=== PATIENT | female | born 1950 | race Caucasian/White ===

== ENCOUNTER 2016-10-14 14:24 | Observation (INO) | payer OTHER, MEDICAID ==
[2016-10-14 14:43] VITALS: BMI 60.2
[2016-10-14] MEDS ORDERED: NITROSTAT SL PRN (15:16)
--- NOTE | 2016-10-14 15:25 | DR.GENAD ---
HPI - PCP Primary Care Physician: BETTY - HPI Comment HPI Comment: WAS WEAK, DIZZY AND HYPOTENSIVE AT HOME AND WAS HAVING CHEST PAIN. NO FEVER. PAIN PRECORDIAL AREA. PAIN ASSOCIATED WITH WEAKNESS, SOB AND NAUSEA. NO FEVER. - Complaint/Symptoms Chief Complaint Doctors Comments: CHEST PATIENT, HYPOTENSION. Chief Complaint:: PT C/O HER BLOOD PRESSURE BOTTOMED OUT AND SHE STARTED HAVING CHEST PAIN AND SOB. PT STATES SHE IS NOT HAVING THE PAINS ANY MORE SHE IS JUST REALLY TIRED FEELING. - Nurses notes reviewed Nurses Notes Review: Yes - Source History Provided: Patient, EMS - Mode of Arrival Mode of Arrival: EMS - Timing Onset of Chief Complaint: 10/14/16 Came on: Suddenly - Duration Duration: Since Onset Duration: Hours - Severity Severity: Moderate PMH - PMH Past Medical History: Yes Past Medical History: Diabetes, GERD, Hypertension Past Surgical History: Yes Surgical History: Abdominal Surgery, Cholecystectomy, Hysterectomy, Ortho Surgery - Family History History of Family Medical Conditions: Yes Family Medical History: Diabetes Mellitus, Cancer, Coronary Artery Disease, Hypertension - Social History Does any household member use tobacco: No Alcohol Use: None Do you use any recreational Drugs:: No Lives With: Family Lives Where: Home - infectious screening In the last 2 months have you had wt loss of >10#?: NO Have you had fever, night sweats or hemotysis?: No Have you traveled outside the country in the last 6 months?: No Isolation: Standard ROS - Review of Systems Constitutional: Weakness, Fatigue. negative: Chills, Diaphoresis, Fever Eyes: negative: Eye Pain, Discharge ENTM: negative: Ear Pain, Nose Discharge, Nose Congestion, Throat Pain Respiratoy: Non-Productive Cough, Short of Breath. negative: Productive Cough, Wheezing, Hemoptysis Cardiovascular: Chest Pain, Edema Gastrointestinal/Abdominal: No Symptoms Reported. negative: Diarrhea, Nausea, Vomiting Genitourinary: No Symptoms Reported. negative: Dysuria, Frequency, Hematuria Neurological: Weakness. negative: Headache, Dizziness Musculoskeletal: Muscle Pain Integumentary: Other (EDEMA) Hematologic/Lymphatic: Easy Bruising Endocrine: No Symptoms Reported All Other Systems: Reviewed and Negative PE - Vital Signs Vitals: Temperature 98.7 F Pulse Rate 87 Respiratory Rate 20 Blood Pressure [Left Arm] 177/59 Blood Pressure [Right Arm] 124/47 Blood Pressure 140/61 O2 Sat by Pulse Oximetry 96 - General Limitations: No Limitations General Appearance: Alert - Head Head Exam: Normal Inspection - Eyes Eye exam: Normal Appearance - ENT ENT Exam: Normal External Ear Exam External Ear Exam: Normal External Inspection TM/Canal Exam: Bilateral Normal Nose Exam: Normal Nose Exam Mouth Exam: Normal Inspection Throat Exam: Normal Inspection - Neck Neck Exam: Normal Inspection - Chest Chest Inspection: Symmetric Chest Wall Rise - Respiratory Respiratory Exam: Normal Lung Sounds Bilat Respiratory Exam: Bilateral Clear to Auscultation - Cardiovascular Cardiovascular Exam: Regular Rate, Normal Rhythm, Normal Heart Sounds - Abdominal Exam Abdominal Exam: Normal Bowel Sounds, Soft. negative: Tenderness - Extremities Extremities Exam: Normal Inspection - Back Back Exam: Normal Inspection - Neurologic Neurological Exam: Alert, Oriented X3, CN II-XII Intact, Reflexes Normal. negative: Motor Sensory Deficit - Psychiatric Psychiatric Exam: Normal Affect, Normal Mood - Skin Skin Exam: Normal Color MDM - Additional Information Additional Information Obtained From: Family - Differential Diagnosis Differential Diagnosis: CHEST PAIN, HYPOTENSION, [place], ANGINA Course - Treatment Treatment: SEE ORDERS - Consultation Consultation Comments: PATIENT DISCUSS WITH DR. MEEKS. HE WILL ADMIT PATIENT. - Education/Counseling Education/Counseling: Patient, Family, Education Educated On: Treatment, Diagnosis ROR - Labs Reviewed Laboratory Results Reviewed?: Yes Result Diagrams: 10/15/16 04:55 10/15/16 04:55 - XRAY XRAY Interpreted by: Radiologist XRAY Findings: REPORT DISCUSS WITH PATIENT. - EKG Rhythm: NSR (EKG NOTED) - Diagnosis Discharge Problem: Chest pain Qualifiers: Chest pain type: precordial pain Qualified Code(s): R07.2 - Precordial pain Hypotension Qualifiers: Hypotension type: other hypotension type Qualified Code(s): I95.89 - Other hypotension - Discharge Plan Disposition: ADMITTED INPATIENT Condition: Stable - Follow ups/Referrals - Instructions
[2016-10-14 15:42] LABS: BASOPHILS # (AUTO) 0.1 X10^3/uL (0.0-0.1); BASOPHILS % (AUTO) 0.9 % (0.2-1.0); EOSINOPHILS # (AUTO) 0.2 x10^3/uL (0.0-0.2); EOSINOPHILS % (AUTO) 1.9 % (0.9-2.9); HEMOGLOBIN 10.1 g/dL (12.0-16.0); LYMPHOCYTES # (AUTO) 1.6 X10^3/uL (1.3-2.9); LYMPHOCYTES % (AUTO) 12.5 % (21.0-51.0); MEAN CORPUSCULAR HEMOGLOBIN 26.2 pg (27.0-34.0); MEAN CORPUSCULAR HGB CONC 32.7 g/dL (33.0-35.0); MEAN CORPUSCULAR VOLUME 80.1 fL (80.0-100.0); MONOCYTES # (AUTO) 0.6 x10^3/uL (0.3-0.8); MONOCYTES % (AUTO) 4.8 % (0.0-13.0); NEUTROPHILS # (AUTO) 10.2 x10^3/uL (2.2-4.8); NEUTROPHILS % (AUTO) 79.9 % (42.0-75.0); PLATELET COUNT 279 X10^3/uL (150.0-450.0); RED BLOOD COUNT 3.87 X10^6/uL (3.5-5.4); RED CELL DISTRIBUTION WIDTH 16.9 % (11.6-16.5); WHITE BLOOD COUNT 12.7 X10^3/uL (3.6-10.0)
[2016-10-14 15:59] LABS: B-TYPE NATRIURETIC PEPTIDE 11.3 pg/mL (0-79)
[2016-10-14 16:04] LABS: BLOOD UREA NITROGEN 36 mg/dL (7-18); CALCIUM 8.5 mg/dL (8.5-10.1); CARBON DIOXIDE 27.8 mmol/L (21-32); CHLORIDE 100 mmol/L (98-107); COR NA(FOR HYPERGLY) 139 mmol/L (136-145); CREATININE 2.15 mg/dL (0.55-1.02); GLUCOSE 263 mg/dL (65-99); SODIUM 135 mmol/L (136-145); TROPONIN I < 0.02 ng/mL (0-1.5); eGFR BLACK RACES 30 (>60); eGFR NON BLACK RACES 25 (>60)
[2016-10-14 16:08] LABS: ALANINE AMINOTRANSFERASE 25 Units/L (12-78); ALBUMIN 2.8 g/dL (3.4-5.0); ALKALINE PHOSPHATASE 102 Units/L (46-116); ASPARTATE AMINO TRANSFERASE 25 Units/L (15-37); CKMB % 2.3 % (<4); COR CA(FOR HYPOALB) 9.5 mg/dL (8.5-10.1); CREATINE KINASE 95 Units/L (26-192); CREATINE KINASE MB 2.2 ng/mL (0-4.0); TOTAL PROTEIN 7.4 g/dL (6.4-8.2)
--- NOTE | 2016-10-14 16:09 | RAD ---
HISTORY: Chest pain. Shortness of breath. Study: Chest one view Comparison: July 08, 2016. Findings: The trachea is midline. The cardiac silhouette is enlarged. There is central pulmonary vascular co ngestion. The lungs are clear without focal infiltrate or effusion. The bony thorax is unremarkable . IMPRESSION: 1. Cardiomegaly with central pulmonary vascular congestion. No significant interstitial edema is no karena at this time. Reported By:
[2016-10-14] MEDS ORDERED: LASIX PO PRN (17:12)
[2016-10-14] MEDS ORDERED: HumuLIN R SUBCUT PRN (19:22)
[2016-10-14] MEDS: NORCO 10/325 TAB PO PRN (20:27)
[2016-10-14] MEDS: PROTONIX TAB 40 MG PO SCH (20:27)
[2016-10-14] MEDS: ZOCOR TAB 20 MG PO SCH (20:29)
[2016-10-14] MEDS: PLETAL PO SCH (20:29)
[2016-10-14] MEDS: SNACK - Diabetic Appropriate PO SCH (21:17)
[2016-10-14] MEDS: OXYMORPHONE HCL PO SCH (21:18)
[2016-10-14] MEDS: REQUIP PO SCH (21:18)
[2016-10-14] MEDS: NS 1000 ML 1,000 ML IV SCH (21:19)
[2016-10-14] MEDS ORDERED: ROPINIROLE HYDROCHLORIDE PO SCH (22:00)
[2016-10-14 22:08] LABS: CKMB % 1.7 % (<4); CREATINE KINASE 85 Units/L (26-192); CREATINE KINASE MB 1.4 ng/mL (0-4.0); TROPONIN I < 0.02 ng/mL (0-1.5)
[2016-10-15] MEDS: REQUIP PO SCH ×3 (05:23→21:10)
[2016-10-15 06:11] LABS: ALANINE AMINOTRANSFERASE 22 Units/L (12-78); ALBUMIN 2.4 g/dL (3.4-5.0); ALKALINE PHOSPHATASE 86 Units/L (46-116); ASPARTATE AMINO TRANSFERASE 23 Units/L (15-37); BLOOD UREA NITROGEN 36 mg/dL (7-18); CALCIUM 8.3 mg/dL (8.5-10.1); CARBON DIOXIDE 26.5 mmol/L (21-32); CHLORIDE 103 mmol/L (98-107); CHOL/HDL RATIO 4.7 (0.0-5.0); CHOLESTEROL 112 mg/dL (0-200); CKMB % 1.7 % (<4); COR CA(FOR HYPOALB) 9.6 mg/dL (8.5-10.1); COR NA(FOR HYPERGLY) 137 mmol/L (136-145); CREATINE KINASE 72 Units/L (26-192); CREATINE KINASE MB 1.2 ng/mL (0-4.0); CREATININE 2.08 mg/dL (0.55-1.02); GLUCOSE 157 mg/dL (65-99); HDL CHOLESTEROL 24 mg/dL (40-60); SODIUM 136 mmol/L (136-145); TOTAL PROTEIN 6.5 g/dL (6.4-8.2); TRIGLYCERIDES 97 mg/dL (0-150); TROPONIN I < 0.02 ng/mL (0-1.5); eGFR BLACK RACES 31 (>60); eGFR NON BLACK RACES 25 (>60)
[2016-10-15 06:24] LABS: BASOPHILS # (AUTO) 0.1 X10^3/uL (0.0-0.1); BASOPHILS % (AUTO) 0.6 % (0.2-1.0); EOSINOPHILS # (AUTO) 0.3 x10^3/uL (0.0-0.2); EOSINOPHILS % (AUTO) 2.8 % (0.9-2.9); HEMATOCRIT 28.3 % (36.0-47.0); HEMOGLOBIN 9.4 g/dL (12.0-16.0); LYMPHOCYTES # (AUTO) 1.9 X10^3/uL (1.3-2.9); LYMPHOCYTES % (AUTO) 17.7 % (21.0-51.0); MEAN CORPUSCULAR HEMOGLOBIN 26.6 pg (27.0-34.0); MEAN CORPUSCULAR HGB CONC 33.1 g/dL (33.0-35.0); MEAN CORPUSCULAR VOLUME 80.2 fL (80.0-100.0); MEAN PLATELET VOLUME 9.3 fL (7.4-11.0); MONOCYTES # (AUTO) 0.7 x10^3/uL (0.3-0.8); MONOCYTES % (AUTO) 6.4 % (0.0-13.0); NEUTROPHILS # (AUTO) 7.7 x10^3/uL (2.2-4.8); NEUTROPHILS % (AUTO) 72.5 % (42.0-75.0); PLATELET COUNT 267 X10^3/uL (150.0-450.0); RED BLOOD COUNT 3.53 X10^6/uL (3.5-5.4); RED CELL DISTRIBUTION WIDTH 16.7 % (11.6-16.5); WHITE BLOOD COUNT 10.6 X10^3/uL (3.6-10.0)
[2016-10-15] MEDS ORDERED: PATIENT'S HOME MEDICATION (Rivaroxaban [Xarelto] 1 TAB) PO SCH (09:00)
[2016-10-15] MEDS: SYNTHROID 75 mcg TAB PO SCH (10:03)
[2016-10-15] MEDS: TOUJEO SOLOSTAR PEN SC SCH (10:03)
[2016-10-15] MEDS: XARELTO PO SCH (10:04)
[2016-10-15] MEDS: PROTONIX TAB 40 MG PO SCH ×2 (10:04→21:12)
[2016-10-15] MEDS: PLETAL PO SCH ×2 (10:04→21:16)
[2016-10-15] MEDS: GLUCOTROL XL PO SCH (10:04)
[2016-10-15] MEDS: SINGULAIR TAB 10 MG PO SCH (10:04)
[2016-10-15] MEDS: OXYMORPHONE HCL PO SCH ×2 (10:05→21:15)
[2016-10-15] MEDS: NS 1000 ML 1,000 ML IV SCH ×3 (10:22→15:05)
[2016-10-15] MEDS ORDERED: OxyCONTIN CR 30 MG PO PRN (11:29)
[2016-10-15] MEDS ORDERED: NORCO 10/325 TAB PO PRN (11:29)
[2016-10-15] MEDS ORDERED: OXYMORPHONE HCL 15 MG PO SCH (11:30)
[2016-10-15] MEDS ORDERED: PATIENT'S HOME MEDICATION (Losartan Potassium [Losartan Potassium] 1 TAB) PO SCH (11:30)
[2016-10-15] MEDS ORDERED: LOPRESSOR TAB 25 MG PO SCH (12:00)
[2016-10-15] MEDS ORDERED: COZAAR PO SCH (12:00)
[2016-10-15] MEDS: NORCO 10/325 TAB PO PRN (14:37)
[2016-10-15] MEDS ORDERED: ALBUMIN HUMAN 25%- 100ML 100 ML IV ONE ×3 (15:56→17:00)
--- NOTE | 2016-10-15 16:03 | DR.H&P ---
H&P - History & Physical for Day of: H&P Date: 10/14/16 - Chief Complaint Chief Complaint: Chest Pain, Hypotension, Shortness of Breath, Weakness - Allergies Allergies/Adverse Reactions: Allergies Allergy/AdvReac Type Severity Reaction Status Date / Time Propoxyphene [From Darvon] Allergy Unknown Verified 10/14/16 17:50 Bacitracin [From Neosporin] Allergy Verified 10/14/16 17:50 Hydrochlorothiazide Allergy Verified 10/14/16 17:50 [From Hyzaar] Latex Allergy Verified 10/14/16 17:50 - History of Present Illness History of Present Illness: Patient is a 66yo white female who presented to the emergency room with complaints of weakness, dizziness and hypotensive at home as well as chest pain. Upon arrival vital signs were 98.7, 87, 20, 96% on RA and 140/61. Labs were within normal limits with the exception of WBC 12.7, Hgb 10.1, Hct 31.0, MCH 26.2, MCHC 32.7, RDW 16.9, Neut% 79.9, Lymph% 12.5, Neut# 10.2, Sodium 135, BUN 36, Creatinine 2.15, Est GFR 25, Glucose 263, Albumin 2.8 , Globulin 4.6, Albumin/Globulin Ratio 0.6. Cardiac enzymes within normal limits as well as EKG. Chest Xray showed cardiomegaly with central pulmonary vascular congestion. No significant interstitial edema is noted at this time. Patient admitted with diagnosis of chest pain and hypotension for futher observation. Patient was started on NS @ [facility] as well as dher home medications were resumed with the exception of Lopressor and cozaar. - Past Medical History Past Medical History: Anemia, Arthritis, Depression, Diabetes, Dyslipidemia, GERD, Hypertension, Hypothyroidism, Renal Disease - Past Surgical History Surgical History: Abdominal Surgery, Cholecystectomy, Hysterectomy, Ortho Surgery - Family History Family Medical History: Diabetes Mellitus, Cancer, Coronary Artery Disease, Hypertension - Social History Does patient currently use any type of tobacco product: No Have you used tobacco products in the last 12 months: No Type of Tobacco Use: Cigarettes Does any household member use tobacco: No Alcohol Use: None Drug Use: None - Medications Home Medications: Current Medications Acetaminophen/Hydrocodone Bitart ([place] 10/325 Tab) 1 tab PO Q8H PRN PRN Reason: PAIN Last Admin: 10/15/16 14:37 Dose: 1 tab Cilostazol (Pletal) 50 mg PO BID [facility] Last Admin: 10/15/16 10:04 Dose: 50 mg Furosemide (Lasix) 40 mg PO BID PRN PRN Reason: SWELLING Glipizide (Glucotrol Xl) 5 mg PO DAILY [facility] Last Admin: 10/15/16 10:04 Dose: 5 mg Home Med (Oxymorphone Hcl [Opana Er (Crush Resistant]) 1 tab PO BID [facility] Last Admin: 10/15/16 10:05 Dose: 1 tab Insulin Glargine (Toujeo Solostar Pen) 60 units SC DAILY [facility] Last Admin: 10/15/16 10:03 Dose: 60 units Levothyroxine Sodium (Synthroid 75 Mcg Tab) 75 mcg PO DAILY [facility] Last Admin: 10/15/16 10:03 Dose: 75 mcg Miscellaneous (Otbs (One-Touch Blood Sugar)) 1 ea XX ACHS [facility] Last Admin: 10/15/16 11:37 Dose: 1 ea Montelukast Sodium (Singulair Tab 10 Mg) 10 mg PO DAILY [facility] Last Admin: 10/15/16 10:04 Dose: 10 mg Pantoprazole Sodium (Protonix Tab 40 Mg) 40 mg PO BID [facility] Last Admin: 10/15/16 10:04 Dose: 40 mg Rivaroxaban (Xarelto) 20 mg PO DAILY [facility] Last Admin: 10/15/16 10:04 Dose: 20 mg Ropinirole HCl (Requip) 3 mg PO TID [facility] Last Admin: 10/15/16 14:33 Dose: 3 mg Simvastatin (Zocor Tab 20 Mg) 20 mg PO HS [facility] Last Admin: 10/14/16 20:29 Dose: 20 mg - Review of Systems Constitutional: Weakness Eyes: No Symptoms Reported ENT: No Symptoms Reported Respiratory: Cough, Shortness of Breath Cardiovascular: Chest Pain, Edema, Light Headedness Gastrointestinal: No Symptoms Reported Genitourinary: No Symptoms Reported Musculoskeletal: No Symptoms Reported Skin: No Symptoms Reported Neurological: Weakness - Physical Exam Vital Signs: 98.7, 87, 20, 96% on RA and 140/61. Oriented: Normal Eyes: Normal Ear: Normal Nose: Normal Throat: Normal Respiratory: RLL Rales, LLL Rales Cardiovascular: Normal : Normal Auscultation: Bowel Sounds: Normal Palpation: Normal Tenderness: Normal Skin: Normal Musculoskeletal: Normal Psychiatric: Normal Mood Description: Calm, Appropriate Affect: Normal Speech Pattern: Clear, Appropriate - Assessment/Plan (1) Chest pain Qualifiers: Chest pain type: precordial pain Ischemic chest pain type: I Qualified Code(s): R07.2 - Precordial pain Status: Acute Plan: nitroglycerin SL PRN, Continuous cardiac monitoring, serial cardiac enzymes and EKG (2) Hypotension Qualifiers: Hypotension type: other hypotension type Trimester: T Qualified Code(s): I95.89 - Other hypotension Status: Acute Plan: hold patient home medicines lopressor and coozar (3) Generalized weakness Status: Acute Plan: physical therapy (4) Renal failure Qualifiers: Renal failure chronicity: R Acute renal failure type: A Chronic kidney disease stage: C Status: Acute Plan: monitor (5) Diabetes Qualifiers: Diabetes mellitus type: D Diabetes mellitus complication status: D Diabetes mellitus complication detail: D Diabetic retinopathy severity: D Proliferative retinopathy type: P Diabetes mellitus macular edema: D Diabetes mellitus prison insulin use: D Laterality: L Chronic kidney disease stage: C Status: Chronic Plan: continue Toujeo and glipizide OTBS ACHS and regular insulin sliding scale PRN hyperglycemia (6) GERD (gastroesophageal reflux disease) Qualifiers: Esophagitis presence: E Status: Chronic Plan: continue protonix (7) Hyperlipidemia Qualifiers: Hyperlipidemia type: H Status: Chronic Plan: monitor (8) Hypothyroidism Qualifiers: Hypothyroidism type: H Status: Chronic Plan: continue synthroid
--- NOTE | 2016-10-15 16:14 | PCM.PROG ---
Progress Note - Progress Note for Day of Date: 10/15/16 - Subjective Subjective: Patient is a 66yo white female who was admitted with chestpain and hypotension. Patient vital signs continue to remain stable with this ams vital signs being 98.4, 80, 22, 94% on nasal cannla, 91/44. Labs within normal limits with the exception of WBC 10.6, Hgb 9.4, Hct 28.3, MCH 26.6, RDW 16.7, Lymph% 17.7, Neut# 7.7, Eos# 0.3, BUN 36, Creatinine 2.08, Est GFR 25, Glucose 157, Calcium 8.3, Albumin 2.4, Albumin/Globulin Ration 0.6, HDL Cholestrol 24. Cardiac enzymes within normal limits as well as EKG. We are going to continue to hold her blood pressure medications and increase her fluids to 75ml/hr and give 2 doses of albumin today and follow up with her in the am with repeat labs and chest xray - Past Medical Family Social History Past Med/Fam/Surg Hx: No changes since H&P Allergies: Allergies Propoxyphene [From Darvon] Allergy (Unknown, Verified 10/14/16 17:50) Bacitracin [From Neosporin] Allergy (Verified 10/14/16 17:50) Hydrochlorothiazide [From Hyzaar] Allergy (Verified 10/14/16 17:50) Latex Allergy (Verified 10/14/16 17:50) - Review of Systems ROS: No change since H&P - Vital Signs and I&O's Vital Signs: 98.4, 80, 22, 94% on nasal cannla, 91/44 Intake and Output: Intake & Output 10/13/16 10/14/16 10/15/16 10/16/16 11:59 11:59 11:59 11:59 Intake Total 389 920 Balance 389 920 - Physical Exam Oriented: Normal Eyes: Normal Ear: Normal Nose: Normal Throat: Normal Respiratory: Rales Cardiovascular: Normal : Normal Auscultation: Bowel Sounds: Normal Tenderness: Normal Skin: Normal Musculoskeletal: Normal Psychiatric: Normal Mood Description: Calm, Appropriate Affect: Normal Speech Pattern: Clear, Appropriate - Laboratory and Diagnostics Result Diagrams: 10/15/16 04:55 10/15/16 04:55 Labs: Laboratory WBC 10.6 X10^3/uL (3.6-10.0) H 10/15/16 04:55 RBC 3.53 X10^6/uL (3.5-5.4) 10/15/16 04:55 Hgb 9.4 g/dL (12.0-16.0) L 10/15/16 04:55 Hct 28.3 % (36.0-47.0) L 10/15/16 04:55 MCV 80.2 fL (80.0-100.0) 10/15/16 04:55 MCH 26.6 pg (27.0-34.0) L 10/15/16 04:55 MCHC 33.1 g/dL (33.0-35.0) 10/15/16 04:55 RDW 16.7 % (11.6-16.5) H 10/15/16 04:55 Plt Count 267 X10^3/uL (150.0-450.0) 10/15/16 04:55 MPV 9.3 fL (7.4-11.0) 10/15/16 04:55 Neut % 72.5 % (42.0-75.0) 10/15/16 04:55 Lymph % 17.7 % (21.0-51.0) L 10/15/16 04:55 [place] % 6.4 % (0.0-13.0) 10/15/16 04:55 Eos % 2.8 % (0.9-2.9) 10/15/16 04:55 Baso % 0.6 % (0.2-1.0) 10/15/16 04:55 Neut # 7.7 x10^3/uL (2.2-4.8) H 10/15/16 04:55 Lymph # 1.9 X10^3/uL (1.3-2.9) 10/15/16 04:55 [place] # 0.7 x10^3/uL (0.3-0.8) 10/15/16 04:55 Eos # 0.3 x10^3/uL (0.0-0.2) H 10/15/16 04:55 Baso # 0.1 X10^3/uL (0.0-0.1) 10/15/16 04:55 Absolute Nucleated RBC 0.0 /100WBC 10/15/16 04:55 Sodium 136 mmol/L (136-145) 10/15/16 04:55 Corrected Sodium 137 mmol/L (136-145) 10/15/16 04:55 Potassium 4.0 mmol/L (3.5-5.1) 10/15/16 04:55 Chloride 103 mmol/L (98-107) 10/15/16 04:55 Carbon Dioxide 26.5 mmol/L (21-32) 10/15/16 04:55 BUN 36 mg/dL (7-18) H 10/15/16 04:55 Creatinine 2.08 mg/dL (0.55-1.02) H 10/15/16 04:55 Est GFR (MDRD) Af Amer 31 (>60) L 10/15/16 04:55 Est GFR (MDRD) Non-Af 25 (>60) L 10/15/16 04:55 Glucose 157 mg/dL (65-99) H 10/15/16 04:55 Calcium 8.3 mg/dL (8.5-10.1) L 10/15/16 04:55 Corrected Calcium 9.6 mg/dL (8.5-10.1) 10/15/16 04:55 Total Bilirubin 0.40 mg/dL (0.2-1.0) 10/15/16 04:55 AST 23 Units/L (15-37) 10/15/16 04:55 ALT 22 Units/L (12-78) 10/15/16 04:55 Alkaline Phosphatase 86 Units/L (46-116) 10/15/16 04:55 Creatine Kinase 72 Units/L (26-192) 10/15/16 04:55 CK-MB (CK-2) 1.2 ng/mL (0-4.0) 10/15/16 04:55 CK/CKMB % Calc 1.7 % (<4) 10/15/16 04:55 Troponin I < 0.02 ng/mL (0-1.5) 10/15/16 04:55 B-Natriuretic Peptide 11.3 pg/mL (0-79) 10/14/16 15:35 Total Protein 6.5 g/dL (6.4-8.2) 10/15/16 04:55 Albumin 2.4 g/dL (3.4-5.0) L 10/15/16 04:55 Globulin 4.1 g/dL (2.5-4.5) 10/15/16 04:55 Albumin/Globulin Ratio 0.6 Ratio (1.1-2.1) L 10/15/16 04:55 Triglycerides 97 mg/dL (0-150) 10/15/16 04:55 Cholesterol 112 mg/dL (0-200) 10/15/16 04:55 LDL Cholesterol, Calc 69 mg/dL (0-100) 10/15/16 04:55 HDL Cholesterol 24 mg/dL (40-60) L 10/15/16 04:55 Cholesterol/HDL Ratio 4.7 (0.0-5.0) 10/15/16 04:55 - Plan (1) Chest pain Status: Acute Qualifiers: Chest pain type: precordial pain Ischemic chest pain type: I Qualified Code(s): R07.2 - Precordial pain Plan: nitroglycerin SL PRN, Continuous cardiac monitoring, serial cardiac enzymes and EKG (2) Hypotension Status: Acute Qualifiers: Hypotension type: other hypotension type Trimester: T Qualified Code(s): I95.89 - Other hypotension Plan: hold patient home medicines lopressor and coozar (3) Generalized weakness Status: Acute Plan: physical therapy (4) Renal failure Status: Acute Qualifiers: Renal failure chronicity: R Acute renal failure type: A Chronic kidney disease stage: C Plan: monitor (5) Diabetes Status: Chronic Qualifiers: Diabetes mellitus type: D Diabetes mellitus complication status: D Diabetes mellitus complication detail: D Diabetic retinopathy severity: D Proliferative retinopathy type: P Diabetes mellitus macular edema: D 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
[2016-10-15] MEDS: SNACK - Diabetic Appropriate PO SCH (20:00)
[2016-10-15] MEDS: ZOCOR TAB 20 MG PO SCH (21:12)
[2016-10-16] MEDS: NORCO 10/325 TAB PO PRN (03:01)
[2016-10-16] MEDS ORDERED: REQUIP PO ONE (05:32)
[2016-10-16] MEDS: REQUIP PO SCH (05:37)
[2016-10-16 05:59] LABS: BASOPHILS # (AUTO) 0.1 X10^3/uL (0.0-0.1); BASOPHILS % (AUTO) 0.7 % (0.2-1.0); EOSINOPHILS # (AUTO) 0.3 x10^3/uL (0.0-0.2); EOSINOPHILS % (AUTO) 3.4 % (0.9-2.9); HEMATOCRIT 30.2 % (36.0-47.0); HEMOGLOBIN 9.9 g/dL (12.0-16.0); LYMPHOCYTES % (AUTO) 23.4 % (21.0-51.0); MEAN CORPUSCULAR HEMOGLOBIN 26.3 pg (27.0-34.0); MEAN CORPUSCULAR HGB CONC 32.7 g/dL (33.0-35.0); MEAN CORPUSCULAR VOLUME 80.5 fL (80.0-100.0); MEAN PLATELET VOLUME 9.3 fL (7.4-11.0); MONOCYTES # (AUTO) 0.7 x10^3/uL (0.3-0.8); MONOCYTES % (AUTO) 8.2 % (0.0-13.0); NEUTROPHILS # (AUTO) 5.4 x10^3/uL (2.2-4.8); NEUTROPHILS % (AUTO) 64.3 % (42.0-75.0); PLATELET COUNT 267 X10^3/uL (150.0-450.0); RED BLOOD COUNT 3.75 X10^6/uL (3.5-5.4); RED CELL DISTRIBUTION WIDTH 16.5 % (11.6-16.5); WHITE BLOOD COUNT 8.5 X10^3/uL (3.6-10.0)
--- NOTE | 2016-10-16 05:59 | RAD ---
HISTORY: Chest pain Study: Chest one view Comparison: October 14, 2016 Findings: The trachea is midline. The cardiac silhouette is enlarged. No congestive heart failure is noted. T he aorta is calcified.. The lungs are clear without focal infiltrate or effusion. The bony thorax is unremarkable. IMPRESSION: 1. Cardiomegaly without congestive heart failure 2. Lungs clear Reported By:
[2016-10-16 06:30] LABS: ALBUMIN 3.1 g/dL (3.4-5.0); C-REACTIVE PROTEIN 52.1 mg/L (0-3.0); CALCIUM 8.5 mg/dL (8.5-10.1); CARBON DIOXIDE 24.3 mmol/L (21-32); COR CA(FOR HYPOALB) 9.2 mg/dL (8.5-10.1); CREATININE 1.99 mg/dL (0.55-1.02); TOTAL PROTEIN 7.3 g/dL (6.4-8.2)
[2016-10-16 06:56] LABS: ERYTHROCYTE SEDIMENTATION RATE 70 MM/HOUR (0-20)
[2016-10-16] MEDS: PROTONIX TAB 40 MG PO SCH (09:19)
[2016-10-16] MEDS: XARELTO PO SCH (09:19)
[2016-10-16] MEDS: SYNTHROID 75 mcg TAB PO SCH (09:19)
[2016-10-16] MEDS: SINGULAIR TAB 10 MG PO SCH (09:19)
[2016-10-16] MEDS: TOUJEO SOLOSTAR PEN SC SCH (09:20)
[2016-10-16] MEDS: GLUCOTROL XL PO SCH (09:20)
[2016-10-16] MEDS: PLETAL PO SCH (09:20)
[2016-10-16] MEDS: OXYMORPHONE HCL PO SCH (09:21)
--- NOTE | 2016-10-16 09:27 | DR.CARTERD ---
- Discharge Summary for: Discharge Summary for Date of:: 10/16/16 - Admission Date Date of Admission: 10/14/16 - Admission Diagnoses Admission Diagnosis: Chest Pain. Hypotension. Arthritis. Depression. Diabetes Mellitus type 2. GERD. Renal Disease. Hypothyroidism - Discharge Date Discharge Date: 10/16/16 - Discharge Diagnoses Discharge Diagnosis: Chest Pain Hypotension Arthritis Depression Diabetes Mellitus type 2 GERD Renal Disease Hypothyroidism - Hospital Course Hospital Course: Patient is a 66yo white female who presented to the emergency room with complaints of shortness of breath, chest pain and hypotension at home. Patient was admitted for observation with the diagnosis of chest and hypotension. Patient was started on IV Fluids and home medications were resumed with the exception of her Lopressor and losartan. Pateint was placed on continuous cardiac monitoring and serial cardiac enzymes and EKGs were performed. Patient was also noted to have some hypoalbuminemia with an albumin of 2.4 so she was given 2 doses of IV Albumin. This am Labs are within normal limits with the exception of Hgb 9.9, Hct 30.2, MCH 26.3, MCHC 32.7, Eos% 3.4, Neut# 5.4, Eos# 0.3, ESR 70, BUN 34, Creatinine 1.99, Est GFR 27, Glucose 162, CRP 52.10, Albumin 3.1, Albumin/Globulin Ratio 0.1. chest Xray shows cardiomegaly without CHF and lungs are clear. Vital signs this am are 98.1, 102, 20, 97% on RA, and 151/67. Labs: Labs are within normal limits with the exception of Hgb 9.9, Hct 30.2, MCH 26.3 , MCHC 32.7, Eos% 3.4, Neut# 5.4, Eos# 0.3, ESR 70, BUN 34, Creatinine 1.99, Est GFR 27, Glucose 162, CRP 52.10, Albumin 3.1, Albumin/Globulin Ratio 0.1. - Discharge Medications Discharge Medications: [place] 10/325 1 tab PO Q8H PRN, Pletal 50 mg PO BID, Lasix 40 mg PO BID PRN, Glipizide 5 mg PO DAILY, Opana Er 15mg PO BID [facility], Touchano Solostar Pen 60 units SC DAILY, Synthroid 75 mcg PO DAILY, Singulair 10 mg PO DAILY, Protonix 40 mg PO BID, Xarelto 20 mg PO DAILY, Ropinirole HCl 3 mg PO TID , Simvastatin 20 mg PO HS, Diflucan 150mg PRN, Lispro sliding scale, Lopressor 12.5mg PO BID, Oxycodone 30mg PO Q6hr PRN, Cilostazol [PLETAL tab 100 mg *] 50 mg PO BID 10/14/16 [History] Fluconazole [DIFLUCAN TAB 150 MG *] 1 tab PO PRN PRN 10/14/16 [History] Hydrocodone-Acet 10/325 mg [NORCO 10 MG/325 MG *] 1 tab PO TID PRN 10/14/16 [ History] Insulin Glargine (Toujeo) [Toujeo Solostar Pen] 60 units SC DAILY 10/14/16 [ History] Insulin Lispro (Humalog) [HumaLOG INSULIN 10 ML VIAL *] 0 units SC .PERSLIDINGSCALE 10/14/16 [History] Oxycodone HCl [Oxycontin] 1 tab PO Q6H PRN 10/14/16 [History] Oxymorphone HCl [Opana] 15 mg PO BID 10/14/16 [History] - Discharge Disposition Discharge Disposition: Home
[2016-10-16 10:49] VITALS: BP 111/53
== END 2016-10-16 10:40 | disposition home health service (06) ==
LOC: ER 14:29 → MED/SURG 17:07
PROVIDERS: ADMIT Obstetrics & Gynecology Obstetrics; ATTEND Internal Medicine
DX: R07.2 Precordial pain (principal); R07.89 Other chest pain; I95.89 Other hypotension; R06.02 Shortness of breath; R53.1 Weakness; K21.9 Gastro-esophageal reflux disease without esophagitis; I10 Essential (primary) hypertension; M13.89 Other specified arthritis, multiple sites; F32.89 Other specified depressive episodes; E11.65 Type 2 diabetes mellitus with hyperglycemia; E03.8 Other specified hypothyroidism; N19 Unspecified kidney failure; I51.7 Cardiomegaly; D72.828 Other elevated white blood cell count; D64.89 Other specified anemias
CPT/HCPCS: 36415; 71010; 80053; 80061; 82550; 82553; 83880; 84484; 85025; 85652; 86140; 93005; 94760; 99284; A4222; G8978; G8979; P9047; G0378; J1815

== ENCOUNTER 2016-10-22 22:21 | Observation (INO) | payer OTHER, MEDICAID ==
--- NOTE | 2016-10-22 23:10 | DR.GENAD ---
HPI - PCP Primary Care Physician: BETTY - HPI Comment HPI Comment: PATIENT HAVE COPD AND CHF. WAS RECENTLY IN HOSPITAL. PATIENT DISCHARGE HOME ON . SHE STARTED HAVING PROGRESSIVE SOB THAT HAVE GOTTEN WORSE.SHE SAID IT MAY BE DUE TO CHANGE IN WEATHER, SHE ALSO HAVE CHEST TIGHTNESS. SHE TOLD EMS SHE NEEDED OXYGEN. PATIENT DO NOT HAVE HOME OXYGEN. - Complaint/Symptoms Chief Complaint Doctors Comments: INCREASING SOB, CHEST PAIN AND BODY ACHES TIMES 3 DAYS. Chief Complaint:: PT C/O SOB AND WHEEZING - Nurses notes reviewed Nurses Notes Review: Yes - Source History Provided: Patient - Mode of Arrival Mode of Arrival: EMS - Timing Onset of Chief Complaint: 10/20/16 Came on: Gradually - Duration Duration: Constant Duration: Days - Severity Severity: Moderate PMH - PMH Past Medical History: Yes Past Medical History: Anemia, Arthritis, Depression, Diabetes, Dyslipidemia, GERD, Hypertension, Hypothyroidism, Renal Disease Past Surgical History: Yes Surgical History: Abdominal Surgery, Cholecystectomy, Hysterectomy, Ortho Surgery - Family History History of Family Medical Conditions: Yes Family Medical History: Diabetes Mellitus, Cancer, Coronary Artery Disease, Hypertension - Social History Does patient currently use any type of tobacco product: No Have you used tobacco products in the last 12 months: No Does any household member use tobacco: No Alcohol Use: None Do you use any recreational Drugs:: No Lives With: Family Lives Where: Home - infectious screening In the last 2 months have you had wt loss of >10#?: NO Have you had fever, night sweats or hemotysis?: No Have you traveled outside the country in the last 6 months?: No Isolation: Standard ROS - Review of Systems Constitutional: Malaise, Weakness, Fatigue, Loss of Appetite. negative: Chills , Diaphoresis, Fever Eyes: No Symptoms Reported. negative: Eye Pain, Blurred Vision, Discharge, Photophobia ENTM: Nose Congestion. negative: Ear Pain, Nose Discharge, Throat Pain Respiratoy: Productive Cough, Short of Breath, Wheezing. negative: Hemoptysis Cardiovascular: Chest Pain, Edema (TTONE PLUS) Gastrointestinal/Abdominal: Abdominal Pain, Nausea. negative: Diarrhea, Vomiting Genitourinary: negative: Dysuria, Frequency, Hematuria Neurological: Anxiety, Headache, Weakness, Dizziness Musculoskeletal: Back Pain, Joint Pain, Joint Swelling, Muscle Pain, Chest wall , Back Integumentary: Other (ONE PLUS LOWER EXTREMITY EDEMA) Hematologic/Lymphatic: Easy Bruising Endocrine: Increased Thirst. negative: [place] Psychiatric: Depression All Other Systems: Reviewed and Negative Unable to Obtain Due To: Dementia PE - Vital Signs Vitals: Temperature 98.6 F Pulse Rate [Left Radial] 78 Pulse Rate 88 Respiratory Rate 20 Blood Pressure [Left Arm] 127/60 Blood Pressure [Right Arm] 152/67 Blood Pressure 153/63 O2 Sat by Pulse Oximetry 97 - General Limitations: No Limitations General Appearance: Alert - Head Head Exam: Normal Inspection - Eyes Eye exam: Normal Appearance - ENT ENT Exam: Normal External Ear Exam External Ear Exam: Normal External Inspection TM/Canal Exam: Bilateral Normal Nose Exam: Normal Nose Exam Mouth Exam: Normal Inspection Throat Exam: Normal Inspection - Neck Neck Exam: Trachea Midline. negative: Tenderness, Meningismus, Lymphadenopathy - Chest Chest Inspection: Symmetric Chest Wall Rise - Respiratory Respiratory Exam: Accessory Muscle Use, Respiratory Distress Respiratory Exam: Bilateral Wheezing, Bilateral Rhonchi, Bilateral Decreased Breath Sounds, Upper Wheezing, Upper Rhonchi, Lower Wheezing, Lower Rhonchi, Lower Decreased Breath Sounds - Cardiovascular Cardiovascular Exam: Regular Rate, Normal Rhythm, Normal Heart Sounds - Abdominal Exam Abdominal Exam: Normal Bowel Sounds, Soft. negative: Tenderness - Extremities Extremities Exam: Edema (ONE PLU) - Back Back Exam: Paraspinal Tenderness - Neurologic Neurological Exam: Alert, Oriented X3, CN II-XII Intact, Reflexes Normal. negative: Motor Sensory Deficit - Psychiatric Psychiatric Exam: Anxious - Skin Skin Exam: Erythema MDM - Differential Diagnosis Differential Diagnosis: CHF, COPD EXACERBATION, PNEUMONIA, BRONCHITIS, GENERALIZE MUSCLE PAIN Course - Treatment Treatment: SEE ORDERS. - Consultation Consultation Comments: DISCUSS PATIENT WITH DR. APPIAH. HE WILL ADMIT PATIENT. - Education/Counseling Education/Counseling: Patient, Education Educated On: Diagnosis ROR - Labs Reviewed Laboratory Results Reviewed?: Yes Result Diagrams: 10/22/16 23:24 10/22/16 23:24 Laboratory: WBC 11.4 X10^3/uL (3.6-10.0) H 10/22/16 23:24 RBC 4.05 X10^6/uL (3.5-5.4) 10/22/16 23:24 Hgb 10.4 g/dL (12.0-16.0) L 10/22/16 23:24 Hct 32.8 % (36.0-47.0) L 10/22/16 23:24 MCV 81.0 fL (80.0-100.0) 10/22/16 23:24 MCH 25.8 pg (27.0-34.0) L 10/22/16 23:24 MCHC 31.9 g/dL (33.0-35.0) L 10/22/16 23:24 RDW 16.4 % (11.6-16.5) 10/22/16 23:24 Plt Count 260 X10^3/uL (150.0-450.0) 10/22/16 23:24 Plt Count Comment Adequate (ADEQUATE) 10/22/16 23:24 MPV 8.6 fL (7.4-11.0) 10/22/16 23:24 Neut % 78.6 % (42.0-75.0) H 10/22/16 23:24 Lymph % 11.9 % (21.0-51.0) L 10/22/16 23:24 [place] % 5.5 % (0.0-13.0) 10/22/16 23:24 Eos % 3.3 % (0.9-2.9) H 10/22/16 23:24 Baso % 0.7 % (0.2-1.0) 10/22/16 23:24 Neut # 9.0 x10^3/uL (2.2-4.8) H 10/22/16 23:24 Lymph # 1.4 X10^3/uL (1.3-2.9) 10/22/16 23:24 [place] # 0.6 x10^3/uL (0.3-0.8) 10/22/16 23:24 Eos # 0.4 x10^3/uL (0.0-0.2) H 10/22/16 23:24 Baso # 0.1 X10^3/uL (0.0-0.1) 10/22/16 23:24 Absolute Nucleated RBC 0.0 /100WBC 10/22/16 23:24 Plt Morphology Comment Normal (NORMAL) 10/22/16 23:24 RBC Morphology Normal (NORMAL) 10/22/16 23:24 Sodium 142 mmol/L (136-145) 10/22/16 23:24 Corrected Sodium 144 mmol/L (136-145) 10/22/16 23:24 Potassium 3.4 mmol/L (3.5-5.1) L 10/22/16 23:24 Chloride 103 mmol/L (98-107) 10/22/16 23:24 Carbon Dioxide 32.4 mmol/L (21-32) H 10/22/16 23:24 BUN 25 mg/dL (7-18) H 10/22/16 23:24 Creatinine 1.53 mg/dL (0.55-1.02) H 10/22/16 23:24 Est GFR (MDRD) Af Amer 44 (>60) L 10/22/16 23:24 Est GFR (MDRD) Non-Af 36 (>60) L 10/22/16 23:24 Glucose 164 mg/dL (65-99) H 10/22/16 23:24 Calcium 7.9 mg/dL (8.5-10.1) L 10/22/16 23:24 Corrected Calcium 8.9 mg/dL (8.5-10.1) 10/22/16 23:24 Total Bilirubin 0.30 mg/dL (0.2-1.0) 10/22/16 23:24 AST 29 Units/L (15-37) 10/22/16 23:24 ALT 23 Units/L (12-78) 10/22/16 23:24 Alkaline Phosphatase 82 Units/L (46-116) 10/22/16 23:24 Creatine Kinase 79 Units/L (26-192) 10/22/16 23:24 CK-MB (CK-2) 1.0 ng/mL (0-4.0) 10/22/16 23:24 CK/CKMB % Calc 1.3 % (<4) 10/22/16 23:24 Troponin I < 0.02 ng/mL (0-1.5) 10/22/16 23:24 B-Natriuretic Peptide 125 pg/mL (0-79) H 10/22/16 23:24 Total Protein 7.1 g/dL (6.4-8.2) 10/22/16 23:24 Albumin 2.7 g/dL (3.4-5.0) L 10/22/16 23:24 Globulin 4.4 g/dL (2.5-4.5) 10/22/16 23:24 Albumin/Globulin Ratio 0.6 Ratio (1.1-2.1) L 10/22/16 23:24 - XRAY XRAY Interpreted by: Radiologist XRAY Findings: REPORT DISCUSS WITH PATIENT. - EKG Rhythm: NSR (EKG NOTED) - Diagnosis Discharge Problem: COPD (chronic obstructive pulmonary disease) with acute bronchitis, Respiratory distress, Generalized weakness Chest pain Qualifiers: Chest pain type: intercostal pain Qualified Code(s): R07.82 - Intercostal pain CHF (congestive heart failure) Qualifiers: Congestive heart failure type: combined Congestive heart failure chronicity: acute on chronic Qualified Code(s): I50.43 - Acute on chronic combined systolic (congestive) and diastolic (congestive) heart failure - Discharge Plan Disposition: 09 ADMITTED INPATIENT Condition: Stable - Follow ups/Referrals - Instructions
[2016-10-22 23:38] LABS: BASOPHILS # (AUTO) 0.1 X10^3/uL (0.0-0.1); BASOPHILS % (AUTO) 0.7 % (0.2-1.0); EOSINOPHILS # (AUTO) 0.4 x10^3/uL (0.0-0.2); EOSINOPHILS % (AUTO) 3.3 % (0.9-2.9); HEMATOCRIT 32.8 % (36.0-47.0); HEMOGLOBIN 10.4 g/dL (12.0-16.0); LYMPHOCYTES # (AUTO) 1.4 X10^3/uL (1.3-2.9); LYMPHOCYTES % (AUTO) 11.9 % (21.0-51.0); MEAN CORPUSCULAR HEMOGLOBIN 25.8 pg (27.0-34.0); MEAN CORPUSCULAR HGB CONC 31.9 g/dL (33.0-35.0); MEAN PLATELET VOLUME 8.6 fL (7.4-11.0); MONOCYTES # (AUTO) 0.6 x10^3/uL (0.3-0.8); MONOCYTES % (AUTO) 5.5 % (0.0-13.0); NEUTROPHILS % (AUTO) 78.6 % (42.0-75.0); PLATELET COUNT 260 X10^3/uL (150.0-450.0); RED BLOOD COUNT 4.05 X10^6/uL (3.5-5.4); RED CELL DISTRIBUTION WIDTH 16.4 % (11.6-16.5); WHITE BLOOD COUNT 11.4 X10^3/uL (3.6-10.0)
[2016-10-22 23:48] LABS: PLATELET MORPHOLOGY COMMENT NORMAL (NORMAL)
[2016-10-22 23:53] LABS: BLOOD UREA NITROGEN 25 mg/dL (7-18); CALCIUM 7.9 mg/dL (8.5-10.1); CARBON DIOXIDE 32.4 mmol/L (21-32); CHLORIDE 103 mmol/L (98-107); COR NA(FOR HYPERGLY) 144 mmol/L (136-145); CREATININE 1.53 mg/dL (0.55-1.02); GLUCOSE 164 mg/dL (65-99); SODIUM 142 mmol/L (136-145); TROPONIN I < 0.02 ng/mL (0-1.5); eGFR BLACK RACES 44 (>60); eGFR NON BLACK RACES 36 (>60)
[2016-10-22 23:57] LABS: ALANINE AMINOTRANSFERASE 23 Units/L (12-78); ALBUMIN 2.7 g/dL (3.4-5.0); ALKALINE PHOSPHATASE 82 Units/L (46-116); ASPARTATE AMINO TRANSFERASE 29 Units/L (15-37); CKMB % 1.3 % (<4); COR CA(FOR HYPOALB) 8.9 mg/dL (8.5-10.1); CREATINE KINASE 79 Units/L (26-192); TOTAL PROTEIN 7.1 g/dL (6.4-8.2)
[2016-10-22 23:59] LABS: B-TYPE NATRIURETIC PEPTIDE 125 pg/mL (0-79)
--- NOTE | 2016-10-23 00:01 | RAD ---
AP Chest Indication: Chest pain Comparison: 10/16/2016 Findings: The trachea is midline. The cardiac silhouette is enlarged. The lungs are clear without focal infi ltrate or effusion. The bony thorax is unremarkable. IMPRESSION: 1. Cardiomegaly without acute cardiopulmonary abnormality. Reported By:
[2016-10-23] MEDS ORDERED: TORADOL 30 MG VIAL ONE (00:51)
[2016-10-23] MEDS ORDERED: MORPHINE SULFATE INJ 4 MG IVP ONE (00:53)
[2016-10-23] MEDS ORDERED: ZOFRAN INJ 4 MG VIAL IVP ONE (00:53)
[2016-10-23] MEDS ORDERED: MORPHINE SULFATE INJ 4 MG ONE (00:54)
[2016-10-23] MEDS ORDERED: ZOFRAN INJ 4 MG VIAL ONE (00:54)
[2016-10-23] MEDS: DUONEB 0.5 MG/3 MG NEB SCH ×5 (05:23→20:50)
[2016-10-23 05:25] LABS: CHLORIDE 102 mmol/L (98-107); SODIUM 143 mmol/L (136-145)
[2016-10-23 05:39] LABS: ALANINE AMINOTRANSFERASE 23 Units/L (12-78); ALBUMIN 2.6 g/dL (3.4-5.0); ALKALINE PHOSPHATASE 73 Units/L (46-116); ASPARTATE AMINO TRANSFERASE 26 Units/L (15-37); BLOOD UREA NITROGEN 24 mg/dL (7-18); CALCIUM 7.8 mg/dL (8.5-10.1); CARBON DIOXIDE 32.5 mmol/L (21-32); CHOL/HDL RATIO 4.1 (0.0-5.0); CHOLESTEROL 98 mg/dL (0-200); COR CA(FOR HYPOALB) 8.9 mg/dL (8.5-10.1); CREATININE 1.48 mg/dL (0.55-1.02); GLUCOSE 96 mg/dL (65-99); HDL CHOLESTEROL 24 mg/dL (40-60); TOTAL PROTEIN 6.7 g/dL (6.4-8.2); TRIGLYCERIDES 86 mg/dL (0-150); eGFR BLACK RACES 46 (>60); eGFR NON BLACK RACES 38 (>60)
[2016-10-23 05:42] LABS: BASOPHILS % (AUTO) 0.4 % (0.2-1.0); EOSINOPHILS # (AUTO) 0.4 x10^3/uL (0.0-0.2); EOSINOPHILS % (AUTO) 3.7 % (0.9-2.9); HEMATOCRIT 29.7 % (36.0-47.0); HEMOGLOBIN 9.7 g/dL (12.0-16.0); LYMPHOCYTES # (AUTO) 1.8 X10^3/uL (1.3-2.9); LYMPHOCYTES % (AUTO) 17.9 % (21.0-51.0); MEAN CORPUSCULAR HEMOGLOBIN 26.1 pg (27.0-34.0); MEAN CORPUSCULAR HGB CONC 32.6 g/dL (33.0-35.0); MEAN CORPUSCULAR VOLUME 80.1 fL (80.0-100.0); MEAN PLATELET VOLUME 8.6 fL (7.4-11.0); MONOCYTES # (AUTO) 0.7 x10^3/uL (0.3-0.8); MONOCYTES % (AUTO) 6.6 % (0.0-13.0); NEUTROPHILS # (AUTO) 7.1 x10^3/uL (2.2-4.8); NEUTROPHILS % (AUTO) 71.4 % (42.0-75.0); PLATELET COUNT 264 X10^3/uL (150.0-450.0); RED BLOOD COUNT 3.71 X10^6/uL (3.5-5.4); RED CELL DISTRIBUTION WIDTH 16.3 % (11.6-16.5)
[2016-10-23 05:44] LABS: CKMB % 1.3 % (<4); CREATINE KINASE 75 Units/L (26-192); CREATINE KINASE MB < 1.0 ng/mL (0-4.0); TROPONIN I < 0.02 ng/mL (0-1.5)
[2016-10-23] MEDS ORDERED: OxyCONTIN CR 30 MG PO PRN (05:44)
[2016-10-23] MEDS ORDERED: LASIX PO PRN (05:44)
[2016-10-23] MEDS ORDERED: ROPINIROLE HYDROCHLORIDE PO SCH (06:00)
[2016-10-23] MEDS: REQUIP PO SCH ×3 (07:09→21:34)
[2016-10-23] MEDS: SYNTHROID 75 mcg TAB PO SCH (07:09)
[2016-10-23] MEDS ORDERED: PATIENT'S HOME MEDICATION (Rivaroxaban [Xarelto] 1 TAB) PO SCH (09:00)
[2016-10-23] MEDS: GLUCOTROL XL PO SCH (09:05)
[2016-10-23] MEDS: XARELTO PO SCH (09:05)
[2016-10-23] MEDS: PROTONIX TAB 40 MG PO SCH ×2 (09:05→21:35)
[2016-10-23] MEDS: LOPRESSOR TAB 25 MG PO SCH ×2 (09:06→21:36)
[2016-10-23] MEDS: ROCEPHIN VIAL 1 GM 1 GM in NS 50 ML IV + SPIKE MINIBAG* 50 ML IV SCH (09:06)
[2016-10-23] MEDS: SINGULAIR TAB 10 MG PO SCH (09:06)
[2016-10-23] MEDS: PLETAL PO SCH ×2 (09:06→21:35)
[2016-10-23] MEDS ORDERED: NS 250 ML IV 250 ML IV ONE (09:10)
[2016-10-23] MEDS: NORCO 10/325 TAB PO PRN ×2 (09:11→21:34)
[2016-10-23 11:48] LABS: CKMB % 1.1 % (<4); CREATINE KINASE 80 Units/L (26-192); CREATINE KINASE MB 0.9 ng/mL (0-4.0); TROPONIN I < 0.02 ng/mL (0-1.5)
[2016-10-23 12:56] VITALS: BMI 60.9
--- NOTE | 2016-10-23 15:03 | DR.H&P ---
H&P - History & Physical for Day of: H&P Date: 10/23/16 - Chief Complaint Chief Complaint: Chest Pain, Shortness of breath - Allergies Allergies/Adverse Reactions: Allergies Allergy/AdvReac Type Severity Reaction Status Date / Time MS Propoxyphene [From Darvon] Allergy Unknown Verified 10/14/16 17:50 MS Bacitracin Allergy Verified 10/14/16 17:50 [From Neosporin] MS Hydrochlorothiazide Allergy Verified 10/14/16 17:50 [From Hyzaar] MS Latex [Latex] Allergy Verified 10/14/16 17:50 - History of Present Illness History of Present Illness: Patient is a 66yo female who presented to the emergency room with complaints of chest pain and increasing shortness of breath along with body aches that has been going on for three days. Patient has a history of Anemia, Arthritis, Depression, Diabetes Mellitus Type 2, Hyperlipidemia, GERD, Hypertension, Hypothyroidism, Renal Disease, COPD and congestive heart failure. Patient also complained of malaise, weakness fatigue, nasal congestion, productive cough, wheezing, chest pain, abdominal pain, nausea , headache, back and joint pain. Vital signs on arrival 988.8, 88, 20, 97%, 153/ 63. Physical exam revealed bilateral wheezing scattered as well as lower extremity edema. Chest xray on arrival showed cardiomegaly wihout acute cardiopulmonary abnormality. EKS showed NSR at 81bpm. Labs on arrival within normal limits with the exception of WBC 11.4, Hgb 10.4, Hct 32.8, MCH 25.8, MCHC 31.9, Neut% 78.6, Lymph% 11.9, Eos% 3.3, Neut# 9.0, Eos# 0.4, Potassium 3.4 , Carbon Dioxide 32.4, BUN 25, Creatinine 1.53, Est GFR 36, Glucose 164, Calcium 7.9, BNP 125, Albumin 2.7, Albumin/Globluin Ratio 0.6. Pateint admitted with diagnosis of chest pain, REsp distress and COPD. Pateint started on Duoneb q4hr, OTBS ACHS, Rocephin 1gm IV daily as well as home medications continued. Upon rounds this am patient states that she has been very weak, short of breath and dont feel good, physical exam reveal scattered wheezing. Vital signs this am 98.1, 94, 18, 94% on NC, 164/67. Labs this morning upon rounds within normal limits with the exception of Hgb 9.7, Hct 29.7, MCH 26.1, MCHC 32.6, Lymph% 17.9 , Eos% 3.7, Neut# 7.1Potassium 3.3, Carbon Dioxide 32.5, BUN 24, Creatinine 1.48 , Est GFR 38, Calcium 7.8, Albumin 2.6, Albumin/Globulin Ratio 0.6, HDL 24. We are going to continue with her current treatment plan and place SCD and GCS for VTE prophylaxis. And follow up in the am with repeat labs and chest xray. - Past Medical History Past Medical History: Anemia, Angina, Arthritis, CHF, COPD, Depression, Diabetes , Dyslipidemia, GERD, Headaches, Hypertension, Hypothyroidism, Renal Disease - Past Surgical History Surgical History: Abdominal Surgery, Cholecystectomy, Hysterectomy, Ortho Surgery - Family History Family Medical History: Diabetes Mellitus, Cancer, Coronary Artery Disease, Hypertension - Social History Does patient currently use any type of tobacco product: No Have you used tobacco products in the last 12 months: No Type of Tobacco Use: Cigarettes Does any household member use tobacco: No Alcohol Use: None Drug Use: None - Medications Home Medications: Home Medications: Diflucan 150mg PO PRN, Pletal 50 mg PO BID, Xarelto 20 mg PO DAILY, Protonix 40 mg PO BID, Oxycodone 30mg PO Q6hr PRN, Singulair 10 mg PO DAILY, Lopressor 12.5 mg PO BID, Synthroid 75 mcg PO 0700, Humalog SSC, Toujeo Solostar Pen 48 units SC 2200, [place] 10/325 tab PO TID PRN, Glipizide 5 mg PO DAILY, Lasix 40 mg PO BID PRN, Zocor 20 mg PO HS, Requip 3 mg PO TID - Review of Systems Constitutional: Weakness Eyes: No Symptoms Reported ENT: Nose Congestion Respiratory: Cough, Shortness of Breath, SOB with Excertion, Sputum, Wheezing Cardiovascular: Chest Pain Gastrointestinal: Nausea, Abdominal Pain Genitourinary: No Symptoms Reported Musculoskeletal: Back Pain (and joint pain) Skin: No Symptoms Reported Neurological: Weakness - Physical Exam Vital Signs: 98.1, 94, 18, 94% on NC, 164/67 Oriented: Normal Eyes: Normal Ear: Normal Nose: Normal Throat: Red, Dry Respiratory: Wheezes Throughout Cardiovascular: Normal : Normal Auscultation: Bowel Sounds: Normal Palpation: Normal Tenderness: Normal Skin: Decreased [place] Musculoskeletal: Instability Psychiatric: Normal Mood Description: Calm, Appropriate Affect: Normal Speech Pattern: Clear, Appropriate - Assessment/Plan (1) Bronchitis Status: Acute Plan: Duoneb Q4RESP TRICIA, supplemental oxygen, Ceftriaxone Sodium 1 gm IV DAILY TRICIA (2) Diabetes mellitus, type 2 Qualifiers: Diabetes mellitus complication status: D Diabetes mellitus complication detail: D Diabetic retinopathy severity: D Proliferative retinopathy type: P Diabetes mellitus macular edema: D 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 mellitus 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 worker insulin use : D Laterality: L Chronic kidney disease stage: C Status: Chronic Plan: Toujeo Solostar Pen 48 units SC 2200, Glipizide 5 mg PO DAILY, OTBS ACHS Humalog SSC (3) COPD (chronic obstructive pulmonary disease) with acute bronchitis Status: Chronic Plan: duoneb, supplemental oxygen (4) Chest pain Qualifiers: Chest pain type: intercostal pain Ischemic chest pain type: I Qualified Code(s): R07.82 - Intercostal pain Status: Acute Plan: serial cardiac enzymes and EKG, Monitor (5) Hyperlipidemia Qualifiers: Hyperlipidemia type: H Status: Chronic Plan: Zocor 20 mg PO HS (6) Hypothyroidism Qualifiers: Hypothyroidism type: H Status: Chronic Plan: Synthroid 75 mcg PO 0700
[2016-10-23] MEDS: HumaLOG SC SCH (17:14)
[2016-10-23] MEDS: TOUJEO SOLOSTAR PEN SC SCH (21:33)
[2016-10-23] MEDS: ZOCOR TAB 20 MG PO SCH (21:35)
[2016-10-23] MEDS: SNACK - Diabetic Appropriate PO SCH (21:36)
[2016-10-23] MEDS: ROBITUSSIN DM PO PRN (22:54)
[2016-10-24] MEDS ORDERED: BUTT CREAM (COMPOUND) ONE (01:23)
[2016-10-24] MEDS: DUONEB 0.5 MG/3 MG NEB SCH ×6 (02:37→20:35)
[2016-10-24] MEDS: ROBITUSSIN DM PO PRN ×2 (02:44→06:24)
[2016-10-24 05:20] LABS: ALBUMIN 2.4 g/dL (3.4-5.0); C-REACTIVE PROTEIN 87.2 mg/L (0-3.0); CALCIUM 7.2 mg/dL (8.5-10.1); CARBON DIOXIDE 29.2 mmol/L (21-32); COR CA(FOR HYPOALB) 8.5 mg/dL (8.5-10.1); CREATININE 1.37 mg/dL (0.55-1.02); TOTAL PROTEIN 6.6 g/dL (6.4-8.2)
[2016-10-24 05:45] LABS: BASOPHILS # (AUTO) 0.1 X10^3/uL (0.0-0.1); BASOPHILS % (AUTO) 0.6 % (0.2-1.0); EOSINOPHILS # (AUTO) 0.3 x10^3/uL (0.0-0.2); EOSINOPHILS % (AUTO) 2.5 % (0.9-2.9); HEMATOCRIT 27.5 % (36.0-47.0); HEMOGLOBIN 8.9 g/dL (12.0-16.0); LYMPHOCYTES # (AUTO) 1.3 X10^3/uL (1.3-2.9); LYMPHOCYTES % (AUTO) 11.6 % (21.0-51.0); MEAN CORPUSCULAR HEMOGLOBIN 25.9 pg (27.0-34.0); MEAN CORPUSCULAR HGB CONC 32.4 g/dL (33.0-35.0); MEAN CORPUSCULAR VOLUME 79.8 fL (80.0-100.0); MONOCYTES # (AUTO) 0.7 x10^3/uL (0.3-0.8); MONOCYTES % (AUTO) 6.1 % (0.0-13.0); NEUTROPHILS # (AUTO) 8.8 x10^3/uL (2.2-4.8); NEUTROPHILS % (AUTO) 79.2 % (42.0-75.0); PLATELET COUNT 242 X10^3/uL (150.0-450.0); RED BLOOD COUNT 3.45 X10^6/uL (3.5-5.4); WHITE BLOOD COUNT 11.1 X10^3/uL (3.6-10.0)
[2016-10-24] MEDS: SYNTHROID 75 mcg TAB PO SCH (06:01)
[2016-10-24] MEDS: NORCO 10/325 TAB PO PRN ×2 (06:01→16:30)
[2016-10-24] MEDS: REQUIP PO SCH ×3 (06:01→21:21)
[2016-10-24 06:03] LABS: ANISOCYTOSIS SLIGHT; HYPOCHROMASIA SLIGHT; MICROCYTOSIS SLIGHT; PLATELET MORPHOLOGY COMMENT NORMAL (NORMAL)
--- NOTE | 2016-10-24 06:14 | RAD ---
HISTORY: Bronchitis Study: Chest one view Comparison: October 22, 2016 Findings: The patient is rotated to the left. The heart is enlarged. No definite congestive heart failure is i dentified. No alveolar infiltrates or pleural effusions are identified. The bony thorax is unremarka ble. IMPRESSION: Cardiomegaly without congestive heart failure No infiltrates Reported By:
[2016-10-24 06:33] LABS: ERYTHROCYTE SEDIMENTATION RATE 75 MM/HOUR (0-20)
[2016-10-24] MEDS: SINGULAIR TAB 10 MG PO SCH (09:15)
[2016-10-24] MEDS: ROCEPHIN VIAL 1 GM 1 GM in NS 50 ML IV + SPIKE MINIBAG* 50 ML IV SCH (09:15)
[2016-10-24] MEDS: PLETAL PO SCH ×2 (09:16→21:25)
[2016-10-24] MEDS: GLUCOTROL XL PO SCH (09:16)
[2016-10-24] MEDS: LOPRESSOR TAB 25 MG PO SCH ×2 (09:16→21:22)
[2016-10-24] MEDS: PROTONIX TAB 40 MG PO SCH ×2 (09:16→21:21)
[2016-10-24] MEDS: XARELTO PO SCH (09:22)
[2016-10-24] MEDS: ROBITUSSIN DM PO SCH ×4 (10:00→21:23)
[2016-10-24] MEDS: HumaLOG SC SCH ×3 (11:28→21:47)
--- NOTE | 2016-10-24 15:27 | PCM.PROG ---
Progress Note - Progress Note for Day of Date: 10/24/16 - Subjective Subjective: Patient is a 64yo admitted with diagnosis of chest pain, Resp distress and COPD. Patient continues to complain of shortness of breath and cough. We are going to add robitussin 10ml QID. Vital signs this am 99.3, 89, 24 , 90% on RA, BP 163/69. Respiratory completed a walk test to see if patient would meet requirement for at home oxygen her oxygen saturation with exercise on room air dropped to 85% and resting after exercise was 88%. WE spoke with patient about group home placement due to the ability to not take care of her self and she said she would consider short term placement. We are going to work with case management to see what options are available to her. Labs are within normal limits with the exception of WBC 11.1, RBC 3.45, hgb 8.9, Hct 27.5, MCV 79.8, MCH 25.9, MCHC 32.4, RDW 17.0, Neut% 79.2, Lymph% 11.6, Neut# 8.8, Eos# 0.3, RBC morphology Abnormal A, Hypochromasia Slight A, Anicytosis Slight A, Microcytosis Slight A, ESR 75, BUN 23, Creatinine 1.37, Est GFR 41, Glucose 176 , Calcium 7.2, CRP 87.20, Albumin 2.4, Albumin/Globulin Ratio 0.6. Chest Xray this am shows cardiomegaly without CHF. We will follow up with patient in the am with repeat labs. - Past Medical Family Social History Past Med/Fam/Surg Hx: No changes since H&P Allergies: Allergies MS Propoxyphene [From Darvon] Allergy (Unknown, Verified 10/14/16 17:50) MS Bacitracin [From Neosporin] Allergy (Verified 10/14/16 17:50) MS Hydrochlorothiazide [From Hyzaar] Allergy (Verified 10/14/16 17:50) MS Latex [Latex] Allergy (Verified 10/14/16 17:50) - Review of Systems ROS: No change since H&P - Vital Signs and I&O's Vital Signs: 99.3, 89, 24, 90% on RA, BP 163/69. Intake and Output: Intake & Output 10/22/16 10/23/16 10/24/1610/25/17 11:59 11:59 11:59 11:59 Intake Total 220 3090 920 Output Total 1250 Balance 220 1840 920 - Physical Exam Oriented: Normal Eyes: Normal Ear: Normal Nose: Normal Throat: Red, Dry Respiratory: Wheezes (scattered) Cardiovascular: Normal : Normal Auscultation: Bowel Sounds: Normal Tenderness: Normal Skin: Decreased [place] Musculoskeletal: Instability Psychiatric: Normal Mood Description: Calm, Appropriate Affect: Normal Speech Pattern: Clear, Appropriate - Laboratory and Diagnostics Result Diagrams: 10/24/16 04:05 10/24/16 04:05 Labs: Laboratory WBC 11.1 X10^3/uL (3.6-10.0) H 10/24/16 04:05 RBC 3.45 X10^6/uL (3.5-5.4) L 10/24/16 04:05 Hgb 8.9 g/dL (12.0-16.0) L 10/24/16 04:05 Hct 27.5 % (36.0-47.0) L 10/24/16 04:05 MCV 79.8 fL (80.0-100.0) L 10/24/16 04:05 MCH 25.9 pg (27.0-34.0) L 10/24/16 04:05 MCHC 32.4 g/dL (33.0-35.0) L 10/24/16 04:05 RDW 17.0 % (11.6-16.5) H 10/24/16 04:05 Plt Count 242 X10^3/uL (150.0-450.0) 10/24/16 04:05 Plt Count Comment Adequate (ADEQUATE) 10/24/16 04:05 MPV 9.0 fL (7.4-11.0) 10/24/16 04:05 Neut % 79.2 % (42.0-75.0) H 10/24/16 04:05 Lymph % 11.6 % (21.0-51.0) L 10/24/16 04:05 [place] % 6.1 % (0.0-13.0) 10/24/16 04:05 Eos % 2.5 % (0.9-2.9) 10/24/16 04:05 Baso % 0.6 % (0.2-1.0) 10/24/16 04:05 Neut # 8.8 x10^3/uL (2.2-4.8) H 10/24/16 04:05 Lymph # 1.3 X10^3/uL (1.3-2.9) 10/24/16 04:05 [place] # 0.7 x10^3/uL (0.3-0.8) 10/24/16 04:05 Eos # 0.3 x10^3/uL (0.0-0.2) H 10/24/16 04:05 Baso # 0.1 X10^3/uL (0.0-0.1) 10/24/16 04:05 Absolute Nucleated RBC 0.2 /100WBC 10/24/16 04:05 Plt Morphology Comment Normal (NORMAL) 10/24/16 04:05 RBC Morphology Abnormal (NORMAL) A 10/24/16 04:05 Hypochromasia Slight A 10/24/16 04:05 Anisocytosis Slight A 10/24/16 04:05 Microcytosis Slight A 10/24/16 04:05 ESR 75 MM/HOUR (0-20) H 10/24/16 04:05 Sodium 138 mmol/L (136-145) 10/24/16 04:05 Corrected Sodium 140 mmol/L (136-145) 10/24/16 04:05 Potassium 4.0 mmol/L (3.5-5.1) 10/24/16 04:05 Chloride 100 mmol/L (98-107) 10/24/16 04:05 Carbon Dioxide 29.2 mmol/L (21-32) 10/24/16 04:05 BUN 23 mg/dL (7-18) H 10/24/16 04:05 Creatinine 1.37 mg/dL (0.55-1.02) H 10/24/16 04:05 Est GFR (MDRD) Af Amer 50 (>60) L 10/24/16 04:05 Est GFR (MDRD) Non-Af 41 (>60) L 10/24/16 04:05 Glucose 176 mg/dL (65-99) H 10/24/16 04:05 Calcium 7.2 mg/dL (8.5-10.1) L 10/24/16 04:05 Corrected Calcium 8.5 mg/dL (8.5-10.1) 10/24/16 04:05 Total Bilirubin 0.40 mg/dL (0.2-1.0) 10/24/16 04:05 AST 31 Units/L (15-37) 10/24/16 04:05 ALT 20 Units/L (12-78) 10/24/16 04:05 Alkaline Phosphatase 68 Units/L (46-116) 10/24/16 04:05 Creatine Kinase 80 Units/L (26-192) 10/23/16 10:58 CK-MB (CK-2) 0.9 ng/mL (0-4.0) 10/23/16 10:58 CK/CKMB % Calc 1.1 % (<4) 10/23/16 10:58 Troponin I < 0.02 ng/mL (0-1.5) 10/23/16 10:58 C-Reactive Protein 87.20 mg/L (0-3.0) H 10/24/16 04:05 B-Natriuretic Peptide 125 pg/mL (0-79) H 10/22/16 23:24 Total Protein 6.6 g/dL (6.4-8.2) 10/24/16 04:05 Albumin 2.4 g/dL (3.4-5.0) L 10/24/16 04:05 Globulin 4.2 g/dL (2.5-4.5) 10/24/16 04:05 Albumin/Globulin Ratio 0.6 Ratio (1.1-2.1) L 10/24/16 04:05 Triglycerides 86 mg/dL (0-150) 10/23/16 04:35 Cholesterol 98 mg/dL (0-200) 10/23/16 04:35 LDL Cholesterol, Calc 57 mg/dL (0-100) 10/23/16 04:35 HDL Cholesterol 24 mg/dL (40-60) L 10/23/16 04:35 Cholesterol/HDL Ratio 4.1 (0.0-5.0) 10/23/16 04:35 Radiology Reviewed: Yes - Plan (1) Bronchitis Status: Acute Plan: Duoneb Q4RESP TRICIA, supplemental oxygen, Ceftriaxone Sodium 1 gm IV DAILY TRICIA, Robitussin 10ml PO QID (2) Diabetes mellitus, type 2 Status: Chronic Qualifiers: Diabetes mellitus complication status: D Diabetes mellitus complication detail: D Diabetic retinopathy severity: D Proliferative retinopathy type: P Diabetes mellitus macular edema: D 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 mellitus manager terminal insulin use : D Laterality: L Chronic kidney disease stage: C Plan: Toujeo Solostar Pen 48 units SC 2200, Glipizide 5 mg PO DAILY, OTBS ACHS Humalog SSC (3) COPD (chronic obstructive pulmonary disease) with acute bronchitis Status: Chronic Plan: duoneb, supplemental oxygen (4) Chest pain Status: Acute Qualifiers: Chest pain type: intercostal pain Ischemic chest pain type: I Qualified Code(s): R07.82 - Intercostal pain Plan: serial cardiac enzymes and EKG, Monitor (5) Hyperlipidemia Status: Chronic Qualifiers: Hyperlipidemia type: H Plan: Zocor 20 mg PO HS (6) Hypothyroidism Status: Chronic Qualifiers: Hypothyroidism type: H Plan: Synthroid 75 mcg PO 0700
[2016-10-24] MEDS: TOUJEO SOLOSTAR PEN SC SCH (21:19)
[2016-10-24] MEDS: ZOCOR TAB 20 MG PO SCH (21:21)
[2016-10-24] MEDS: SNACK - Diabetic Appropriate PO SCH (21:30)
[2016-10-25] MEDS: DUONEB 0.5 MG/3 MG NEB SCH ×6 (00:42→21:11)
[2016-10-25 05:10] LABS: BASOPHILS % (AUTO) 0.2 % (0.2-1.0); EOSINOPHILS # (AUTO) 0.1 x10^3/uL (0.0-0.2); EOSINOPHILS % (AUTO) 1.2 % (0.9-2.9); HEMATOCRIT 28.4 % (36.0-47.0); HEMOGLOBIN 9.4 g/dL (12.0-16.0); LYMPHOCYTES # (AUTO) 1.3 X10^3/uL (1.3-2.9); MEAN CORPUSCULAR HEMOGLOBIN 26.1 pg (27.0-34.0); MEAN CORPUSCULAR VOLUME 79.3 fL (80.0-100.0); MEAN PLATELET VOLUME 8.3 fL (7.4-11.0); MONOCYTES # (AUTO) 0.7 x10^3/uL (0.3-0.8); MONOCYTES % (AUTO) 7.3 % (0.0-13.0); NEUTROPHILS # (AUTO) 7.2 x10^3/uL (2.2-4.8); NEUTROPHILS % (AUTO) 77.3 % (42.0-75.0); PLATELET COUNT 254 X10^3/uL (150.0-450.0); RED BLOOD COUNT 3.58 X10^6/uL (3.5-5.4); RED CELL DISTRIBUTION WIDTH 16.6 % (11.6-16.5); WHITE BLOOD COUNT 9.3 X10^3/uL (3.6-10.0)
[2016-10-25 05:18] LABS: ALBUMIN 2.5 g/dL (3.4-5.0); CARBON DIOXIDE 30.3 mmol/L (21-32); COR CA(FOR HYPOALB) 9.2 mg/dL (8.5-10.1); CREATININE 1.39 mg/dL (0.55-1.02); TOTAL PROTEIN 7.1 g/dL (6.4-8.2)
[2016-10-25] MEDS: REQUIP PO SCH ×3 (05:29→21:21)
--- NOTE | 2016-10-25 06:09 | RAD ---
HISTORY: Shortness of breath Study: Chest one view Comparison: October 24, 2016 Findings: The heart remains enlarged. No definite congestive heart failure is noted. No alveolar infiltrates a re identified. No pleural effusions are present. The bony thorax is unremarkable. IMPRESSION: Cardiomegaly without definite congestive heart failure No infiltrates Reported By:
[2016-10-25] MEDS: SYNTHROID 75 mcg TAB PO SCH (06:33)
[2016-10-25] MEDS: ROCEPHIN VIAL 1 GM 1 GM in NS 50 ML IV + SPIKE MINIBAG* 50 ML IV SCH (09:10)
[2016-10-25] MEDS: ROBITUSSIN DM PO SCH ×4 (09:10→21:20)
[2016-10-25] MEDS: XARELTO PO SCH (09:10)
[2016-10-25] MEDS: PROTONIX TAB 40 MG PO SCH ×2 (09:10→21:21)
[2016-10-25] MEDS: GLUCOTROL XL PO SCH (09:11)
[2016-10-25] MEDS: SINGULAIR TAB 10 MG PO SCH (09:11)
[2016-10-25] MEDS: PLETAL PO SCH ×2 (09:11→21:19)
[2016-10-25] MEDS: NORCO 10/325 TAB PO PRN ×4 (09:12→18:33)
[2016-10-25] MEDS: LOPRESSOR TAB 25 MG PO SCH ×2 (09:13→21:20)
[2016-10-25] MEDS: LASIX IVP SCH ×2 (09:22→21:21)
[2016-10-25] MEDS: HumaLOG SC SCH ×2 (11:33→16:13)
[2016-10-25] MEDS: MUCOMYST 20% 200 MG/ML NEB SCH ×4 (12:06→21:12)
[2016-10-25] MEDS ORDERED: MILK OF MAGNESIA PO PRN (12:20)
--- NOTE | 2016-10-25 12:38 | PCM.PROG ---
Progress Note - Progress Note for Day of Date: 10/25/16 - Subjective Subjective: Patient is a 64yo admitted with diagnosis of chest pain, Resp distress and COPD. Patient continues to complain of shortness of breath. We are going to add mucomyst to nebulizer treatments. Vital signs this am 99.4, 93, 20 , 91% on NC, BP 168/71. Case management spoke with patient about prison placement and she decided she did not want to do that. WE will make sure she is set up with home health and oxygen at home before discharge. Physical exam reveals scattered wheezing and rhonchi we are going to give Lasix 40mg Q12hr x 2 doses. Labs are within normal limits with the exception of hgb 9.4, Hct 28.4, MCV 79.3, MCH 26.1, RDW 16.6, Neut% 77.3, Lymph% 14.0, Neut# 7.2, Creatinine 1.39, Est GFR 41, Glucose 164, Calcium 8.0, Albumin 2.5,Globulin 4.6, Albumin/ Globulin Ratio 0.5. Chest Xray this am shows cardiomegaly without CHF. We will follow up with patient in the am with repeat labs. - Past Medical Family Social History Past Med/Fam/Surg Hx: No changes since H&P Allergies: Allergies MS Propoxyphene [From Darvon] Allergy (Unknown, Verified 10/14/16 17:50) MS Bacitracin [From Neosporin] Allergy (Verified 10/14/16 17:50) MS Hydrochlorothiazide [From Hyzaar] Allergy (Verified 10/14/16 17:50) MS Latex [Latex] Allergy (Verified 10/14/16 17:50) - Review of Systems ROS: No change since H&P - Vital Signs and I&O's Vital Signs: Temperature 99.1 F Pulse Rate [Right Brachial] 93 Pulse Rate [Left Radial] 97 Pulse Rate 86 Respiratory Rate 22 Blood Pressure [Right Arm] 170/89 O2 Sat by Pulse Oximetry 91 Intake and Output: Intake & Output 10/23/16 10/24/16 10/25/16 10/26/16 11:59 11:59 11:59 11:59 Intake Total 220 3090 2080 Output Total 1250 2800 Balance 220 1840 -720 - Physical Exam Oriented: Normal Eyes: Normal Ear: Normal Nose: Normal Throat: Red, Dry Respiratory: Wheezes (scattered), Rhonchi Cardiovascular: Normal : Normal Auscultation: Bowel Sounds: Normal Palpation: Normal Tenderness: Normal Skin: Decreased Turgur Musculoskeletal: Instability Psychiatric: Normal Mood Description: Calm, Appropriate Affect: Normal Speech Pattern: Clear, Appropriate - Laboratory and Diagnostics Result Diagrams: 10/25/16 04:25 10/25/16 04:25 Labs: 10/23/16 06:00 Blood Blood Culture - Preliminary 10/23/16 05:55 Blood Blood Culture - Preliminary Laboratory WBC 9.3 X10^3/uL (3.6-10.0) 10/25/16 04:25 RBC 3.58 X10^6/uL (3.5-5.4) 10/25/16 04:25 Hgb 9.4 g/dL (12.0-16.0) L 10/25/16 04:25 Hct 28.4 % (36.0-47.0) L 10/25/16 04:25 MCV 79.3 fL (80.0-100.0) L 10/25/16 04:25 MCH 26.1 pg (27.0-34.0) L 10/25/16 04:25 MCHC 33.0 g/dL (33.0-35.0) 10/25/16 04:25 RDW 16.6 % (11.6-16.5) H 10/25/16 04:25 Plt Count 254 X10^3/uL (150.0-450.0) 10/25/16 04:25 Plt Count Comment Adequate (ADEQUATE) 10/24/16 04:05 MPV 8.3 fL (7.4-11.0) 10/25/16 04:25 Neut % 77.3 % (42.0-75.0) H 10/25/16 04:25 Lymph % 14.0 % (21.0-51.0) L 10/25/16 04:25 [place] % 7.3 % (0.0-13.0) 10/25/16 04:25 Eos % 1.2 % (0.9-2.9) 10/25/16 04:25 Baso % 0.2 % (0.2-1.0) 10/25/16 04:25 Neut # 7.2 x10^3/uL (2.2-4.8) H 10/25/16 04:25 Lymph # 1.3 X10^3/uL (1.3-2.9) 10/25/16 04:25 [place] # 0.7 x10^3/uL (0.3-0.8) 10/25/16 04:25 Eos # 0.1 x10^3/uL (0.0-0.2) 10/25/16 04:25 Baso # 0.0 X10^3/uL (0.0-0.1) 10/25/16 04:25 Absolute Nucleated RBC 0.1 /100WBC 10/25/16 04:25 Plt Morphology Comment Normal (NORMAL) 10/24/16 04:05 RBC Morphology Abnormal (NORMAL) A 10/24/16 04:05 Hypochromasia Slight A 10/24/16 04:05 Anisocytosis Slight A 10/24/16 04:05 Microcytosis Slight A 10/24/16 04:05 ESR 75 MM/HOUR (0-20) H 10/24/16 04:05 Sodium 135 mmol/L (136-145) L 10/25/16 04:25 Corrected Sodium 137 mmol/L (136-145) 10/25/16 04:25 Potassium 3.9 mmol/L (3.5-5.1) 10/25/16 04:25 Chloride 98 mmol/L (98-107) 10/25/16 04:25 Carbon Dioxide 30.3 mmol/L (21-32) 10/25/16 04:25 BUN 18 mg/dL (7-18) 10/25/16 04:25 Creatinine 1.39 mg/dL (0.55-1.02) H 10/25/16 04:25 Est GFR (MDRD) Af Amer 49 (>60) L 10/25/16 04:25 Est GFR (MDRD) Non-Af 41 (>60) L 10/25/16 04:25 Glucose 164 mg/dL (65-99) H 10/25/16 04:25 Calcium 8.0 mg/dL (8.5-10.1) L 10/25/16 04:25 Corrected Calcium 9.2 mg/dL (8.5-10.1) 10/25/16 04:25 Total Bilirubin 0.30 mg/dL (0.2-1.0) 10/25/16 04:25 AST 29 Units/L (15-37) 10/25/16 04:25 ALT 20 Units/L (12-78) 10/25/16 04:25 Alkaline Phosphatase 68 Units/L (46-116) 10/25/16 04:25 Creatine Kinase 80 Units/L (26-192) 10/23/16 10:58 CK-MB (CK-2) 0.9 ng/mL (0-4.0) 10/23/16 10:58 CK/CKMB % Calc 1.1 % (<4) 10/23/16 10:58 Troponin I < 0.02 ng/mL (0-1.5) 10/23/16 10:58 C-Reactive Protein 87.20 mg/L (0-3.0) H 10/24/16 04:05 B-Natriuretic Peptide 125 pg/mL (0-79) H 10/22/16 23:24 Total Protein 7.1 g/dL (6.4-8.2) 10/25/16 04:25 Albumin 2.5 g/dL (3.4-5.0) L 10/25/16 04:25 Globulin 4.6 g/dL (2.5-4.5) H 10/25/16 04:25 Albumin/Globulin Ratio 0.5 Ratio (1.1-2.1) L 10/25/16 04:25 Triglycerides 86 mg/dL (0-150) 10/23/16 04:35 Cholesterol 98 mg/dL (0-200) 10/23/16 04:35 LDL Cholesterol, Calc 57 mg/dL (0-100) 10/23/16 04:35 HDL Cholesterol 24 mg/dL (40-60) L 10/23/16 04:35 Cholesterol/HDL Ratio 4.1 (0.0-5.0) 10/23/16 04:35 - Plan (1) Bronchitis Status: Acute Plan: Duoneb Q4RESP TRICIA, supplemental oxygen, Ceftriaxone Sodium 1 gm IV DAILY TRICIA, Robitussin 10ml PO QID, mucomyst to nebulizer treatments (2) Diabetes mellitus, type 2 Status: Chronic Qualifiers: Diabetes mellitus complication status: D Diabetes mellitus complication detail: D Diabetic retinopathy severity: D Proliferative retinopathy type: P Diabetes mellitus macular edema: D 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 mellitus 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 insulin use : D Laterality: L Chronic kidney disease stage: C Plan: Toujeo Solostar Pen 48 units SC 2200, Glipizide 5 mg PO DAILY, OTBS ACHS Humalog SSC (3) COPD (chronic obstructive pulmonary disease) with acute bronchitis Status: Chronic Plan: duoneb, supplemental oxygen (4) Chest pain Status: Acute Qualifiers: Chest pain type: intercostal pain Ischemic chest pain type: I Qualified Code(s): R07.82 - Intercostal pain Plan: serial cardiac enzymes and EKG, Monitor (5) Hyperlipidemia Status: Chronic Qualifiers: Hyperlipidemia type: H Plan: Zocor 20 mg PO HS (6) Hypothyroidism Status: Chronic Qualifiers: Hypothyroidism type: H Plan: Synthroid 75 mcg PO 0700
[2016-10-25] MEDS ORDERED: MUCOMYST (RESPIRATORY USE ONLY) NEB SCH (13:00)
[2016-10-25] MEDS: SNACK - Diabetic Appropriate PO SCH (20:05)
[2016-10-25] MEDS ORDERED: COLACE CAP 100 MG PO SCH (21:00)
[2016-10-25] MEDS: ZOCOR TAB 20 MG PO SCH (21:21)
[2016-10-25] MEDS: TOUJEO SOLOSTAR PEN SC SCH (21:35)
[2016-10-26] MEDS: DUONEB 0.5 MG/3 MG NEB SCH ×4 (01:10→12:07)
[2016-10-26] MEDS: MUCOMYST 20% 200 MG/ML NEB SCH ×4 (01:10→12:06)
[2016-10-26] MEDS: NORCO 10/325 TAB PO PRN (01:49)
[2016-10-26 05:30] LABS: BASOPHILS % (AUTO) 0.5 % (0.2-1.0); EOSINOPHILS # (AUTO) 0.2 x10^3/uL (0.0-0.2); EOSINOPHILS % (AUTO) 2.9 % (0.9-2.9); HEMATOCRIT 28.6 % (36.0-47.0); HEMOGLOBIN 9.3 g/dL (12.0-16.0); LYMPHOCYTES # (AUTO) 1.5 X10^3/uL (1.3-2.9); LYMPHOCYTES % (AUTO) 20.8 % (21.0-51.0); MEAN CORPUSCULAR HGB CONC 32.6 g/dL (33.0-35.0); MEAN CORPUSCULAR VOLUME 79.9 fL (80.0-100.0); MEAN PLATELET VOLUME 8.7 fL (7.4-11.0); MONOCYTES # (AUTO) 0.6 x10^3/uL (0.3-0.8); MONOCYTES % (AUTO) 8.5 % (0.0-13.0); NEUTROPHILS # (AUTO) 4.9 x10^3/uL (2.2-4.8); NEUTROPHILS % (AUTO) 67.3 % (42.0-75.0); PLATELET COUNT 248 X10^3/uL (150.0-450.0); RED BLOOD COUNT 3.58 X10^6/uL (3.5-5.4); RED CELL DISTRIBUTION WIDTH 16.4 % (11.6-16.5); WHITE BLOOD COUNT 7.3 X10^3/uL (3.6-10.0)
[2016-10-26 05:46] LABS: ALBUMIN 2.3 g/dL (3.4-5.0); CALCIUM 7.7 mg/dL (8.5-10.1); CARBON DIOXIDE 30.2 mmol/L (21-32); COR CA(FOR HYPOALB) 9.1 mg/dL (8.5-10.1); CREATININE 1.39 mg/dL (0.55-1.02); TOTAL PROTEIN 6.8 g/dL (6.4-8.2)
[2016-10-26] MEDS: REQUIP PO SCH (05:53)
[2016-10-26] MEDS: SYNTHROID 75 mcg TAB PO SCH (06:00)
--- NOTE | 2016-10-26 06:59 | RAD ---
HISTORY: Shortness of breath Study: Chest one view Comparison: October 25, 2016 Findings: The heart remains enlarged. No congestive heart failure is noted. The aorta is calcified. No acute a lveolar infiltrates or pleural effusions are identified. The bony thorax is unremarkable. IMPRESSION: Cardiomegaly without definite congestive heart failure No infiltrates Reported By:
[2016-10-26] MEDS: LOPRESSOR TAB 25 MG PO SCH (09:48)
[2016-10-26] MEDS: PROTONIX TAB 40 MG PO SCH (09:49)
[2016-10-26] MEDS: PLETAL PO SCH (09:49)
[2016-10-26] MEDS: SINGULAIR TAB 10 MG PO SCH (09:51)
[2016-10-26] MEDS: GLUCOTROL XL PO SCH (09:51)
[2016-10-26] MEDS: XARELTO PO SCH (09:51)
[2016-10-26] MEDS: LASIX IVP SCH (09:52)
[2016-10-26] MEDS: ROBITUSSIN DM PO SCH (09:52)
[2016-10-26] MEDS: ROCEPHIN VIAL 1 GM 1 GM in NS 50 ML IV + SPIKE MINIBAG* 50 ML IV SCH (09:52)
--- NOTE | 2016-10-26 12:17 | DR.CARTERD ---
- Discharge Summary for: Discharge Summary for Date of:: 10/26/16 - Admission Date Date of Admission: 10/23/16 - Admission Diagnoses Admission Diagnosis: Chest Pain. Resp Distress. COPD Bronchitis. Diabetes Mellitus Type 2. Hyperlipidemia. GERD. Hypertension. Hypothyroidism. Renal Disease. COPD. congestive heart failure - Discharge Date Discharge Date: 10/26/16 - Discharge Diagnoses Discharge Diagnosis: Chest Pain Resp Distress COPD Bronchitis Diabetes Mellitus Type 2 Hyperlipidemia GERD Hypertension Hypothyroidism Renal Disease COPD congestive heart failure - Hospital Course Hospital Course: Patient is a 66yo female who presented to the emergency room with complaints of chest pain and increasing shortness of breath along with body aches that has been going on for three days. Patient has a history of Anemia, Arthritis, Depression, Diabetes Mellitus Type 2, Hyperlipidemia, GERD, Hypertension, Hypothyroidism, Renal Disease, COPD and congestive heart failure. Patient also complained of malaise, weakness fatigue, nasal congestion, productive cough, wheezing, chest pain, abdominal pain, nausea, headache, back and joint pain. Vital signs on arrival 988.8, 88, 20, 97%, 153/63. Physical exam revealed bilateral wheezing scattered as well as lower extremity edema. Chest xray on arrival showed cardiomegaly wihout acute cardiopulmonary abnormality. EKS showed NSR at 81bpm. Labs on arrival within normal limits with the exception of WBC 11.4, Hgb 10.4, Hct 32.8, MCH 25.8, MCHC 31.9, Neut% 78.6, Lymph% 11.9, Eos % 3.3, Neut# 9.0, Eos# 0.4, Potassium 3.4, Carbon Dioxide 32.4, BUN 25, Creatinine 1.53, Est GFR 36, Glucose 164, Calcium 7.9, BNP 125, Albumin 2.7, Albumin/Globluin Ratio 0.6. Pateint admitted with diagnosis of chest pain, REsp distress and COPD. Pateint started on Duoneb q4hr, OTBS ACHS, Rocephin 1gm IV daily as well as home medications continued. Upon rounds this am patient states that she has been very weak, short of breath and dont feel good, physical exam reveal scattered wheezing. Case management spoke with patient about usp placement and she decided she did not want to do that. We will make sure she is set up with home health and oxygen at home before discharge. On 10/25 Physical exam reveals scattered wheezing and rhonchi we gave Lasix 40mg Q12hr x 2 doses and added mucomyst to nebulizers. Patient states she is feeling better and we are going to discharge home in stable condition with home health and oxygen. She is to continue her home medications with the addition of Omnicef 300mg PO BID for 3 weeks, patient instructed ot drink 2 l fluid per day. Patient is to follow up in 1 week. Labs: Labs within normal limits with the exception of Hgb 9.3, Hct 28.6, MCV 79.9, MCH 26.0, MCHC 32.6, Lymph% 20.8, Neut# 4.9, Sodium 134, Chloride 96, Creatinine 1.39, Est GFR 41, Glucose 148, Calcium 7.7, Albumin 2.3, Albumin/ globulin 0.5. - Discharge Medications Discharge Medications: Cefdinir [Omnicef Cap 300 mg] 300 mg PO BID #42 cap 10/26/16 [Rx] - Discharge Disposition Discharge Disposition: Home with oxygen and analytic
[2016-10-26 12:35] VITALS: BP 172/69
== END 2016-10-26 12:50 | disposition home health service (06) ==
LOC: ER 22:21 → MED/SURG 10-23 01:39
PROVIDERS: ADMIT Internal Medicine; ATTEND Internal Medicine
DX: R07.82 Intercostal pain (principal); R06.09 Other forms of dyspnea; J40 Bronchitis, not specified as acute or chronic; J44.0 Chronic obstructive pulmonary disease with (acute) lower respiratory infection; I50.43 Acute on chronic combined systolic (congestive) and diastolic (congestive) heart failure; R06.02 Shortness of breath; E11.65 Type 2 diabetes mellitus with hyperglycemia; E78.2 Mixed hyperlipidemia; K21.9 Gastro-esophageal reflux disease without esophagitis; I10 Essential (primary) hypertension; E03.8 Other specified hypothyroidism; R53.1 Weakness; R60.0 Localized edema; R53.83 Other fatigue; R26.89 Other abnormalities of gait and mobility; N28.89 Other specified disorders of kidney and ureter
CPT/HCPCS: 36415; 71010; 80053; 80061; 82550; 82553; 83880; 84484; 85025; 85652; 86140; 87040; 93005; 94640; 94760; 96365; 96374; 96375; 97535; 99284; A4216; A4222; G8978; G8979; G0378; J0696; J1817; J1885; J1940; J2270; J2405; J7608; J7620

== ENCOUNTER 2016-12-23 18:12 | Emergency (ER) | payer OTHER, MEDICAID ==
[2016-12-23 18:22] VITALS: BP 149/66; BMI 59.3
--- NOTE | 2016-12-23 18:26 | DR.GENAD ---
HPI - PCP Primary Care Physician: BETTY - Complaint/Symptoms Chief Complaint Doctors Comments: History as stated Chief Complaint:: PT C/O RT ANKLE PAIN. PT STATES HER ANKLE STARTED HURTING YESTERDAY AM. PT DENIES AND ACUTE INJURY - Source History Provided: Patient - Mode of Arrival Mode of Arrival: EMS - Timing Onset of Chief Complaint: 12/22/16 PMH - PMH Past Medical History: Yes Past Medical History: Anemia, Angina, Arthritis, CHF, COPD, Depression, Diabetes , Dyslipidemia, GERD, Headaches, Hypertension, Hypothyroidism, Renal Disease Past Surgical History: Yes Surgical History: Abdominal Surgery, Cholecystectomy, Hysterectomy, Ortho Surgery - Family History History of Family Medical Conditions: Yes Family Medical History: Diabetes Mellitus, Cancer, Coronary Artery Disease, Hypertension - Social History Does any household member use tobacco: No Alcohol Use: None Do you use any recreational Drugs:: No Lives With: Family Lives Where: Home - infectious screening In the last 2 months have you had wt loss of >10#?: NO Have you had fever, night sweats or hemotysis?: No Have you traveled outside the country in the last 6 months?: No Isolation: Standard ROS - Review of Systems Eyes: No Symptoms Reported ENTM: No Symptoms Reported Respiratoy: No Symptoms Reported Cardiovascular: No Symptoms Reported Gastrointestinal/Abdominal: No Symptoms Reported Genitourinary: No Symptoms Reported Neurological: No Symptoms Reported Musculoskeletal: Ankle (right ankle pain ) Integumentary: Change in Color Hematologic/Lymphatic: No Symptoms Reported Endocrine: No Symptoms Reported Psychiatric: No Symptoms Reported All Other Systems: Reviewed and Negative PE - Vital Signs Vitals: Temperature 98.8 F Pulse Rate 91 Respiratory Rate 20 Blood Pressure [Left Arm] 127/60 Blood Pressure [Right Arm] 172/69 Blood Pressure 149/66 O2 Sat by Pulse Oximetry 98 - General Limitations: No Limitations General Appearance: Alert, In No Apparent Distress - Head Head Exam: Normal Inspection, Atraumatic - Eyes Eye exam: Normal Appearance, PERRL, EOMI - ENT ENT Exam: Normal Exam, Normal Oropharynx External Ear Exam: Normal External Inspection TM/Canal Exam: Bilateral Normal Nose Exam: Normal Nose Exam, Sinus Tenderness Mouth Exam: Normal Inspection Throat Exam: Normal Inspection - Neck Neck Exam: Normal Inspection, Full ROM - Chest Chest Inspection: Normal Inspection - Respiratory Respiratory Exam: Normal Lung Sounds Bilat, Accessory Muscle Use Respiratory Exam: Bilateral Clear to Auscultation - Cardiovascular Cardiovascular Exam: Regular Rate, Normal Rhythm - Abdominal Exam Abdominal Exam: Normal Inspection, Normal Bowel Sounds Abdominal Tenderness: negative: RUQ, RLQ, LUQ, LLQ, Epigastrium, Suprapubic, Diffuse, Mild, Moderate, Severe, Other - Extremities Extremities Exam: Tenderness (right ankle), Other (erythematous right ankle) - Back Back Exam: Normal Inspection - Neurologic Neurological Exam: Alert, Oriented X3, CN II-XII Intact - Psychiatric Psychiatric Exam: Normal Affect - Skin Skin Exam: Warm, Dry, Intact Course - Reevaluation 1st: Improved ROR - Labs Reviewed Result Diagrams: 12/23/16 19:00 Laboratory: WBC 12.8 X10^3/uL (3.6-10.0) H 12/23/16 19:00 RBC 4.77 X10^6/uL (3.5-5.4) 12/23/16 19:00 Hgb 11.4 g/dL (12.0-16.0) L 12/23/16 19:00 Hct 35.5 % (36.0-47.0) L 12/23/16 19:00 MCV 74.4 fL (80.0-100.0) L 12/23/16 19:00 MCH 23.9 pg (27.0-34.0) L 12/23/16 19:00 MCHC 32.1 g/dL (33.0-35.0) L 12/23/16 19:00 RDW 18.1 % (11.6-16.5) H 12/23/16 19:00 Plt Count 300 X10^3/uL (150.0-450.0) 12/23/16 19:00 Plt Count Comment Adequate (ADEQUATE) 12/23/16 19:00 MPV 8.6 fL (7.4-11.0) 12/23/16 19:00 Neut % 79.1 % (42.0-75.0) H 12/23/16 19:00 Lymph % 13.7 % (21.0-51.0) L 12/23/16 19:00 [place] % 4.7 % (0.0-13.0) 12/23/16 19:00 Eos % 1.9 % (0.9-2.9) 12/23/16 19:00 Baso % 0.6 % (0.2-1.0) 12/23/16 19:00 Neut # 10.1 x10^3/uL (2.2-4.8) H 12/23/16 19:00 Lymph # 1.7 X10^3/uL (1.3-2.9) 12/23/16 19:00 [place] # 0.6 x10^3/uL (0.3-0.8) 12/23/16 19:00 Eos # 0.2 x10^3/uL (0.0-0.2) 12/23/16 19:00 Baso # 0.1 X10^3/uL (0.0-0.1) 12/23/16 19:00 Absolute Nucleated RBC 0.0 /100WBC 12/23/16 19:00 Plt Morphology Comment Normal (NORMAL) 12/23/16 19:00 RBC Morphology Abnormal (NORMAL) A 12/23/16 19:00 Hypochromasia 1+ A 12/23/16 19:00 Anisocytosis 1+ A 12/23/16 19:00 Microcytosis 1+ A 12/23/16 19:00 - Diagnosis Discharge Problem: Arthralgia of ankle, right, Cellulitis of ankle - Discharge Plan Condition: Stable - Follow ups/Referrals Follow ups/Referrals: Samuel Barger [Primary Care Provider] - 3 days - Instructions
[2016-12-23 19:08] LABS: BASOPHILS # (AUTO) 0.1 X10^3/uL (0.0-0.1); BASOPHILS % (AUTO) 0.6 % (0.2-1.0); EOSINOPHILS # (AUTO) 0.2 x10^3/uL (0.0-0.2); EOSINOPHILS % (AUTO) 1.9 % (0.9-2.9); HEMATOCRIT 35.5 % (36.0-47.0); HEMOGLOBIN 11.4 g/dL (12.0-16.0); LYMPHOCYTES # (AUTO) 1.7 X10^3/uL (1.3-2.9); LYMPHOCYTES % (AUTO) 13.7 % (21.0-51.0); MEAN CORPUSCULAR HEMOGLOBIN 23.9 pg (27.0-34.0); MEAN CORPUSCULAR HGB CONC 32.1 g/dL (33.0-35.0); MEAN CORPUSCULAR VOLUME 74.4 fL (80.0-100.0); MEAN PLATELET VOLUME 8.6 fL (7.4-11.0); MONOCYTES # (AUTO) 0.6 x10^3/uL (0.3-0.8); MONOCYTES % (AUTO) 4.7 % (0.0-13.0); NEUTROPHILS # (AUTO) 10.1 x10^3/uL (2.2-4.8); NEUTROPHILS % (AUTO) 79.1 % (42.0-75.0); PLATELET COUNT 300 X10^3/uL (150.0-450.0); RED BLOOD COUNT 4.77 X10^6/uL (3.5-5.4); RED CELL DISTRIBUTION WIDTH 18.1 % (11.6-16.5); WHITE BLOOD COUNT 12.8 X10^3/uL (3.6-10.0)
[2016-12-23 19:24] LABS: HYPOCHROMASIA 1+; PLATELET MORPHOLOGY COMMENT NORMAL (NORMAL)
[2016-12-23 19:25] LABS: ANISOCYTOSIS 1+; MICROCYTOSIS 1+
[2016-12-23] MEDS ORDERED: TORADOL 60 MG VIAL IM ONE (20:19)
[2016-12-23] MEDS ORDERED: AMOXIL CAP 500 MG PO ONE (20:20)
[2016-12-23] MEDS ORDERED: TORADOL 60 MG VIAL ONE (20:23)
== END 2016-12-23 20:42 | disposition home or self-care (01) ==
LOC: ER 18:16
DX: L03.116 Cellulitis of left lower limb (principal); M25.571 Pain in right ankle and joints of right foot
CPT/HCPCS: 36415; 85025; 96372; 99283; J1885

== ENCOUNTER → 2016-12-28 | Outpatient (CLI) | payer OTHER, MEDICAID ==
[2016-12-23 18:22] VITALS: BP 149/66
--- NOTE | 2016-12-28 14:52 | RAD ---
HISTORY: Chronic right shoulder pain Study: Right shoulder, internal, external, and Y-view Comparison: None Findings: The clavicle, scapula, right upper ribs, and proximal humerus are intact. There is marked degenerativ e joint disease in the AC joint. There is superior humeral migration suggestive of chronic rotator cu ff disease. IMPRESSION: AC joint degenerative joint disease Superior humeral migration suggestive of chronic rotator cuff disease Reported By:
--- NOTE | 2016-12-28 15:55 | RAD ---
Right foot, three views Indication: Foot pain and edema Comparison: None Findings: Bones are mildly osteopenic. No acute fracture or malalignment of the foot is identified. M ild midfoot and forefoot degenerative changes are noted. There is prominent hindfoot enthesopathy. There is a mildly displaced fracture of the distal fibular diaphysis. Further evaluation with dedicat ed ankle radiographs is recommended. Impression: Mildly displaced fracture of the distal fibular diaphysis, as above. Reported By:
== END | disposition home or self-care (01) | DRG 556 ==
LOC: RAD 14:09
PROVIDERS: ATTEND Internal Medicine
DX: M25.511 Pain in right shoulder (principal); M25.571 Pain in right ankle and joints of right foot; M25.474 Effusion, right foot; M84.474A Pathological fracture, right foot, initial encounter for fracture; M19.011 Primary osteoarthritis, right shoulder
CPT/HCPCS: 73030; 73630

== ENCOUNTER 2016-12-31 20:25 | Emergency (ER) | payer OTHER, MEDICAID ==
--- NOTE | 2016-12-31 20:34 | DR.GENAD ---
HPI - HPI Comment HPI Comment: HISTORY BELOW - Complaint/Symptoms Chief Complaint Doctors Comments: SWELLING, REDNESS AND PAIN RT LEG, ANKLE AND LEG. FOOT XRAY DONE. ANKLE FX PRESENT. ANKLE FILM REQUESTED FOR FULL VISUALIZATION OF FRACTURE. - Nurses notes reviewed Nurses Notes Review: Yes - Source History Provided: Patient - Mode of Arrival Mode of Arrival: Ambulatory - Timing Came on: Suddenly - Duration Duration: Constant Duration: Minutes - Severity Severity: Moderate PMH - PMH Past Medical History: Anemia, Angina, Arthritis, CHF, COPD, Depression, Diabetes , Dyslipidemia, GERD, Headaches, Hypertension, Hypothyroidism, Renal Disease Past Surgical History: Yes Surgical History: Abdominal Surgery, Cholecystectomy, Hysterectomy, Ortho Surgery - Family History Family Medical History: Diabetes Mellitus, Cancer, Coronary Artery Disease, Hypertension - Social History Do you use any recreational Drugs:: No ROS - Review of Systems Constitutional: No Symptoms Reported, Weakness, Fatigue Eyes: No Symptoms Reported. negative: Eye Pain, Discharge ENTM: negative: Ear Pain, Nose Discharge, Nose Congestion, Throat Pain Respiratoy: Non-Productive Cough, Short of Breath. negative: Productive Cough, Wheezing, Hemoptysis Cardiovascular: Edema Gastrointestinal/Abdominal: Abdominal Pain Genitourinary: Dysuria, Hematuria, Other (LASIX, INCREASE URINE OUTPUT.) Neurological: Headache, Weakness Musculoskeletal: Joint Pain, Joint Swelling, Muscle Pain, Leg, Knee, Ankle, Foot Integumentary: Change in Color, Other (REDNESS RT LEG AND FOOT) Hematologic/Lymphatic: Easy Bleeding, Easy Bruising Endocrine: No Symptoms Reported All Other Systems: Reviewed and Negative PE - Vital Signs Vitals: Temperature 98.1 F Pulse Rate 74 Respiratory Rate 18 Blood Pressure [Left Arm] 127/60 Blood Pressure [Right Arm] 172/69 Blood Pressure 200/82 O2 Sat by Pulse Oximetry 97 - General Limitations: No Limitations General Appearance: Alert - Head Head Exam: Normal Inspection - Eyes Eye exam: Normal Appearance - ENT ENT Exam: Normal External Ear Exam External Ear Exam: Normal External Inspection TM/Canal Exam: Bilateral Normal Nose Exam: Normal Nose Exam Mouth Exam: Normal Inspection Throat Exam: Normal Inspection - Neck Neck Exam: Trachea Midline - Chest Chest Inspection: Symmetric Chest Wall Rise - Respiratory Respiratory Exam: Normal Lung Sounds Bilat Respiratory Exam: Bilateral Rhonchi, Lower Rhonchi - Cardiovascular Cardiovascular Exam: Regular Rate, Normal Rhythm, Normal Heart Sounds - Abdominal Exam Abdominal Exam: Normal Bowel Sounds, Soft. negative: Tenderness - Extremities Extremities Exam: Tenderness (RIGHT LEG, ANKLE AND FOOT RED AND TENDER.), Edema - Back Back Exam: Paraspinal Tenderness - Neurologic Neurological Exam: Alert, Oriented X3 - Psychiatric Psychiatric Exam: Normal Affect, Normal Mood - Skin Skin Exam: Erythema MDM - Differential Diagnosis Differential Diagnosis: CELLULITIS, ANKLE FRACTURE, Course - Treatment Treatment: SEE ORDERS. - Education/Counseling Education/Counseling: Patient, Education Educated On: Diagnosis, Needs for Follow Up ROR - Labs Reviewed Laboratory Results Reviewed?: Yes Result Diagrams: 12/31/16 21:45 12/31/16 21:45 Laboratory: WBC 11.6 X10^3/uL (3.6-10.0) H 12/31/16 21:45 RBC 4.48 X10^6/uL (3.5-5.4) 12/31/16 21:45 Hgb 10.5 g/dL (12.0-16.0) L 12/31/16 21:45 Hct 33.3 % (36.0-47.0) L 12/31/16 21:45 MCV 74.4 fL (80.0-100.0) L 12/31/16 21:45 MCH 23.5 pg (27.0-34.0) L 12/31/16 21:45 MCHC 31.6 g/dL (33.0-35.0) L 12/31/16 21:45 RDW 18.5 % (11.6-16.5) H 12/31/16 21:45 Plt Count 341 X10^3/uL (150.0-450.0) 12/31/16 21:45 Plt Count Comment Adequate (ADEQUATE) 12/31/16 21:45 MPV 8.4 fL (7.4-11.0) 12/31/16 21:45 Neut % 72.6 % (42.0-75.0) 12/31/16 21:45 Lymph % 19.0 % (21.0-51.0) L 12/31/16 21:45 [place] % 5.2 % (0.0-13.0) 12/31/16 21:45 Eos % 2.7 % (0.9-2.9) 12/31/16 21:45 Baso % 0.5 % (0.2-1.0) 12/31/16 21:45 Neut # 8.4 x10^3/uL (2.2-4.8) H 12/31/16 21:45 Lymph # 2.2 X10^3/uL (1.3-2.9) 12/31/16 21:45 [place] # 0.6 x10^3/uL (0.3-0.8) 12/31/16 21:45 Eos # 0.3 x10^3/uL (0.0-0.2) H 12/31/16 21:45 Baso # 0.1 X10^3/uL (0.0-0.1) 12/31/16 21:45 Absolute Nucleated RBC 0.1 /100WBC 12/31/16 21:45 Plt Morphology Comment Normal (NORMAL) 12/31/16 21:45 RBC Morphology Abnormal (NORMAL) A 12/31/16 21:45 Hypochromasia 1+ A 12/31/16 21:45 Anisocytosis 1+ A 12/31/16 21:45 Microcytosis 1+ A 12/31/16 21:45 Sodium 138 mmol/L (136-145) 12/31/16 21:45 Corrected Sodium 140 mmol/L (136-145) 12/31/16 21:45 Potassium 3.6 mmol/L (3.5-5.1) 12/31/16 21:45 Chloride 99 mmol/L (98-107) 12/31/16 21:45 Carbon Dioxide 35.4 mmol/L (21-32) H 12/31/16 21:45 BUN 28 mg/dL (7-18) H 12/31/16 21:45 Creatinine 1.66 mg/dL (0.55-1.02) H 12/31/16 21:45 Est GFR (MDRD) Af Amer 40 (>60) L 12/31/16 21:45 Est GFR (MDRD) Non-Af 33 (>60) L 12/31/16 21:45 Glucose 186 mg/dL (65-99) H 12/31/16 21:45 Calcium 8.8 mg/dL (8.5-10.1) 12/31/16 21:45 Corrected Calcium 9.6 mg/dL (8.5-10.1) 12/31/16 21:45 Total Bilirubin 0.30 mg/dL (0.2-1.0) 12/31/16 21:45 AST 32 Units/L (15-37) 12/31/16 21:45 ALT 32 Units/L (12-78) 12/31/16 21:45 Alkaline Phosphatase 105 Units/L (46-116) 12/31/16 21:45 Total Protein 7.6 g/dL (6.4-8.2) 12/31/16 21:45 Albumin 3.0 g/dL (3.4-5.0) L 12/31/16 21:45 Globulin 4.6 g/dL (2.5-4.5) H 12/31/16 21:45 Albumin/Globulin Ratio 0.7 Ratio (1.1-2.1) L 12/31/16 21:45 - XRAY XRAY Interpreted by: Radiologist XRAY Findings: REPORT DISCUSS WITH PATIENT. - Diagnosis Discharge Problem: Cellulitis of right ankle Ankle fracture Qualifiers: Encounter type: initial encounter Fracture type: closed Laterality: right Qualified Code(s): S82.891A - Other fracture of right lower leg, initial encounter for closed fracture - Discharge Plan Disposition: 01 HOME, SELF-CARE Condition: Stable Prescriptions: Clindamycin HCl 300 mg PO Q6H #40 cap - Follow ups/Referrals Follow ups/Referrals: Samuel Barger [Primary Care Provider] - 3 days XAVI ARDON [STAFF PHYSICIAN] - 01/01/17 - Instructions Instructions: Cellulitis, Adult, [id number], Ankle Fracture, [id number] Additional Instructions: RETURN TO ED IF WORSE.
[2016-12-31 20:38] VITALS: BP 200/82; BMI 59.3
--- NOTE | 2016-12-31 22:08 | RAD ---
Right ankle three views Indication: Pain after trauma. Lateral ankle pain. Findings: There is fracture of the distal tibial diaphysis/metaphysis junction with medial displaceme nt of the distal fracture fragment. No tibia fracture seen. Enthesopathy at the calcaneus noted. Midf oot DJD noted. Tibiotalar joint is intact. Impression: 1. Distal fibular fracture. 2. No convincing tibial fracture are tibiotalar joint disruption. Followup radiographically. Reported By:
[2016-12-31 22:09] LABS: BASOPHILS # (AUTO) 0.1 X10^3/uL (0.0-0.1); BASOPHILS % (AUTO) 0.5 % (0.2-1.0); EOSINOPHILS # (AUTO) 0.3 x10^3/uL (0.0-0.2); EOSINOPHILS % (AUTO) 2.7 % (0.9-2.9); HEMATOCRIT 33.3 % (36.0-47.0); HEMOGLOBIN 10.5 g/dL (12.0-16.0); LYMPHOCYTES # (AUTO) 2.2 X10^3/uL (1.3-2.9); MEAN CORPUSCULAR HEMOGLOBIN 23.5 pg (27.0-34.0); MEAN CORPUSCULAR HGB CONC 31.6 g/dL (33.0-35.0); MEAN CORPUSCULAR VOLUME 74.4 fL (80.0-100.0); MEAN PLATELET VOLUME 8.4 fL (7.4-11.0); MONOCYTES # (AUTO) 0.6 x10^3/uL (0.3-0.8); MONOCYTES % (AUTO) 5.2 % (0.0-13.0); NEUTROPHILS # (AUTO) 8.4 x10^3/uL (2.2-4.8); NEUTROPHILS % (AUTO) 72.6 % (42.0-75.0); PLATELET COUNT 341 X10^3/uL (150.0-450.0); RED BLOOD COUNT 4.48 X10^6/uL (3.5-5.4); RED CELL DISTRIBUTION WIDTH 18.5 % (11.6-16.5); WHITE BLOOD COUNT 11.6 X10^3/uL (3.6-10.0)
--- NOTE | 2016-12-31 22:09 | RAD ---
Right knee two views Indication: Right knee pain. Findings: Right knee arthroplasty hardware is intact without cortical lucency or malalignment. No lar ge effusion seen. Enthesopathy at the extensor mechanism noted. Impression: No evidence of acute fracture or hardware failure. Reported By:
[2016-12-31 22:22] LABS: CALCIUM 8.8 mg/dL (8.5-10.1); CARBON DIOXIDE 35.4 mmol/L (21-32); COR CA(FOR HYPOALB) 9.6 mg/dL (8.5-10.1); CREATININE 1.66 mg/dL (0.55-1.02); TOTAL PROTEIN 7.6 g/dL (6.4-8.2)
[2016-12-31 22:25] LABS: ANISOCYTOSIS 1+; HYPOCHROMASIA 1+; MICROCYTOSIS 1+; PLATELET MORPHOLOGY COMMENT NORMAL (NORMAL)
== END 2016-12-31 23:10 | disposition home or self-care (01) ==
LOC: ER 20:43
PROC: 2W3LX1Z Immobilization of Right Lower Extremity using Splint (ICD-10-PCS; principal; 2016-12-31)
CPT/HCPCS: 36415; 73560; 73610; 80053; 85025; 99283

== ENCOUNTER 2017-01-17 19:21 | Emergency (ER) | payer OTHER, MEDICAID ==
[2017-01-17 19:30] VITALS: BMI 59.3
--- NOTE | 2017-01-17 19:39 | DR.CP ---
HPI - Time Seen Time seen: 19:30 - PCP Primary Care Physician: BETTY - Complaint Chief Complaint:: MIDSTERNAL CHEST PAIN RADIATES TO BILATERAL ARMS, DIFFICULTY BREATHING. PATIENT WEARS HOME O2. O/S APPROX. 1730. - Reviewed Nurses Notes Review: Yes - Source History Provided: Patient, EMS - Mode of Arrival Mode of Arrival: EMS - Timing Onset of Chief Complaint: 01/17/17 Came on: Suddenly Pain: Present Now - Location Chest Pain Radiation Location: Left Arm, Right Arm - Associated Signs and Symptoms Associated Signs and Symptoms: Shortness of Breath PMH - PMH Past Medical History: Yes Past Medical History: Anemia, Angina, Arthritis, CHF, COPD, Depression, Diabetes , Dyslipidemia, GERD, Headaches, Hypertension, Hypothyroidism, Renal Disease Past Surgical History: Yes Surgical History: Abdominal Surgery, Cholecystectomy, Hysterectomy, Ortho Surgery - Family History History of Family Medical Conditions: Yes Family Medical History: Diabetes Mellitus, Cancer, Coronary Artery Disease, Hypertension - Social History Does patient currently use any type of tobacco product: No Have you used tobacco products in the last 12 months: No Type of Tobacco Use: None Does any household member use tobacco: No Alcohol Use: None Do you use any recreational Drugs:: No Lives With: Alone Lives Where: Home - infectious screening Have you traveled outside the country in the last 6 months?: No Isolation: Standard PE - Vitals Vitals: Temperature 98.1 F Pulse Rate [Apical] 79 Pulse Rate 88 Respiratory Rate 20 Blood Pressure [Left Arm] 127/60 Blood Pressure [Right Arm] 128/60 Blood Pressure 190/73 O2 Sat by Pulse Oximetry 98 ROR - Labs Reviewed Result Diagrams: 01/17/17 19:51 01/17/17 19:51 Laboratory: WBC 13.8 X10^3/uL (3.6-10.0) H 01/17/17 19:51 RBC 4.36 X10^6/uL (3.5-5.4) 01/17/17 19:51 Hgb 9.9 g/dL (12.0-16.0) L 01/17/17 19:51 Hct 31.4 % (36.0-47.0) L 01/17/17 19:51 MCV 72.2 fL (80.0-100.0) L 01/17/17 19:51 MCH 22.7 pg (27.0-34.0) L 01/17/17 19:51 MCHC 31.5 g/dL (33.0-35.0) L 01/17/17 19:51 RDW 19.1 % (11.6-16.5) H 01/17/17 19:51 Plt Count 357 X10^3/uL (150.0-450.0) 01/17/17 19:51 Plt Count Comment Adequate (ADEQUATE) 01/17/17 19:51 MPV 8.0 fL (7.4-11.0) 01/17/17 19:51 Neut % 80.0 % (42.0-75.0) H 01/17/17 19:51 Lymph % 12.9 % (21.0-51.0) L 01/17/17 19:51 [place] % 4.5 % (0.0-13.0) 01/17/17 19:51 Eos % 2.3 % (0.9-2.9) 01/17/17 19:51 Baso % 0.3 % (0.2-1.0) 01/17/17 19:51 Neut # 11.1 x10^3/uL (2.2-4.8) H 01/17/17 19:51 Lymph # 1.8 X10^3/uL (1.3-2.9) 01/17/17 19:51 [place] # 0.6 x10^3/uL (0.3-0.8) 01/17/17 19:51 Eos # 0.3 x10^3/uL (0.0-0.2) H 01/17/17 19:51 Baso # 0.0 X10^3/uL (0.0-0.1) 01/17/17 19:51 Absolute Nucleated RBC 0.0 /100WBC 01/17/17 19:51 Plt Morphology Comment Normal (NORMAL) 01/17/17 19:51 RBC Morphology Abnormal (NORMAL) A 01/17/17 19:51 Hypochromasia 1+ A 01/17/17 19:51 Anisocytosis 1+ A 01/17/17 19:51 Microcytosis 1+ A 01/17/17 19:51 Sodium 138 mmol/L (136-145) 01/17/17 19:51 Corrected Sodium 140 mmol/L (136-145) 01/17/17 19:51 Potassium 3.6 mmol/L (3.5-5.1) 01/17/17 19:51 Chloride 102 mmol/L (98-107) 01/17/17 19:51 Carbon Dioxide 27.5 mmol/L (21-32) 01/17/17 19:51 BUN 21 mg/dL (7-18) H 01/17/17 19:51 Creatinine 1.51 mg/dL (0.55-1.02) H 01/17/17 19:51 Est GFR (MDRD) Af Amer 45 (>60) L 01/17/17 19:51 Est GFR (MDRD) Non-Af 37 (>60) L 01/17/17 19:51 Glucose 200 mg/dL (65-99) H 01/17/17 19:51 Calcium 8.7 mg/dL (8.5-10.1) 01/17/17 19:51 Corrected Calcium 9.6 mg/dL (8.5-10.1) 01/17/17 19:51 Total Bilirubin 0.30 mg/dL (0.2-1.0) 01/17/17 19:51 AST 25 Units/L (15-37) 01/17/17 19:51 ALT 26 Units/L (12-78) 01/17/17 19:51 Alkaline Phosphatase 138 Units/L (46-116) H 01/17/17 19:51 Creatine Kinase 119 Units/L (26-192) 01/17/17 19:51 CK-MB (CK-2) 1.5 ng/mL (0-4.0) 01/17/17 19:51 CK/CKMB % Calc 1.3 % (<4) 01/17/17 19:51 Troponin I < 0.02 ng/mL (0-1.5) 01/17/17 19:51 B-Natriuretic Peptide 58.6 pg/mL (0-79) 01/17/17 19:51 Total Protein 7.5 g/dL (6.4-8.2) 01/17/17 19:51 Albumin 2.9 g/dL (3.4-5.0) L 01/17/17 19:51 Globulin 4.6 g/dL (2.5-4.5) H 01/17/17 19:51 Albumin/Globulin Ratio 0.6 Ratio (1.1-2.1) L 01/17/17 19:51 - Discharge Plan Condition: Stable - Follow ups/Referrals Follow ups/Referrals: Samuel Barger [Primary Care Provider] - 01/18/17 - Instructions Instructions: Chest Pain Observation Additional Instructions: RETURN TO ED IF WORSE.
[2017-01-17 20:01] LABS: BASOPHILS % (AUTO) 0.3 % (0.2-1.0); EOSINOPHILS # (AUTO) 0.3 x10^3/uL (0.0-0.2); EOSINOPHILS % (AUTO) 2.3 % (0.9-2.9); HEMATOCRIT 31.4 % (36.0-47.0); HEMOGLOBIN 9.9 g/dL (12.0-16.0); LYMPHOCYTES # (AUTO) 1.8 X10^3/uL (1.3-2.9); LYMPHOCYTES % (AUTO) 12.9 % (21.0-51.0); MEAN CORPUSCULAR HEMOGLOBIN 22.7 pg (27.0-34.0); MEAN CORPUSCULAR HGB CONC 31.5 g/dL (33.0-35.0); MEAN CORPUSCULAR VOLUME 72.2 fL (80.0-100.0); MONOCYTES # (AUTO) 0.6 x10^3/uL (0.3-0.8); MONOCYTES % (AUTO) 4.5 % (0.0-13.0); NEUTROPHILS # (AUTO) 11.1 x10^3/uL (2.2-4.8); PLATELET COUNT 357 X10^3/uL (150.0-450.0); RED BLOOD COUNT 4.36 X10^6/uL (3.5-5.4); RED CELL DISTRIBUTION WIDTH 19.1 % (11.6-16.5); WHITE BLOOD COUNT 13.8 X10^3/uL (3.6-10.0)
[2017-01-17 20:16] LABS: BLOOD UREA NITROGEN 21 mg/dL (7-18); CALCIUM 8.7 mg/dL (8.5-10.1); CARBON DIOXIDE 27.5 mmol/L (21-32); CHLORIDE 102 mmol/L (98-107); COR NA(FOR HYPERGLY) 140 mmol/L (136-145); CREATININE 1.51 mg/dL (0.55-1.02); SODIUM 138 mmol/L (136-145); TROPONIN I < 0.02 ng/mL (0-1.5); eGFR BLACK RACES 45 (>60); eGFR NON BLACK RACES 37 (>60)
[2017-01-17 20:20] LABS: ALANINE AMINOTRANSFERASE 26 Units/L (12-78); ALBUMIN 2.9 g/dL (3.4-5.0); ALKALINE PHOSPHATASE 138 Units/L (46-116); ASPARTATE AMINO TRANSFERASE 25 Units/L (15-37); CKMB % 1.3 % (<4); COR CA(FOR HYPOALB) 9.6 mg/dL (8.5-10.1); CREATINE KINASE 119 Units/L (26-192); CREATINE KINASE MB 1.5 ng/mL (0-4.0); TOTAL PROTEIN 7.5 g/dL (6.4-8.2)
[2017-01-17 20:23] LABS: B-TYPE NATRIURETIC PEPTIDE 58.6 pg/mL (0-79)
[2017-01-17 20:24] LABS: ANISOCYTOSIS 1+; HYPOCHROMASIA 1+; MICROCYTOSIS 1+; PLATELET MORPHOLOGY COMMENT NORMAL (NORMAL)
--- NOTE | 2017-01-17 21:47 | RAD ---
HISTORY: Chest pain. Study: Single-view chest. Comparison: October 26, 2016 Findings: The trachea is midline. The cardiac silhouette is at the upper limits of normal in size given the po rtable technique. Right hilar prominence is unchanged. The lungs are clear without focal infiltrate or effusion. The bony thorax is unremarkable. IMPRESSION: No acute cardiopulmonary disease or concerning change compared with October 26, 2016. Reported By:
[2017-01-17 22:08] VITALS: BP 128/60
== END 2017-01-17 23:00 | disposition home or self-care (01) ==
LOC: ER 19:23
DX: R07.89 Other chest pain (principal); R06.02 Shortness of breath
CPT/HCPCS: 36415; 71010; 80053; 82550; 82553; 83880; 84484; 85025; 93005; 99282; 99283

== ENCOUNTER → 2017-01-17 | Outpatient (CLI) | payer OTHER, MEDICAID ==
[2016-12-31 20:38] VITALS: BP 200/82
[2017-01-17 15:23] LABS: ALANINE AMINOTRANSFERASE 26 Units/L (12-78); ASPARTATE AMINO TRANSFERASE 27 Units/L (15-37)
--- NOTE | 2017-01-17 16:29 | RAD ---
Examination: X-rays of the right ankle. Clinical history: Followup right ankle fracture. Technique: Three views of the right ankle were obtained. Comparison: 12/31/2016. Findings: There is a stable minimally displaced fracture of the distal fibula, with callus formation and perios teal reaction now noted at the fracture site indicating healing. Bony spurs are noted at the plantar and posterior aspects of the calcaneus, consistent with enthesopa thy. No soft tissue abnormality is noted. Impression: 1. Fracture of the distal fibula, as described above. Reported By:
== END | disposition home or self-care (01) | DRG 607 ==
LOC: LAB 14:56
PROVIDERS: ATTEND Podiatrist
DX: B35.1 Tinea unguium (principal); S82.424A Nondisplaced transverse fracture of shaft of right fibula, initial encounter for closed fracture; X58.XXXA Exposure to other specified factors, initial encounter; S82.491A Other fracture of shaft of right fibula, initial encounter for closed fracture
CPT/HCPCS: 36415; 73610; 84450; 84460

== ENCOUNTER → 2017-02-11 | Outpatient (CLI) | payer OTHER, MEDICAID ==
[2017-01-17 22:08] VITALS: BP 128/60
--- NOTE | 2017-02-14 00:14 | RAD ---
Four views of the right ankle Indication: Follow-up fibular fracture. Conclusion: Since the most recent prior exam of January 17, 2017 there has been further healing of the Ziegler type C distal fibular fracture without change in fracture alignment. The tibiotalar joint a nd syndesmosis appear maintained. Calcaneal enthesophytes are present. Circumferential soft tissue sw elling has slightly improved. Reported By:
--- NOTE | 2017-02-14 12:29 | RAD ---
History: Follow-up of right distal fibular fracture. Study: 3 views of the right foot. Comparison: Right foot series dated December 28, 2016. Findings: Patient status post fracture of the right distal fibula. Interval healing without significa nt change in alignment. Disuse osteopenia. Persistent soft tissue swelling. Remaining osseous structu res appear intact. Impression: Interval healing. Reported By:
== END | disposition home or self-care (01) ==
LOC: RAD 12:02
PROVIDERS: ATTEND Orthopaedic Surgery
DX: S82.424D Nondisplaced transverse fracture of shaft of right fibula, subsequent encounter for closed fracture with routine healing (principal); X58.XXXD Exposure to other specified factors, subsequent encounter; M77.31 Calcaneal spur, right foot
CPT/HCPCS: 73610; 73630

== ENCOUNTER → 2017-03-11 | Outpatient (CLI) | payer OTHER, MEDICAID ==
--- NOTE | 2017-03-12 16:49 | MG ---
HISTORY: SCREENING Comparison: None FINDINGS: Bilateral CC and MLO projections of the right and left breast were obtained. Scattered fibroglandula r tissue is seen to be present. No dominant suspicious architectural distortion, mass or clustered m icrocalcifications can be observed to suggest malignancy. No skin thickening or nipple retraction is appreciated. No pathological lymphadenopathy can be identified. Benign-appearing calcifications ar e noted within the right and left breast. IMPRESSION: NO RADIOGRAPHIC EVIDENCE OF MALIGNANCY. ACR CATEGORY 2 - benign findings. FOLLOW-UP EXAM 1 YEAR. Diagnostic CAD was utilized and reviewed. * 0 (ZERO) - ASSESSMENT INCOMPLETE; ADDITIONAL IMAGING IS NEEDED. * 1/ (ONE) - NEGATIVE. * 2/II (TWO) - BENIGN FINDINGS. * 3/III (THREE) - PROBABLY BENIGN FINDING; SHORT INTERVAL FOLLOW-UP SUGGESTED. * 4/IV (FOUR) - SUSPICIOUS ABNORMALITY; BIOPSY SHOULD BE CONSIDERED. * 5/V - HIGHLY SUSPICIOUS OF MALIGNANCY; BIOPSY SHOULD BE PERFORMED. A NEGATIVE X-RAY REPORT SHOULD NOT DELAY BIOPSY IF A DOMINANT OR CLINICALLY SUSPICIOUS MASS IS PRESENT; 4 TO 8 PERCENT OF CANCERS ARE NOT IDENTIFIED BY X-RAY. A NEGA TIVE REPORT MAY REINFORCE THE CLINICAL IMPRESSION. ADENOSIS AND DENSE BREASTS MAY OBSCURE AN UNDERLY ING NEOPLASM. Reported By:
== END ==
LOC: RAD 13:28
PROVIDERS: ATTEND Internal Medicine
DX: Z12.31 Encounter for screening mammogram for malignant neoplasm of breast (principal)
CPT/HCPCS: 77067

== ENCOUNTER → 2017-04-15 | Outpatient (CLI) | payer OTHER, MEDICAID ==
--- NOTE | 2017-04-15 13:21 | RAD ---
Examination: Right ankle, three views History: Right ankle and foot pain Comparison reference 02/11/2017 Findings: A marked additional callus formation is noted at the distal fibular fracture site. There is periosteal new bone and cortical remodeling. The fracture line remains faintly visible. There is no new new abnormality identified. Impression: Additional interval healing of fibular fracture at the meta diaphysis. Bony union is cons idered to be almost complete. Reported By:
== END ==
LOC: RAD 12:27
PROVIDERS: ATTEND Orthopaedic Surgery
DX: M79.671 Pain in right foot (principal); S82.424D Nondisplaced transverse fracture of shaft of right fibula, subsequent encounter for closed fracture with routine healing; X58.XXXD Exposure to other specified factors, subsequent encounter
CPT/HCPCS: 73610

== ENCOUNTER → 2017-05-28 | Outpatient (CLI) | payer OTHER, MEDICAID ==
--- NOTE | 2017-05-28 15:03 | CT ---
HISTORY: Dizziness, syncope, and collapse. Study: CT brain without contrast Comparison: CT head dated July 04, 2016. Technique: Multiple axial images of the brain were obtained from the skull base to the vertex without administra tion of IV contrast. Dose reduction techniques including Automated Exposure Control (AEC) and adjust ment of mA and kV were utilized. Findings: Age-related cortical atrophy and chronic small vessel ischemic changes. No acute intraparenchymal hem orrhage or mass can be identified. No extra-axial fluid collections are seen. No alteration in the attenuation of the brain parenchyma can be identified to suggest acute or subacute ischemic change. The ventricular system is symmetric and nondilated. The extracranial structures are grossly unremark able. IMPRESSION: No obvious acute intracranial pathology. If clinically concerned for acute ischemia/infar ction, MRI brain is more sensitive. Reported By:
== END ==
LOC: RAD 13:31
PROVIDERS: ATTEND Internal Medicine
DX: R42 Dizziness and giddiness (principal); R55 Syncope and collapse
CPT/HCPCS: 70450

== ENCOUNTER 2017-06-28 13:18 | Inpatient (IN) | payer OTHER, MEDICAID ==
[2017-06-28 16:06] LABS: BASOPHILS # (AUTO) 0.2 X10^3/uL (0.0-0.1); BASOPHILS % (AUTO) 1.1 % (0.2-1.0); EOSINOPHILS # (AUTO) 0.4 x10^3/uL (0.0-0.2); EOSINOPHILS % (AUTO) 2.7 % (0.9-2.9); HEMATOCRIT 34.8 % (36.0-47.0); HEMOGLOBIN 11.1 g/dL (12.0-16.0); LYMPHOCYTES # (AUTO) 1.7 X10^3/uL (1.3-2.9); LYMPHOCYTES % (AUTO) 11.2 % (21.0-51.0); MEAN CORPUSCULAR HEMOGLOBIN 23.5 pg (27.0-34.0); MEAN CORPUSCULAR HGB CONC 31.9 g/dL (33.0-35.0); MEAN CORPUSCULAR VOLUME 73.7 fL (80.0-100.0); MEAN PLATELET VOLUME 8.6 fL (7.4-11.0); MONOCYTES # (AUTO) 0.8 x10^3/uL (0.3-0.8); MONOCYTES % (AUTO) 5.4 % (0.0-13.0); NEUTROPHILS # (AUTO) 12.2 x10^3/uL (2.2-4.8); NEUTROPHILS % (AUTO) 79.6 % (42.0-75.0); PLATELET COUNT 344 X10^3/uL (150.0-450.0); RED BLOOD COUNT 4.72 X10^6/uL (3.5-5.4); RED CELL DISTRIBUTION WIDTH 18.8 % (11.6-16.5); WHITE BLOOD COUNT 15.3 X10^3/uL (3.6-10.0)
[2017-06-28 16:15] LABS: ALBUMIN 2.8 g/dL (3.4-5.0); CALCIUM 8.4 mg/dL (8.5-10.1); CARBON DIOXIDE 32.1 mmol/L (21-32); COR CA(FOR HYPOALB) 9.4 mg/dL (8.5-10.1); CREATININE 2.14 mg/dL (0.55-1.02); TOTAL PROTEIN 7.8 g/dL (6.4-8.2)
[2017-06-28 16:31] LABS: B-TYPE NATRIURETIC PEPTIDE 32.4 pg/mL (0-79)
[2017-06-28] MEDS ORDERED: K-RIDER 10 MEQ/NS 100 ML 10 MEQ/100 ML BAG IV PRN (16:32)
[2017-06-28] MEDS ORDERED: K-LYTE EFFERVESCENT PO PRN (16:32)
[2017-06-28] MEDS ORDERED: POTASSIUM CHL 40 MEQ/NS 0.45% 500 ML IV PRN (16:32)
[2017-06-28] MEDS ORDERED: POTASSIUM CHLORIDE LIQ 20 MEQ UDC PO PRN (16:32)
[2017-06-28] MEDS ORDERED: POTASSIUM CHL 60 MEQ/NS 0.45% 500 ML IV PRN (16:32)
[2017-06-28] MEDS ORDERED: MAGNESIUM SULFATE 1 GM/100 mL PREMIX 1 GM/100 ML BAG IV PRN (16:32)
--- NOTE | 2017-06-28 16:54 | RAD ---
Chest, one-view Indication: CHF Comparison: 01/17/2017 Findings: There is stable borderline cardiomegaly without congestive failure. No focal consolidation, significant effusion or pneumothorax is identified. There is no acute osseous abnormality. Impression: Stable borderline cardiomegaly without congestive failure. Reported By:
[2017-06-28] MEDS: LASIX IVP SCH ×2 (17:08→21:36)
[2017-06-28] MEDS: MAG-OX TAB PO PRN (17:08)
[2017-06-28 17:25] LABS: ANISOCYTOSIS SLIGHT; PLATELET MORPHOLOGY COMMENT NORMAL (NORMAL)
[2017-06-28 17:26] LABS: HYPOCHROMASIA 1+; MICROCYTOSIS 2+
[2017-06-28 18:15] VITALS: BMI 62.6
[2017-06-28 18:31] LABS: BILIRUBIN,URINE NEGATIVE (NEGATIVE); BLOOD/HEMOGLOBIN,URINE NEGATIVE (NEGATIVE); GLUCOSE, URINE NEGATIVE (NEGATIVE); KETONES,URINE NEGATIVE (NEGATIVE); LEUKOCYTE ESTERASE ,URINE NEGATIVE (NEGATIVE); NITRITES,URINE NEGATIVE (NEGATIVE); PROTEIN,URINE NEGATIVE (NEGATIVE); UROBILINOGEN,URINE NORMAL (NORMAL)
[2017-06-28 19:04] LABS: APPEARANCE,URINE CLEAR (CLEAR); BACTERIA,URINE NEGATIVE /HPF (NEGATIVE); COLOR,URINE YELLOW (YELLOW); RBC,URINE 0-3 /HPF (NONE SEEN); SQUAMOUS EPITHELIAL CELL,UR RARE /HPF (NEGATIVE)
[2017-06-28] MEDS: NYSTATIN POWDER TOP SCH (21:37)
[2017-06-28] MEDS: REQUIP PO SCH (21:46)
[2017-06-28] MEDS: HumuLIN R SUBCUT PRN (21:46)
[2017-06-28] MEDS ORDERED: NORCO 10/325 TAB PO ONE (21:51)
[2017-06-28] MEDS: KLONOPIN TAB 0.5 MG PO SCH (22:15)
[2017-06-29] MEDS: HumuLIN R SUBCUT PRN ×4 (05:45→21:09)
[2017-06-29 06:08] LABS: BASOPHILS # (AUTO) 0.1 X10^3/uL (0.0-0.1); BASOPHILS % (AUTO) 0.5 % (0.2-1.0); EOSINOPHILS # (AUTO) 0.3 x10^3/uL (0.0-0.2); EOSINOPHILS % (AUTO) 2.9 % (0.9-2.9); LYMPHOCYTES # (AUTO) 1.6 X10^3/uL (1.3-2.9); LYMPHOCYTES % (AUTO) 13.8 % (21.0-51.0); MEAN CORPUSCULAR HEMOGLOBIN 23.6 pg (27.0-34.0); MEAN CORPUSCULAR HGB CONC 32.2 g/dL (33.0-35.0); MEAN CORPUSCULAR VOLUME 73.3 fL (80.0-100.0); MEAN PLATELET VOLUME 8.6 fL (7.4-11.0); MONOCYTES # (AUTO) 0.8 x10^3/uL (0.3-0.8); MONOCYTES % (AUTO) 6.4 % (0.0-13.0); NEUTROPHILS # (AUTO) 9.1 x10^3/uL (2.2-4.8); NEUTROPHILS % (AUTO) 76.4 % (42.0-75.0); PLATELET COUNT 308 X10^3/uL (150.0-450.0); RED BLOOD COUNT 4.23 X10^6/uL (3.5-5.4); WHITE BLOOD COUNT 11.9 X10^3/uL (3.6-10.0)
[2017-06-29 06:21] LABS: ALBUMIN 2.4 g/dL (3.4-5.0); CALCIUM 8.2 mg/dL (8.5-10.1); CARBON DIOXIDE 34.9 mmol/L (21-32); COR CA(FOR HYPOALB) 9.5 mg/dL (8.5-10.1); CREATININE 1.91 mg/dL (0.55-1.02); TOTAL PROTEIN 6.8 g/dL (6.4-8.2)
[2017-06-29 06:41] LABS: HYPOCHROMASIA 1+; MICROCYTOSIS 1+; PLATELET MORPHOLOGY COMMENT NORMAL (NORMAL)
--- NOTE | 2017-06-29 06:51 | RAD ---
Examination: Portable AP chest History: CHF Comparison 06/28/2017 Findings: Continued upper normal heart size. No developing pulmonary consolidation, edema, pneumothor ax or large pleural effusion. Impression: No significant interval change/new abnormality. Reported By:
[2017-06-29] MEDS: LASIX IVP SCH ×2 (08:00→20:58)
[2017-06-29] MEDS: REQUIP PO SCH ×4 (08:00→21:00)
[2017-06-29] MEDS: NYSTATIN POWDER TOP SCH ×2 (08:00→20:55)
[2017-06-29] MEDS ORDERED: NORCO 5/325 MG TAB PO PRN (13:12)
[2017-06-29] MEDS: COLACE CAP 100 MG PO SCH ×2 (20:55→21:04)
[2017-06-29] MEDS: SINGULAIR TAB 10 MG PO SCH (20:55)
[2017-06-29] MEDS: ZOCOR TAB 20 MG PO SCH (20:56)
[2017-06-29] MEDS: PLETAL PO SCH (20:56)
[2017-06-29] MEDS: KLONOPIN TAB 0.5 MG PO SCH (20:56)
[2017-06-29] MEDS: BENADRYL CAP/TAB 25 MG PO PRN (20:56)
[2017-06-29] MEDS: LOPRESSOR TAB 25 MG PO SCH (20:57)
[2017-06-29] MEDS: MILK OF MAGNESIA PO SCH (20:57)
[2017-06-29] MEDS: SNACK - Diabetic Appropriate PO SCH (20:57)
[2017-06-29] MEDS ORDERED: TEFLARO IV SCH (21:00)
[2017-06-29] MEDS ORDERED: NS 100 ML IV + SPIKE MINIBAG* 100 ML IV ONE (21:38)
[2017-06-29] MEDS: NS 250 ML IV 250 ML IV SCH (21:42)
[2017-06-29] MEDS: TEFLARO 600 MG in NS 100 ML IV + SPIKE MINIBAG* 100 ML IV SCH (21:42)
[2017-06-30] MEDS: ROXICODONE TAB 15 MG PO PRN ×2 (00:22→15:22)
[2017-06-30] MEDS: HumuLIN R SUBCUT PRN ×2 (05:57→21:28)
[2017-06-30] MEDS: GLUCOTROL XL PO SCH ×2 (06:01→20:32)
[2017-06-30 06:08] LABS: BASOPHILS # (AUTO) 0.1 X10^3/uL (0.0-0.1); BASOPHILS % (AUTO) 0.9 % (0.2-1.0); EOSINOPHILS # (AUTO) 0.3 x10^3/uL (0.0-0.2); EOSINOPHILS % (AUTO) 3.2 % (0.9-2.9); HEMATOCRIT 31.1 % (36.0-47.0); LYMPHOCYTES # (AUTO) 1.7 X10^3/uL (1.3-2.9); LYMPHOCYTES % (AUTO) 19.2 % (21.0-51.0); MEAN CORPUSCULAR HEMOGLOBIN 23.7 pg (27.0-34.0); MEAN CORPUSCULAR HGB CONC 32.1 g/dL (33.0-35.0); MEAN CORPUSCULAR VOLUME 73.6 fL (80.0-100.0); MEAN PLATELET VOLUME 8.7 fL (7.4-11.0); MONOCYTES # (AUTO) 0.7 x10^3/uL (0.3-0.8); MONOCYTES % (AUTO) 8.1 % (0.0-13.0); NEUTROPHILS # (AUTO) 6.2 x10^3/uL (2.2-4.8); NEUTROPHILS % (AUTO) 68.6 % (42.0-75.0); PLATELET COUNT 336 X10^3/uL (150.0-450.0); RED BLOOD COUNT 4.23 X10^6/uL (3.5-5.4); RED CELL DISTRIBUTION WIDTH 18.9 % (11.6-16.5)
[2017-06-30 06:19] LABS: ALBUMIN 2.4 g/dL (3.4-5.0); CALCIUM 8.3 mg/dL (8.5-10.1); CARBON DIOXIDE 32.6 mmol/L (21-32); COR CA(FOR HYPOALB) 9.6 mg/dL (8.5-10.1); CREATININE 1.56 mg/dL (0.55-1.02); TOTAL PROTEIN 6.9 g/dL (6.4-8.2)
[2017-06-30 06:41] LABS: HYPOCHROMASIA 1+; PLATELET MORPHOLOGY COMMENT NORMAL (NORMAL)
[2017-06-30 06:42] LABS: MICROCYTOSIS 1+
[2017-06-30] MEDS: LOPRESSOR TAB 25 MG PO SCH ×2 (08:54→20:32)
[2017-06-30] MEDS: REQUIP PO SCH ×3 (08:54→20:31)
[2017-06-30] MEDS: TEFLARO 600 MG in NS 100 ML IV + SPIKE MINIBAG* 100 ML IV SCH ×2 (08:54→20:33)
[2017-06-30] MEDS: NexIUM PO SCH (08:55)
[2017-06-30] MEDS: PROTONIX TAB 40 MG PO SCH (08:56)
[2017-06-30] MEDS: NYSTATIN POWDER TOP SCH ×2 (09:00→20:34)
[2017-06-30] MEDS: PLETAL PO SCH ×2 (09:00→20:32)
[2017-06-30] MEDS: LASIX IVP SCH ×2 (09:30→20:34)
[2017-06-30] MEDS: MILK OF MAGNESIA PO SCH ×2 (11:19→20:35)
[2017-06-30] MEDS: HumaLOG SC PRN ×2 (11:50→17:34)
[2017-06-30] MEDS: ZyrTEC TAB 10 MG PO SCH (11:52)
[2017-06-30] MEDS: MAG-OX TAB PO PRN (11:53)
[2017-06-30] MEDS: XARELTO PO SCH (12:11)
[2017-06-30] MEDS: TOUJEO SOLOSTAR PEN SC SCH (13:26)
[2017-06-30] MEDS ORDERED: ARTIFICIAL TEARS DROPS EACHEYE PRN (17:24)
[2017-06-30] MEDS ORDERED: ARTIFICIAL TEARS DROPS ONE (17:26)
[2017-06-30] MEDS: SINGULAIR TAB 10 MG PO SCH (20:32)
[2017-06-30] MEDS: ZOCOR TAB 20 MG PO SCH (20:32)
[2017-06-30] MEDS: COLACE CAP 100 MG PO SCH (20:32)
[2017-06-30] MEDS: KLONOPIN TAB 0.5 MG PO SCH (20:33)
[2017-06-30] MEDS: BENADRYL CAP/TAB 25 MG PO PRN (20:33)
[2017-06-30] MEDS: SNACK - Diabetic Appropriate PO SCH (20:34)
[2017-06-30] MEDS: SYNTHROID 75 mcg TAB PO SCH (20:35)
[2017-07-01] MEDS: HumuLIN R SUBCUT PRN ×4 (05:49→22:15)
[2017-07-01] MEDS: GLUCOTROL XL PO SCH ×2 (06:04→17:20)
[2017-07-01 06:11] LABS: BASOPHILS # (AUTO) 0.1 X10^3/uL (0.0-0.1); BASOPHILS % (AUTO) 0.8 % (0.2-1.0); EOSINOPHILS # (AUTO) 0.3 x10^3/uL (0.0-0.2); EOSINOPHILS % (AUTO) 4.1 % (0.9-2.9); HEMATOCRIT 30.5 % (36.0-47.0); HEMOGLOBIN 9.7 g/dL (12.0-16.0); LYMPHOCYTES # (AUTO) 1.6 X10^3/uL (1.3-2.9); LYMPHOCYTES % (AUTO) 20.4 % (21.0-51.0); MEAN CORPUSCULAR HEMOGLOBIN 23.4 pg (27.0-34.0); MEAN CORPUSCULAR HGB CONC 31.9 g/dL (33.0-35.0); MEAN CORPUSCULAR VOLUME 73.4 fL (80.0-100.0); MEAN PLATELET VOLUME 8.6 fL (7.4-11.0); MONOCYTES # (AUTO) 0.7 x10^3/uL (0.3-0.8); MONOCYTES % (AUTO) 9.5 % (0.0-13.0); NEUTROPHILS % (AUTO) 65.2 % (42.0-75.0); PLATELET COUNT 298 X10^3/uL (150.0-450.0); RED BLOOD COUNT 4.16 X10^6/uL (3.5-5.4); RED CELL DISTRIBUTION WIDTH 18.8 % (11.6-16.5); WHITE BLOOD COUNT 7.7 X10^3/uL (3.6-10.0)
[2017-07-01 06:14] LABS: ALBUMIN 2.2 g/dL (3.4-5.0); CARBON DIOXIDE 33.4 mmol/L (21-32); COR CA(FOR HYPOALB) 9.4 mg/dL (8.5-10.1); CREATININE 1.66 mg/dL (0.55-1.02); TOTAL PROTEIN 6.4 g/dL (6.4-8.2)
[2017-07-01 06:29] LABS: HYPOCHROMASIA 1+; PLATELET MORPHOLOGY COMMENT NORMAL (NORMAL)
[2017-07-01] MEDS: TEFLARO 600 MG in NS 100 ML IV + SPIKE MINIBAG* 100 ML IV SCH ×2 (08:48→21:11)
[2017-07-01] MEDS: REQUIP PO SCH ×5 (08:49→22:15)
[2017-07-01] MEDS: NS 250 ML IV 250 ML IV SCH ×3 (08:49→13:20)
[2017-07-01] MEDS: LASIX IVP SCH ×2 (08:50→21:15)
[2017-07-01] MEDS: NexIUM PO SCH (08:51)
[2017-07-01] MEDS: ZyrTEC TAB 10 MG PO SCH (08:51)
[2017-07-01] MEDS: LOPRESSOR TAB 25 MG PO SCH ×2 (08:51→21:14)
[2017-07-01] MEDS: XARELTO PO SCH (08:51)
[2017-07-01] MEDS: PROTONIX TAB 40 MG PO SCH (08:52)
[2017-07-01] MEDS: NYSTATIN POWDER TOP SCH ×2 (08:52→21:15)
[2017-07-01] MEDS: PLETAL PO SCH (08:52)
[2017-07-01] MEDS: TOUJEO SOLOSTAR PEN SC SCH (08:53)
[2017-07-01] MEDS: ROXICODONE TAB 15 MG PO PRN ×2 (09:57→21:13)
[2017-07-01] MEDS: MILK OF MAGNESIA PO SCH ×2 (10:42→21:16)
--- NOTE | 2017-07-01 12:14 | RAD ---
Chief chest AP portable Indication: Dyspnea Findings: There is cardiomegaly without pneumothorax or effusion. No overt edema or consolidation see n Impression: Cardiomegaly without overt edema or other acute abnormality. There is no change from 06/07 Reported By:
[2017-07-01] MEDS ORDERED: PATIENT'S HOME MEDICATION SC SCH (12:30)
--- NOTE | 2017-07-01 14:14 | DR.UPDATE ---
H&P Update History and Physical Update: WAS SEEN IN THE OFFICE ON 06/28/2007. A H&P WAS COMPLETED PRIOR TO ADMISSION. PATIENT HAS BEEN SEEN AND EXAMINED WITH NO CHANGES NOTED TO H&P. Changes noted: NO Yes with the following:
[2017-07-01] MEDS: BENADRYL CAP/TAB 25 MG PO PRN (14:38)
[2017-07-01] MEDS: SYNTHROID 75 mcg TAB PO SCH (17:20)
[2017-07-01] MEDS: SINGULAIR TAB 10 MG PO SCH (21:13)
[2017-07-01] MEDS: COLACE CAP 100 MG PO SCH (21:13)
[2017-07-01] MEDS: KLONOPIN TAB 0.5 MG PO SCH (21:13)
[2017-07-01] MEDS: ZOCOR TAB 20 MG PO SCH (21:14)
[2017-07-01] MEDS: SNACK - Diabetic Appropriate PO SCH ×2 (21:16)
[2017-07-02] MEDS: NS 250 ML IV 250 ML IV SCH ×3 (01:50→14:32)
[2017-07-02 06:18] LABS: BASOPHILS # (AUTO) 0.1 X10^3/uL (0.0-0.1); BASOPHILS % (AUTO) 0.7 % (0.2-1.0); EOSINOPHILS # (AUTO) 0.4 x10^3/uL (0.0-0.2); EOSINOPHILS % (AUTO) 3.6 % (0.9-2.9); HEMATOCRIT 31.8 % (36.0-47.0); HEMOGLOBIN 10.3 g/dL (12.0-16.0); LYMPHOCYTES # (AUTO) 1.5 X10^3/uL (1.3-2.9); MEAN CORPUSCULAR HEMOGLOBIN 23.7 pg (27.0-34.0); MEAN CORPUSCULAR HGB CONC 32.5 g/dL (33.0-35.0); MEAN PLATELET VOLUME 8.6 fL (7.4-11.0); MONOCYTES # (AUTO) 0.7 x10^3/uL (0.3-0.8); MONOCYTES % (AUTO) 7.3 % (0.0-13.0); NEUTROPHILS # (AUTO) 7.5 x10^3/uL (2.2-4.8); NEUTROPHILS % (AUTO) 73.4 % (42.0-75.0); PLATELET COUNT 313 X10^3/uL (150.0-450.0); RED BLOOD COUNT 4.36 X10^6/uL (3.5-5.4); RED CELL DISTRIBUTION WIDTH 18.8 % (11.6-16.5); WHITE BLOOD COUNT 10.2 X10^3/uL (3.6-10.0)
--- NOTE | 2017-07-02 06:42 | RAD ---
HISTORY: Shortness of breath Study: Chest AP portable Comparison: 07/01/2017 Findings: The patient is rotated to the left. The heart is enlarged. No congestive heart failure is noted. No a cute alveolar infiltrates or pleural effusions are identified. The bony thorax is unremarkable. IMPRESSION: Cardiomegaly without congestive heart failure No infiltrates Reported By:
[2017-07-02 07:01] LABS: HYPOCHROMASIA 1+; PLATELET MORPHOLOGY COMMENT NORMAL (NORMAL)
[2017-07-02] MEDS: GLUCOTROL XL PO SCH ×3 (07:05→17:16)
[2017-07-02 07:09] LABS: ALBUMIN 2.4 g/dL (3.4-5.0); CALCIUM 8.6 mg/dL (8.5-10.1); CARBON DIOXIDE 31.4 mmol/L (21-32); COR CA(FOR HYPOALB) 9.9 mg/dL (8.5-10.1); CREATININE 1.59 mg/dL (0.55-1.02)
[2017-07-02] MEDS: ROXICODONE TAB 15 MG PO PRN ×2 (08:04→22:05)
[2017-07-02] MEDS: LASIX IVP SCH ×2 (09:11→22:04)
[2017-07-02] MEDS: ZyrTEC TAB 10 MG PO SCH (09:11)
[2017-07-02] MEDS: LOPRESSOR TAB 25 MG PO SCH ×2 (09:11→22:06)
[2017-07-02] MEDS: PROTONIX TAB 40 MG PO SCH (09:11)
[2017-07-02] MEDS: NexIUM PO SCH (09:11)
[2017-07-02] MEDS: TOUJEO SOLOSTAR PEN SC SCH (09:12)
[2017-07-02] MEDS: TEFLARO 600 MG in NS 100 ML IV + SPIKE MINIBAG* 100 ML IV SCH ×2 (09:12→22:03)
[2017-07-02] MEDS: REQUIP PO SCH ×2 (09:13→12:28)
[2017-07-02] MEDS: NYSTATIN POWDER TOP SCH ×2 (09:13→22:28)
[2017-07-02] MEDS: MILK OF MAGNESIA PO SCH (09:25)
[2017-07-02] MEDS ORDERED: MILK OF MAGNESIA PO PRN (09:58)
[2017-07-02] MEDS: COLACE CAP 100 MG PO SCH ×2 (11:59→22:04)
[2017-07-02] MEDS: HumuLIN R SUBCUT PRN ×3 (12:28→22:30)
[2017-07-02] MEDS: PATIENT'S HOME MEDICATION PO SCH ×3 (12:46→22:28)
--- NOTE | 2017-07-02 12:53 | PCM.PROG ---
Progress Note - Progress Note for Day of Date: 07/01/17 - Subjective Subjective: IS BEING TREATED FOR CONGESTIVE HEART FAILURE AND REDNESS AND EDEMA TO THE RIGHT LOWER EXTREMITY. TODAY, SHE IS ALERT AND ORIENTED , LYING IN BED ON MORNING ROUNDS. SHE CONTINUES WITH COMPLAINTS OF SHORTNESS OF BREATH AND REDNESS AND SWELLING TO THE RIGHT LEG. ON EXAMINATION, HEART IS REGULAR IN RATE AND RHYTHM. BIALTERAL LUNGS ARE NOTED WITH WHEEZING BILATERALLY. ABDOMEN IS ROUND, SOFT, AND NON-TENDER WITH NORMAL BOWEL SOUNDS NOTED IN ALL QUADRANTS. RIGHT LEG IS NOTED WITH WARMTH, ERYTHEMA, AND EDEMA. NORMAL RANGE OF MOTION NOTED TO ALL EXTREMITIES. HER VITALS THIS MORNING ARE 98.4-67-20-92%-140/63. LABS WERE OBTAINED. ABNORMAL LAB VALUES INCLUDE THE FOLLOWING: HGB 9.7, HCT 30.5, SODIUM 132, CHLORIDE 93, CARBON DIOXIDE 33.4, BUN 21, CREATININE 1.66, GLUCOSE 336, CALCIUM 8.0, ALBUMIN 2.2. WE OBTAINED A CHEST XRAY THIS MORNING. IT REPORTED CARDIOMEGALY WITHOUT OVERT EDEMA OR OTHER ACUTE ABNORMALITY. STAFF REPORTS DIFFICULTY OBTAINING A PERIPHERAL LINE WELL DIFFICULTY OBTAINING BLOOD IN THE MORNINGS. DUE TO POOR PERIPHERAL ACCESS, WE WILL CONSULT WITH TODAY FOR POSSIBLE PLACEMENT OF A PORT A CATH. OTHERWISE, WE WILL CONTINUE WITH CURRENT PLAN OF CARE. WE PLAN TO FOLLOW UP WITH AM LABS AND CONTINUE TO MONITOR PATIENT. - Past Medical Family Social History Past Med/Fam/Surg Hx: No changes since H&P Allergies: Allergies bacitracin [From Neosporin ([id number])] Allergy (Verified 01/17/17 19:27) gabapentin Allergy (Verified 01/17/17 19:27) hydrochlorothiazide Allergy (Verified 01/17/17 19:27) latex Allergy (Verified 01/17/17 19:27) neomycin [From Neosporin ([id number])] Allergy (Verified 01/17/17 19:27) polymyxin B [From Neosporin ([id number])] Allergy (Verified 01/17/17 19:27) propoxyphene Allergy (Verified 01/17/17 19:27) - Review of Systems ROS: No change since H&P - Vital Signs and I&O's Vital Signs: Temperature 98.1 F Pulse Rate [Right Brachial] 64 Pulse Rate [Left Radial] 67 Respiratory Rate 20 Blood Pressure [Left Arm] 141/64 Blood Pressure [Right Arm] 141/64 Blood Pressure 128/60 O2 Sat by Pulse Oximetry 93 Intake and Output: Intake & Output 06/30/17 07/01/17 07/02/17 07/03/17 11:59 11:59 11:59 11:59 Intake Total 1335 2448 1880 Output Total 3750 3650 3800 Balance -2415 -1202 -1920 - Physical Exam Oriented: Normal Eyes: Normal. negative: Blurred Vision, Diplopia, Discharge, Pain, Redness, Photophobia, Other Ear: Normal. negative: Right, Left, Swelling, Ecchymosis, Hemotypanum, Abrasion , Laceration Nose: Normal Throat: Normal. negative: Tonsillar Hypertrophy, Red, Exudate, Dry, Other Respiratory: Generalized, Wheezes Cardiovascular: Edema. negative: S3, S4, Murmur : Normal Auscultation: Bowel Sounds: Normal Palpation: Normal Tenderness: Normal Skin: Red, Tender (RIGHT LOWER EXTREMITY), Hot Musculoskeletal: Right, Leg, Swelling, Tender Psychiatric: Normal Mood Description: Calm Affect: Normal Speech Pattern: Clear, Appropriate - Laboratory and Diagnostics Result Diagrams: 07/02/17 05:35 07/02/17 05:35 Labs: Laboratory WBC 10.2 X10^3/uL (3.6-10.0) H 07/02/17 05:35 RBC 4.36 X10^6/uL (3.5-5.4) 07/02/17 05:35 Hgb 10.3 g/dL (12.0-16.0) L 07/02/17 05:35 Hct 31.8 % (36.0-47.0) L 07/02/17 05:35 MCV 73.0 fL (80.0-100.0) L 07/02/17 05:35 MCH 23.7 pg (27.0-34.0) L 07/02/17 05:35 MCHC 32.5 g/dL (33.0-35.0) L 07/02/17 05:35 RDW 18.8 % (11.6-16.5) H 07/02/17 05:35 Plt Count 313 X10^3/uL (150.0-450.0) 07/02/17 05:35 Plt Count Comment Adequate (ADEQUATE) 07/02/17 05:35 MPV 8.6 fL (7.4-11.0) 07/02/17 05:35 Neut % 73.4 % (42.0-75.0) 07/02/17 05:35 Lymph % 15.0 % (21.0-51.0) L 07/02/17 05:35 [place] % 7.3 % (0.0-13.0) 07/02/17 05:35 Eos % 3.6 % (0.9-2.9) H 07/02/17 05:35 Baso % 0.7 % (0.2-1.0) 07/02/17 05:35 Neut # 7.5 x10^3/uL (2.2-4.8) H 07/02/17 05:35 Lymph # 1.5 X10^3/uL (1.3-2.9) 07/02/17 05:35 [place] # 0.7 x10^3/uL (0.3-0.8) 07/02/17 05:35 Eos # 0.4 x10^3/uL (0.0-0.2) H 07/02/17 05:35 Baso # 0.1 X10^3/uL (0.0-0.1) 07/02/17 05:35 Absolute Nucleated RBC 0.0 /100WBC 07/02/17 05:35 Plt Morphology Comment Normal (NORMAL) 07/02/17 05:35 RBC Morphology Abnormal (NORMAL) A 07/02/17 05:35 Hypochromasia 1+ A 07/02/17 05:35 Anisocytosis Slight A 06/28/17 15:48 Microcytosis 1+ A 06/30/17 05:40 Sodium 133 mmol/L (136-145) L 07/02/17 05:35 Corrected Sodium 136 mmol/L (136-145) 07/02/17 05:35 Potassium 3.5 mmol/L (3.5-5.1) 07/02/17 05:35 Chloride 94 mmol/L (98-107) L 07/02/17 05:35 Carbon Dioxide 31.4 mmol/L (21-32) 07/02/17 05:35 BUN 23 mg/dL (7-18) H 07/02/17 05:35 Creatinine 1.59 mg/dL (0.55-1.02) H 07/02/17 05:35 Est GFR (MDRD) Af Amer 42 (>60) L 07/02/17 05:35 Est GFR (MDRD) Non-Af 35 (>60) L 07/02/17 05:35 Glucose 216 mg/dL (65-99) H 07/02/17 05:35 POC Glucose (mg/dL) 316 mg/dL (65-99) H 07/02/17 11:25 Calcium 8.6 mg/dL (8.5-10.1) 07/02/17 05:35 Corrected Calcium 9.9 mg/dL (8.5-10.1) 07/02/17 05:35 Magnesium 1.8 mg/dL (1.7-2.9) 06/30/17 05:40 Total Bilirubin 0.40 mg/dL (0.2-1.0) 07/02/17 05:35 AST 21 Units/L (15-37) 07/02/17 05:35 ALT 25 Units/L (12-78) 07/02/17 05:35 Alkaline Phosphatase 85 Units/L (46-116) 07/02/17 05:35 B-Natriuretic Peptide 32.4 pg/mL (0-79) 06/28/17 15:48 Total Protein 7.0 g/dL (6.4-8.2) 07/02/17 05:35 Albumin 2.4 g/dL (3.4-5.0) L 07/02/17 05:35 Globulin 4.6 g/dL (2.5-4.5) H 07/02/17 05:35 Albumin/Globulin Ratio 0.5 Ratio (1.1-2.1) L 07/02/17 05:35 Specimen Type Catherized urine 06/28/17 18:00 Urine Color Yellow (YELLOW) 06/28/17 18:00 Urine Appearance Clear (CLEAR) 06/28/17 18:00 Urine pH 7.0 (5.0 - 8.0) 06/28/17 18:00 Ur Specific [place] 1.010 (1.000-1.030) 06/28/17 18:00 Urine Protein Negative (NEGATIVE) 06/28/17 18:00 Urine Glucose (UA) Negative (NEGATIVE) 06/28/17 18:00 Urine Ketones Negative (NEGATIVE) 06/28/17 18:00 Urine Occult Blood Negative (NEGATIVE) 06/28/17 18:00 Urine Nitrite Negative (NEGATIVE) 06/28/17 18:00 Urine Bilirubin Negative (NEGATIVE) 06/28/17 18:00 Urine Urobilinogen Normal (NORMAL) 06/28/17 18:00 Ur Leukocyte Esterase Negative (NEGATIVE) 06/28/17 18:00 Urine RBC 0-3 /HPF (NONE SEEN) 06/28/17 18:00 Urine WBC 0-3 /HPF (NONE SEEN) 06/28/17 18:00 Ur Squamous Epith Cells Rare /HPF (NEGATIVE) 06/28/17 18:00 Urine Bacteria Negative /HPF (NEGATIVE) 06/28/17 18:00 Ur Culture Indicated? No/not indicated 06/28/17 18:00 - Plan (1) CHF (congestive heart failure) Status: Chronic Qualifiers: Heart failure type: unspecified Heart failure chronicity: acute on chronic Qualified Code(s): I50.9 - Heart failure, unspecified Plan: LASIX 40,G OV BID, SUPPLEMENTAL OXYGEN, CONTINUE TO MONITOR
[2017-07-02] MEDS: SYNTHROID 75 mcg TAB PO SCH (17:16)
[2017-07-02] MEDS: SINGULAIR TAB 10 MG PO SCH (22:04)
[2017-07-02] MEDS: KLONOPIN TAB 0.5 MG PO SCH (22:05)
[2017-07-02] MEDS: ZOCOR TAB 20 MG PO SCH (22:05)
[2017-07-02] MEDS: SNACK - Diabetic Appropriate PO SCH ×2 (22:28→22:29)
[2017-07-03] MEDS: HumuLIN R SUBCUT PRN ×3 (06:18→22:04)
[2017-07-03] MEDS: GLUCOTROL XL PO SCH ×2 (06:19→17:06)
[2017-07-03 06:52] LABS: BASOPHILS # (AUTO) 0.1 X10^3/uL (0.0-0.1); BASOPHILS % (AUTO) 0.7 % (0.2-1.0); EOSINOPHILS # (AUTO) 0.3 x10^3/uL (0.0-0.2); HEMATOCRIT 33.2 % (36.0-47.0); HEMOGLOBIN 10.9 g/dL (12.0-16.0); LYMPHOCYTES # (AUTO) 1.5 X10^3/uL (1.3-2.9); LYMPHOCYTES % (AUTO) 14.3 % (21.0-51.0); MEAN CORPUSCULAR HGB CONC 32.9 g/dL (33.0-35.0); MEAN PLATELET VOLUME 8.8 fL (7.4-11.0); MONOCYTES # (AUTO) 0.9 x10^3/uL (0.3-0.8); MONOCYTES % (AUTO) 8.7 % (0.0-13.0); NEUTROPHILS # (AUTO) 7.8 x10^3/uL (2.2-4.8); NEUTROPHILS % (AUTO) 73.3 % (42.0-75.0); PLATELET COUNT 333 X10^3/uL (150.0-450.0); RED BLOOD COUNT 4.54 X10^6/uL (3.5-5.4); RED CELL DISTRIBUTION WIDTH 18.6 % (11.6-16.5); WHITE BLOOD COUNT 10.7 X10^3/uL (3.6-10.0)
[2017-07-03 06:59] LABS: PLATELET MORPHOLOGY COMMENT NORMAL (NORMAL)
[2017-07-03 07:00] LABS: HYPOCHROMASIA SLIGHT; MICROCYTOSIS SLIGHT
[2017-07-03 07:07] LABS: ALBUMIN 2.5 g/dL (3.4-5.0); CALCIUM 8.5 mg/dL (8.5-10.1); CARBON DIOXIDE 32.5 mmol/L (21-32); COR CA(FOR HYPOALB) 9.7 mg/dL (8.5-10.1); CREATININE 1.74 mg/dL (0.55-1.02); TOTAL PROTEIN 7.6 g/dL (6.4-8.2)
--- NOTE | 2017-07-03 07:21 | RAD ---
HISTORY: Shortness of breath Study: Chest AP portable Comparison: 07/02/2017 Findings: The patient is rotated to the left. The heart remains enlarged. The aorta is calcified. The brinda are normal. No congestive heart failure is noted. No acute alveolar infiltrates or pleural effusions are identified. The bony thorax is unremarkable. IMPRESSION: Cardiomegaly without congestive heart failure No infiltrates Reported By:
[2017-07-03] MEDS ORDERED: XYLOCAINE 1 % (PLAIN) ONE (08:00)
[2017-07-03] MEDS: TEFLARO 600 MG in NS 100 ML IV + SPIKE MINIBAG* 100 ML IV SCH ×2 (08:10→21:58)
[2017-07-03] MEDS ORDERED: NS 1000 ML 1,000 ML ONE (08:20)
[2017-07-03] MEDS ORDERED: FENTANYL INJ 100 mcg ONE (08:21)
[2017-07-03] MEDS ORDERED: ANCEF VIAL 1 GM ONE (08:35)
[2017-07-03] MEDS ORDERED: NS IRRIGATION 1000 ML 1,000 ML IR ONE (08:53)
--- NOTE | 2017-07-03 10:37 | RAD ---
HISTORY: 66-year-old female with shortness of breath status post chemo port placement.. Study: Frontal view of the chest. Comparison: Chest radiograph 06/25/2017 at 6:57 a.m. Findings: Interval placement left chest wall chemo port via subclavian approach with distal tip overlying the s uperior cavoatrial junction without radiographic evidence of evidence of hemopneumothorax. No other interval change. IMPRESSION: 1. Left chest wall chemo port in apparent good position without radiographic evidence of hemopneumot horax. Reported By:
--- NOTE | 2017-07-03 10:55 | PCM.PROG ---
Progress Note - Progress Note for Day of Date: 07/02/17 - Subjective Subjective: IS BEING TREATED FOR CONGESTIVE HEART FAILURE AND REDNESS AND EDEMA TO THE RIGHT LOWER EXTREMITY. TODAY, SHE IS ALERT AND ORIENTED , LYING IN BED ON MORNING ROUNDS. SHE CONTINUES WITH COMPLAINTS OF SHORTNESS OF BREATH AND REDNESS AND SWELLING TO THE RIGHT LEG. ON EXAMINATION, HEART IS REGULAR IN RATE AND RHYTHM. BIALTERAL LUNGS ARE CONTINUE WITH WHEEZING BILATERALLY. ABDOMEN IS ROUND, SOFT, AND NON-TENDER WITH NORMAL BOWEL SOUNDS NOTED IN ALL QUADRANTS. RIGHT LEG CONTINUES WITH WARMTH, ERYTHEMA, AND EDEMA. NORMAL RANGE OF MOTION NOTED TO ALL EXTREMITIES. HER VITALS THIS MORNING ARE 98.1-64-20-93%-141/64. LABS WERE OBTAINED. ABNORMAL LAB VALUES INCLUDE THE FOLLOWING:WBC 10.2, HGB 10.3, HCT 31.8, SODIUM 133, CHLORIDE 94, BUN 23, CREATININE 1.59, GFR 35, GLUCOSE 216, ALBUMIN 2.4. WE OBTAINED A CHEST XRAY THIS MORNING. IT REPORTED CARDIOMEGALY WITHOUT CONGESTIVE HEART FAILURE. NO INFILTRATES. CONSULTED WITH PATIENT TODAY AND PLANS TO TAKE HER FOR PORT A CATH PLACEMENT IN THE MORNING. OTHERWISE, WE WILL CONTINUE WITH CURRENT PLAN OF CARE. WE PLAN TO FOLLOW UP WITH AM LABS AND CONTINUE TO MONITOR PATIENT. - Past Medical Family Social History Past Med/Fam/Surg Hx: No changes since H&P Allergies: Allergies bacitracin [From Neosporin ([id number])] Allergy (Verified 01/17/17 19:27) gabapentin Allergy (Verified 01/17/17 19:27) hydrochlorothiazide Allergy (Verified 01/17/17 19:27) latex Allergy (Verified 01/17/17 19:27) neomycin [From Neosporin ([id number]-wvl-jgjfm)] Allergy (Verified 01/17/17 19:27) polymyxin B [From Neosporin (lib-pwh-xdoxc)] Allergy (Verified 01/17/17 19:27) propoxyphene Allergy (Verified 01/17/17 19:27) - Review of Systems ROS: No change since H&P - Vital Signs and I&O's Vital Signs: Temperature 98.4 F Pulse Rate [Right Brachial] 65 Pulse Rate [Left Radial] 67 Respiratory Rate 20 Blood Pressure [Left Arm] 141/64 Blood Pressure [Right Arm] 140/65 Blood Pressure 128/60 O2 Sat by Pulse Oximetry 93 Intake and Output: Intake & Output 06/30/17 07/01/17 07/02/17 07/03/17 11:59 11:59 11:59 11:59 Intake Total 1335 2448 1880 1497 Output Total 3750 3650 3800 60 Balance -2175 -1202 -1920 1437 - Physical Exam Oriented: Normal Eyes: Normal. negative: Blurred Vision, Diplopia, Discharge, Pain, Redness, Photophobia, Other Ear: Normal. negative: Right, Left, Swelling, Ecchymosis, Hemotypanum, Abrasion , Laceration Nose: Normal Throat: Normal. negative: Tonsillar Hypertrophy, Red, Exudate, Dry, Other Respiratory: Generalized, Wheezes Cardiovascular: Edema. negative: S3, S4, Murmur : Normal Auscultation: Bowel Sounds: Normal Palpation: Normal Tenderness: Normal Skin: Red, Tender (RIGHT LOWER EXTREMITY), Hot Musculoskeletal: Right, Leg, Swelling, Tender Psychiatric: Normal Mood Description: Calm Affect: Normal Speech Pattern: Clear, Appropriate - Laboratory and Diagnostics Result Diagrams: 07/03/17 05:36 07/03/17 05:36 Labs: Laboratory WBC 10.7 X10^3/uL (3.6-10.0) H 07/03/17 05:36 RBC 4.54 X10^6/uL (3.5-5.4) 07/03/17 05:36 Hgb 10.9 g/dL (12.0-16.0) L 07/03/17 05:36 Hct 33.2 % (36.0-47.0) L 07/03/17 05:36 MCV 73.0 fL (80.0-100.0) L 07/03/17 05:36 MCH 24.0 pg (27.0-34.0) L 07/03/17 05:36 MCHC 32.9 g/dL (33.0-35.0) L 07/03/17 05:36 RDW 18.6 % (11.6-16.5) H 07/03/17 05:36 Plt Count 333 X10^3/uL (150.0-450.0) 07/03/17 05:36 Plt Count Comment Adequate (ADEQUATE) 07/03/17 05:36 MPV 8.8 fL (7.4-11.0) 07/03/17 05:36 Neut % 73.3 % (42.0-75.0) 07/03/17 05:36 Lymph % 14.3 % (21.0-51.0) L 07/03/17 05:36 [place] % 8.7 % (0.0-13.0) 07/03/17 05:36 Eos % 3.0 % (0.9-2.9) H 07/03/17 05:36 Baso % 0.7 % (0.2-1.0) 07/03/17 05:36 Neut # 7.8 x10^3/uL (2.2-4.8) H 07/03/17 05:36 Lymph # 1.5 X10^3/uL (1.3-2.9) 07/03/17 05:36 [place] # 0.9 x10^3/uL (0.3-0.8) H 07/03/17 05:36 Eos # 0.3 x10^3/uL (0.0-0.2) H 07/03/17 05:36 Baso # 0.1 X10^3/uL (0.0-0.1) 07/03/17 05:36 Absolute Nucleated RBC 0.1 /100WBC 07/03/17 05:36 Plt Morphology Comment Normal (NORMAL) 07/03/17 05:36 RBC Morphology Abnormal (NORMAL) A 07/03/17 05:36 Hypochromasia Slight A 07/03/17 05:36 Anisocytosis Slight A 06/28/17 15:48 Microcytosis Slight A 07/03/17 05:36 Sodium 132 mmol/L (136-145) L 07/03/17 05:36 Corrected Sodium 135 mmol/L (136-145) L 07/03/17 05:36 Potassium 3.6 mmol/L (3.5-5.1) 07/03/17 05:36 Chloride 91 mmol/L (98-107) L 07/03/17 05:36 Carbon Dioxide 32.5 mmol/L (21-32) H 07/03/17 05:36 BUN 24 mg/dL (7-18) H 07/03/17 05:36 Creatinine 1.74 mg/dL (0.55-1.02) H 07/03/17 05:36 Est GFR (MDRD) Af Amer 38 (>60) L 07/03/17 05:36 Est GFR (MDRD) Non-Af 31 (>60) L 07/03/17 05:36 Glucose 233 mg/dL (65-99) H 07/03/17 05:36 POC Glucose (mg/dL) 251 mg/dL (65-99) H 07/03/17 06:04 Calcium 8.5 mg/dL (8.5-10.1) 07/03/17 05:36 Corrected Calcium 9.7 mg/dL (8.5-10.1) 07/03/17 05:36 Magnesium 1.8 mg/dL (1.7-2.9) 06/30/17 05:40 Total Bilirubin 0.40 mg/dL (0.2-1.0) 07/03/17 05:36 AST 19 Units/L (15-37) 07/03/17 05:36 ALT 24 Units/L (12-78) 07/03/17 05:36 Alkaline Phosphatase 88 Units/L (46-116) 07/03/17 05:36 B-Natriuretic Peptide 32.4 pg/mL (0-79) 06/28/17 15:48 Total Protein 7.6 g/dL (6.4-8.2) 07/03/17 05:36 Albumin 2.5 g/dL (3.4-5.0) L 07/03/17 05:36 Globulin 5.1 g/dL (2.5-4.5) H 07/03/17 05:36 Albumin/Globulin Ratio 0.5 Ratio (1.1-2.1) L 07/03/17 05:36 Specimen Type Catherized urine 06/28/17 18:00 Urine Color Yellow (YELLOW) 06/28/17 18:00 Urine Appearance Clear (CLEAR) 06/28/17 18:00 Urine pH 7.0 (5.0 - 8.0) 06/28/17 18:00 Ur Specific [place] 1.010 (1.000-1.030) 06/28/17 18:00 Urine Protein Negative (NEGATIVE) 06/28/17 18:00 Urine Glucose (UA) Negative (NEGATIVE) 06/28/17 18:00 Urine Ketones Negative (NEGATIVE) 06/28/17 18:00 Urine Occult Blood Negative (NEGATIVE) 06/28/17 18:00 Urine Nitrite Negative (NEGATIVE) 06/28/17 18:00 Urine Bilirubin Negative (NEGATIVE) 06/28/17 18:00 Urine Urobilinogen Normal (NORMAL) 06/28/17 18:00 Ur Leukocyte Esterase Negative (NEGATIVE) 06/28/17 18:00 Urine RBC 0-3 /HPF (NONE SEEN) 06/28/17 18:00 Urine WBC 0-3 /HPF (NONE SEEN) 06/28/17 18:00 Ur Squamous Epith Cells Rare /HPF (NEGATIVE) 06/28/17 18:00 Urine Bacteria Negative /HPF (NEGATIVE) 06/28/17 18:00 Ur Culture Indicated? No/not indicated 06/28/17 18:00 - Plan (1) CHF (congestive heart failure) Status: Chronic Qualifiers: Heart failure type: unspecified Heart failure chronicity: acute on chronic Qualified Code(s): I50.9 - Heart failure, unspecified Plan: LASIX 40,G OV BID, SUPPLEMENTAL OXYGEN, CONTINUE TO MONITOR (2) Cellulitis Status: Acute Qualifiers: Site of cellulitis: extremity Site of cellulitis of extremity: lower extremity Laterality: right Qualified Code(s): L03.115 - Cellulitis of right lower limb Plan: TEFLARO 600MG IV Q12H, CONTINUE TO MONITOR (3) Diabetes mellitus, type 2 Status: Chronic Qualifiers: Diabetes mellitus complication status: with circulatory complication Diabetes mellitus complication detail: with other circulatory complications Diabetes mellitus half-way insulin use: with equipment operator intermodal yard use Qualified Code(s) : E11.59 - Type 2 diabetes mellitus with other circulatory complications; Z79.4 - equipment operator intermodal yard (current) use of insulin; Z79.4 - equipment operator intermodal yard (current) use of insulin ; Z79.4 - equipment operator intermodal yard (current) use of insulin; Z79.4 - equipment operator intermodal yard (current) use of insulin Plan: GLUCATROL XL, HUMULIN R SLIDING SCALE, MONITOR OTBS, CONTINUE TO MONITOR (4) Essential hypertension Status: Chronic Plan: CONTINUE LOPRESSOR, CONTINUE TO MONITOR (5) GERD (gastroesophageal reflux disease) Status: Chronic Qualifiers: Esophagitis presence: esophagitis presence not specified Plan: CONTINUE NEXIUM, CONTINUE PROTONIX, CONTINUE TO MONITOR (6) Hyperlipidemia Status: Chronic Qualifiers: Hyperlipidemia type: mixed hyperlipidemia Plan: CONTINUE ZOCOR, CONTINUE TO MONITOR
[2017-07-03] MEDS: ZyrTEC TAB 10 MG PO SCH (11:21)
[2017-07-03] MEDS: NexIUM PO SCH (11:21)
[2017-07-03] MEDS: LOPRESSOR TAB 25 MG PO SCH ×2 (11:22→22:04)
[2017-07-03] MEDS: TOUJEO SOLOSTAR PEN SC SCH (11:23)
[2017-07-03] MEDS: PROTONIX TAB 40 MG PO SCH (11:23)
[2017-07-03] MEDS: LASIX IVP SCH ×2 (11:24→22:04)
[2017-07-03] MEDS ORDERED: XYLOCAINE 2 % (PLAIN) ONE (11:31)
[2017-07-03] MEDS ORDERED: DIPRIVAN VIAL ONE (11:31)
[2017-07-03] MEDS ORDERED: VERSED ONE (11:31)
[2017-07-03] MEDS: COLACE CAP 100 MG PO SCH ×2 (11:33→22:03)
[2017-07-03] MEDS: NYSTATIN POWDER TOP SCH ×2 (11:33→22:07)
[2017-07-03] MEDS: ROXICODONE TAB 15 MG PO PRN ×2 (12:00→18:13)
[2017-07-03] MEDS: PATIENT'S HOME MEDICATION PO SCH ×4 (14:00→22:07)
[2017-07-03] MEDS: SYNTHROID 75 mcg TAB PO SCH (17:05)
[2017-07-03] MEDS: ZOCOR TAB 20 MG PO SCH (22:03)
[2017-07-03] MEDS: SINGULAIR TAB 10 MG PO SCH (22:04)
[2017-07-03] MEDS: KLONOPIN TAB 0.5 MG PO SCH (22:04)
[2017-07-03] MEDS: SNACK - Diabetic Appropriate PO SCH ×2 (22:08)
[2017-07-04] MEDS: ROXICODONE TAB 15 MG PO PRN ×2 (00:17→07:11)
[2017-07-04 06:07] LABS: BASOPHILS # (AUTO) 0.1 X10^3/uL (0.0-0.1); BASOPHILS % (AUTO) 0.7 % (0.2-1.0); EOSINOPHILS # (AUTO) 0.3 x10^3/uL (0.0-0.2); HEMATOCRIT 30.9 % (36.0-47.0); HEMOGLOBIN 10.1 g/dL (12.0-16.0); LYMPHOCYTES # (AUTO) 1.5 X10^3/uL (1.3-2.9); LYMPHOCYTES % (AUTO) 14.8 % (21.0-51.0); MEAN CORPUSCULAR HGB CONC 32.6 g/dL (33.0-35.0); MEAN CORPUSCULAR VOLUME 73.4 fL (80.0-100.0); MONOCYTES % (AUTO) 9.7 % (0.0-13.0); NEUTROPHILS # (AUTO) 7.2 x10^3/uL (2.2-4.8); NEUTROPHILS % (AUTO) 71.8 % (42.0-75.0); PLATELET COUNT 285 X10^3/uL (150.0-450.0); RED BLOOD COUNT 4.21 X10^6/uL (3.5-5.4); RED CELL DISTRIBUTION WIDTH 18.8 % (11.6-16.5)
[2017-07-04] MEDS: GLUCOTROL XL PO SCH (06:27)
[2017-07-04 06:39] LABS: ALBUMIN 2.2 g/dL (3.4-5.0); CALCIUM 8.3 mg/dL (8.5-10.1); CARBON DIOXIDE 32.8 mmol/L (21-32); COR CA(FOR HYPOALB) 9.7 mg/dL (8.5-10.1); CREATININE 1.72 mg/dL (0.55-1.02); TOTAL PROTEIN 7.2 g/dL (6.4-8.2)
[2017-07-04] MEDS: HumuLIN R SUBCUT PRN ×2 (06:43→12:45)
[2017-07-04 06:50] LABS: PLATELET MORPHOLOGY COMMENT NORMAL (NORMAL)
--- NOTE | 2017-07-04 07:20 | RAD ---
HISTORY: Shortness of breath Study: Chest AP portable Comparison: 07/03/2017 Findings: There is a port present on the left. The heart is mildly enlarged. No congestive heart failure is not ed. The aorta is calcified and ectatic. The lung horner are clear. No pneumothorax or pleural effusio n is identified. IMPRESSION: Cardiomegaly without congestive heart failure No infiltrates Reported By:
[2017-07-04] MEDS: TEFLARO 600 MG in NS 100 ML IV + SPIKE MINIBAG* 100 ML IV SCH (09:11)
[2017-07-04] MEDS: NexIUM PO SCH (09:14)
[2017-07-04] MEDS: ZyrTEC TAB 10 MG PO SCH (09:14)
[2017-07-04] MEDS: COLACE CAP 100 MG PO SCH (09:15)
[2017-07-04] MEDS: PROTONIX TAB 40 MG PO SCH (09:15)
[2017-07-04] MEDS: LOPRESSOR TAB 25 MG PO SCH (09:15)
[2017-07-04] MEDS: LASIX IVP SCH (09:16)
[2017-07-04] MEDS: NYSTATIN POWDER TOP SCH (09:17)
[2017-07-04] MEDS: TOUJEO SOLOSTAR PEN SC SCH (09:18)
[2017-07-04] MEDS: PATIENT'S HOME MEDICATION PO SCH (09:18)
[2017-07-04 12:54] VITALS: BP 152/65
== END 2017-07-04 13:35 | disposition home health service (06) | DRG 292 ==
LOC: OBS 13:18 → OBSVTOIN 13:18 → MED/SURG 14:40 → INTOOBSV 06-30 17:14 → OBSVTOIN 06-30 17:14
PROVIDERS: ADMIT Internal Medicine; ATTEND Internal Medicine
PROC: B517ZZA Fluoroscopy of Left Subclavian Vein, Guidance (ICD-10-PCS; 2017-07-03)
PROC: 05H633Z Insertion of Infusion Device into Left Subclavian Vein, Percutaneous Approach (ICD-10-PCS; principal; 2017-07-03 08:30)
DX: I50.9 Heart failure, unspecified (principal); E11.65 Type 2 diabetes mellitus with hyperglycemia; L03.115 Cellulitis of right lower limb; I10 Essential (primary) hypertension; I48.2 Chronic atrial fibrillation; G47.33 Obstructive sleep apnea (adult) (pediatric); I89.0 Lymphedema, not elsewhere classified; M51.16 Intervertebral disc disorders with radiculopathy, lumbar region; Z86.718 Personal history of other venous thrombosis and embolism; R06.02 Shortness of breath; R60.1 Generalized edema; I82.499 Acute embolism and thrombosis of other specified deep vein of unspecified lower extremity; E66.8 Other obesity; Z79.4 Long term (current) use of insulin; K21.9 Gastro-esophageal reflux disease without esophagitis; E03.8 Other specified hypothyroidism; E87.6 Hypokalemia
CPT/HCPCS: 36415; 71045; 76000; 80053; 81001; 82947; 83735; 83880; 85025; 94760; A4216; A4222; G0378; J0690; J0712; J1815; J1817; J1940; J2001; J2250; J3010; J3490

== ENCOUNTER 2017-07-27 14:36 | Emergency (ER) | payer OTHER, MEDICAID ==
[2017-07-27 14:45] VITALS: BP 136/64; BMI 63.0
--- NOTE | 2017-07-27 15:10 | DR.EXTPAIN ---
HPI - Time seen Time seen: 15:05 - PCP Primary Care Physician: BETTY - Complaint/Symptoms Chief Complaint Doctor Comments: Onset of pain, swelling and redness to her left elbow yesterday. shE DENIES TRAUMA OR INSECT BITE. There is no fever. Chief Complaint:: PATIENT C/O LEFT ARM PAIN AND SWELLING THAT STARTED YESTERDAY. PATIENT STATES THAT THE PAIN IS WORSE WHEN SHE STRAIGHTENS IT OUT. - Nurses notes reviewed Nurses Notes Review: Yes - Source History Provided: Patient - Mode of arrival Mode of Arrival: Wheelchair - Timing Onset of Chief Complaint: 07/26/17 - Associated signs and symptoms Associated Signs and Symptoms: Swelling PMH - PMH Past Medical History: Yes Past Medical History: Arthritis, Diabetes, GERD, Hypertension, Renal Disease Past Surgical History: Yes Surgical History: Cholecystectomy, Hysterectomy, Ortho Surgery Past Surgical History Comment: BACK - Family History History of Family Medical Conditions: Yes Family Medical History: Cancer, [place] - Social History Alcohol Use: None Do you use any recreational Drugs:: No Lives With: Family Lives Where: Home - infectious screening In the last 2 months have you had wt loss of >10#?: NO Have you had fever, night sweats or hemotysis?: No Have you traveled outside the country in the last 6 months?: No ROS - Review of Systems Constitutional: No Symptoms Reported Eyes: No Symptoms Reported ENTM: No Symptoms Reported Respiratoy: No Symptoms Reported Cardiovascular: No Symptoms Reported Gastrointestinal/Abdominal: No Symptoms Reported Genitourinary: No Symptoms Reported Neurological: No Symptoms Reported Musculoskeletal: Left (swollen, red and painful) Integumentary: See HPI Hematologic/Lymphatic: No Symptoms Reported Endocrine: No Symptoms Reported Psychiatric: No Symptoms Reported All Other Systems: Reviewed and Negative PE - Vital Signs Vitals: Temperature 98.3 F Pulse Rate 74 Respiratory Rate 20 Blood Pressure [Left Arm] 185/76 Blood Pressure [Right Arm] 152/65 Blood Pressure 136/64 O2 Sat by Pulse Oximetry 93 - General Limitations: No Limitations General Appearance: Alert, In No Apparent Distress - Head Head Exam: Normal Inspection - Eyes Eye exam: Normal Appearance - ENT ENT Exam: Normal Exam - Neck Neck Exam: Normal Inspection, Full ROM, Trachea Midline - Chest Chest Inspection: Normal Inspection, Symmetric Chest Wall Rise - Respiratory Respiratory Exam: Normal Lung Sounds Bilat - Cardiovascular Cardiovascular Exam: Regular Rate, Normal Rhythm, +S1, +S2 - Abdominal Exam Abdominal Exam: Normal Inspection, Normal Bowel Sounds, Soft - Upper Extremities Elbow Exam: Swelling, Erythema (over Lt. elbow) - Back Back Exam: Normal Inspection - Neurological Neurological Exam: Alert, Oriented X3, CN II-XII Intact - Psychiatric Psychiatric Exam: Normal Affect, Normal Mood - Skin Skin Exam: Dry, Intact, Erythema (lt. ebow + proximal forearm) ROR - XRAY XRAY Interpreted by: Radiologist (A non-displaced radial head fracture.), Self - Diagnosis Discharge Problem: Left radial head fracture - Discharge Plan Disposition: 01 HOME, SELF-CARE Condition: Stable - Follow ups/Referrals Follow ups/Referrals: Samuel Barger [Primary Care Provider] - 3 days - Instructions Instructions: Radial Fracture
[2017-07-27] MEDS ORDERED: SOLU-Medrol 125 MG VIAL IM ONE (15:11)
[2017-07-27] MEDS ORDERED: KEFLEX CAP 500 MG PO ONE ×2 (15:11→15:32)
--- NOTE | 2017-07-27 15:29 | RAD ---
History: Left elbow pain following fall. Exam: Three-view series of the left elbow joint demonstrates a nondisplaced left radial head fracture with a small left elbow joint effusion. There is moderate to severe left elbow joint osteoarthritis with marginal elbow joint osteophytosis. There is mild osteopenia. There is diffuse edema seen surrou nding the left elbow joint. No elbow joint dislocation or subluxation is seen. No other acute bony in jury is observed. No destructive lytic bony lesion or process is seen. Impression: Nondisplaced left radial head fracture with a small elbow joint effusion Moderate to severe left elbow joint osteoarthritis and DJD also seen. Reported By:
[2017-07-27] MEDS ORDERED: SOLU-Medrol 125 MG VIAL ONE (15:32)
== END 2017-07-27 16:07 | disposition home or self-care (01) ==
LOC: ER 14:36
DX: S52.124A Nondisplaced fracture of head of right radius, initial encounter for closed fracture (principal); Y33.XXXA Other specified events, undetermined intent, initial encounter; Y92.9 Unspecified place or not applicable
CPT/HCPCS: 73070; 96372; 99282; J2930

== ENCOUNTER 2017-07-29 13:58 | Observation (INO) | payer OTHER, MEDICAID ==
[2017-07-29] MEDS ORDERED: HumuLIN R SUBCUT PRN (15:42)
[2017-07-29] MEDS ORDERED: MORPHINE SULFATE INJ 2 MG INJ IVP PRN (15:42)
[2017-07-29] MEDS ORDERED: ZOFRAN INJ 4 MG VIAL IVP PRN (15:42)
[2017-07-29] MEDS ORDERED: PHARMACY CONSULT - VANCOMYCIN XX SCH (15:42)
[2017-07-29] MEDS: NS 1000 ML 1,000 ML IV SCH (16:14)
[2017-07-29 16:26] LABS: BASOPHILS # (AUTO) 0.1 X10^3/uL (0.0-0.1); BASOPHILS % (AUTO) 0.8 % (0.2-1.0); EOSINOPHILS # (AUTO) 0.1 x10^3/uL (0.0-0.2); EOSINOPHILS % (AUTO) 0.6 % (0.9-2.9); HEMATOCRIT 29.3 % (36.0-47.0); HEMOGLOBIN 9.1 g/dL (12.0-16.0); LYMPHOCYTES # (AUTO) 2.3 X10^3/uL (1.3-2.9); LYMPHOCYTES % (AUTO) 14.8 % (21.0-51.0); MEAN CORPUSCULAR HEMOGLOBIN 22.1 pg (27.0-34.0); MEAN CORPUSCULAR HGB CONC 30.9 g/dL (33.0-35.0); MEAN CORPUSCULAR VOLUME 71.4 fL (80.0-100.0); MEAN PLATELET VOLUME 8.2 fL (7.4-11.0); MONOCYTES # (AUTO) 0.8 x10^3/uL (0.3-0.8); MONOCYTES % (AUTO) 5.1 % (0.0-13.0); NEUTROPHILS # (AUTO) 12.2 x10^3/uL (2.2-4.8); NEUTROPHILS % (AUTO) 78.7 % (42.0-75.0); PLATELET COUNT 396 X10^3/uL (150.0-450.0); WHITE BLOOD COUNT 15.5 X10^3/uL (3.6-10.0)
[2017-07-29 16:42] LABS: HYPOCHROMASIA 1+; MICROCYTOSIS 1+; PLATELET MORPHOLOGY COMMENT NORMAL (NORMAL)
[2017-07-29 16:44] LABS: CALCIUM 8.6 mg/dL (8.5-10.1); CARBON DIOXIDE 31.5 mmol/L (21-32); COR CA(FOR HYPOALB) 9.4 mg/dL (8.5-10.1); CREATININE 1.74 mg/dL (0.55-1.02); TOTAL PROTEIN 7.7 g/dL (6.4-8.2)
[2017-07-29 17:00] VITALS: BMI 63.2
[2017-07-29] MEDS ORDERED: VANCOMYCIN HCL IV SCH (20:00)
[2017-07-29] MEDS ORDERED: NS IV SCH (20:00)
[2017-07-29] MEDS: SNACK - Diabetic Appropriate PO SCH (22:13)
[2017-07-30] MEDS: NS 1000 ML 1,000 ML IV SCH (05:02)
[2017-07-30 06:22] LABS: BASOPHILS # (AUTO) 0.1 X10^3/uL (0.0-0.1); BASOPHILS % (AUTO) 0.6 % (0.2-1.0); EOSINOPHILS # (AUTO) 0.2 x10^3/uL (0.0-0.2); EOSINOPHILS % (AUTO) 1.7 % (0.9-2.9); HEMATOCRIT 24.8 % (36.0-47.0); HEMOGLOBIN 7.9 g/dL (12.0-16.0); LYMPHOCYTES # (AUTO) 1.9 X10^3/uL (1.3-2.9); LYMPHOCYTES % (AUTO) 16.4 % (21.0-51.0); MEAN CORPUSCULAR HEMOGLOBIN 22.7 pg (27.0-34.0); MEAN CORPUSCULAR HGB CONC 31.9 g/dL (33.0-35.0); MEAN CORPUSCULAR VOLUME 71.3 fL (80.0-100.0); MEAN PLATELET VOLUME 8.1 fL (7.4-11.0); MONOCYTES # (AUTO) 0.8 x10^3/uL (0.3-0.8); MONOCYTES % (AUTO) 6.7 % (0.0-13.0); NEUTROPHILS # (AUTO) 8.8 x10^3/uL (2.2-4.8); NEUTROPHILS % (AUTO) 74.6 % (42.0-75.0); PLATELET COUNT 314 X10^3/uL (150.0-450.0); RED BLOOD COUNT 3.48 X10^6/uL (3.5-5.4); RED CELL DISTRIBUTION WIDTH 20.2 % (11.6-16.5); WHITE BLOOD COUNT 11.7 X10^3/uL (3.6-10.0)
[2017-07-30 06:53] LABS: ALBUMIN 2.4 g/dL (3.4-5.0); CARBON DIOXIDE 28.3 mmol/L (21-32); COR CA(FOR HYPOALB) 9.3 mg/dL (8.5-10.1); CREATININE 1.67 mg/dL (0.55-1.02); TOTAL PROTEIN 6.4 g/dL (6.4-8.2)
[2017-07-30 07:07] LABS: PLATELET MORPHOLOGY COMMENT NORMAL (NORMAL)
[2017-07-30 07:08] LABS: ANISOCYTOSIS 1+; HYPOCHROMASIA SLIGHT; MICROCYTOSIS SLIGHT
[2017-07-30] MEDS ORDERED: PROTONIX TAB 40 MG PO SCH (11:00)
[2017-07-30] MEDS ORDERED: NexIUM PO SCH (11:00)
[2017-07-30] MEDS: GLUCOTROL XL PO SCH ×2 (11:09→21:20)
[2017-07-30] MEDS: OXYBUTYNIN CHLORIDE ER PO SCH (11:10)
[2017-07-30] MEDS: SINGULAIR TAB 10 MG PO SCH (11:10)
[2017-07-30] MEDS: DIFLUCAN PO SCH (11:10)
[2017-07-30] MEDS: SYNTHROID 75 mcg TAB PO SCH (11:10)
[2017-07-30] MEDS: TOUJEO SOLOSTAR PEN SC SCH (11:12)
[2017-07-30] MEDS: REQUIP PO SCH ×3 (15:43→23:30)
[2017-07-30] MEDS: VISTARIL PO PRN (15:44)
--- NOTE | 2017-07-30 18:15 | DR.UPDATE ---
H&P Update History and Physical Update: RETURNED TO THE OFFICE ON 07/29/2017 WITH COMPLAINTS OF LEFT ELBOW PAIN, REDNESS, AND SWELLING. PATIENT DENIES TRAUMA OR INSECT BITE OF ANY KIND. SHE DENIES FEVER. PATIENT REPORTS THAT SHE WAS SEEN IN THE ER OVER THE WEEKEND. A XRAY WAS OBTAINED AT THAT TIME AND REVEALED A NONDISPLACED LEFT RADIAL HEAD FRACTURE WITH A SMALL ELBOW JOINT EFFUSION. MODERATE TO SEVERE LEFT ELBOW JOINT OSTEOARTHRITIS AND DJD ALSO SEEN. TODAY, LEFT ELBOW IS NOTED WITH ERYTHEMA AND EDEMA. PATIENT REPORTS THAT THERE IS SIGNIFICANT INCREASE IN REDNESS SINCE SATURDAY. WE ADMITTED PATIENT FOR FURTHER EVALUATION AND TREATMENT OF LEFT ELBOW CELLULITIS AND RADIAL HEAD FRACTURE. ON ADMISSION, WE WILL OBTAIN A CBC, CMP, AND BLOOD CULTURES. WE PLAN TO CONSULT ORTHO AND START PATIENT ON VANCOMYCIN, PHARMACY TO DOSE. OTHERWISE, WE PLAN TO FOLLOW UP WITH AM LABS AND CONTINUE TO MONITOR PATIENT. Changes noted: NO Yes with the following:
[2017-07-30] MEDS: PROTONIX INJ 40 MG VIAL IVP SCH ×2 (18:47→21:20)
[2017-07-30] MEDS: PEPCID 20 MG IV PREMIX* 20 MG/50 ML BAG IV SCH ×2 (18:47→23:57)
[2017-07-30] MEDS: OxyCONTIN CR 30 MG PO PRN (18:47)
--- NOTE | 2017-07-30 20:37 | DR.CONSULT ---
Consult - Consultation for Day of: Date: 07/30/17 - Chief Complaint Chief Complaint: left elbow pain. - Allergies Allergies/Adverse Reactions: Allergies Allergy/AdvReac Type Severity Reaction Status Date / Time bacitracin Allergy Verified 07/29/17 17:10 [From Neosporin ([id number])] clopidogrel [From Plavix] Allergy Verified 07/29/17 17:10 gabapentin [From Neurontin] Allergy Verified 07/29/17 17:10 hydrochlorothiazide Allergy Verified 07/29/17 17:10 [From Hyzaar] latex Allergy Verified 07/29/17 17:10 losartan [From Hyzaar] Allergy Verified 07/29/17 17:10 neomycin Allergy Verified 07/29/17 17:10 [From Neosporin (dma-zfk-uxxfs)] polymyxin B Allergy Verified 07/29/17 17:10 [From Neosporin (acz-bia-mzmrl)] propoxyphene [From Darvon] Allergy Verified 07/29/17 17:10 rosuvastatin [From Crestor] Allergy Verified 07/29/17 17:10 No Dye Allergy Uncoded 07/29/17 17:10 - History of Present Illness History of Present Illness: patient is a 67-year-old female admitted in the hospital for left elbow cellulitis. She is admitted under Dr. Barger. X-rays showed a possible left radial neck fracture. Consultation requested for the same. She is currently on vancomycin for her left elbow cellulitis. No history of trauma noted. Past history for radial head fracture noted. No severe restriction of range of motion. - Past Medical History Past Medical History: Arthritis, Diabetes, GERD, Hypertension, Renal Disease - Past Surgical History Surgical History: Cholecystectomy, Hysterectomy, Ortho Surgery - Family History Family Medical History: Cancer, [place] - Social History Does patient currently use any type of tobacco product: No Have you used tobacco products in the last 12 months: No Type of Tobacco Use: None Does any household member use tobacco: No Alcohol Use: None Drug Use: None - Medications Home Medications: Clonazepam [Klonopin Tab 0.5 mg] 0.5 mg PO HS 07/29/17 [History Confirmed ] Esomeprazole Magnesium [Nexium] 40 mg PO DAILY 07/29/17 [History Confirmed 07/29] Fluconazole [DIFLUCAN TAB 150 MG *] 150 mg PO DAILY 07/29/17 [History Confirmed 07/29/17] Ketoconazole [Nizoral] 200 mg PO DAILY 07/29/17 [History Confirmed 07/29/17] Levocetirizine Dihydrochloride [Xyzal Allergy 24Hr] 5 mg PO HS 07/29/17 [ History Confirmed 07/29/17] Oxybutynin Chloride [Oxybutynin Chloride ER] 10 mg PO DAILY 07/29/17 [History Confirmed 07/29/17] - Physical Exam Vital Signs: Temperature 97.8 F Pulse Rate [Right Brachial] 86 Respiratory Rate 20 Blood Pressure [Left Arm] 148/65 Blood Pressure [Right Arm] 195/77 Blood Pressure 136/64 O2 Sat by Pulse Oximetry 92 Musculoskeletal: Left, Elbow, Swelling, Tender (gregory is a very obese female in no apparent distress. Oriented to time place and person. Left elbow redness noted. A marking representing the initial redness is also seen. The redness at this time and is very less compared to the initial marking. Diffuse tenderness noted. No deformities noted. Patient has a decent range of motion of the elbow. Extension -5. Flexion 90. Pain with pronation and supination. Tenderness noted over the radiocapitellar joint. No distal neurovascular deficits noted.) - Plan Plan: gregory has a decent range of motion. The radial fracture might be an old fracture. It's not to have a radial neck fracture without evidence of injury. She has osteoarthritis of the elbow. Plan #1. Continue treatment of cellulitis. #2 pain management for the left elbow pain. #3. No active orthopedic intervention needed at this time. #4. Follow-up in the office if the elbow pain symptoms persist after treatment of cellulitis.
[2017-07-30] MEDS ORDERED: REQUIP PO SCH (21:00)
[2017-07-30] MEDS: VANCOMYCIN 1 GM PREMIX (ADDVANTAGE) 250 ML IV SCH (21:06)
[2017-07-30] MEDS: SNACK - Diabetic Appropriate PO SCH (21:15)
[2017-07-30] MEDS: PLETAL PO SCH (21:16)
[2017-07-30] MEDS: KLONOPIN TAB 0.5 MG PO SCH (21:18)
[2017-07-30] MEDS: ZOCOR TAB 20 MG PO SCH (21:19)
[2017-07-30] MEDS: LOPRESSOR TAB 25 MG PO SCH (21:19)
[2017-07-30] MEDS: NIZORAL PO SCH (23:56)
[2017-07-31] MEDS: NS 1000 ML 1,000 ML IV SCH ×3 (06:14→21:18)
[2017-07-31 07:11] LABS: ALBUMIN 2.4 g/dL (3.4-5.0); CALCIUM 7.6 mg/dL (8.5-10.1); CARBON DIOXIDE 25.5 mmol/L (21-32); COR CA(FOR HYPOALB) 8.9 mg/dL (8.5-10.1); CREATININE 1.48 mg/dL (0.55-1.02); TOTAL PROTEIN 6.2 g/dL (6.4-8.2)
[2017-07-31 07:13] LABS: BASOPHILS # (AUTO) 0.1 X10^3/uL (0.0-0.1); BASOPHILS % (AUTO) 0.7 % (0.2-1.0); EOSINOPHILS # (AUTO) 0.5 x10^3/uL (0.0-0.2); EOSINOPHILS % (AUTO) 5.3 % (0.9-2.9); HEMATOCRIT 24.5 % (36.0-47.0); HEMOGLOBIN 7.8 g/dL (12.0-16.0); LYMPHOCYTES # (AUTO) 1.9 X10^3/uL (1.3-2.9); LYMPHOCYTES % (AUTO) 20.8 % (21.0-51.0); MEAN CORPUSCULAR HEMOGLOBIN 22.8 pg (27.0-34.0); MEAN CORPUSCULAR HGB CONC 31.7 g/dL (33.0-35.0); MEAN PLATELET VOLUME 8.3 fL (7.4-11.0); MONOCYTES # (AUTO) 0.7 x10^3/uL (0.3-0.8); MONOCYTES % (AUTO) 7.1 % (0.0-13.0); NEUTROPHILS # (AUTO) 6.2 x10^3/uL (2.2-4.8); NEUTROPHILS % (AUTO) 66.1 % (42.0-75.0); PLATELET COUNT 280 X10^3/uL (150.0-450.0); RED BLOOD COUNT 3.41 X10^6/uL (3.5-5.4); RED CELL DISTRIBUTION WIDTH 19.9 % (11.6-16.5); WHITE BLOOD COUNT 9.3 X10^3/uL (3.6-10.0)
[2017-07-31 07:54] LABS: ANISOCYTOSIS SLIGHT; HYPOCHROMASIA 1+; MICROCYTOSIS SLIGHT; PLATELET MORPHOLOGY COMMENT NORMAL (NORMAL)
[2017-07-31] MEDS: REQUIP PO SCH ×4 (10:14→21:17)
[2017-07-31] MEDS: DIFLUCAN PO SCH (10:16)
[2017-07-31] MEDS: SYNTHROID 75 mcg TAB PO SCH (10:16)
[2017-07-31] MEDS: GLUCOTROL XL PO SCH ×2 (10:17→21:16)
[2017-07-31] MEDS: SINGULAIR TAB 10 MG PO SCH (10:17)
[2017-07-31] MEDS: PLETAL PO SCH ×2 (10:18→21:16)
[2017-07-31] MEDS: OXYBUTYNIN CHLORIDE ER PO SCH (10:18)
[2017-07-31] MEDS: LOPRESSOR TAB 25 MG PO SCH ×2 (10:18→21:17)
[2017-07-31] MEDS: PROTONIX INJ 40 MG VIAL IVP SCH ×2 (10:19→21:18)
[2017-07-31] MEDS: PEPCID 20 MG IV PREMIX* 20 MG/50 ML BAG IV SCH ×2 (10:19→21:15)
[2017-07-31] MEDS: TOUJEO SOLOSTAR PEN SC SCH (10:20)
[2017-07-31] MEDS: NIZORAL PO SCH (10:27)
[2017-07-31] MEDS ORDERED: PROCRIT or EPOGEN SC SCH (11:00)
[2017-07-31] MEDS: ALBUMIN HUMAN 25%- 100ML 100 ML IV SCH (12:39)
[2017-07-31] MEDS: PROCALAMINE 3 % 1,000 ML IV SCH (12:40)
[2017-07-31] MEDS: GENTAMICIN TOPICAL CRM TOP SCH ×2 (12:41→21:18)
[2017-07-31] MEDS: OxyCONTIN CR 30 MG PO PRN (17:00)
--- NOTE | 2017-07-31 20:44 | PCM.PROG ---
Progress Note - Progress Note for Day of Date: 07/30/17 - Subjective Subjective: WAS ADMITTED YESTERDAY FOR TREATMENT OF LEFT ELBOW CELLULITIS AND A NONDISPLACED LEFT RADIAL HEAD FRACTURE WITH A SMALL ELBOW JOINT EFFUSION. TODAY, SHE IS ALERT AND ORIENTED, LYING IN BED ON MORNING ROUNDS. SHE IS NOTED WITH COMPLAINTS OF GENERALIZED WEAKNESS AND LEFT ELBOW PAIN. SHE ALSO REPORTS DARK, LOOSE BOWEL MOVEMENTS. ON EXAMINATION, LEFT ELBOW CONTINUES WITH ERYTHEMA AND EDEMA, SLIGHTLY IMPROVED SINCE YESTERDAY. NORMAL RANGE OF MOTION NOTED. SHE DOES HAVE MORE PAIN UPON PRONATION AND SUPINATION. HER VITALS THIS MORNING ARE 97.4-73-20-93%-183/73. ABNORMAL LAB VALUES TODAY INCLUDE THE FOLLOWING: WBC 11.7, RBC 3.48, HGB 7.9, HCT 24.8, BUN 30, CREATININE 1.67, GLUCOSE 112, CALCIUM 8.0, AST 14, ALBUMIN 2.4. BLOOD CULTURES ARE PENDING. CONSULTED WITH PATIENT THIS MORNING AND FEELS THAT SURGICAL INTERVENTION IS NOT NEEDED AT THIS TIME. HE PLANS TO FOLLOW MICHAELTENT IN THE OFFICE AFTER TREATMENT OF CELLULITIS. TODAY, WE WILL CONTINUE WITH VANCOMYCIN THERAPY FOR CELLULITIS. WE WILL OBTAIN STOOLS FOR OCCULT BLOOD. OTHERWISE, WE WILL FOLLOW UP WITH AM LABS AND CONTINUE TO MONTIOR PATIENT. - Past Medical Family Social History Past Med/Fam/Surg Hx: No changes since H&P Allergies: Allergies bacitracin [From Neosporin (lte-plm-mfvnx)] Allergy (Verified 07/29/17 17:10) clopidogrel [From Plavix] Allergy (Verified 07/29/17 17:10) gabapentin [From Neurontin] Allergy (Verified 07/29/17 17:10) hydrochlorothiazide [From Hyzaar] Allergy (Verified 07/29/17 17:10) latex Allergy (Verified 07/29/17 17:10) losartan [From Hyzaar] Allergy (Verified 07/29/17 17:10) neomycin [From Neosporin (ajv-zox-wqcyd)] Allergy (Verified 07/29/17 17:10) polymyxin B [From Neosporin (ebm-nux-hrrms)] Allergy (Verified 07/29/17 17:10) propoxyphene [From Darvon] Allergy (Verified 07/29/17 17:10) rosuvastatin [From Crestor] Allergy (Verified 07/29/17 17:10) No Dye Allergy (Uncoded 07/29/17 17:10) - Review of Systems ROS: No change since H&P - Vital Signs and I&O's Vital Signs: Temperature 98.3 F Pulse Rate [Right Brachial] 70 Respiratory Rate 22 Blood Pressure [Left Arm] 126/60 Blood Pressure [Right Arm] 152/65 Blood Pressure 136/64 O2 Sat by Pulse Oximetry 93 Intake and Output: Intake & Output 07/29/17 07/30/17 07/31/17 08/01/17 11:59 11:59 11:59 11:59 Intake Total 1500 3820 800 Balance 1500 3820 800 - Physical Exam Oriented: Normal Eyes: Normal Ear: Normal Nose: Normal Throat: Normal Respiratory: Diminished Cardiovascular: Normal : Normal Auscultation: Bowel Sounds: Normal Palpation: Normal Tenderness: Normal Skin: Red, Tender, Hot Musculoskeletal: Left, Elbow, Swelling, Tender (atient is a very obese female in no apparent distress. Oriented to time place and person. Left elbow redness noted. A marking representing the initial redness is also seen. The redness at this time and is very less compared to the initial marking. Diffuse tenderness noted. No deformities noted. Patient has a decent range of motion of the elbow. Extension -5. Flexion 90. Pain with pronation and supination. Tenderness noted over the radiocapitellar joint. No distal neurovascular deficits noted.) Psychiatric: Normal Mood Description: Calm Affect: Normal Speech Pattern: Clear, Appropriate - Laboratory and Diagnostics Result Diagrams: 07/31/17 05:31 07/31/17 05:31 Labs: 07/29/17 16:10 Blood Blood Culture - Preliminary 07/29/17 16:00 Blood Blood Culture - Preliminary Laboratory WBC 9.3 X10^3/uL (3.6-10.0) 07/31/17 05:31 RBC 3.41 X10^6/uL (3.5-5.4) L 07/31/17 05:31 Hgb 7.8 g/dL (12.0-16.0) L 07/31/17 05:31 Hct 24.5 % (36.0-47.0) L 07/31/17 05:31 MCV 72.0 fL (80.0-100.0) L 07/31/17 05:31 MCH 22.8 pg (27.0-34.0) L 07/31/17 05:31 MCHC 31.7 g/dL (33.0-35.0) L 07/31/17 05:31 RDW 19.9 % (11.6-16.5) H 07/31/17 05:31 Plt Count 280 X10^3/uL (150.0-450.0) 07/31/17 05:31 Plt Count Comment Adequate (ADEQUATE) 07/31/17 05:31 MPV 8.3 fL (7.4-11.0) 07/31/17 05:31 Neut % (Auto) 66.1 % (42.0-75.0) 07/31/17 05:31 Lymph % (Auto) 20.8 % (21.0-51.0) L 07/31/17 05:31 [place] % (Auto) 7.1 % (0.0-13.0) 07/31/17 05:31 Eos % (Auto) 5.3 % (0.9-2.9) H 07/31/17 05:31 Baso % (Auto) 0.7 % (0.2-1.0) 07/31/17 05:31 Neut # (Auto) 6.2 x10^3/uL (2.2-4.8) H 07/31/17 05:31 Lymph # (Auto) 1.9 X10^3/uL (1.3-2.9) 07/31/17 05:31 [place] # (Auto) 0.7 x10^3/uL (0.3-0.8) 07/31/17 05:31 Eos # (Auto) 0.5 x10^3/uL (0.0-0.2) H 07/31/17 05:31 Baso # (Auto) 0.1 X10^3/uL (0.0-0.1) 07/31/17 05:31 Absolute Nucleated RBC 0.1 /100WBC 07/31/17 05:31 Plt Morphology Comment Normal (NORMAL) 07/31/17 05:31 RBC Morphology Abnormal (NORMAL) A 07/31/17 05:31 Hypochromasia 1+ A 07/31/17 05:31 Anisocytosis Slight A 07/31/17 05:31 Microcytosis Slight A 07/31/17 05:31 Sodium 137 mmol/L (136-145) 07/31/17 05:31 Corrected Sodium 138 mmol/L (136-145) 07/31/17 05:31 Potassium 4.6 mmol/L (3.5-5.1) 07/31/17 05:31 Chloride 103 mmol/L (98-107) 07/31/17 05:31 Carbon Dioxide 25.5 mmol/L (21-32) 07/31/17 05:31 BUN 24 mg/dL (7-18) H 07/31/17 05:31 Creatinine 1.48 mg/dL (0.55-1.02) H 07/31/17 05:31 Est GFR (MDRD) Af Amer 46 (>60) L 07/31/17 05:31 Est GFR (MDRD) Non-Af 38 (>60) L 07/31/17 05:31 Glucose 155 mg/dL (65-99) H 07/31/17 05:31 POC Glucose (mg/dL) 173 mg/dL (65-99) H 07/31/17 19:48 Calcium 7.6 mg/dL (8.5-10.1) L 07/31/17 05:31 Corrected Calcium 8.9 mg/dL (8.5-10.1) 07/31/17 05:31 Total Bilirubin 0.30 mg/dL (0.2-1.0) 07/31/17 05:31 AST 13 Units/L (15-37) L 07/31/17 05:31 ALT 18 Units/L (12-78) 07/31/17 05:31 Alkaline Phosphatase 81 Units/L (46-116) 07/31/17 05:31 Total Protein 6.2 g/dL (6.4-8.2) L 07/31/17 05:31 Albumin 2.4 g/dL (3.4-5.0) L 07/31/17 05:31 Globulin 3.8 g/dL (2.5-4.5) 07/31/17 05:31 Albumin/Globulin Ratio 0.6 Ratio (1.1-2.1) L 07/31/17 05:31 Stool Description 4oz hard forme 07/31/17 05:57 Stl Occult Blood (IFOB) Negative (NEGATIVE) 07/31/17 05:57 - Plan (1) Cellulitis Status: Acute Qualifiers: Site of cellulitis: extremity Site of cellulitis of extremity: upper extremity Laterality: left Qualified Code(s): L03.114 - Cellulitis of left upper limb Plan: VANCOMYCIN 1GM IV DAILY, CONTINUE TO MONITOR (2) Left radial head fracture Status: Acute Qualifiers: Encounter type: initial encounter Fracture type: closed Fracture alignment: nondisplaced Qualified Code(s): S52.125A - Nondisplaced fracture of head of left radius, initial encounter for closed fracture Plan: CONTINUE TO MONTIOR
[2017-07-31] MEDS: VANCOMYCIN 1 GM PREMIX (ADDVANTAGE) 250 ML IV SCH (21:15)
[2017-07-31] MEDS: SNACK - Diabetic Appropriate PO SCH (21:15)
[2017-07-31] MEDS: VISTARIL PO PRN (21:16)
[2017-07-31] MEDS: ZyrTEC TAB 10 MG PO SCH (21:16)
[2017-07-31] MEDS: KLONOPIN TAB 0.5 MG PO SCH (21:17)
[2017-07-31] MEDS: ZOCOR TAB 20 MG PO SCH (21:17)
[2017-08-01] MEDS: OxyCONTIN CR 30 MG PO PRN (01:02)
[2017-08-01] MEDS: VISTARIL PO PRN (04:40)
[2017-08-01 06:17] LABS: BASOPHILS # (AUTO) 0.1 X10^3/uL (0.0-0.1); BASOPHILS % (AUTO) 0.8 % (0.2-1.0); EOSINOPHILS # (AUTO) 0.6 x10^3/uL (0.0-0.2); EOSINOPHILS % (AUTO) 6.8 % (0.9-2.9); HEMOGLOBIN 7.6 g/dL (12.0-16.0); LYMPHOCYTES % (AUTO) 21.5 % (21.0-51.0); MEAN CORPUSCULAR HGB CONC 31.7 g/dL (33.0-35.0); MEAN CORPUSCULAR VOLUME 72.4 fL (80.0-100.0); MEAN PLATELET VOLUME 8.2 fL (7.4-11.0); MONOCYTES # (AUTO) 0.6 x10^3/uL (0.3-0.8); MONOCYTES % (AUTO) 6.5 % (0.0-13.0); NEUTROPHILS % (AUTO) 64.4 % (42.0-75.0); PLATELET COUNT 223 X10^3/uL (150.0-450.0); RED BLOOD COUNT 3.32 X10^6/uL (3.5-5.4); RED CELL DISTRIBUTION WIDTH 20.1 % (11.6-16.5); WHITE BLOOD COUNT 9.3 X10^3/uL (3.6-10.0)
[2017-08-01 06:46] LABS: ALBUMIN 2.6 g/dL (3.4-5.0); CALCIUM 7.7 mg/dL (8.5-10.1); CARBON DIOXIDE 23.4 mmol/L (21-32); COR CA(FOR HYPOALB) 8.8 mg/dL (8.5-10.1); CREATININE 1.51 mg/dL (0.55-1.02); TOTAL PROTEIN 6.3 g/dL (6.4-8.2)
[2017-08-01 06:56] LABS: ANISOCYTOSIS 1+; HYPOCHROMASIA 1+; PLATELET MORPHOLOGY COMMENT NORMAL (NORMAL)
[2017-08-01] MEDS: DIFLUCAN PO SCH (09:51)
[2017-08-01] MEDS: REQUIP PO SCH ×4 (09:51→21:14)
[2017-08-01] MEDS: GLUCOTROL XL PO SCH ×2 (09:51→21:10)
[2017-08-01] MEDS: SINGULAIR TAB 10 MG PO SCH (09:52)
[2017-08-01] MEDS: PLETAL PO SCH ×2 (09:52→21:11)
[2017-08-01] MEDS: LOPRESSOR TAB 25 MG PO SCH ×2 (09:54→21:13)
[2017-08-01] MEDS: SYNTHROID 75 mcg TAB PO SCH (09:54)
[2017-08-01] MEDS: PEPCID 20 MG IV PREMIX* 20 MG/50 ML BAG IV SCH ×2 (09:54→21:09)
[2017-08-01] MEDS: PROTONIX INJ 40 MG VIAL IVP SCH ×2 (09:54→21:10)
[2017-08-01] MEDS: ALBUMIN HUMAN 25%- 100ML 100 ML IV SCH (09:55)
[2017-08-01] MEDS: TOUJEO SOLOSTAR PEN SC SCH (09:56)
[2017-08-01] MEDS: GENTAMICIN TOPICAL CRM TOP SCH ×2 (09:56→21:24)
[2017-08-01] MEDS: OXYBUTYNIN CHLORIDE ER PO SCH (09:59)
[2017-08-01] MEDS: NIZORAL PO SCH (09:59)
[2017-08-01] MEDS: PROCALAMINE 3 % 1,000 ML IV SCH (10:13)
[2017-08-01] MEDS: NS 1000 ML 1,000 ML IV SCH ×2 (10:16→22:45)
[2017-08-01] MEDS ORDERED: PROCRIT or EPOGEN SC NR (17:00)
--- NOTE | 2017-08-01 20:50 | PCM.PROG ---
Progress Note - Progress Note for Day of Date: 07/31/17 - Subjective Subjective: WAS ADMITTED YESTERDAY FOR TREATMENT OF LEFT ELBOW CELLULITIS AND A NONDISPLACED LEFT RADIAL HEAD FRACTURE WITH A SMALL ELBOW JOINT EFFUSION. TODAY, SHE IS ALERT AND ORIENTED, LYING IN BED ON MORNING ROUNDS. SHE IS NOTED WITH COMPLAINTS OF GENERALIZED WEAKNESS AND LEFT ELBOW PAIN. ON EXAMINATION, LEFT ELBOW CONTINUES WITH ERYTHEMA AND EDEMA, SLIGHTLY IMPROVED SINCE YESTERDAY. NORMAL RANGE OF MOTION NOTED. SHE DOES HAVE MORE PAIN UPON PRONATION AND SUPINATION. THERE IS REDNESS AND A SCABBED OVER WOUND NOTED TO THE RIGHT LOWER EXTREMITY. HER VITALS THIS MORNING ARE 98.1-67-20-93%-151/ 65. ABNORMAL LAB VALUES TODAY INCLUDE THE FOLLOWING: RBC 3.41, HGB 7.8, HCT 24.5 , BUN 24, CREATININE 1.48, GLUCOSE 155, CALCIUM 7.6, AST 13, TOTAL PROTEIN 6.2, ALBUMIN 2.4. BLOOD CULTURES ARE PENDING. WE WILL CONTINUE WITH VANCOMYCIN THERAPY FOR CELLULITIS TODAY. OTHERWISE, WE WILL FOLLOW UP WITH AM LABS AND CONTINUE TO MONTIOR PATIENT. - Past Medical Family Social History Past Med/Fam/Surg Hx: No changes since H&P Allergies: Allergies bacitracin [From Neosporin ([id number])] Allergy (Verified 07/29/17 17:10) clopidogrel [From Plavix] Allergy (Verified 07/29/17 17:10) gabapentin [From Neurontin] Allergy (Verified 07/29/17 17:10) hydrochlorothiazide [From Hyzaar] Allergy (Verified 07/29/17 17:10) latex Allergy (Verified 07/29/17 17:10) losartan [From Hyzaar] Allergy (Verified 07/29/17 17:10) neomycin [From Neosporin ([id number])] Allergy (Verified 07/29/17 17:10) polymyxin B [From Neosporin ([id number])] Allergy (Verified 07/29/17 17:10) propoxyphene [From Darvon] Allergy (Verified 07/29/17 17:10) rosuvastatin [From Crestor] Allergy (Verified 07/29/17 17:10) No Dye Allergy (Uncoded 07/29/17 17:10) - Review of Systems ROS: No change since H&P - Vital Signs and I&O's Vital Signs: Temperature 98.2 F Pulse Rate [Right Brachial] 62 Respiratory Rate 16 Blood Pressure [Left Arm] 126/60 Blood Pressure [Right Arm] 170/75 Blood Pressure 136/64 O2 Sat by Pulse Oximetry 95 Intake and Output: Intake & Output 07/30/17 07/31/17 08/01/17 08/02/17 11:59 11:59 11:59 11:59 Intake Total 1500 3820 1615 2324 Balance 1500 3820 1615 2324 - Physical Exam Oriented: Normal Eyes: Normal Ear: Normal Nose: Normal Throat: Normal Respiratory: Diminished Cardiovascular: Normal, Edema (GENERALIZED ) : Normal Auscultation: Bowel Sounds: Normal Tenderness: Normal Skin: Red, Tender, Hot Musculoskeletal: Left, Elbow, Swelling, Tender (atient is a very obese female in no apparent distress. Oriented to time place and person. Left elbow redness noted. A marking representing the initial redness is also seen. The redness at this time and is very less compared to the initial marking. Diffuse tenderness noted. No deformities noted. Patient has a decent range of motion of the elbow. Extension -5. Flexion 90. Pain with pronation and supination. Tenderness noted over the radiocapitellar joint. No distal neurovascular deficits noted.) Psychiatric: Normal Mood Description: Calm Affect: Normal Speech Pattern: Clear, Appropriate - Laboratory and Diagnostics Result Diagrams: 08/01/17 05:43 08/01/17 05:43 Labs: 07/29/17 16:10 Blood Blood Culture - Preliminary 07/29/17 16:00 Blood Blood Culture - Preliminary Laboratory WBC 9.3 X10^3/uL (3.6-10.0) 08/01/17 05:43 RBC 3.32 X10^6/uL (3.5-5.4) L 08/01/17 05:43 Hgb 7.6 g/dL (12.0-16.0) L 08/01/17 05:43 Hct 24.0 % (36.0-47.0) L 08/01/17 05:43 MCV 72.4 fL (80.0-100.0) L 08/01/17 05:43 MCH 23.0 pg (27.0-34.0) L 08/01/17 05:43 MCHC 31.7 g/dL (33.0-35.0) L 08/01/17 05:43 RDW 20.1 % (11.6-16.5) H 08/01/17 05:43 Plt Count 223 X10^3/uL (150.0-450.0) 08/01/17 05:43 Plt Count Comment Adequate (ADEQUATE) 08/01/17 05:43 MPV 8.2 fL (7.4-11.0) 08/01/17 05:43 Neut % (Auto) 64.4 % (42.0-75.0) 08/01/17 05:43 Lymph % (Auto) 21.5 % (21.0-51.0) 08/01/17 05:43 [place] % (Auto) 6.5 % (0.0-13.0) 08/01/17 05:43 Eos % (Auto) 6.8 % (0.9-2.9) H 08/01/17 05:43 Baso % (Auto) 0.8 % (0.2-1.0) 08/01/17 05:43 Neut # (Auto) 6.0 x10^3/uL (2.2-4.8) H 08/01/17 05:43 Lymph # (Auto) 2.0 X10^3/uL (1.3-2.9) 08/01/17 05:43 [place] # (Auto) 0.6 x10^3/uL (0.3-0.8) 08/01/17 05:43 Eos # (Auto) 0.6 x10^3/uL (0.0-0.2) H 08/01/17 05:43 Baso # (Auto) 0.1 X10^3/uL (0.0-0.1) 08/01/17 05:43 Absolute Nucleated RBC 0.0 /100WBC 08/01/17 05:43 Plt Morphology Comment Normal (NORMAL) 08/01/17 05:43 RBC Morphology Abnormal (NORMAL) A 08/01/17 05:43 Hypochromasia 1+ A 08/01/17 05:43 Anisocytosis 1+ A 08/01/17 05:43 Microcytosis Slight A 07/31/17 05:31 Sodium 136 mmol/L (136-145) 08/01/17 05:43 Corrected Sodium 136 mmol/L (136-145) 08/01/17 05:43 Potassium 4.5 mmol/L (3.5-5.1) 08/01/17 05:43 Chloride 103 mmol/L (98-107) 08/01/17 05:43 Carbon Dioxide 23.4 mmol/L (21-32) 08/01/17 05:43 BUN 21 mg/dL (7-18) H 08/01/17 05:43 Creatinine 1.51 mg/dL (0.55-1.02) H 08/01/17 05:43 Est GFR (MDRD) Af Amer 44 (>60) L 08/01/17 05:43 Est GFR (MDRD) Non-Af 37 (>60) L 08/01/17 05:43 Glucose 114 mg/dL (65-99) H 08/01/17 05:43 POC Glucose (mg/dL) 173 mg/dL (65-99) H 08/01/17 20:01 Calcium 7.7 mg/dL (8.5-10.1) L 08/01/17 05:43 Corrected Calcium 8.8 mg/dL (8.5-10.1) 08/01/17 05:43 Total Bilirubin 0.30 mg/dL (0.2-1.0) 08/01/17 05:43 AST 14 Units/L (15-37) L 08/01/17 05:43 ALT 18 Units/L (12-78) 08/01/17 05:43 Alkaline Phosphatase 82 Units/L (46-116) 08/01/17 05:43 Total Protein 6.3 g/dL (6.4-8.2) L 08/01/17 05:43 Albumin 2.6 g/dL (3.4-5.0) L 08/01/17 05:43 Globulin 3.7 g/dL (2.5-4.5) 08/01/17 05:43 Albumin/Globulin Ratio 0.7 Ratio (1.1-2.1) L 08/01/17 05:43 Stool Description 4oz hard forme 07/31/17 05:57 Stl Occult Blood (IFOB) Negative (NEGATIVE) 07/31/17 05:57 - Plan (1) Cellulitis Status: Acute Qualifiers: Site of cellulitis: extremity Site of cellulitis of extremity: upper extremity Laterality: left Qualified Code(s): L03.114 - Cellulitis of left upper limb Plan: VANCOMYCIN 1GM IV DAILY, CONTINUE TO MONITOR (2) Left radial head fracture Status: Acute Qualifiers: Encounter type: initial encounter Fracture type: closed Fracture alignment: nondisplaced Qualified Code(s): S52.125A - Nondisplaced fracture of head of left radius, initial encounter for closed fracture Plan: CONTINUE TO MONTIOR
[2017-08-01] MEDS: VANCOMYCIN 1 GM PREMIX (ADDVANTAGE) 250 ML IV SCH (21:09)
[2017-08-01] MEDS: ZyrTEC TAB 10 MG PO SCH (21:11)
[2017-08-01] MEDS: KLONOPIN TAB 0.5 MG PO SCH (21:12)
[2017-08-01] MEDS: ZOCOR TAB 20 MG PO SCH (21:13)
[2017-08-01] MEDS: SNACK - Diabetic Appropriate PO SCH (21:22)
[2017-08-02 05:36] LABS: BASOPHILS # (AUTO) 0.1 X10^3/uL (0.0-0.1); BASOPHILS % (AUTO) 0.9 % (0.2-1.0); EOSINOPHILS # (AUTO) 0.6 x10^3/uL (0.0-0.2); HEMATOCRIT 23.5 % (36.0-47.0); HEMOGLOBIN 7.4 g/dL (12.0-16.0); LYMPHOCYTES # (AUTO) 1.4 X10^3/uL (1.3-2.9); LYMPHOCYTES % (AUTO) 15.4 % (21.0-51.0); MEAN CORPUSCULAR HEMOGLOBIN 22.7 pg (27.0-34.0); MEAN CORPUSCULAR HGB CONC 31.7 g/dL (33.0-35.0); MEAN CORPUSCULAR VOLUME 71.7 fL (80.0-100.0); MEAN PLATELET VOLUME 8.3 fL (7.4-11.0); MONOCYTES # (AUTO) 0.6 x10^3/uL (0.3-0.8); MONOCYTES % (AUTO) 6.6 % (0.0-13.0); NEUTROPHILS # (AUTO) 6.3 x10^3/uL (2.2-4.8); NEUTROPHILS % (AUTO) 70.1 % (42.0-75.0); PLATELET COUNT 255 X10^3/uL (150.0-450.0); RED BLOOD COUNT 3.28 X10^6/uL (3.5-5.4); RED CELL DISTRIBUTION WIDTH 19.7 % (11.6-16.5)
[2017-08-02 05:48] LABS: ALBUMIN 2.8 g/dL (3.4-5.0); CALCIUM 7.9 mg/dL (8.5-10.1); CARBON DIOXIDE 25.4 mmol/L (21-32); COR CA(FOR HYPOALB) 8.9 mg/dL (8.5-10.1); CREATININE 1.53 mg/dL (0.55-1.02); TOTAL PROTEIN 6.3 g/dL (6.4-8.2)
[2017-08-02 06:21] LABS: HYPOCHROMASIA 1+; PLATELET MORPHOLOGY COMMENT NORMAL (NORMAL)
[2017-08-02 06:22] LABS: ANISOCYTOSIS 1+
[2017-08-02] MEDS: ALBUMIN HUMAN 25%- 100ML 100 ML IV SCH (08:47)
[2017-08-02] MEDS: NIZORAL PO SCH (08:52)
[2017-08-02] MEDS: PLETAL PO SCH (08:55)
[2017-08-02] MEDS: LOPRESSOR TAB 25 MG PO SCH (08:56)
[2017-08-02] MEDS: OXYBUTYNIN CHLORIDE ER PO SCH (08:56)
[2017-08-02] MEDS: DIFLUCAN PO SCH (08:56)
[2017-08-02] MEDS: GLUCOTROL XL PO SCH (08:56)
[2017-08-02] MEDS: PROTONIX INJ 40 MG VIAL IVP SCH (08:57)
[2017-08-02] MEDS: SYNTHROID 75 mcg TAB PO SCH (08:57)
[2017-08-02] MEDS: PEPCID 20 MG IV PREMIX* 20 MG/50 ML BAG IV SCH (08:57)
[2017-08-02] MEDS: SINGULAIR TAB 10 MG PO SCH (08:57)
[2017-08-02] MEDS: TOUJEO SOLOSTAR PEN SC SCH ×2 (08:58→09:01)
[2017-08-02] MEDS: REQUIP PO SCH ×3 (09:05→17:17)
[2017-08-02] MEDS ORDERED: NS 500 ML IV 500 ML IV ONE (09:08)
[2017-08-02] MEDS ORDERED: BENADRYL INJ 50 MG VIAL IVP PRN (09:08)
[2017-08-02] MEDS ORDERED: TYLENOL 325 MG TAB PO PRN (09:08)
[2017-08-02] MEDS: GENTAMICIN TOPICAL CRM TOP SCH (09:30)
[2017-08-02] MEDS ORDERED: NS 250 ML IV 250 ML IV ONE (13:56)
[2017-08-02 19:40] LABS: BASOPHILS # (AUTO) 0.1 X10^3/uL (0.0-0.1); BASOPHILS % (AUTO) 0.7 % (0.2-1.0); EOSINOPHILS # (AUTO) 0.6 x10^3/uL (0.0-0.2); EOSINOPHILS % (AUTO) 6.1 % (0.9-2.9); HEMATOCRIT 27.1 % (36.0-47.0); HEMOGLOBIN 8.6 g/dL (12.0-16.0); LYMPHOCYTES # (AUTO) 1.3 X10^3/uL (1.3-2.9); LYMPHOCYTES % (AUTO) 13.2 % (21.0-51.0); MEAN CORPUSCULAR HEMOGLOBIN 23.2 pg (27.0-34.0); MEAN CORPUSCULAR HGB CONC 31.8 g/dL (33.0-35.0); MEAN CORPUSCULAR VOLUME 73.1 fL (80.0-100.0); MEAN PLATELET VOLUME 8.2 fL (7.4-11.0); MONOCYTES # (AUTO) 0.7 x10^3/uL (0.3-0.8); MONOCYTES % (AUTO) 6.9 % (0.0-13.0); NEUTROPHILS # (AUTO) 7.2 x10^3/uL (2.2-4.8); NEUTROPHILS % (AUTO) 73.1 % (42.0-75.0); PLATELET COUNT 264 X10^3/uL (150.0-450.0); RED CELL DISTRIBUTION WIDTH 20.2 % (11.6-16.5); WHITE BLOOD COUNT 9.9 X10^3/uL (3.6-10.0)
[2017-08-02 19:58] LABS: ANISOCYTOSIS 1+; HYPOCHROMASIA 1+; MICROCYTOSIS SLIGHT; PLATELET MORPHOLOGY COMMENT NORMAL (NORMAL)
[2017-08-02 20:07] VITALS: BP 188/79
== END 2017-08-02 20:35 | disposition home or self-care (01) ==
LOC: UNDOADMOB 13:58 → MED/SURG 13:58
PROVIDERS: ADMIT Internal Medicine; ATTEND Internal Medicine
DX: L03.114 Cellulitis of left upper limb (principal); S52.125A Nondisplaced fracture of head of left radius, initial encounter for closed fracture; Y33.XXXA Other specified events, undetermined intent, initial encounter; Y92.9 Unspecified place or not applicable
CPT/HCPCS: 36415; 36430; 80053; 82274; 85025; 86850; 86900; 86901; 86922; 87040; 94760; A4216; A4222; B5200; C9113; P9016; P9047; Q0177; S0028; G0378; J0885; J1200; J1815; J2270; J3370

== ENCOUNTER → 2017-09-04 | Outpatient (CLI) | payer OTHER, MEDICAID ==
--- NOTE | 2017-09-05 07:33 | RAD ---
HISTORY: Left elbow pain Study: Three views left elbow Comparison: July 27, 2017 Findings: No new acute cortical disruption or dislocation is seen. There is an old nondisplaced radial head fr acture. Moderate DJD is noted. There is no residual effusion. If further imaging evaluation is clinic ally warranted, MRI would be recommended. No destructive osseous lesions are seen. IMPRESSION: Old radial head fracture without new acute radiographic abnormality. Reported By:
== END ==
LOC: RAD 17:22
PROVIDERS: ATTEND Orthopaedic Surgery
DX: M25.522 Pain in left elbow (principal)
CPT/HCPCS: 73070

== ENCOUNTER 2017-09-13 23:16 | Emergency (ER) | payer OTHER, MEDICAID ==
--- NOTE | 2017-09-13 23:36 | DR.GENAD ---
HPI - Complaint/Symptoms Chief Complaint Doctors Comments: Patient states she went to Dr. Foreman and had a steriod shot in her left elbow today and her glucose went up. states she cannot take steriods because of her glucose going extremely high with injections or pills. Stats she has been having xiphoid chest pain for the past two hours. She denies tobacco or alcohol usage. States she is a patient of Dr. Barger and takes 70 units of Toujeo daily with sliding scale insulin and Glipizide 10mg po bid. states she has taken Lasix 40mg po this pm with Xarelto for blood clot in right leg years ago. She denies cold, cough, dysuria, fever or chills. - Nurses notes reviewed Nurses Notes Review: Yes - Source History Provided: Patient - Mode of Arrival Mode of Arrival: EMS - Timing Came on: Gradually - Duration Duration: Constant How lon Duration: Hours - Location Location: elevated glucose - Severity Severity: Moderate - Modifying Factors Worsens:: nothing Improves:: nothing PMH - PMH Past Medical History: Arthritis, Diabetes, GERD, Hypertension, Renal Disease Past Surgical History: Yes Surgical History: Cholecystectomy, Hysterectomy, Ortho Surgery - Family History Family Medical History: Cancer, [place] - Social History Do you use any recreational Drugs:: No ROS - Review of Systems Constitutional: No Symptoms Reported. negative: See HPI, Chills, Diaphoresis, Fever, Malaise, Weakness, Irritable, Fatigue, Loss of Appetite, Other Eyes: No Symptoms Reported ENTM: No Symptoms Reported Respiratoy: No Symptoms Reported. negative: See HPI, Productive Cough, Non- Productive Cough, Moist Cough, Dry Cough, Hacking Cough, Barking Cough, Brassy Cough, Orthopnea, Short of Breath, Stridor, Wheezing, Hemoptysis, Other Cardiovascular: No Symptoms Reported, Chest Pain Gastrointestinal/Abdominal: No Symptoms Reported. negative: See HPI, Abdominal Pain, Constipation, Diarrhea, Nausea, Vomiting, Food Intolerance, Other Genitourinary: No Symptoms Reported. negative: See HPI, Discharge, Dysuria, Frequency, Hematuria, Pain, Bleeding, Other Neurological: No Symptoms Reported Musculoskeletal: No Symptoms Reported Integumentary: No Symptoms Reported Hematologic/Lymphatic: No Symptoms Reported Endocrine: No Symptoms Reported Psychiatric: No Symptoms Reported PE - Vital Signs Vitals: Temperature 97.8 F Pulse Rate [Apical] 94 Pulse Rate 96 Respiratory Rate 22 Blood Pressure [Left Arm] 144/66 Blood Pressure [Right Arm] 189/78 Blood Pressure 190/80 O2 Sat by Pulse Oximetry 97 - General Limitations: No Limitations General Appearance: Alert, In No Apparent Distress - Head Head Exam: Normal Inspection, Atraumatic, Normocephalic - Eyes Eye exam: Normal Appearance, PERRL, EOMI. negative: Scleral Icterus, Conjunctival Injection, Nystagmus, Miosis, Mydrasis, Periorbital Swelling, Periorbital Tenderness, Other - ENT ENT Exam: Normal Exam, Normal Oropharynx, Normal External Ear Exam, Mucous Membranes Moist, TM's Normal Bilaterally External Ear Exam: Normal External Inspection TM/Canal Exam: Bilateral Normal Nose Exam: Normal Nose Exam Mouth Exam: Normal Inspection. negative: Drooling, Trismus, Lip Swelling, Tongue Elevation, Tongue Swelling, Laceration, Other Throat Exam: Normal Inspection. negative: Tonsillar Erythema, Tonsillomegaly, Tonsillar Exudate, R Peritonsillar Mass, L Peritonsillar Mass, Muffled Voice, Other - Neck Neck Exam: Normal Inspection, Full ROM, Trachea Midline. negative: Tenderness, Meningismus, Lymphadenopathy, Thyromegaly, Other - Chest Chest Inspection: Normal Inspection, Symmetric Chest Wall Rise - Respiratory Respiratory Exam: Normal Lung Sounds Bilat Respiratory Exam: Bilateral Clear to Auscultation - Cardiovascular Cardiovascular Exam: Regular Rate, Normal Rhythm, Normal Heart Sounds - Abdominal Exam Abdominal Exam: Normal Inspection, Normal Bowel Sounds, Soft Abdominal Tenderness: negative: RUQ, RLQ, LUQ, LLQ, Epigastrium, Suprapubic, Diffuse, Mild, Moderate, Severe, Other - Extremities Extremities Exam: Normal Inspection, Full ROM, Normal Capillary Refill. negative: Tenderness, Edema, Joint Swelling, Calf Tenderness, Other - Back Back Exam: Normal Inspection, Full ROM - Neurologic Neurological Exam: Alert, Oriented X3, CN II-XII Intact, Normal Gait, Reflexes Normal - Psychiatric Psychiatric Exam: Normal Affect, Normal Mood. negative: Depressed, Agitated, Anxious, Flat Affect, Manic, Homicidal Ideation, Suicidal Ideation, Other - Skin Skin Exam: Warm, Dry, Intact, Normal Color ROR - Labs Reviewed Laboratory Results Reviewed?: Yes (All labs and x-ray results reviewed and discussed with patient) Result Diagrams: 09/13/17 23:34 09/14/17 02:54 Laboratory: WBC 13.5 X10^3/uL (3.6-10.0) H 09/13/17 23:34 RBC 4.19 X10^6/uL (3.5-5.4) 09/13/17 23:34 Hgb 9.6 g/dL (12.0-16.0) L 09/13/17 23:34 Hct 30.8 % (36.0-47.0) L 09/13/17 23: MCV 73.4 fL (80.0-100.0) L 09/13/17 23: MCH 22.9 pg (27.0-34.0) L 09/13/17: MCHC 31.2 g/dL (33.0-35.0) L 09/13/17: RDW 21.7 % (11.6-16.5) H 09/13/17: Plt Count 403 X10^3/uL (150.0-450.0) 09/13/17: Plt Count Comment Adequate (ADEQUATE) 09/13/17: MPV 8.0 fL (7.4-11.0) 09/13/17 23: Neut % (Auto) 94.4 % (42.0-75.0) H 09/13/17: Lymph % (Auto) 4.5 % (21.0-51.0) L 09/13/17 23: [place] % (Auto) 0.6 % (0.0-13.0) 09/13/17: Eos % (Auto) 0.0 % (0.9-2.9) L 09/13/17 23: Baso % (Auto) 0.5 % (0.2-1.0) 09/13/17: Neut # (Auto) 12.7 x10^3/uL (2.2-4.8) H 09/13/17: Lymph # (Auto) 0.6 X10^3/uL (1.3-2.9) L 09/13/17 23:34 [place] # (Auto) 0.1 x10^3/uL (0.3-0.8) L 09/13/17 23:34 Eos # (Auto) 0.0 x10^3/uL (0.0-0.2) 09/13/17 23:34 Baso # (Auto) 0.1 X10^3/uL (0.0-0.1) 09/13/17 23:34 Absolute Nucleated RBC 0.0 /100WBC 09/13/17 23:34 Total Counted 100 09/13/17 23:34 Neutrophils % (Manual) 96 % (39-76) H 09/13/17 23:34 Band Neutrophils % 1 % (0-10) 09/13/17 23:34 Lymphocytes % (Manual) 3 % (13-43) L 09/13/17 23:34 Plt Morphology Comment Normal (NORMAL) 09/13/17 23:34 RBC Morphology Abnormal (NORMAL) A 09/13/17 23:34 Hypochromasia 1+ A 09/13/17 23:34 Anisocytosis 1+ A 09/13/17 23:34 INR Target Range - 09/13/17 23:34 INR 1.76 (0.8-1.3) H 09/13/17 23:34 APTT 38.7 SECONDS (22.9-36.5) H 09/13/17 23:34 PTT Comment - 09/13/17 23:34 Sodium 129 mmol/L (136-145) L 09/14/17 02:54 Corrected Sodium 138 mmol/L (136-145) 09/14/17 02:54 Potassium 4.3 mmol/L (3.5-5.1) 09/14/17 02:54 Chloride 96 mmol/L (98-107) L 09/14/17 02:54 Carbon Dioxide 28.8 mmol/L (21-32) 09/14/17 02:54 BUN 19 mg/dL (7-18) H 09/14/17 02:54 Creatinine 1.78 mg/dL (0.55-1.02) H 09/14/17 02:54 Est GFR (MDRD) Af Amer 37 (>60) L 09/14/17 02:54 Est GFR (MDRD) Non-Af 30 (>60) L 09/14/17 02:54 Glucose 458 mg/dL (65-99) H 09/14/17 02:54 POC Glucose (mg/dL) 455 mg/dL (65-99) 09/14/17 01:35 Calcium 7.8 mg/dL (8.5-10.1) L 09/14/17 02:54 Corrected Calcium 9.1 mg/dL (8.5-10.1) 09/13/17 23:34 Magnesium 1.8 mg/dL (1.7-2.9) 09/13/17 23:34 Total Bilirubin 0.30 mg/dL (0.2-1.0) 09/13/17 23:34 AST 19 Units/L (15-37) 09/13/17 23:34 ALT 26 Units/L (12-78) 09/13/17 23:34 Alkaline Phosphatase 128 Units/L (46-116) H 09/13/17 23:34 Creatine Kinase 86 Units/L (26-192) 09/13/17 23:34 CK-MB (CK-2) 1.7 ng/mL (0-4.0) 09/13/17 23:34 CK/CKMB % Calc 2.0 % (<4) 09/13/17 23:34 Troponin I < 0.02 ng/mL (0-1.5) 09/13/17 23:34 Total Protein 7.4 g/dL (6.4-8.2) 09/13/17 23:34 Albumin 2.7 g/dL (3.4-5.0) L 09/13/17 23:34 Globulin 4.7 g/dL (2.5-4.5) H 09/13/17 23:34 Albumin/Globulin Ratio 0.6 Ratio (1.1-2.1) L 09/13/17 23:34 - XRAY XRAY Interpreted by: Radiologist (CXR: Low lung volumes without acute abnormality) - EKG Rate: 92 [place]: Normal Rhythm: NSR Block: None Hypertrophy: LVH ST: Nonsp - Diagnosis Discharge Problem: Diabetes mellitus type 1, uncontrolled, insulin dependent, Essential hypertension, Chronic kidney disease - Discharge Plan Disposition: 01 HOME, SELF-CARE Condition: Stable - Follow ups/Referrals Follow ups/Referrals: Samuel Barger [Primary Care Provider] - 3 days - Instructions Instructions: Insulin Treatment for Diabetes, Type 1 Diabetes Mellitus, Diagnosis, Adult, Preventing Hypertension, Chronic Kidney Disease, Adult
[2017-09-13] MEDS ORDERED: NS 1000 ML 1,000 ML ONE (23:37)
[2017-09-13] MEDS ORDERED: NS 1000 ML 1,000 ML IV SCH (23:45)
[2017-09-13 23:52] VITALS: BMI 62.5
[2017-09-13 23:55] LABS: BASOPHILS # (AUTO) 0.1 X10^3/uL (0.0-0.1); BASOPHILS % (AUTO) 0.5 % (0.2-1.0); HEMATOCRIT 30.8 % (36.0-47.0); HEMOGLOBIN 9.6 g/dL (12.0-16.0); LYMPHOCYTES # (AUTO) 0.6 X10^3/uL (1.3-2.9); LYMPHOCYTES % (AUTO) 4.5 % (21.0-51.0); MEAN CORPUSCULAR HEMOGLOBIN 22.9 pg (27.0-34.0); MEAN CORPUSCULAR HGB CONC 31.2 g/dL (33.0-35.0); MEAN CORPUSCULAR VOLUME 73.4 fL (80.0-100.0); MONOCYTES # (AUTO) 0.1 x10^3/uL (0.3-0.8); MONOCYTES % (AUTO) 0.6 % (0.0-13.0); NEUTROPHILS # (AUTO) 12.7 x10^3/uL (2.2-4.8); NEUTROPHILS % (AUTO) 94.4 % (42.0-75.0); PLATELET COUNT 403 X10^3/uL (150.0-450.0); RED BLOOD COUNT 4.19 X10^6/uL (3.5-5.4); RED CELL DISTRIBUTION WIDTH 21.7 % (11.6-16.5); WHITE BLOOD COUNT 13.5 X10^3/uL (3.6-10.0)
[2017-09-14 00:10] LABS: BAND NEUTROPHILS % 1 % (0-10)
[2017-09-14 00:11] LABS: ANISOCYTOSIS 1+; HYPOCHROMASIA 1+; PLATELET MORPHOLOGY COMMENT NORMAL (NORMAL)
[2017-09-14 00:22] LABS: ALANINE AMINOTRANSFERASE 26 Units/L (12-78); ALBUMIN 2.7 g/dL (3.4-5.0); ALKALINE PHOSPHATASE 128 Units/L (46-116); ASPARTATE AMINO TRANSFERASE 19 Units/L (15-37); BLOOD UREA NITROGEN 19 mg/dL (7-18); CALCIUM 8.1 mg/dL (8.5-10.1); CARBON DIOXIDE 29.2 mmol/L (21-32); CHLORIDE 92 mmol/L (98-107); COR CA(FOR HYPOALB) 9.1 mg/dL (8.5-10.1); COR NA(FOR HYPERGLY) 137 mmol/L (136-145); CREATINE KINASE 86 Units/L (26-192); CREATINE KINASE MB 1.7 ng/mL (0-4.0); CREATININE 1.88 mg/dL (0.55-1.02); MAGNESIUM 1.8 mg/dL (1.7-2.9); SODIUM 127 mmol/L (136-145); TOTAL PROTEIN 7.4 g/dL (6.4-8.2); TROPONIN I < 0.02 ng/mL (0-1.5); eGFR BLACK RACES 35 (>60); eGFR NON BLACK RACES 29 (>60)
[2017-09-14] MEDS: HumuLIN R IV PRN ×2 (00:59→01:39)
[2017-09-14] MEDS ORDERED: HumuLIN R ONE ×2 (00:59→01:40)
[2017-09-14] MEDS ORDERED: NS 1000 ML 1,000 ML IV ONE (01:57)
[2017-09-14] MEDS ORDERED: HumuLIN R IV PRN (01:57)
[2017-09-14] MEDS ORDERED: NS 1000 ML 1,000 ML ONE (01:59)
--- NOTE | 2017-09-14 02:14 | RAD ---
HISTORY: Chest pain, shortness of breath Study: Single view chest Comparison: 07/04/2017 Findings: Single portable upright view submitted, limited by low lung volumes and underpenetration. Left-sided CVL appears in stable position. No infiltrate or pneumothorax identified. Cardiomediastinal silhouett e is stable. The soft tissues are intact. IMPRESSION: 1. Low lung volumes without acute abnormality. Reported By:
[2017-09-14 03:08] LABS: CALCIUM 7.8 mg/dL (8.5-10.1); CARBON DIOXIDE 28.8 mmol/L (21-32); CREATININE 1.78 mg/dL (0.55-1.02)
[2017-09-14 03:51] VITALS: BP 144/66
[2017-09-14] MEDS ORDERED: SNACK - Diabetic Appropriate PO SCH ×2 (20:00)
== END 2017-09-14 04:47 | disposition home or self-care (01) ==
LOC: ER 23:19
DX: I12.9 Hypertensive chronic kidney disease with stage 1 through stage 4 chronic kidney disease, or unspecified chronic kidney disease (principal); N18.9 Chronic kidney disease, unspecified; R94.31 Abnormal electrocardiogram [ECG] [EKG]; R79.1 Abnormal coagulation profile
CPT/HCPCS: 36415; 36591; 71045; 80048; 80053; 82550; 82553; 83735; 84484; 85025; 85610; 85730; 93005; 96365; 96367; 96374; 96375; 99283; J1815

== ENCOUNTER 2017-09-14 08:43 | Inpatient (IN) | payer OTHER, MEDICAID ==
[2017-09-14 08:50] VITALS: BMI 62.5
[2017-09-14] MEDS ORDERED: HumuLIN R IV PRN (09:07)
--- NOTE | 2017-09-14 09:14 | DR.GENAD ---
HPI - PCP Primary Care Physician: BETTY - Complaint/Symptoms Chief Complaint Doctors Comments: Patient states she was going to the bathroom and fell and hit her head christina shief and hurt both arms around two hours ago. Patient states she fell and had to set on the floor about 30 minutes until the ambulance arrived. she was in the emergency room last night with elevated glucose but insisted on going back home. states she took her medicines for diabetes today including Toujeo 70 units; Trulicity; Glibizide and her sliding scale. states she is on Xarelto 10mg at night . Chief Complaint:: PATIENT STATED SHE WAS GOING TO THE BATHROOM AND FELL AT HOME. LACERATION TO LEFT FA WITH SKIN TEAR TO RIGHT FA. AREA COVERED PER [facility]. PATIENT STATES SHE WAS IN ED TILL 5 THIS MORNING FOR AN ELEVATED GLUCOSE. - Nurses notes reviewed Nurses Notes Review: Yes - Source History Provided: Patient - Mode of Arrival Mode of Arrival: EMS - Timing Onset of Chief Complaint: 09/14/17 Came on: Suddenly - Duration Duration: Constant How lon Duration: Hours - Location Location: frontal head and arms - Severity Severity: Moderate - Modifying Factors Worsens:: movement Improves:: nothing PMH - PMH Past Medical History: Yes Past Medical History: Arthritis, Diabetes, GERD, Hypertension, Renal Disease Past Medical History Comment: DVTS Past Surgical History: Yes Surgical History: Cholecystectomy, Hysterectomy, Ortho Surgery - Family History History of Family Medical Conditions: Yes Family Medical History: Cancer, [place] - Social History Does patient currently use any type of tobacco product: No Have you used tobacco products in the last 12 months: No Type of Tobacco Use: None Does any household member use tobacco: No Do you use any recreational Drugs:: No Lives With: Family Lives Where: Home - infectious screening In the last 2 months have you had wt loss of >10#?: NO Have you had fever, night sweats or hemotysis?: No Have you traveled outside the country in the last 6 months?: No Isolation: Standard ROS - Review of Systems Constitutional: No Symptoms Reported Eyes: No Symptoms Reported. negative: See HPI, Eye Pain, Blurred Vision, Tearing, Discharge, Photophobia, Diplopia, Other ENTM: No Symptoms Reported Respiratoy: No Symptoms Reported Cardiovascular: No Symptoms Reported. negative: See HPI, Chest Pain, Edema, Palpitations, Syncope, Cyanosis, Skin Mottling, Other Gastrointestinal/Abdominal: No Symptoms Reported. negative: See HPI, Abdominal Pain, Constipation, Diarrhea, Nausea, Vomiting, Food Intolerance, Other Genitourinary: No Symptoms Reported Neurological: No Symptoms Reported, Headache. negative: See HPI, Anxiety, Depressed, Emotional Problems, Numbness, Paresthesia, Pre-existing Deficit, Seizure, Tingling, Tremors, Weakness, Dizziness, Problems Walking, Speech Problem, Other Musculoskeletal: No Symptoms Reported, Right, Left, Elbow, Forearm Integumentary: No Symptoms Reported, Wound (right elbow and arm), Bruises Hematologic/Lymphatic: No Symptoms Reported, Blood Clots (right leg) Endocrine: No Symptoms Reported Psychiatric: No Symptoms Reported PE - Vital Signs Vitals: Temperature 98.2 F Pulse Rate 88 Respiratory Rate 22 Blood Pressure [Left Arm] 144/66 Blood Pressure [Right Arm] 189/78 Blood Pressure 101/59 O2 Sat by Pulse Oximetry 93 - General Limitations: No Limitations General Appearance: Alert, In Distress (moderate) - Head Head Exam: Normal Inspection, Atraumatic, Normocephalic - Eyes Eye exam: Normal Appearance, PERRL, EOMI. negative: Scleral Icterus, Conjunctival Injection, Nystagmus, Miosis, Mydrasis, Periorbital Swelling, Periorbital Tenderness, Other - ENT ENT Exam: Normal Exam, Normal Oropharynx, Normal External Ear Exam, Mucous Membranes Moist, TM's Normal Bilaterally External Ear Exam: Normal External Inspection TM/Canal Exam: Bilateral Normal Nose Exam: Normal Nose Exam Mouth Exam: Normal Inspection Throat Exam: Normal Inspection - Neck Neck Exam: Normal Inspection, Full ROM, Trachea Midline. negative: Tenderness, Meningismus, Lymphadenopathy, Thyromegaly, Other - Chest Chest Inspection: Normal Inspection, Symmetric Chest Wall Rise. negative: Tenderness, Rash, Abscess, Other - Respiratory Respiratory Exam: Normal Lung Sounds Bilat Respiratory Exam: Bilateral Clear to Auscultation - Cardiovascular Cardiovascular Exam: Regular Rate, Normal Rhythm, Normal Heart Sounds - Abdominal Exam Abdominal Exam: Normal Inspection, Normal Bowel Sounds, Soft Abdominal Tenderness: negative: RUQ, RLQ, LUQ, LLQ, Epigastrium, Suprapubic, Diffuse, Mild, Moderate, Severe, Other - Extremities Extremities Exam: Normal Inspection, Full ROM, Tenderness (right forearm, elbow and hand tender with bruising right elbow and arm), Normal Capillary Refill - Back Back Exam: Normal Inspection, Full ROM - Neurologic Neurological Exam: Alert, Oriented X3, CN II-XII Intact, Reflexes Normal. negative: Normal Gait (gait not tested) - Psychiatric Psychiatric Exam: Normal Affect, Normal Mood - Skin Skin Exam: Warm, Dry, Intact, Normal Color Course - Reevaluation 1st: Improved - Consultation Called: 10:15 Call Returned: 10:15 (Dr. Kohli to admit) - Education/Counseling Education/Counseling: Patient, Family Educated On: Treatment, Diagnosis, Needs for Follow Up ROR - Labs Reviewed Laboratory Results Reviewed?: Yes (all labs and x-ray results reviewed and discussed with patient) Laboratory: POC Glucose (mg/dL) 498 mg/dL (65-99) H* 09/14/17 08:47 Specimen Type Random urine 09/14/17 09:18 Urine Color Straw (YELLOW) 09/14/17 09:18 Urine Appearance Clear (CLEAR) 09/14/17 09:18 Urine pH 6.5 (5.0 - 8.0) 09/14/17 09:18 Ur Specific [place] 1.005 (1.000-1.030) 09/14/17 09:18 Urine Protein Negative (NEGATIVE) 09/14/17 09:18 Urine Glucose (UA) 4+ (NEGATIVE) 09/14/17 09:18 Urine Ketones Negative (NEGATIVE) 09/14/17 09:18 Urine Occult Blood Negative (NEGATIVE) 09/14/17 09:18 Urine Nitrite Negative (NEGATIVE) 09/14/17 09:18 Urine Bilirubin Negative (NEGATIVE) 09/14/17 09:18 Urine Urobilinogen Normal (NORMAL) 09/14/17 09:18 Ur Leukocyte Esterase Negative (NEGATIVE) 09/14/17 09:18 - XRAY XRAY Interpreted by: Radiologist (Right forearm: No definite fracture.; Left forearm no acue injury identified; ) XRAY Findings: CT head: Mild cortical atrophy without acute intracranaial findings. - Diagnosis Discharge Problem: Diabetes mellitus type 1, uncontrolled, Anticoagulant long-term use, Chronic kidney disease, multiple contusion to arms, multiple contusion of arms, Failure of outpatient treatment, Hyponatremia Contusion of head Qualifiers: Encounter type: initial encounter - Discharge Plan Disposition: ADMITTED INPATIENT Condition: Stable - Follow ups/Referrals Follow ups/Referrals: Samuel Barger [Primary Care Provider] - 3 days - Instructions
[2017-09-14 09:23] LABS: BILIRUBIN,URINE NEGATIVE (NEGATIVE); BLOOD/HEMOGLOBIN,URINE NEGATIVE (NEGATIVE); GLUCOSE, URINE 4+ (NEGATIVE); KETONES,URINE NEGATIVE (NEGATIVE); LEUKOCYTE ESTERASE ,URINE NEGATIVE (NEGATIVE); NITRITES,URINE NEGATIVE (NEGATIVE); PH,URINE 6.5 (5.0 - 8.0); PROTEIN,URINE NEGATIVE (NEGATIVE); UROBILINOGEN,URINE NORMAL (NORMAL)
[2017-09-14 09:25] LABS: APPEARANCE,URINE CLEAR (CLEAR); COLOR,URINE STRAW (YELLOW)
--- NOTE | 2017-09-14 10:00 | RAD ---
Examination: Left forearm, two views History: Fell Findings: No definite fracture or contour deformity identified involving radius or ulna. Impression: No acute injury identified. Reported By:
--- NOTE | 2017-09-14 10:01 | RAD ---
Examination: Right forearm, two views History: Fell Findings: There is no definite fracture, dislocation or contour deformity involving the right radius or ulna. Reported By:
--- NOTE | 2017-09-14 10:02 | CT ---
History: Fall in bathroom, left facial laceration Study: CT brain without IV contrast, comparison [id number] Findings: Thin-section axial images were obtained through the brain without IV contrast. There is Mild cortical atrophy seen. No hemorrhage, mass, shift or extra-axial fluid collection is id entified. The calvarium appears intact. The paranasal sinuses are unremarkable. The mastoid air cells appear in tact. Impression: 1. Mild cortical atrophy without acute intracranial findings. 2. No calvarial defect is identified. Reported By:
--- NOTE | 2017-09-14 10:04 | RAD ---
Examination: Right hand, three views History: Fell Findings: No acute fracture or dislocation noted. Arthritic deformity and in the wrist with suspect r esection of 1 or more proximal carpal row components. Metacarpals and phalanges appear intact. Mild o steoarthritis. Impression: No acute fracture demonstrated. Nonacute findings at the wrist. Reported By:
[2017-09-14] MEDS ORDERED: HumuLIN R SC PRN (10:23)
[2017-09-14] MEDS ORDERED: NS 1000 ML 1,000 ML IV SCH (11:00)
[2017-09-14] MEDS ORDERED: NS 1000 ML 1,000 ML ONE (11:05)
[2017-09-14 11:19] LABS: SERUM ACETONE NEGATIVE (NEGATIVE)
[2017-09-14] MEDS: NS 1000 ML 1,000 ML IV SCH ×2 (11:20→18:50)
[2017-09-14] MEDS ORDERED: HumuLIN R IV ONE (11:21)
[2017-09-14 11:24] LABS: ALANINE AMINOTRANSFERASE 30 Units/L (12-78); ALBUMIN 2.8 g/dL (3.4-5.0); ALKALINE PHOSPHATASE 120 Units/L (46-116); ASPARTATE AMINO TRANSFERASE 21 Units/L (15-37); BLOOD UREA NITROGEN 22 mg/dL (7-18); CALCIUM 8.4 mg/dL (8.5-10.1); CARBON DIOXIDE 27.8 mmol/L (21-32); CHLORIDE 92 mmol/L (98-107); COR CA(FOR HYPOALB) 9.4 mg/dL (8.5-10.1); CREATININE 1.75 mg/dL (0.55-1.02); SODIUM 127 mmol/L (136-145); TOTAL PROTEIN 7.8 g/dL (6.4-8.2); eGFR BLACK RACES 38 (>60); eGFR NON BLACK RACES 31 (>60)
[2017-09-14 11:25] LABS: COR NA(FOR HYPERGLY) 138 mmol/L (136-145)
[2017-09-14] MEDS: HumuLIN R SUBCUT PRN ×2 (13:39→19:34)
[2017-09-14 14:49] LABS: BILIRUBIN,URINE NEGATIVE (NEGATIVE); BLOOD/HEMOGLOBIN,URINE NEGATIVE (NEGATIVE); GLUCOSE, URINE 4+ (NEGATIVE); KETONES,URINE NEGATIVE (NEGATIVE); LEUKOCYTE ESTERASE ,URINE 1+ (NEGATIVE); NITRITES,URINE NEGATIVE (NEGATIVE); PROTEIN,URINE NEGATIVE (NEGATIVE); UROBILINOGEN,URINE NORMAL (NORMAL)
[2017-09-14 14:50] LABS: APPEARANCE,URINE CLEAR (CLEAR); COLOR,URINE STRAW (YELLOW)
[2017-09-14 14:58] LABS: BACTERIA,URINE 2+ /HPF (NEGATIVE); RBC,URINE 0-2 /HPF (NONE SEEN); SQUAMOUS EPITHELIAL CELL,UR RARE /HPF (NEGATIVE)
[2017-09-14 15:36] LABS: CALCIUM 8.4 mg/dL (8.5-10.1); CARBON DIOXIDE 28.1 mmol/L (21-32); CREATININE 1.72 mg/dL (0.55-1.02)
[2017-09-14 18:10] LABS: CALCIUM 7.9 mg/dL (8.5-10.1); CARBON DIOXIDE 28.2 mmol/L (21-32); CREATININE 1.8 mg/dL (0.55-1.02)
[2017-09-14] MEDS ORDERED: LANTUS SC ONE (19:08)
[2017-09-14] MEDS ORDERED: SNACK - Diabetic Appropriate PO SCH ×4 (20:00)
[2017-09-14] MEDS: NYSTATIN POWDER TOP SCH ×2 (20:29→21:15)
[2017-09-14] MEDS: SNACK - Diabetic Appropriate PO SCH (20:30)
[2017-09-14] MEDS: GLUCOTROL PO SCH ×2 (21:11→21:17)
[2017-09-14] MEDS: ELAVIL PO SCH ×2 (21:11→21:14)
[2017-09-14] MEDS: PLETAL PO SCH ×2 (21:12→21:15)
[2017-09-14] MEDS: REQUIP PO SCH ×2 (21:12→21:17)
[2017-09-14] MEDS: SYNTHROID 75 mcg TAB PO SCH ×2 (21:13→21:17)
[2017-09-14] MEDS: KLONOPIN TAB 0.5 MG PO SCH (21:14)
[2017-09-14] MEDS: LASIX PO SCH (21:14)
[2017-09-14] MEDS: LOPRESSOR TAB 25 MG PO SCH (21:15)
[2017-09-14] MEDS: SINGULAIR TAB 10 MG PO SCH (21:16)
[2017-09-14] MEDS: XARELTO PO SCH (21:16)
[2017-09-14] MEDS: ROXICODONE TAB 15 MG PO PRN (21:17)
[2017-09-14 22:55] LABS: BASOPHILS % (AUTO) 0.1 % (0.2-1.0); HEMATOCRIT 27.4 % (36.0-47.0); HEMOGLOBIN 8.7 g/dL (12.0-16.0); LYMPHOCYTES # (AUTO) 0.8 X10^3/uL (1.3-2.9); LYMPHOCYTES % (AUTO) 4.8 % (21.0-51.0); MEAN CORPUSCULAR HGB CONC 31.8 g/dL (33.0-35.0); MEAN CORPUSCULAR VOLUME 72.4 fL (80.0-100.0); MEAN PLATELET VOLUME 8.3 fL (7.4-11.0); MONOCYTES # (AUTO) 0.4 x10^3/uL (0.3-0.8); MONOCYTES % (AUTO) 2.5 % (0.0-13.0); NEUTROPHILS # (AUTO) 14.6 x10^3/uL (2.2-4.8); NEUTROPHILS % (AUTO) 92.6 % (42.0-75.0); PLATELET COUNT 394 X10^3/uL (150.0-450.0); RED BLOOD COUNT 3.78 X10^6/uL (3.5-5.4); RED CELL DISTRIBUTION WIDTH 22.1 % (11.6-16.5); WHITE BLOOD COUNT 15.7 X10^3/uL (3.6-10.0)
[2017-09-14 23:07] LABS: CALCIUM 7.8 mg/dL (8.5-10.1); CARBON DIOXIDE 28.6 mmol/L (21-32); CREATININE 1.86 mg/dL (0.55-1.02)
[2017-09-14 23:09] LABS: ANISOCYTOSIS 2+; HYPOCHROMASIA 1+; PLATELET MORPHOLOGY COMMENT NORMAL (NORMAL)
[2017-09-14] MEDS ORDERED: HumuLIN R SUBCUT ONE (23:36)
[2017-09-15] MEDS ORDERED: HumuLIN R SUBCUT ONE (01:55)
[2017-09-15] MEDS: NS 1000 ML 1,000 ML IV SCH ×4 (02:20→21:37)
[2017-09-15] MEDS: REQUIP PO SCH ×3 (05:45→21:36)
[2017-09-15] MEDS: HumuLIN R SUBCUT PRN ×4 (05:45→21:36)
[2017-09-15 06:09] LABS: BASOPHILS # (AUTO) 0.1 X10^3/uL (0.0-0.1); BASOPHILS % (AUTO) 0.3 % (0.2-1.0); HEMATOCRIT 27.8 % (36.0-47.0); HEMOGLOBIN 8.9 g/dL (12.0-16.0); LYMPHOCYTES # (AUTO) 0.9 X10^3/uL (1.3-2.9); LYMPHOCYTES % (AUTO) 5.8 % (21.0-51.0); MEAN CORPUSCULAR HEMOGLOBIN 22.9 pg (27.0-34.0); MEAN CORPUSCULAR VOLUME 71.4 fL (80.0-100.0); MEAN PLATELET VOLUME 8.1 fL (7.4-11.0); MONOCYTES # (AUTO) 0.3 x10^3/uL (0.3-0.8); NEUTROPHILS # (AUTO) 14.2 x10^3/uL (2.2-4.8); NEUTROPHILS % (AUTO) 91.9 % (42.0-75.0); PLATELET COUNT 367 X10^3/uL (150.0-450.0); RED BLOOD COUNT 3.89 X10^6/uL (3.5-5.4); RED CELL DISTRIBUTION WIDTH 21.7 % (11.6-16.5); WHITE BLOOD COUNT 15.5 X10^3/uL (3.6-10.0)
[2017-09-15] MEDS: GLUCOTROL PO SCH ×2 (06:09→16:59)
[2017-09-15] MEDS: LASIX PO SCH ×2 (06:09→17:00)
[2017-09-15 06:25] LABS: ALBUMIN 2.6 g/dL (3.4-5.0); COR CA(FOR HYPOALB) 9.1 mg/dL (8.5-10.1); CREATININE 1.62 mg/dL (0.55-1.02); TOTAL PROTEIN 7.1 g/dL (6.4-8.2)
[2017-09-15 06:29] LABS: PLATELET MORPHOLOGY COMMENT NORMAL (NORMAL)
[2017-09-15 06:30] LABS: ANISOCYTOSIS 2+; HYPOCHROMASIA 1+
[2017-09-15] MEDS ORDERED: PROTONIX TAB 40 MG PO SCH (09:00)
[2017-09-15] MEDS ORDERED: TOUJEO SOLOSTAR PEN SC SCH (09:00)
[2017-09-15] MEDS: DIFLUCAN PO SCH (09:01)
[2017-09-15] MEDS: NexIUM PO SCH (09:02)
[2017-09-15] MEDS: LOPRESSOR TAB 25 MG PO SCH ×2 (09:02→21:33)
[2017-09-15] MEDS: ZyrTEC TAB 10 MG PO SCH (09:03)
[2017-09-15] MEDS: PLETAL PO SCH ×2 (09:03→21:35)
[2017-09-15] MEDS: NYSTATIN POWDER TOP SCH ×2 (09:06→21:35)
[2017-09-15] MEDS: SYNTHROID 75 mcg TAB PO SCH (16:59)
[2017-09-15] MEDS: LANTUS SC SCH ×2 (21:31→21:33)
[2017-09-15] MEDS: KLONOPIN TAB 0.5 MG PO SCH (21:32)
[2017-09-15] MEDS: SNACK - Diabetic Appropriate PO SCH (21:32)
[2017-09-15] MEDS: ELAVIL PO SCH (21:32)
[2017-09-15] MEDS: SINGULAIR TAB 10 MG PO SCH (21:35)
[2017-09-15] MEDS: XARELTO PO SCH (21:36)
[2017-09-15] MEDS: ROXICODONE TAB 15 MG PO PRN (21:48)
[2017-09-15] MEDS: ZOCOR TAB 20 MG PO SCH (21:48)
[2017-09-16] MEDS: ROXICODONE TAB 15 MG PO PRN ×2 (03:36→21:59)
[2017-09-16] MEDS: NS 1000 ML 1,000 ML IV SCH ×3 (05:08→21:58)
[2017-09-16] MEDS: GLUCOTROL PO SCH ×2 (06:30→16:41)
[2017-09-16] MEDS: REQUIP PO SCH ×3 (06:30→21:59)
[2017-09-16] MEDS: LASIX PO SCH ×2 (06:31→16:41)
[2017-09-16] MEDS: HumuLIN R SUBCUT PRN ×4 (06:31→22:03)
[2017-09-16 07:16] LABS: BASOPHILS % (AUTO) 0.1 % (0.2-1.0); HEMOGLOBIN 8.9 g/dL (12.0-16.0); LYMPHOCYTES # (AUTO) 1.2 X10^3/uL (1.3-2.9); LYMPHOCYTES % (AUTO) 9.6 % (21.0-51.0); MEAN CORPUSCULAR HEMOGLOBIN 22.6 pg (27.0-34.0); MEAN CORPUSCULAR HGB CONC 31.7 g/dL (33.0-35.0); MEAN CORPUSCULAR VOLUME 71.4 fL (80.0-100.0); MONOCYTES # (AUTO) 0.3 x10^3/uL (0.3-0.8); MONOCYTES % (AUTO) 2.8 % (0.0-13.0); NEUTROPHILS # (AUTO) 10.7 x10^3/uL (2.2-4.8); NEUTROPHILS % (AUTO) 87.5 % (42.0-75.0); PLATELET COUNT 410 X10^3/uL (150.0-450.0); RED BLOOD COUNT 3.93 X10^6/uL (3.5-5.4); RED CELL DISTRIBUTION WIDTH 21.7 % (11.6-16.5); WHITE BLOOD COUNT 12.2 X10^3/uL (3.6-10.0)
--- NOTE | 2017-09-16 07:27 | RAD ---
HISTORY: Injury, fall, left knee pain Study: Left knee AP and lateral Comparison: None Findings: There is no evidence for acute bone or acute joint abnormality. No fracture, lytic, or blastic lesion is identified. No joint erosion or joint effusion is identified. There is severe tricompartmental de generative joint disease most prominent in the patellofemoral joint. IMPRESSION: No acute traumatic abnormality Severe tricompartmental degenerative joint disease Reported By:
[2017-09-16] MEDS ORDERED: MILK OF MAGNESIA PO PRN (07:28)
[2017-09-16 07:31] LABS: ALBUMIN 2.5 g/dL (3.4-5.0); CALCIUM 8.2 mg/dL (8.5-10.1); CARBON DIOXIDE 27.7 mmol/L (21-32); COR CA(FOR HYPOALB) 9.4 mg/dL (8.5-10.1); CREATININE 1.53 mg/dL (0.55-1.02); TOTAL PROTEIN 6.8 g/dL (6.4-8.2)
--- NOTE | 2017-09-16 07:32 | RAD ---
HISTORY: Injury, fall, right knee pain Study: Right knee AP and lateral Comparison: 12/31/2016 Findings: The patient is status post total knee arthroplasty. Position and alignment is anatomic. There is no d efinite evidence for fracture or loosening. No joint effusion is identified. IMPRESSION: No acute traumatic abnormality Status post right TKA without acute findings Reported By:
[2017-09-16 07:47] LABS: ANISOCYTOSIS 1+; HYPOCHROMASIA 1+; PLATELET MORPHOLOGY COMMENT NORMAL (NORMAL)
--- NOTE | 2017-09-16 08:27 | DR.H&P ---
H&P - History & Physical for Day of: H&P Date: 09/14/17 - Chief Complaint Chief Complaint: fall, head injury, elevated blood sugar - Allergies Allergies/Adverse Reactions: Allergies Allergy/AdvReac Type Severity Reaction Status Date / Time bacitracin Allergy Verified 07/29/17 17:10 [From Neosporin ([id number])] clopidogrel [From Plavix] Allergy Verified 07/29/17 17:10 gabapentin [From Neurontin] Allergy Verified 07/29/17 17:10 hydrochlorothiazide Allergy Verified 07/29/17 17:10 [From Hyzaar] latex Allergy Verified 07/29/17 17:10 losartan [From Hyzaar] Allergy Verified 07/29/17 17:10 neomycin Allergy Verified 07/29/17 17:10 [From Neosporin ([id number])] polymyxin B Allergy Verified 07/29/17 17:10 [From Neosporin ([id number]-lmb-[id number])] propoxyphene [From Darvon] Allergy Verified 07/29/17 17:10 rosuvastatin [From Crestor] Allergy Verified 07/29/17 17:10 No Dye Allergy Uncoded 07/29/17 17:10 - History of Present Illness History of Present Illness: ER admission after presenting with co she was going to the bathroom and fell and hit her head christina shief and hurt both arms around two hours ago. Patient states she fell and had to set on the floor about 30 minutes until the ambulance arrived. she was in the emergency room last night with elevated glucose but insisted on going back home. states she took her medicines for diabetes today including Toujeo 70 units; Trulicity; Glibizide and her sliding scale. states she is on Xarelto 10mg at night . Pt recently had a cortison joint injection causing hyperglycemia. Pt was noted to be hyperglycemic in ER. pt had Ct head, neck right right in ER. Pt has PMH of Htn, OA, DM, GERD. pt admitted for treatment and evaluation of acute illness. - Past Medical History Past Medical History: Arthritis, Diabetes, GERD, Hypertension, Renal Disease - Past Surgical History Surgical History: Cholecystectomy, Hysterectomy, Ortho Surgery - Family History Family Medical History: Cancer, [place] - Social History Does patient currently use any type of tobacco product: No Have you used tobacco products in the last 12 months: No Type of Tobacco Use: None Does any household member use tobacco: No Alcohol Use: None Drug Use: None - Medications Home Medications: Amitriptyline HCl [ELAVIL 25 MG *] 2 tab PO HS 09/14/17 [History Confirmed 09/14] Rivaroxaban [XARELTO 10 MG *] 1 tab PO HS 09/14/17 [History Confirmed 09/14/17] - Review of Systems Constitutional: Weakness Eyes: No Symptoms Reported ENT: No Symptoms Reported Respiratory: SOB with Excertion Cardiovascular: No Symptoms Reported, Edema Gastrointestinal: No Symptoms Reported Genitourinary: No Symptoms Reported Musculoskeletal: Shoulder Pain, Arm Pain, Back Pain, Leg Pain, Foot Pain Skin: Bruising, Ecchymosis Neurological: No Symptoms Reported - Physical Exam Vital Signs: Temperature 97.7 F Pulse Rate [Apical] 80 Pulse Rate 88 Respiratory Rate 27 Blood Pressure [Left Calf] 174/80 Blood Pressure [Right Calf] 123/58 Blood Pressure [Left Arm] 134/60 Blood Pressure [Right Arm] 189/78 Blood Pressure 101/59 O2 Sat by Pulse Oximetry 98 Oriented: Normal Eyes: Normal Ear: Normal Nose: Normal Throat: Normal Respiratory: RLL Diminished, LLL Diminished Cardiovascular: Normal, Edema (+1 bilateral lower extremities) : Normal Auscultation: Bowel Sounds: Normal Palpation: Normal Tenderness: Normal Skin: Wound (forehead, bilateral knees, right hand/wrist, left lower extremity) , Bruising, Ecchymosis Musculoskeletal: Right, Left, Wrist, Hand, Knee, Ankle, Swelling, Tender Psychiatric: Anxiety Affect: Anxious Speech Pattern: Clear, Appropriate - Assessment/Plan (1) Hyperglycemia Status: Acute Plan: ADMIT, IV HYDRATION. HEAD INJURY PRECAUTIONS. RESUME HOME MEDS. PAIN CONTROL, RAD OF ORTHO INJURIES. BS CONTROL WITH INSULINE, BS MONITORING. BP MONITOING RESP THERAPY PRN (2) Anticoagulant long-term use Status: Acute (3) Contusion of head Qualifiers: Encounter type: initial encounter Status: Acute (4) CHF (congestive heart failure) Qualifiers: Heart failure type: unspecified Heart failure chronicity: acute on chronic Qualified Code(s): I50.9 - Heart failure, unspecified Status: Chronic (5) COPD (chronic obstructive pulmonary disease) with acute bronchitis Status: Chronic (6) Essential hypertension Status: Chronic (7) GERD (gastroesophageal reflux disease) Qualifiers: Esophagitis presence: esophagitis presence not specified Qualified Code(s) : K21.9 - Gastro-esophageal reflux disease without esophagitis Status: Chronic
[2017-09-16] MEDS: DIFLUCAN PO SCH (09:00)
[2017-09-16] MEDS: PLETAL PO SCH ×2 (09:00→20:23)
[2017-09-16] MEDS: LOPRESSOR TAB 25 MG PO SCH ×2 (09:01→20:26)
[2017-09-16] MEDS: ZyrTEC TAB 10 MG PO SCH (09:02)
[2017-09-16] MEDS: NexIUM PO SCH (09:02)
[2017-09-16] MEDS ORDERED: DULAGLUTIDE 0.75 MG SC SCH (09:15)
[2017-09-16] MEDS: OXYBUTYNIN CHLORIDE ER PO SCH (10:27)
[2017-09-16] MEDS: PROTONIX TAB 40 MG PO SCH (10:27)
[2017-09-16] MEDS: NYSTATIN POWDER TOP SCH ×2 (10:28→20:27)
[2017-09-16] MEDS: ROCEPHIN VIAL 1 GM 1 GM in NS 100 ML IV + SPIKE MINIBAG* 100 ML IV SCH ×2 (10:28→10:40)
[2017-09-16] MEDS: COLACE CAP 100 MG PO SCH ×3 (14:07→20:28)
[2017-09-16] MEDS: SYNTHROID 75 mcg TAB PO SCH (16:41)
[2017-09-16] MEDS: SINGULAIR TAB 10 MG PO SCH (20:22)
[2017-09-16] MEDS: XARELTO PO SCH (20:22)
[2017-09-16] MEDS: SNACK - Diabetic Appropriate PO SCH (20:23)
[2017-09-16] MEDS: ZOCOR TAB 20 MG PO SCH (20:23)
[2017-09-16] MEDS: ELAVIL PO SCH (20:24)
[2017-09-16] MEDS: KLONOPIN TAB 0.5 MG PO SCH (20:24)
[2017-09-16] MEDS ORDERED: LANTUS SC SCH (21:00)
[2017-09-17] MEDS: NS 1000 ML 1,000 ML IV SCH ×4 (05:48→22:21)
[2017-09-17] MEDS: HumuLIN R SUBCUT PRN ×3 (05:49→20:47)
[2017-09-17] MEDS: REQUIP PO SCH ×2 (06:41→22:21)
[2017-09-17] MEDS: GLUCOTROL PO SCH (06:41)
[2017-09-17] MEDS: LASIX PO SCH (06:42)
[2017-09-17 06:54] LABS: BASOPHILS % (AUTO) 0.2 % (0.2-1.0); HEMOGLOBIN 8.8 g/dL (12.0-16.0); LYMPHOCYTES # (AUTO) 1.2 X10^3/uL (1.3-2.9); LYMPHOCYTES % (AUTO) 12.9 % (21.0-51.0); MEAN CORPUSCULAR HEMOGLOBIN 23.2 pg (27.0-34.0); MEAN CORPUSCULAR HGB CONC 32.6 g/dL (33.0-35.0); MEAN CORPUSCULAR VOLUME 71.1 fL (80.0-100.0); MEAN PLATELET VOLUME 8.3 fL (7.4-11.0); MONOCYTES # (AUTO) 0.6 x10^3/uL (0.3-0.8); MONOCYTES % (AUTO) 6.6 % (0.0-13.0); NEUTROPHILS # (AUTO) 7.6 x10^3/uL (2.2-4.8); NEUTROPHILS % (AUTO) 80.3 % (42.0-75.0); PLATELET COUNT 368 X10^3/uL (150.0-450.0); RED CELL DISTRIBUTION WIDTH 21.4 % (11.6-16.5); WHITE BLOOD COUNT 9.5 X10^3/uL (3.6-10.0)
[2017-09-17 07:09] LABS: ALBUMIN 2.3 g/dL (3.4-5.0); CALCIUM 7.3 mg/dL (8.5-10.1); CARBON DIOXIDE 28.3 mmol/L (21-32); COR CA(FOR HYPOALB) 8.7 mg/dL (8.5-10.1); CREATININE 1.58 mg/dL (0.55-1.02); TOTAL PROTEIN 6.2 g/dL (6.4-8.2)
[2017-09-17 07:12] LABS: ANISOCYTOSIS 1+; HYPOCHROMASIA 1+; PLATELET MORPHOLOGY COMMENT NORMAL (NORMAL)
[2017-09-17] MEDS ORDERED: ZyrTEC TAB 10 MG PO SCH (09:00)
[2017-09-17] MEDS: NexIUM PO SCH (09:02)
[2017-09-17] MEDS: OXYBUTYNIN CHLORIDE ER PO SCH (09:02)
[2017-09-17] MEDS: PLETAL PO SCH ×2 (09:02→20:43)
[2017-09-17] MEDS: PROTONIX TAB 40 MG PO SCH (09:05)
[2017-09-17] MEDS: ROCEPHIN VIAL 1 GM 1 GM in NS 100 ML IV + SPIKE MINIBAG* 100 ML IV SCH (09:05)
[2017-09-17] MEDS: LOPRESSOR TAB 25 MG PO SCH ×2 (09:05→20:46)
[2017-09-17] MEDS: DIFLUCAN PO SCH (09:06)
[2017-09-17] MEDS: NYSTATIN POWDER TOP SCH ×2 (09:06→20:48)
[2017-09-17] MEDS: ROXICODONE TAB 15 MG PO PRN ×2 (11:44→22:20)
[2017-09-17] MEDS ORDERED: DULAGLUTIDE 0.75 MG SC SCH (15:05)
[2017-09-17] MEDS ORDERED: MILK OF MAGNESIA PO PRN (15:05)
[2017-09-17] MEDS: ZOCOR TAB 20 MG PO SCH (20:41)
[2017-09-17] MEDS: SINGULAIR TAB 10 MG PO SCH (20:41)
[2017-09-17] MEDS: SNACK - Diabetic Appropriate PO SCH ×2 (20:42→23:49)
[2017-09-17] MEDS: ELAVIL PO SCH (20:43)
[2017-09-17] MEDS: COLACE CAP 100 MG PO SCH (20:43)
[2017-09-17] MEDS: XARELTO PO SCH (20:44)
[2017-09-17] MEDS: KLONOPIN TAB 0.5 MG PO SCH (20:44)
[2017-09-17] MEDS ORDERED: LANTUS SC SCH (21:00)
[2017-09-18] MEDS: SNACK - Diabetic Appropriate PO SCH ×4 (00:32→20:56)
[2017-09-18] MEDS: NS 1000 ML 1,000 ML IV SCH ×5 (05:30→20:55)
[2017-09-18] MEDS: REQUIP PO SCH ×3 (05:30→21:52)
[2017-09-18] MEDS: HumuLIN R SUBCUT PRN (05:41)
[2017-09-18] MEDS: LASIX PO SCH ×3 (06:07→20:55)
[2017-09-18] MEDS: GLUCOTROL PO SCH ×3 (06:07→20:54)
[2017-09-18] MEDS: SYNTHROID 75 mcg TAB PO SCH ×3 (06:07→20:55)
[2017-09-18 06:30] LABS: BASOPHILS % (AUTO) 0.3 % (0.2-1.0); EOSINOPHILS % (AUTO) 0.2 % (0.9-2.9); HEMATOCRIT 30.5 % (36.0-47.0); HEMOGLOBIN 9.8 g/dL (12.0-16.0); LYMPHOCYTES % (AUTO) 16.5 % (21.0-51.0); MEAN CORPUSCULAR HEMOGLOBIN 22.7 pg (27.0-34.0); MEAN CORPUSCULAR HGB CONC 32.1 g/dL (33.0-35.0); MEAN CORPUSCULAR VOLUME 70.5 fL (80.0-100.0); MEAN PLATELET VOLUME 7.9 fL (7.4-11.0); MONOCYTES # (AUTO) 0.8 x10^3/uL (0.3-0.8); MONOCYTES % (AUTO) 6.6 % (0.0-13.0); NEUTROPHILS # (AUTO) 9.1 x10^3/uL (2.2-4.8); NEUTROPHILS % (AUTO) 76.4 % (42.0-75.0); PLATELET COUNT 397 X10^3/uL (150.0-450.0); RED BLOOD COUNT 4.32 X10^6/uL (3.5-5.4); WHITE BLOOD COUNT 11.9 X10^3/uL (3.6-10.0)
[2017-09-18 06:40] LABS: ALBUMIN 2.5 g/dL (3.4-5.0); CALCIUM 7.3 mg/dL (8.5-10.1); CARBON DIOXIDE 29.8 mmol/L (21-32); COR CA(FOR HYPOALB) 8.5 mg/dL (8.5-10.1); CREATININE 1.54 mg/dL (0.55-1.02); TOTAL PROTEIN 6.7 g/dL (6.4-8.2)
[2017-09-18 06:55] LABS: ANISOCYTOSIS 1+; HYPOCHROMASIA 1+; PLATELET MORPHOLOGY COMMENT NORMAL (NORMAL)
[2017-09-18] MEDS: OXYBUTYNIN CHLORIDE ER PO SCH (09:12)
[2017-09-18] MEDS: ROCEPHIN VIAL 1 GM 1 GM in NS 100 ML IV + SPIKE MINIBAG* 100 ML IV SCH (09:12)
[2017-09-18] MEDS: PROTONIX TAB 40 MG PO SCH (09:13)
[2017-09-18] MEDS: NexIUM PO SCH (09:13)
[2017-09-18] MEDS: LOPRESSOR TAB 25 MG PO SCH ×2 (09:13→21:53)
[2017-09-18] MEDS: DIFLUCAN PO SCH (09:14)
[2017-09-18] MEDS: PLETAL PO SCH ×2 (09:14→21:54)
[2017-09-18] MEDS: ZyrTEC TAB 10 MG PO SCH (09:14)
[2017-09-18] MEDS: NYSTATIN POWDER TOP SCH ×2 (09:15→21:56)
[2017-09-18] MEDS: HumaLOG SC SCH ×3 (11:46→16:26)
[2017-09-18] MEDS: TOUJEO SOLOSTAR PEN SC SCH (11:54)
--- NOTE | 2017-09-18 12:59 | PCM.PROG ---
Progress Note - Progress Note for Day of Date: 09/17/17 - Subjective Subjective: WAS ADMITTED FOR UNCONTROLLED DIABETES, HYPONATREMIA, AND FALLS. TODAY, SHE IS ALERT AND ORIENTED, LYING IN BED ON MORNING ROUNDS. SHE IS NOTED WITH COMPLAINTS OF GENERALIZED WEAKNESS AND ACHING. HER VITALS TODAY ARE 97.9-62-20-96%-156/70. ABNORMAL LAB VALUES INCLUDE THE FOLLOWING: HGB 8.8, HCT 27.0, SODIUM 131, CHLORIDE 97, BUN 39, CREATININE 1.58, GLUCOSE 320, CALCIUM 7.3, AST 12, TOTAL PROTEIN 6.2, ALBUMIN 2.3. HER GLUCOSE HAS REMAINED ELEVATED THROUGHOUT THE NIGHT. SHE IS CURRENTLY RECEIVING LANTUS 60 UNITS AT BEDTIME AND HUMULIN R SLIDING SCALE. TODAY, WE WILL CONTINUE WITH IV FLUIDS AND CURRENT PLAN OF CARE. OTHERWISE, WE WILL FOLLOW UP WITH AM LABS AND CONTINUE TO MONTIOR PATIENT. - Past Medical Family Social History Past Med/Fam/Surg Hx: No changes since H&P Allergies: Allergies bacitracin [From Neosporin ([id number])] Allergy (Verified 07/29/17 17:10) clopidogrel [From Plavix] Allergy (Verified 07/29/17 17:10) gabapentin [From Neurontin] Allergy (Verified 07/29/17 17:10) hydrochlorothiazide [From Hyzaar] Allergy (Verified 07/29/17 17:10) latex Allergy (Verified 07/29/17 17:10) losartan [From Hyzaar] Allergy (Verified 07/29/17 17:10) neomycin [From Neosporin ([id number]-zck-drfsr)] Allergy (Verified 07/29/17 17:10) polymyxin B [From Neosporin ([id number]-ctf-gfvjy)] Allergy (Verified 07/29/17 17:10) propoxyphene [From Darvon] Allergy (Verified 07/29/17 17:10) rosuvastatin [From Crestor] Allergy (Verified 07/29/17 17:10) No Dye Allergy (Uncoded 07/29/17 17:10) - Review of Systems ROS: No change since H&P - Vital Signs and I&O's Vital Signs: Temperature 98.1 F Pulse Rate [Apical] 76 Pulse Rate 88 Respiratory Rate 23 Blood Pressure [Left Calf] 158/79 Blood Pressure [Right Calf] 123/58 Blood Pressure [Left Arm] 134/60 Blood Pressure [Right Arm] 189/78 Blood Pressure 101/59 O2 Sat by Pulse Oximetry 98 Intake and Output: Intake & Output 09/16/17 09/17/17 09/18/17 09/19/17 11:59 11:59 11:59 11:59 Intake Total 8236 5392 4438 Output Total 7101 1135 8729 Balance -835 1154 -3651 - Physical Exam Oriented: Normal Eyes: Normal Ear: Normal Nose: Normal Throat: Normal Respiratory: Normal Cardiovascular: Normal, Edema (+1 bilateral lower extremities) : Normal Auscultation: Bowel Sounds: Normal Palpation: Normal Tenderness: Normal Skin: Wound (forehead, bilateral knees, right hand/wrist, left lower extremity) , Bruising, Ecchymosis Musculoskeletal: Right, Left, Wrist, Hand, Knee, Ankle, Swelling, Tender Psychiatric: Anxiety Affect: Anxious Speech Pattern: Clear, Appropriate - Laboratory and Diagnostics Result Diagrams: 09/18/17 06:03 09/18/17 06:03 Labs: 09/14/17 11:46 Blood Blood Culture - Preliminary 09/14/17 11:55 Blood Blood Culture - Preliminary 09/14/17 14:30 Urine,Catheterized Urine Culture - Final Escherichia Coli Laboratory WBC 11.9 X10^3/uL (3.6-10.0) H 09/18/17 06:03 RBC 4.32 X10^6/uL (3.5-5.4) 09/18/17 06:03 Hgb 9.8 g/dL (12.0-16.0) L 09/18/17 06:03 Hct 30.5 % (36.0-47.0) L 09/18/17 06:03 MCV 70.5 fL (80.0-100.0) L 09/18/17 06:03 MCH 22.7 pg (27.0-34.0) L 09/18/17 06:03 MCHC 32.1 g/dL (33.0-35.0) L 09/18/17 06:03 RDW 21.0 % (11.6-16.5) H 09/18/17 06:03 Plt Count 397 X10^3/uL (150.0-450.0) 09/18/17 06:03 Plt Count Comment Adequate (ADEQUATE) 09/18/17 06:03 MPV 7.9 fL (7.4-11.0) 09/18/17 06:03 Neut % (Auto) 76.4 % (42.0-75.0) H 09/18/17 06:03 Lymph % (Auto) 16.5 % (21.0-51.0) L 09/18/17 06:03 [place] % (Auto) 6.6 % (0.0-13.0) 09/18/17 06:03 Eos % (Auto) 0.2 % (0.9-2.9) L 09/18/17 06:03 Baso % (Auto) 0.3 % (0.2-1.0) 09/18/17 06:03 Neut # (Auto) 9.1 x10^3/uL (2.2-4.8) H 09/18/17 06:03 Lymph # (Auto) 2.0 X10^3/uL (1.3-2.9) 09/18/17 06:03 [place] # (Auto) 0.8 x10^3/uL (0.3-0.8) 09/18/17 06:03 Eos # (Auto) 0.0 x10^3/uL (0.0-0.2) 09/18/17 06:03 Baso # (Auto) 0.0 X10^3/uL (0.0-0.1) 09/18/17 06:03 Absolute Nucleated RBC 0.0 /100WBC 09/18/17 06:03 Total Counted 100 09/15/17 05:25 Neutrophils % (Manual) 93 % (39-76) H 09/15/17 05:25 Lymphocytes % (Manual) 6 % (13-43) L 09/15/17 05:25 Monocytes % (Manual) 1 % (4-9) L 09/15/17 05:25 Plt Morphology Comment Normal (NORMAL) 09/18/17 06:03 RBC Morphology Abnormal (NORMAL) A 09/18/17 06:03 Hypochromasia 1+ A 09/18/17 06:03 Anisocytosis 1+ A 09/18/17 06:03 Sodium 131 mmol/L (136-145) L 09/18/17 06:03 Corrected Sodium 135 mmol/L (136-145) L 09/18/17 06:03 Potassium 4.1 mmol/L (3.5-5.1) 09/18/17 06:03 Chloride 96 mmol/L (98-107) L 09/18/17 06:03 Carbon Dioxide 29.8 mmol/L (21-32) 09/18/17 06:03 BUN 35 mg/dL (7-18) H 09/18/17 06:03 Creatinine 1.54 mg/dL (0.55-1.02) H 09/18/17 06:03 Est GFR (MDRD) Af Amer 43 (>60) L 09/18/17 06:03 Est GFR (MDRD) Non-Af 36 (>60) L 09/18/17 06:03 Glucose 251 mg/dL (65-99) H 09/18/17 06:03 POC Glucose (mg/dL) 215 mg/dL (65-99) H 09/18/17 10:56 Calcium 7.3 mg/dL (8.5-10.1) L 09/18/17 06:03 Corrected Calcium 8.5 mg/dL (8.5-10.1) 09/18/17 06:03 Total Bilirubin 0.30 mg/dL (0.2-1.0) 09/18/17 06:03 AST 15 Units/L (15-37) 09/18/17 06:03 ALT 20 Units/L (12-78) 09/18/17 06:03 Alkaline Phosphatase 91 Units/L (46-116) 09/18/17 06:03 Total Protein 6.7 g/dL (6.4-8.2) 09/18/17 06:03 Albumin 2.5 g/dL (3.4-5.0) L 09/18/17 06:03 Globulin 4.2 g/dL (2.5-4.5) 09/18/17 06:03 Albumin/Globulin Ratio 0.6 Ratio (1.1-2.1) L 09/18/17 06:03 Specimen Type Catherized urine 09/14/17 14:30 Urine Color Straw (YELLOW) 09/14/17 14:30 Urine Appearance Clear (CLEAR) 09/14/17 14:30 Urine pH 6.0 (5.0 - 8.0) 09/14/17 14:30 Ur Specific [place] 1.010 (1.000-1.030) 09/14/17 14:30 Urine Protein Negative (NEGATIVE) 09/14/17 14:30 Urine Glucose (UA) 4+ (NEGATIVE) 09/14/17 14:30 Urine Ketones Negative (NEGATIVE) 09/14/17 14:30 Urine Occult Blood Negative (NEGATIVE) 09/14/17 14:30 Urine Nitrite Negative (NEGATIVE) 09/14/17 14:30 Urine Bilirubin Negative (NEGATIVE) 09/14/17 14:30 Urine Urobilinogen Normal (NORMAL) 09/14/17 14:30 Ur Leukocyte Esterase 1+ (NEGATIVE) 09/14/17 14:30 Urine RBC 0-2 /HPF (NONE SEEN) 09/14/17 14:30 Urine WBC 5-10 /HPF (NONE SEEN) 09/14/17 14:30 Ur Squamous Epith Cells Rare /HPF (NEGATIVE) 09/14/17 14:30 Urine Bacteria 2+ /HPF (NEGATIVE) 09/14/17 14:30 Ur Culture Indicated? Yes/culture set up 09/14/17 14:30 Acetone, Semi-Quant Negative (NEGATIVE) 09/14/17 10:50
--- NOTE | 2017-09-18 13:02 | PCM.PROG ---
Progress Note - Progress Note for Day of Date: 09/16/17 - Subjective Subjective: WAS ADMITTED FOR UNCONTROLLED DIABETES, HYPONATREMIA, AND FALLS. TODAY, SHE IS ALERT AND ORIENTED, LYING IN BED ON MORNING ROUNDS. SHE IS NOTED WITH COMPLAINTS OF GENERALIZED WEAKNESS AND ACHING. HER VITALS TODAY ARE 97.5-81-20-98%-144/78. ABNORMAL LAB VALUES INCLUDE THE FOLLOWING: WBC 12.2, HGB 8.9, HCT 28.0, SODIUM 129, CHLORIDE 94, BUN 33, CREATININE 1.53, GLCUOSE 363, CALCIUM 8.2, AST 12, ALBUMIN 2.5. HER GLUCOSE HAS REMAINED ELEVATED THROUGHOUT THE NIGHT. SHE CONTINUES WITH SCATTERED BRUISING AND 1+ PITTING EDEMA TO BILATERAL LOWER EXTREMITIES. SHE IS CURRENTLY RECEIVING LANTUS 60 UNITS AT BEDTIME AND HUMULIN R SLIDING SCALE. TODAY, WE WILL CONTINUE WITH IV FLUIDS AND CURRENT PLAN OF CARE. OTHERWISE, WE WILL FOLLOW UP WITH AM LABS AND CONTINUE TO MONTIOR PATIENT. - Past Medical Family Social History Past Med/Fam/Surg Hx: No changes since H&P Allergies: Allergies bacitracin [From Neosporin ([id number]-[id number])] Allergy (Verified 07/29/17 17:10) clopidogrel [From Plavix] Allergy (Verified 07/29/17 17:10) gabapentin [From Neurontin] Allergy (Verified 07/29/17 17:10) hydrochlorothiazide [From Hyzaar] Allergy (Verified 07/29/17 17:10) latex Allergy (Verified 07/29/17 17:10) losartan [From Hyzaar] Allergy (Verified 07/29/17 17:10) neomycin [From Neosporin ([id number]-ngj-ptvtc)] Allergy (Verified 07/29/17 17:10) polymyxin B [From Neosporin ([id number]-caq-fhcun)] Allergy (Verified 07/29/17 17:10) propoxyphene [From Darvon] Allergy (Verified 07/29/17 17:10) rosuvastatin [From Crestor] Allergy (Verified 07/29/17 17:10) No Dye Allergy (Uncoded 07/29/17 17:10) - Review of Systems ROS: No change since H&P - Vital Signs and I&O's Vital Signs: Temperature 99.4 F Pulse Rate [Apical] 81 Pulse Rate 88 Respiratory Rate 20 Blood Pressure [Left Calf] 190/87 Blood Pressure [Right Calf] 123/58 Blood Pressure [Left Arm] 134/60 Blood Pressure [Right Arm] 189/78 Blood Pressure 101/59 O2 Sat by Pulse Oximetry 97 Intake and Output: Intake & Output 09/16/17 09/17/17 09/18/17 09/19/17 11:59 11:59 11:59 11:59 Intake Total 9342 4400 6911 Output Total 5905 3642 6037 Balance -831 9909 -7878 - Physical Exam Oriented: Normal Eyes: Normal Ear: Normal Nose: Normal Throat: Normal Respiratory: Normal Cardiovascular: Normal, Edema (+1 bilateral lower extremities) : Normal Auscultation: Bowel Sounds: Normal Palpation: Normal Tenderness: Normal Skin: Wound (forehead, bilateral knees, right hand/wrist, left lower extremity) , Bruising, Ecchymosis Musculoskeletal: Right, Left, Wrist, Hand, Knee, Ankle, Swelling, Tender Psychiatric: Anxiety Affect: Anxious Speech Pattern: Clear, Appropriate - Laboratory and Diagnostics Result Diagrams: 09/18/17 06:03 09/18/17 06:03 Labs: 09/14/17 11:46 Blood Blood Culture - Preliminary 09/14/17 11:55 Blood Blood Culture - Preliminary 09/14/17 14:30 Urine,Catheterized Urine Culture - Final Escherichia Coli Laboratory WBC 11.9 X10^3/uL (3.6-10.0) H 09/18/17 06:03 RBC 4.32 X10^6/uL (3.5-5.4) 09/18/17 06:03 Hgb 9.8 g/dL (12.0-16.0) L 09/18/17 06:03 Hct 30.5 % (36.0-47.0) L 09/18/17 06:03 MCV 70.5 fL (80.0-100.0) L 09/18/17 06:03 MCH 22.7 pg (27.0-34.0) L 09/18/17 06:03 MCHC 32.1 g/dL (33.0-35.0) L 09/18/17 06:03 RDW 21.0 % (11.6-16.5) H 09/18/17 06:03 Plt Count 397 X10^3/uL (150.0-450.0) 09/18/17 06:03 Plt Count Comment Adequate (ADEQUATE) 09/18/17 06:03 MPV 7.9 fL (7.4-11.0) 09/18/17 06:03 Neut % (Auto) 76.4 % (42.0-75.0) H 09/18/17 06:03 Lymph % (Auto) 16.5 % (21.0-51.0) L 09/18/17 06:03 [place] % (Auto) 6.6 % (0.0-13.0) 09/18/17 06:03 Eos % (Auto) 0.2 % (0.9-2.9) L 09/18/17 06:03 Baso % (Auto) 0.3 % (0.2-1.0) 09/18/17 06:03 Neut # (Auto) 9.1 x10^3/uL (2.2-4.8) H 09/18/17 06:03 Lymph # (Auto) 2.0 X10^3/uL (1.3-2.9) 09/18/17 06:03 [place] # (Auto) 0.8 x10^3/uL (0.3-0.8) 09/18/17 06:03 Eos # (Auto) 0.0 x10^3/uL (0.0-0.2) 09/18/17 06:03 Baso # (Auto) 0.0 X10^3/uL (0.0-0.1) 09/18/17 06:03 Absolute Nucleated RBC 0.0 /100WBC 09/18/17 06:03 Total Counted 100 09/15/17 05:25 Neutrophils % (Manual) 93 % (39-76) H 09/15/17 05:25 Lymphocytes % (Manual) 6 % (13-43) L 09/15/17 05:25 Monocytes % (Manual) 1 % (4-9) L 09/15/17 05:25 Plt Morphology Comment Normal (NORMAL) 09/18/17 06:03 RBC Morphology Abnormal (NORMAL) A 09/18/17 06:03 Hypochromasia 1+ A 09/18/17 06:03 Anisocytosis 1+ A 09/18/17 06:03 Sodium 131 mmol/L (136-145) L 09/18/17 06:03 Corrected Sodium 135 mmol/L (136-145) L 09/18/17 06:03 Potassium 4.1 mmol/L (3.5-5.1) 09/18/17 06:03 Chloride 96 mmol/L (98-107) L 09/18/17 06:03 Carbon Dioxide 29.8 mmol/L (21-32) 09/18/17 06:03 BUN 35 mg/dL (7-18) H 09/18/17 06:03 Creatinine 1.54 mg/dL (0.55-1.02) H 09/18/17 06:03 Est GFR (MDRD) Af Amer 43 (>60) L 09/18/17 06:03 Est GFR (MDRD) Non-Af 36 (>60) L 09/18/17 06:03 Glucose 251 mg/dL (65-99) H 09/18/17 06:03 POC Glucose (mg/dL) 215 mg/dL (65-99) H 09/18/17 10:56 Calcium 7.3 mg/dL (8.5-10.1) L 09/18/17 06:03 Corrected Calcium 8.5 mg/dL (8.5-10.1) 09/18/17 06:03 Total Bilirubin 0.30 mg/dL (0.2-1.0) 09/18/17 06:03 AST 15 Units/L (15-37) 09/18/17 06:03 ALT 20 Units/L (12-78) 09/18/17 06:03 Alkaline Phosphatase 91 Units/L (46-116) 09/18/17 06:03 Total Protein 6.7 g/dL (6.4-8.2) 09/18/17 06:03 Albumin 2.5 g/dL (3.4-5.0) L 09/18/17 06:03 Globulin 4.2 g/dL (2.5-4.5) 09/18/17 06:03 Albumin/Globulin Ratio 0.6 Ratio (1.1-2.1) L 09/18/17 06:03 Specimen Type Catherized urine 09/14/17 14:30 Urine Color Straw (YELLOW) 09/14/17 14:30 Urine Appearance Clear (CLEAR) 09/14/17 14:30 Urine pH 6.0 (5.0 - 8.0) 09/14/17 14:30 Ur Specific [place] 1.010 (1.000-1.030) 09/14/17 14:30 Urine Protein Negative (NEGATIVE) 09/14/17 14:30 Urine Glucose (UA) 4+ (NEGATIVE) 09/14/17 14:30 Urine Ketones Negative (NEGATIVE) 09/14/17 14:30 Urine Occult Blood Negative (NEGATIVE) 09/14/17 14:30 Urine Nitrite Negative (NEGATIVE) 09/14/17 14:30 Urine Bilirubin Negative (NEGATIVE) 09/14/17 14:30 Urine Urobilinogen Normal (NORMAL) 09/14/17 14:30 Ur Leukocyte Esterase 1+ (NEGATIVE) 09/14/17 14:30 Urine RBC 0-2 /HPF (NONE SEEN) 09/14/17 14:30 Urine WBC 5-10 /HPF (NONE SEEN) 09/14/17 14:30 Ur Squamous Epith Cells Rare /HPF (NEGATIVE) 09/14/17 14:30 Urine Bacteria 2+ /HPF (NEGATIVE) 09/14/17 14:30 Ur Culture Indicated? Yes/culture set up 09/14/17 14:30 Acetone, Semi-Quant Negative (NEGATIVE) 09/14/17 10:50
[2017-09-18] MEDS ORDERED: SNACK - Diabetic Appropriate PO SCH (20:00)
[2017-09-18] MEDS: COLACE CAP 100 MG PO SCH (20:56)
[2017-09-18] MEDS: SINGULAIR TAB 10 MG PO SCH (21:53)
[2017-09-18] MEDS: ROXICODONE TAB 15 MG PO PRN (21:53)
[2017-09-18] MEDS: ELAVIL PO SCH (21:54)
[2017-09-18] MEDS: ZOCOR TAB 20 MG PO SCH (21:54)
[2017-09-18] MEDS: KLONOPIN TAB 0.5 MG PO SCH (21:54)
[2017-09-18] MEDS: XARELTO PO SCH (21:56)
[2017-09-19] MEDS: NS 1000 ML 1,000 ML IV SCH ×3 (05:48→18:43)
[2017-09-19] MEDS: HumaLOG SC SCH ×3 (06:03→16:59)
[2017-09-19] MEDS: GLUCOTROL PO SCH ×2 (06:04→16:59)
[2017-09-19] MEDS: REQUIP PO SCH ×3 (06:05→21:51)
[2017-09-19] MEDS: LASIX PO SCH ×2 (06:05→16:59)
[2017-09-19 06:36] LABS: BASOPHILS % (AUTO) 0.2 % (0.2-1.0); EOSINOPHILS # (AUTO) 0.3 x10^3/uL (0.0-0.2); EOSINOPHILS % (AUTO) 1.7 % (0.9-2.9); HEMATOCRIT 29.4 % (36.0-47.0); HEMOGLOBIN 9.4 g/dL (12.0-16.0); LYMPHOCYTES # (AUTO) 2.6 X10^3/uL (1.3-2.9); LYMPHOCYTES % (AUTO) 16.4 % (21.0-51.0); MEAN CORPUSCULAR HEMOGLOBIN 22.5 pg (27.0-34.0); MEAN CORPUSCULAR VOLUME 70.4 fL (80.0-100.0); MEAN PLATELET VOLUME 8.1 fL (7.4-11.0); MONOCYTES % (AUTO) 6.7 % (0.0-13.0); NEUTROPHILS # (AUTO) 11.7 x10^3/uL (2.2-4.8); PLATELET COUNT 383 X10^3/uL (150.0-450.0); RED BLOOD COUNT 4.17 X10^6/uL (3.5-5.4); RED CELL DISTRIBUTION WIDTH 21.2 % (11.6-16.5); WHITE BLOOD COUNT 15.5 X10^3/uL (3.6-10.0)
[2017-09-19 06:50] LABS: ALBUMIN 2.3 g/dL (3.4-5.0); CALCIUM 7.2 mg/dL (8.5-10.1); CARBON DIOXIDE 30.7 mmol/L (21-32); COR CA(FOR HYPOALB) 8.6 mg/dL (8.5-10.1); CREATININE 1.3 mg/dL (0.55-1.02); TOTAL PROTEIN 6.2 g/dL (6.4-8.2)
[2017-09-19 07:27] LABS: ANISOCYTOSIS 1+; HYPOCHROMASIA 1+; PLATELET MORPHOLOGY COMMENT NORMAL (NORMAL)
[2017-09-19] MEDS: TOUJEO SOLOSTAR PEN SC SCH (08:22)
[2017-09-19] MEDS: NexIUM PO SCH (08:23)
[2017-09-19] MEDS: LOPRESSOR TAB 25 MG PO SCH ×2 (08:23→21:51)
[2017-09-19] MEDS: ROCEPHIN VIAL 1 GM 1 GM in NS 100 ML IV + SPIKE MINIBAG* 100 ML IV SCH (08:23)
[2017-09-19] MEDS: PROTONIX TAB 40 MG PO SCH (08:24)
[2017-09-19] MEDS: OXYBUTYNIN CHLORIDE ER PO SCH (08:24)
[2017-09-19] MEDS: PLETAL PO SCH ×2 (08:24→21:53)
[2017-09-19] MEDS: NYSTATIN POWDER TOP SCH ×2 (08:25→21:52)
[2017-09-19] MEDS: ZyrTEC TAB 10 MG PO SCH (08:25)
[2017-09-19] MEDS: DIFLUCAN PO SCH (08:25)
--- NOTE | 2017-09-19 09:22 | RAD ---
History: Shortness of breath Study: AP chest Comparison: September 13 Findings: There is limited inspiration of clear lungs as before. The heart size is prominent. There i s no edema or effusion. There is a Port-A-Cath via the left subclavian vein unchanged. Impression: No definite acute disease demonstrated Reported By:
--- NOTE | 2017-09-19 14:45 | PCM.PROG ---
Progress Note - Progress Note for Day of Date: 09/18/16 - Subjective Subjective: WAS ADMITTED FOR UNCONTROLLED DIABETES, HYPONATREMIA, AND FALLS. TODAY, SHE IS ALERT AND ORIENTED, LYING IN BED ON MORNING ROUNDS. SHE Is NOTED WITH COMPLAINTS OF GENERALIZED WEAKNESS AND ACHING. HER VITALS TODAY ARE 97.5-63-12-95%- 146/67. ABNORMAL LAB VALUES INCLUDE THE FOLLOWING: WBC INCREASED FROM 9.5 TO 11.9, HGB 9.8, HCT 30.5, SODIUM 131, CHLORIDE 96, BUN 35, CREATININE 1.54, GLUCOSE 251, CALCIUM 7.3, ALBUMIN 2.5. URINE CULTURE REPORTS GROWHT OF E.COLI. IT IS SENSITIVE TO THE ROCEPHIN THAT SHE IS CURRENTLY RECEIVING. HER GLUCOSE HAS REMAINED IN THE 300s THROUGHOUT THE NIGHT. SHE IS CURRENTLY RECEIVING LANTUS 60 UNITS AT BEDTIME AND HUMULIN R SLIDING SCALE. WE WILL DISCONTINUE THE LANTUS AND START TOUJEO 70 UNITS SC DAILY WELL HUMALOG 5 UNITS SC BEFORE EACH MEAL. OTHERWISE, WE WILL CONTINUE WITH IV FLUIDS AND CURRENT PLAN OF CARE. WE WILL FOLLOW UP WITH AM LABS AND CONTINUE TO MONTIOR PATIENT. - Past Medical Family Social History Past Med/Fam/Surg Hx: No changes since H&P Allergies: Allergies bacitracin [From Neosporin ([id number]-[id number]-[id number])] Allergy (Verified 07/29/17 17:10) clopidogrel [From Plavix] Allergy (Verified 07/29/17 17:10) gabapentin [From Neurontin] Allergy (Verified 07/29/17 17:10) hydrochlorothiazide [From Hyzaar] Allergy (Verified 07/29/17 17:10) latex Allergy (Verified 07/29/17 17:10) losartan [From Hyzaar] Allergy (Verified 07/29/17 17:10) neomycin [From Neosporin (gie-mkz-bzeou)] Allergy (Verified 07/29/17 17:10) polymyxin B [From Neosporin (erf-oif-erzsr)] Allergy (Verified 07/29/17 17:10) propoxyphene [From Darvon] Allergy (Verified 07/29/17 17:10) rosuvastatin [From Crestor] Allergy (Verified 07/29/17 17:10) No Dye Allergy (Uncoded 07/29/17 17:10) - Review of Systems ROS: No change since H&P - Vital Signs and I&O's Vital Signs: Temperature 98.1 F Pulse Rate [Apical] 72 Pulse Rate 88 Respiratory Rate 26 Blood Pressure [Left Calf] 161/70 Blood Pressure [Right Calf] 123/58 Blood Pressure [Left Arm] 134/60 Blood Pressure [Right Arm] 189/78 Blood Pressure 101/59 O2 Sat by Pulse Oximetry 95 Intake and Output: Intake & Output 09/17/17 09/18/17 09/19/17 09/20/17 11:59 11:59 11:59 11:59 Intake Total 5305 4411 4905 Output Total 3709 6262 7539 Balance 5258 -2834 -3260 - Physical Exam Oriented: Normal Eyes: Normal Ear: Normal Nose: Normal Throat: Normal Respiratory: Normal Cardiovascular: Normal, Edema (+1 bilateral lower extremities) : Normal Auscultation: Bowel Sounds: Normal Palpation: Normal Tenderness: Normal Skin: Wound (forehead, bilateral knees, right hand/wrist, left lower extremity) , Bruising, Ecchymosis Musculoskeletal: Right, Left, Wrist, Hand, Knee, Ankle, Swelling, Tender Psychiatric: Anxiety Affect: Anxious Speech Pattern: Clear, Appropriate - Laboratory and Diagnostics Result Diagrams: 09/19/17 05:35 09/19/17 05:35 Labs: 09/14/17 11:55 Blood Blood Culture - Final 09/14/17 11:46 Blood Blood Culture - Final 09/14/17 14:30 Urine,Catheterized Urine Culture - Final Escherichia Coli Laboratory WBC 15.5 X10^3/uL (3.6-10.0) H 09/19/17 05:35 RBC 4.17 X10^6/uL (3.5-5.4) 09/19/17 05:35 Hgb 9.4 g/dL (12.0-16.0) L 09/19/17 05:35 Hct 29.4 % (36.0-47.0) L 09/19/17 05:35 MCV 70.4 fL (80.0-100.0) L 09/19/17 05:35 MCH 22.5 pg (27.0-34.0) L 09/19/17 05:35 MCHC 32.0 g/dL (33.0-35.0) L 09/19/17 05:35 RDW 21.2 % (11.6-16.5) H 09/19/17 05:35 Plt Count 383 X10^3/uL (150.0-450.0) 09/19/17 05:35 Plt Count Comment Adequate (ADEQUATE) 09/19/17 05:35 MPV 8.1 fL (7.4-11.0) 09/19/17 05:35 Neut % (Auto) 75.0 % (42.0-75.0) 09/19/17 05:35 Lymph % (Auto) 16.4 % (21.0-51.0) L 09/19/17 05:35 [place] % (Auto) 6.7 % (0.0-13.0) 09/19/17 05:35 Eos % (Auto) 1.7 % (0.9-2.9) 09/19/17 05:35 Baso % (Auto) 0.2 % (0.2-1.0) 09/19/17 05:35 Neut # (Auto) 11.7 x10^3/uL (2.2-4.8) H 09/19/17 05:35 Lymph # (Auto) 2.6 X10^3/uL (1.3-2.9) 09/19/17 05:35 [place] # (Auto) 1.0 x10^3/uL (0.3-0.8) H 09/19/17 05:35 Eos # (Auto) 0.3 x10^3/uL (0.0-0.2) H 09/19/17 05:35 Baso # (Auto) 0.0 X10^3/uL (0.0-0.1) 09/19/17 05:35 Absolute Nucleated RBC 0.0 /100WBC 09/19/17 05:35 Total Counted 100 09/15/17 05:25 Neutrophils % (Manual) 93 % (39-76) H 09/15/17 05:25 Lymphocytes % (Manual) 6 % (13-43) L 09/15/17 05:25 Monocytes % (Manual) 1 % (4-9) L 09/15/17 05:25 Plt Morphology Comment Normal (NORMAL) 09/19/17 05:35 RBC Morphology Abnormal (NORMAL) A 09/19/17 05:35 Hypochromasia 1+ A 09/19/17 05:35 Anisocytosis 1+ A 09/19/17 05:35 Sodium 132 mmol/L (136-145) L 09/19/17 05:35 Corrected Sodium 135 mmol/L (136-145) L 09/19/17 05:35 Potassium 3.8 mmol/L (3.5-5.1) 09/19/17 05:35 Chloride 97 mmol/L (98-107) L 09/19/17 05:35 Carbon Dioxide 30.7 mmol/L (21-32) 09/19/17 05:35 BUN 32 mg/dL (7-18) H 09/19/17 05:35 Creatinine 1.30 mg/dL (0.55-1.02) H 09/19/17 05:35 Est GFR (MDRD) Af Amer 53 (>60) L 09/19/17 05:35 Est GFR (MDRD) Non-Af 44 (>60) L 09/19/17 05:35 Glucose 239 mg/dL (65-99) H 09/19/17 05:35 POC Glucose (mg/dL) 170 mg/dL (65-99) H 09/19/17 10:49 Calcium 7.2 mg/dL (8.5-10.1) L 09/19/17 05:35 Corrected Calcium 8.6 mg/dL (8.5-10.1) 09/19/17 05:35 Total Bilirubin 0.30 mg/dL (0.2-1.0) 09/19/17 05:35 AST 11 Units/L (15-37) L 09/19/17 05:35 ALT 20 Units/L (12-78) 09/19/17 05:35 Alkaline Phosphatase 91 Units/L (46-116) 09/19/17 05:35 Total Protein 6.2 g/dL (6.4-8.2) L 09/19/17 05:35 Albumin 2.3 g/dL (3.4-5.0) L 09/19/17 05:35 Globulin 3.9 g/dL (2.5-4.5) 09/19/17 05:35 Albumin/Globulin Ratio 0.6 Ratio (1.1-2.1) L 09/19/17 05:35 Specimen Type Catherized urine 09/14/17 14:30 Urine Color Straw (YELLOW) 09/14/17 14:30 Urine Appearance Clear (CLEAR) 09/14/17 14:30 Urine pH 6.0 (5.0 - 8.0) 09/14/17 14:30 Ur Specific [place] 1.010 (1.000-1.030) 09/14/17 14:30 Urine Protein Negative (NEGATIVE) 09/14/17 14:30 Urine Glucose (UA) 4+ (NEGATIVE) 09/14/17 14:30 Urine Ketones Negative (NEGATIVE) 09/14/17 14:30 Urine Occult Blood Negative (NEGATIVE) 09/14/17 14:30 Urine Nitrite Negative (NEGATIVE) 09/14/17 14:30 Urine Bilirubin Negative (NEGATIVE) 09/14/17 14:30 Urine Urobilinogen Normal (NORMAL) 09/14/17 14:30 Ur Leukocyte Esterase 1+ (NEGATIVE) 09/14/17 14:30 Urine RBC 0-2 /HPF (NONE SEEN) 09/14/17 14:30 Urine WBC 5-10 /HPF (NONE SEEN) 09/14/17 14:30 Ur Squamous Epith Cells Rare /HPF (NEGATIVE) 09/14/17 14:30 Urine Bacteria 2+ /HPF (NEGATIVE) 09/14/17 14:30 Ur Culture Indicated? Yes/culture set up 09/14/17 14:30 Acetone, Semi-Quant Negative (NEGATIVE) 09/14/17 10:50 - Plan (1) Urinary tract infection, E. coli Status: Acute Plan: ROCEPHIN 1GM IV DAILY, CONTINUE IV FLUIDS, CONTINUE TO MONITOR (2) Diabetes mellitus type 1, uncontrolled, insulin dependent Status: Acute Qualifiers: Diabetes mellitus complication status: with unspecified complications Qualified Code(s): E10.8 - Type 1 diabetes mellitus with unspecified complications; E10.65 - Type 1 diabetes mellitus with hyperglycemia; E10.65 - Type 1 diabetes mellitus with hyperglycemia; E10.65 - Type 1 diabetes mellitus with hyperglycemia; E10.65 - Type 1 diabetes mellitus with hyperglycemia Plan: MONITOR OTBS, TOUJEO 70 UNITS SC DAILY, HUMALOG 5 UNITS SC BEFORE EACH MEAL, CONTINUE TO MONITOR
[2017-09-19] MEDS: SYNTHROID 75 mcg TAB PO SCH (16:59)
[2017-09-19] MEDS: SNACK - Diabetic Appropriate PO SCH ×3 (19:33→20:36)
[2017-09-19] MEDS: COLACE CAP 100 MG PO SCH (21:50)
[2017-09-19] MEDS: ELAVIL PO SCH (21:51)
[2017-09-19] MEDS: ZOCOR TAB 20 MG PO SCH (21:51)
[2017-09-19] MEDS: XARELTO PO SCH (21:51)
[2017-09-19] MEDS: ROXICODONE TAB 15 MG PO PRN (21:52)
[2017-09-19] MEDS: SINGULAIR TAB 10 MG PO SCH (21:52)
[2017-09-19] MEDS: KLONOPIN TAB 0.5 MG PO SCH (21:52)
[2017-09-19] MEDS: HumuLIN R SUBCUT SCH (21:55)
[2017-09-19] MEDS: MYLICON TAB 80 MG CHEW PO PRN (22:15)
[2017-09-20] MEDS: NS 1000 ML 1,000 ML IV SCH ×5 (02:08→17:59)
[2017-09-20] MEDS: REQUIP PO SCH ×3 (06:12→21:31)
[2017-09-20] MEDS: HumaLOG SC SCH ×3 (06:13→17:00)
[2017-09-20] MEDS: GLUCOTROL PO SCH ×2 (06:13→16:25)
[2017-09-20] MEDS: LASIX PO SCH ×2 (06:14→16:25)
[2017-09-20 06:18] LABS: BASOPHILS % (AUTO) 0.3 % (0.2-1.0); EOSINOPHILS # (AUTO) 0.4 x10^3/uL (0.0-0.2); EOSINOPHILS % (AUTO) 3.2 % (0.9-2.9); LYMPHOCYTES # (AUTO) 2.3 X10^3/uL (1.3-2.9); LYMPHOCYTES % (AUTO) 16.5 % (21.0-51.0); MEAN CORPUSCULAR HEMOGLOBIN 22.9 pg (27.0-34.0); MEAN CORPUSCULAR HGB CONC 32.2 g/dL (33.0-35.0); MEAN CORPUSCULAR VOLUME 71.2 fL (80.0-100.0); MEAN PLATELET VOLUME 8.3 fL (7.4-11.0); MONOCYTES # (AUTO) 0.8 x10^3/uL (0.3-0.8); MONOCYTES % (AUTO) 6.1 % (0.0-13.0); NEUTROPHILS # (AUTO) 10.3 x10^3/uL (2.2-4.8); NEUTROPHILS % (AUTO) 73.9 % (42.0-75.0); PLATELET COUNT 333 X10^3/uL (150.0-450.0); RED BLOOD COUNT 3.94 X10^6/uL (3.5-5.4); RED CELL DISTRIBUTION WIDTH 21.7 % (11.6-16.5); WHITE BLOOD COUNT 13.9 X10^3/uL (3.6-10.0)
[2017-09-20 06:39] LABS: ALBUMIN 2.2 g/dL (3.4-5.0); CALCIUM 7.2 mg/dL (8.5-10.1); CARBON DIOXIDE 31.1 mmol/L (21-32); COR CA(FOR HYPOALB) 8.6 mg/dL (8.5-10.1); CREATININE 1.32 mg/dL (0.55-1.02)
[2017-09-20 06:52] LABS: PLATELET MORPHOLOGY COMMENT NORMAL (NORMAL)
[2017-09-20 06:53] LABS: ANISOCYTOSIS SLIGHT; HYPOCHROMASIA 1+
[2017-09-20] MEDS: MYLICON TAB 80 MG CHEW PO PRN ×2 (08:08→17:59)
[2017-09-20] MEDS: TOUJEO SOLOSTAR PEN SC SCH (08:19)
[2017-09-20] MEDS: ROCEPHIN VIAL 1 GM 1 GM in NS 100 ML IV + SPIKE MINIBAG* 100 ML IV SCH (08:20)
[2017-09-20] MEDS: DIFLUCAN PO SCH (08:20)
[2017-09-20] MEDS: ZyrTEC TAB 10 MG PO SCH (08:21)
[2017-09-20] MEDS: NexIUM PO SCH (08:21)
[2017-09-20] MEDS: LOPRESSOR TAB 25 MG PO SCH ×2 (08:21→20:49)
[2017-09-20] MEDS: PROTONIX TAB 40 MG PO SCH (08:21)
[2017-09-20] MEDS: PLETAL PO SCH ×2 (08:22→20:50)
[2017-09-20] MEDS: OXYBUTYNIN CHLORIDE ER PO SCH (08:22)
[2017-09-20] MEDS: NYSTATIN POWDER TOP SCH ×2 (08:23→20:50)
[2017-09-20] MEDS: SYNTHROID 75 mcg TAB PO SCH (16:25)
[2017-09-20] MEDS: SNACK - Diabetic Appropriate PO SCH (20:45)
[2017-09-20] MEDS: HumuLIN R SUBCUT SCH (20:48)
[2017-09-20] MEDS: ELAVIL PO SCH (20:48)
[2017-09-20] MEDS: KLONOPIN TAB 0.5 MG PO SCH (20:49)
[2017-09-20] MEDS: XARELTO PO SCH (20:51)
[2017-09-20] MEDS: ZOCOR TAB 20 MG PO SCH (20:51)
[2017-09-20] MEDS: COLACE CAP 100 MG PO SCH (20:51)
[2017-09-20] MEDS: SINGULAIR TAB 10 MG PO SCH (20:51)
[2017-09-20] MEDS ORDERED: HumuLIN R SUBCUT SCH (21:00)
[2017-09-20] MEDS: ROXICODONE TAB 15 MG PO PRN (22:48)
[2017-09-21] MEDS: NS 1000 ML 1,000 ML IV SCH ×3 (01:45→21:24)
[2017-09-21] MEDS: MYLICON TAB 80 MG CHEW PO PRN (04:49)
[2017-09-21] MEDS: REQUIP PO SCH ×3 (06:19→21:20)
[2017-09-21] MEDS: GLUCOTROL PO SCH ×2 (06:19→17:18)
[2017-09-21] MEDS: HumaLOG SC SCH ×3 (06:19→17:18)
[2017-09-21] MEDS: LASIX PO SCH ×2 (06:20→17:19)
[2017-09-21 06:40] LABS: BASOPHILS % (AUTO) 0.3 % (0.2-1.0); EOSINOPHILS # (AUTO) 0.4 x10^3/uL (0.0-0.2); EOSINOPHILS % (AUTO) 2.8 % (0.9-2.9); HEMATOCRIT 27.7 % (36.0-47.0); HEMOGLOBIN 8.7 g/dL (12.0-16.0); LYMPHOCYTES # (AUTO) 2.3 X10^3/uL (1.3-2.9); LYMPHOCYTES % (AUTO) 15.2 % (21.0-51.0); MEAN CORPUSCULAR HEMOGLOBIN 22.5 pg (27.0-34.0); MEAN CORPUSCULAR HGB CONC 31.4 g/dL (33.0-35.0); MEAN CORPUSCULAR VOLUME 71.7 fL (80.0-100.0); MEAN PLATELET VOLUME 8.4 fL (7.4-11.0); MONOCYTES # (AUTO) 0.7 x10^3/uL (0.3-0.8); MONOCYTES % (AUTO) 4.9 % (0.0-13.0); NEUTROPHILS # (AUTO) 11.6 x10^3/uL (2.2-4.8); NEUTROPHILS % (AUTO) 76.8 % (42.0-75.0); PLATELET COUNT 328 X10^3/uL (150.0-450.0); RED BLOOD COUNT 3.86 X10^6/uL (3.5-5.4); RED CELL DISTRIBUTION WIDTH 21.2 % (11.6-16.5); WHITE BLOOD COUNT 15.1 X10^3/uL (3.6-10.0)
[2017-09-21 06:56] LABS: ALBUMIN 2.1 g/dL (3.4-5.0); CALCIUM 7.1 mg/dL (8.5-10.1); CARBON DIOXIDE 29.8 mmol/L (21-32); COR CA(FOR HYPOALB) 8.6 mg/dL (8.5-10.1); CREATININE 1.18 mg/dL (0.55-1.02); TOTAL PROTEIN 5.8 g/dL (6.4-8.2)
[2017-09-21 07:15] LABS: ANISOCYTOSIS 1+; HYPOCHROMASIA 1+; PLATELET MORPHOLOGY COMMENT NORMAL (NORMAL)
[2017-09-21] MEDS: OXYBUTYNIN CHLORIDE ER PO SCH (08:32)
[2017-09-21] MEDS: DIFLUCAN PO SCH (08:32)
[2017-09-21] MEDS: PLETAL PO SCH ×2 (08:33→21:26)
[2017-09-21] MEDS: LOPRESSOR TAB 25 MG PO SCH ×2 (08:34→21:21)
[2017-09-21] MEDS: ZyrTEC TAB 10 MG PO SCH (08:34)
[2017-09-21] MEDS: TOUJEO SOLOSTAR PEN SC SCH (08:34)
[2017-09-21] MEDS: PROTONIX TAB 40 MG PO SCH (08:34)
[2017-09-21] MEDS: ROCEPHIN VIAL 1 GM 1 GM in NS 100 ML IV + SPIKE MINIBAG* 100 ML IV SCH (08:35)
[2017-09-21] MEDS: NYSTATIN POWDER TOP SCH ×2 (08:35→21:23)
[2017-09-21] MEDS: NexIUM PO SCH (08:36)
[2017-09-21] MEDS: SYNTHROID 75 mcg TAB PO SCH (17:18)
[2017-09-21] MEDS ORDERED: AYR NASAL DROPS PRN (17:48)
[2017-09-21] MEDS: SINGULAIR TAB 10 MG PO SCH (21:20)
[2017-09-21] MEDS: KLONOPIN TAB 0.5 MG PO SCH (21:21)
[2017-09-21] MEDS: COLACE CAP 100 MG PO SCH (21:21)
[2017-09-21] MEDS: XARELTO PO SCH (21:22)
[2017-09-21] MEDS: ZOCOR TAB 20 MG PO SCH (21:22)
[2017-09-21] MEDS: ELAVIL PO SCH (21:22)
[2017-09-21] MEDS: SNACK - Diabetic Appropriate PO SCH (21:23)
[2017-09-21] MEDS: HumuLIN R SUBCUT SCH (21:29)
[2017-09-21] MEDS: ROXICODONE TAB 15 MG PO PRN (22:31)
[2017-09-22] MEDS: NS 1000 ML 1,000 ML IV SCH ×3 (05:36→12:11)
[2017-09-22] MEDS: REQUIP PO SCH (05:36)
[2017-09-22] MEDS: HumaLOG SC SCH ×2 (05:59→12:10)
[2017-09-22] MEDS: LASIX PO SCH (06:00)
[2017-09-22] MEDS: GLUCOTROL PO SCH (06:00)
[2017-09-22 06:57] LABS: ALBUMIN 2.2 g/dL (3.4-5.0); CALCIUM 7.5 mg/dL (8.5-10.1); CARBON DIOXIDE 31.1 mmol/L (21-32); COR CA(FOR HYPOALB) 8.9 mg/dL (8.5-10.1); CREATININE 1.23 mg/dL (0.55-1.02); TOTAL PROTEIN 6.2 g/dL (6.4-8.2)
[2017-09-22 07:09] LABS: BASOPHILS # (AUTO) 0.1 X10^3/uL (0.0-0.1); BASOPHILS % (AUTO) 0.4 % (0.2-1.0); EOSINOPHILS # (AUTO) 0.4 x10^3/uL (0.0-0.2); EOSINOPHILS % (AUTO) 2.5 % (0.9-2.9); HEMATOCRIT 27.7 % (36.0-47.0); LYMPHOCYTES # (AUTO) 2.5 X10^3/uL (1.3-2.9); LYMPHOCYTES % (AUTO) 16.4 % (21.0-51.0); MEAN CORPUSCULAR HGB CONC 32.5 g/dL (33.0-35.0); MEAN CORPUSCULAR VOLUME 70.8 fL (80.0-100.0); MEAN PLATELET VOLUME 8.7 fL (7.4-11.0); MONOCYTES # (AUTO) 0.8 x10^3/uL (0.3-0.8); MONOCYTES % (AUTO) 5.2 % (0.0-13.0); NEUTROPHILS # (AUTO) 11.4 x10^3/uL (2.2-4.8); NEUTROPHILS % (AUTO) 75.5 % (42.0-75.0); PLATELET COUNT 322 X10^3/uL (150.0-450.0); RED BLOOD COUNT 3.92 X10^6/uL (3.5-5.4); RED CELL DISTRIBUTION WIDTH 21.4 % (11.6-16.5); WHITE BLOOD COUNT 15.1 X10^3/uL (3.6-10.0)
[2017-09-22 08:20] LABS: ANISOCYTOSIS 1+; HYPOCHROMASIA 1+; PLATELET MORPHOLOGY COMMENT NORMAL (NORMAL); POIKILOCYTOSIS SLIGHT
[2017-09-22 08:21] LABS: MICROCYTOSIS 1+
[2017-09-22] MEDS: NexIUM PO SCH (09:29)
[2017-09-22] MEDS: OXYBUTYNIN CHLORIDE ER PO SCH (09:29)
[2017-09-22] MEDS: ROCEPHIN VIAL 1 GM 1 GM in NS 100 ML IV + SPIKE MINIBAG* 100 ML IV SCH (09:29)
[2017-09-22] MEDS: LOPRESSOR TAB 25 MG PO SCH (09:30)
[2017-09-22] MEDS: ZyrTEC TAB 10 MG PO SCH (09:30)
[2017-09-22] MEDS: DIFLUCAN PO SCH (09:30)
[2017-09-22] MEDS: PLETAL PO SCH (09:31)
[2017-09-22] MEDS: NYSTATIN POWDER TOP SCH (09:31)
[2017-09-22] MEDS: PROTONIX TAB 40 MG PO SCH (09:31)
[2017-09-22] MEDS: TOUJEO SOLOSTAR PEN SC SCH (09:32)
[2017-09-22 14:44] VITALS: BP 147/65
--- NOTE | 2017-09-22 22:00 | PCM.PROG ---
Progress Note - Progress Note for Day of Date: 09/19/17 - Subjective Subjective: WAS ADMITTED FOR UNCONTROLLED DIABETES, HYPONATREMIA, AND FALLS. TODAY, SHE IS ALERT AND ORIENTED, LYING IN BED ON MORNING ROUNDS. SHE IS NOTED WITH COMPLAINTS OF GENERALIZED WEAKNESS AND ACHING. SHE ALSO REPORTS SHORTNESS OF BREATH. HER VITALS TODAY ARE 98.3-73-27-97%-171/73. ABNORMAL LAB VALUES INCLUDE THE FOLLOWING: WBC INCREASED FROM 11.9 TO 15.5, HGB 9.4, HCT 29.4, SODIUM 132, CHLORIDE 97, BUN 32, CREATININE 1.30, GLUCOSE 239, CALCIUM 7.2, AST 11, TOTAL PROTEIN 6.2, ALBUMIN 2.3. SHE CONTINUES ON IV ANTIBIOTICS FOR GROWTH OF E.COLI IN HER URINE. SHE IS CURRENTLY RECEIVING TOUJEO 70 UNITS SC DAILY WELL HUMALOG 5 UNITS SC BEFORE EACH MEAL. WE WILL INCREAE THE HUMALOG TO 8 UNITS BEFORE EACH MEAL. OTHERWISE, WE WILL CONTINUE WITH IV FLUIDS AND CURRENT PLAN OF CARE. WE WILL OBTAIN A CHEST XRAY TODAY. WE WILL FOLLOW UP WITH AM LABS AND CONTINUE TO MONTIOR PATIENT. - Past Medical Family Social History Past Med/Fam/Surg Hx: No changes since H&P Allergies: Allergies bacitracin [From Neosporin ([id number]-[id number])] Allergy (Verified 07/29/17 17:10) clopidogrel [From Plavix] Allergy (Verified 07/29/17 17:10) gabapentin [From Neurontin] Allergy (Verified 07/29/17 17:10) hydrochlorothiazide [From Hyzaar] Allergy (Verified 07/29/17 17:10) latex Allergy (Verified 07/29/17 17:10) losartan [From Hyzaar] Allergy (Verified 07/29/17 17:10) neomycin [From Neosporin ([id number]-tuv-[id number])] Allergy (Verified 07/29/17 17:10) polymyxin B [From Neosporin (vsa-szo-zodax)] Allergy (Verified 07/29/17 17:10) propoxyphene [From Darvon] Allergy (Verified 07/29/17 17:10) rosuvastatin [From Crestor] Allergy (Verified 07/29/17 17:10) No Dye Allergy (Uncoded 07/29/17 17:10) - Review of Systems ROS: No change since H&P - Vital Signs and I&O's Vital Signs: Temperature 98.1 F Pulse Rate [Apical] 68 Pulse Rate 88 Respiratory Rate 25 Blood Pressure [Left Calf] 161/70 Blood Pressure [Right Calf] 123/58 Blood Pressure [Left Arm] 147/65 Blood Pressure [Right Arm] 189/78 Blood Pressure 101/59 O2 Sat by Pulse Oximetry 96 Intake and Output: Intake & Output 09/20/17 09/21/17 09/22/17 09/23/17 11:59 11:59 11:59 11:59 Intake Total 8055 5617 4042 Output Total 5498 7016 6204 Balance -1556 -5079 -5952 - Physical Exam Oriented: Normal Eyes: Normal Ear: Normal Nose: Normal Throat: Normal Respiratory: Normal Cardiovascular: Normal, Edema (+1 bilateral lower extremities) : Normal Auscultation: Bowel Sounds: Normal Palpation: Normal Tenderness: Normal Skin: Wound (forehead, bilateral knees, right hand/wrist, left lower extremity) , Bruising, Ecchymosis Musculoskeletal: Right, Left, Wrist, Hand, Knee, Ankle, Swelling, Tender Psychiatric: Anxiety Affect: Anxious Speech Pattern: Clear, Appropriate - Laboratory and Diagnostics Result Diagrams: 09/22/17 06:00 09/22/17 06:00 Labs: 09/14/17 11:55 Blood Blood Culture - Final 09/14/17 11:46 Blood Blood Culture - Final 09/14/17 14:30 Urine,Catheterized Urine Culture - Final Escherichia Coli Laboratory WBC 15.1 X10^3/uL (3.6-10.0) H 09/22/17 06:00 RBC 3.92 X10^6/uL (3.5-5.4) 09/22/17 06:00 Hgb 9.0 g/dL (12.0-16.0) L 09/22/17 06:00 Hct 27.7 % (36.0-47.0) L 09/22/17 06:00 MCV 70.8 fL (80.0-100.0) L 09/22/17 06:00 MCH 23.0 pg (27.0-34.0) L 09/22/17 06:00 MCHC 32.5 g/dL (33.0-35.0) L 09/22/17 06:00 RDW 21.4 % (11.6-16.5) H 09/22/17 06:00 Plt Count 322 X10^3/uL (150.0-450.0) 09/22/17 06:00 Plt Count Comment Adequate (ADEQUATE) 09/22/17 06:00 MPV 8.7 fL (7.4-11.0) 09/22/17 06:00 Neut % (Auto) 75.5 % (42.0-75.0) H 09/22/17 06:00 Lymph % (Auto) 16.4 % (21.0-51.0) L 09/22/17 06:00 [place] % (Auto) 5.2 % (0.0-13.0) 09/22/17 06:00 Eos % (Auto) 2.5 % (0.9-2.9) 09/22/17 06:00 Baso % (Auto) 0.4 % (0.2-1.0) 09/22/17 06:00 Neut # (Auto) 11.4 x10^3/uL (2.2-4.8) H 09/22/17 06:00 Lymph # (Auto) 2.5 X10^3/uL (1.3-2.9) 09/22/17 06:00 [place] # (Auto) 0.8 x10^3/uL (0.3-0.8) 09/22/17 06:00 Eos # (Auto) 0.4 x10^3/uL (0.0-0.2) H 09/22/17 06:00 Baso # (Auto) 0.1 X10^3/uL (0.0-0.1) 09/22/17 06:00 Absolute Nucleated RBC 0.0 /100WBC 09/22/17 06:00 Total Counted 100 09/15/17 05:25 Neutrophils % (Manual) 93 % (39-76) H 09/15/17 05:25 Lymphocytes % (Manual) 6 % (13-43) L 09/15/17 05:25 Monocytes % (Manual) 1 % (4-9) L 09/15/17 05:25 Plt Morphology Comment Normal (NORMAL) 09/22/17 06:00 RBC Morphology Abnormal (NORMAL) A 09/22/17 06:00 Hypochromasia 1+ A 09/22/17 06:00 Poikilocytosis Slight A 09/22/17 06:00 Anisocytosis 1+ A 09/22/17 06:00 Microcytosis 1+ A 09/22/17 06:00 Sodium 134 mmol/L (136-145) L 09/22/17 06:00 Corrected Sodium 136 mmol/L (136-145) 09/22/17 06:00 Potassium 3.6 mmol/L (3.5-5.1) 09/22/17 06:00 Chloride 97 mmol/L (98-107) L 09/22/17 06:00 Carbon Dioxide 31.1 mmol/L (21-32) 09/22/17 06:00 BUN 23 mg/dL (7-18) H 09/22/17 06:00 Creatinine 1.23 mg/dL (0.55-1.02) H 09/22/17 06:00 Est GFR (MDRD) Af Amer 56 (>60) L 09/22/17 06:00 Est GFR (MDRD) Non-Af 47 (>60) L 09/22/17 06:00 Glucose 169 mg/dL (65-99) H 09/22/17 06:00 POC Glucose (mg/dL) 164 mg/dL (65-99) H 09/22/17 11:48 Calcium 7.5 mg/dL (8.5-10.1) L 09/22/17 06:00 Corrected Calcium 8.9 mg/dL (8.5-10.1) 09/22/17 06:00 Total Bilirubin 0.30 mg/dL (0.2-1.0) 09/22/17 06:00 AST 15 Units/L (15-37) 09/22/17 06:00 ALT 18 Units/L (12-78) 09/22/17 06:00 Alkaline Phosphatase 86 Units/L (46-116) 09/22/17 06:00 Total Protein 6.2 g/dL (6.4-8.2) L 09/22/17 06:00 Albumin 2.2 g/dL (3.4-5.0) L 09/22/17 06:00 Globulin 4.0 g/dL (2.5-4.5) 09/22/17 06:00 Albumin/Globulin Ratio 0.6 Ratio (1.1-2.1) L 09/22/17 06:00 Specimen Type Catherized urine 09/14/17 14:30 Urine Color Straw (YELLOW) 09/14/17 14:30 Urine Appearance Clear (CLEAR) 09/14/17 14:30 Urine pH 6.0 (5.0 - 8.0) 09/14/17 14:30 Ur Specific [place] 1.010 (1.000-1.030) 09/14/17 14:30 Urine Protein Negative (NEGATIVE) 09/14/17 14:30 Urine Glucose (UA) 4+ (NEGATIVE) 09/14/17 14:30 Urine Ketones Negative (NEGATIVE) 09/14/17 14:30 Urine Occult Blood Negative (NEGATIVE) 09/14/17 14:30 Urine Nitrite Negative (NEGATIVE) 09/14/17 14:30 Urine Bilirubin Negative (NEGATIVE) 09/14/17 14:30 Urine Urobilinogen Normal (NORMAL) 09/14/17 14:30 Ur Leukocyte Esterase 1+ (NEGATIVE) 09/14/17 14:30 Urine RBC 0-2 /HPF (NONE SEEN) 09/14/17 14:30 Urine WBC 5-10 /HPF (NONE SEEN) 09/14/17 14:30 Ur Squamous Epith Cells Rare /HPF (NEGATIVE) 09/14/17 14:30 Urine Bacteria 2+ /HPF (NEGATIVE) 09/14/17 14:30 Ur Culture Indicated? Yes/culture set up 09/14/17 14:30 Acetone, Semi-Quant Negative (NEGATIVE) 09/14/17 10:50 - Plan (1) Urinary tract infection, E. coli Status: Acute Plan: ROCEPHIN 1GM IV DAILY, CONTINUE IV FLUIDS, CONTINUE TO MONITOR (2) Diabetes mellitus type 1, uncontrolled, insulin dependent Status: Acute Qualifiers: Diabetes mellitus complication status: with unspecified complications Qualified Code(s): E10.8 - Type 1 diabetes mellitus with unspecified complications; E10.65 - Type 1 diabetes mellitus with hyperglycemia; E10.65 - Type 1 diabetes mellitus with hyperglycemia; E10.65 - Type 1 diabetes mellitus with hyperglycemia; E10.65 - Type 1 diabetes mellitus with hyperglycemia Plan: MONITOR OTBS, TOUJEO 70 UNITS SC DAILY, HUMALOG 8 UNITS SC BEFORE EACH MEAL, CONTINUE TO MONITOR
--- NOTE | 2017-09-22 22:01 | PCM.PROG ---
Progress Note - Progress Note for Day of Date: 09/20/17 - Subjective Subjective: WAS ADMITTED FOR UNCONTROLLED DIABETES, HYPONATREMIA, AND FALLS. TODAY, SHE IS ALERT AND ORIENTED, LYING IN BED ON MORNING ROUNDS. SHE IS NOTED WITH COMPLAINTS OF GENERALIZED WEAKNESS AND SHORTNESS OF BREATH. HER VITALS TODAY ARE 97.3-73-16-98%-129/60. ABNORMAL LAB VALUES INCLUDE THE FOLLOWING: WBC 13.9, HGB 9.0, HCT 28.0, SODIUM 129, CHLORIDE 96, BUN 30, CREATININE 1.32, GLUCOSE 294, CALCIUM 7.2, AST 12, TOTAL PROTEIN 6.0, ALBUMIN 2.2. SHE CONTINUES ON IV ANTIBIOTICS FOR GROWTH OF E.COLI IN HER URINE. SHE IS CURRENTLY RECEIVING TOUJEO 70 UNITS SC DAILY WELL HUMALOG 8 UNITS SC BEFORE EACH MEAL. SHE HAS BEEN ON A 1800 [employer] DIET. WE WILL CHANGE TO A [employer] DIET TODAY. OTHERWISE, WE WILL CONTINUE WITH IV FLUIDS AND CURRENT PLAN OF CARE.. WE WILL FOLLOW UP WITH AM LABS AND CONTINUE TO MONTIOR PATIENT. - Past Medical Family Social History Past Med/Fam/Surg Hx: No changes since H&P Allergies: Allergies bacitracin [From Neosporin ([id number]-[id number])] Allergy (Verified 07/29/17 17:10) clopidogrel [From Plavix] Allergy (Verified 07/29/17 17:10) gabapentin [From Neurontin] Allergy (Verified 07/29/17 17:10) hydrochlorothiazide [From Hyzaar] Allergy (Verified 07/29/17 17:10) latex Allergy (Verified 07/29/17 17:10) losartan [From Hyzaar] Allergy (Verified 07/29/17 17:10) neomycin [From Neosporin ([id number]-jpvre)] Allergy (Verified 07/29/17 17:10) polymyxin B [From Neosporin ([id number]-osr-ncnqh)] Allergy (Verified 07/29/17 17:10) propoxyphene [From Darvon] Allergy (Verified 07/29/17 17:10) rosuvastatin [From Crestor] Allergy (Verified 07/29/17 17:10) No Dye Allergy (Uncoded 07/29/17 17:10) - Review of Systems ROS: No change since H&P - Vital Signs and I&O's Vital Signs: Temperature 98.1 F Pulse Rate [Apical] 68 Pulse Rate 88 Respiratory Rate 25 Blood Pressure [Left Calf] 161/70 Blood Pressure [Right Calf] 123/58 Blood Pressure [Left Arm] 147/65 Blood Pressure [Right Arm] 189/78 Blood Pressure 101/59 O2 Sat by Pulse Oximetry 96 Intake and Output: Intake & Output 09/20/17 09/21/17 09/22/17 09/23/17 11:59 11:59 11:59 11:59 Intake Total 6807 5611 4041 Output Total 6801 8868 0916 Balance -4608 -2937 -3576 - Physical Exam Oriented: Normal Eyes: Normal Ear: Normal Nose: Normal Throat: Normal Respiratory: Normal Cardiovascular: Normal, Edema (+1 bilateral lower extremities) : Normal Auscultation: Bowel Sounds: Normal Palpation: Normal Tenderness: Normal Skin: Wound (forehead, bilateral knees, right hand/wrist, left lower extremity) , Bruising, Ecchymosis Musculoskeletal: Right, Left, Wrist, Hand, Knee, Ankle, Swelling, Tender Psychiatric: Anxiety Affect: Anxious Speech Pattern: Clear, Appropriate - Laboratory and Diagnostics Result Diagrams: 09/22/17 06:00 09/22/17 06:00 Labs: 09/14/17 11:55 Blood Blood Culture - Final 09/14/17 11:46 Blood Blood Culture - Final 09/14/17 14:30 Urine,Catheterized Urine Culture - Final Escherichia Coli Laboratory WBC 15.1 X10^3/uL (3.6-10.0) H 09/22/17 06:00 RBC 3.92 X10^6/uL (3.5-5.4) 09/22/17 06:00 Hgb 9.0 g/dL (12.0-16.0) L 09/22/17 06:00 Hct 27.7 % (36.0-47.0) L 09/22/17 06:00 MCV 70.8 fL (80.0-100.0) L 09/22/17 06:00 MCH 23.0 pg (27.0-34.0) L 09/22/17 06:00 MCHC 32.5 g/dL (33.0-35.0) L 09/22/17 06:00 RDW 21.4 % (11.6-16.5) H 09/22/17 06:00 Plt Count 322 X10^3/uL (150.0-450.0) 09/22/17 06:00 Plt Count Comment Adequate (ADEQUATE) 09/22/17 06:00 MPV 8.7 fL (7.4-11.0) 09/22/17 06:00 Neut % (Auto) 75.5 % (42.0-75.0) H 09/22/17 06:00 Lymph % (Auto) 16.4 % (21.0-51.0) L 09/22/17 06:00 [place] % (Auto) 5.2 % (0.0-13.0) 09/22/17 06:00 Eos % (Auto) 2.5 % (0.9-2.9) 09/22/17 06:00 Baso % (Auto) 0.4 % (0.2-1.0) 09/22/17 06:00 Neut # (Auto) 11.4 x10^3/uL (2.2-4.8) H 09/22/17 06:00 Lymph # (Auto) 2.5 X10^3/uL (1.3-2.9) 09/22/17 06:00 [place] # (Auto) 0.8 x10^3/uL (0.3-0.8) 09/22/17 06:00 Eos # (Auto) 0.4 x10^3/uL (0.0-0.2) H 09/22/17 06:00 Baso # (Auto) 0.1 X10^3/uL (0.0-0.1) 09/22/17 06:00 Absolute Nucleated RBC 0.0 /100WBC 09/22/17 06:00 Total Counted 100 09/15/17 05:25 Neutrophils % (Manual) 93 % (39-76) H 09/15/17 05:25 Lymphocytes % (Manual) 6 % (13-43) L 09/15/17 05:25 Monocytes % (Manual) 1 % (4-9) L 09/15/17 05:25 Plt Morphology Comment Normal (NORMAL) 09/22/17 06:00 RBC Morphology Abnormal (NORMAL) A 09/22/17 06:00 Hypochromasia 1+ A 09/22/17 06:00 Poikilocytosis Slight A 09/22/17 06:00 Anisocytosis 1+ A 09/22/17 06:00 Microcytosis 1+ A 09/22/17 06:00 Sodium 134 mmol/L (136-145) L 09/22/17 06:00 Corrected Sodium 136 mmol/L (136-145) 09/22/17 06:00 Potassium 3.6 mmol/L (3.5-5.1) 09/22/17 06:00 Chloride 97 mmol/L (98-107) L 09/22/17 06:00 Carbon Dioxide 31.1 mmol/L (21-32) 09/22/17 06:00 BUN 23 mg/dL (7-18) H 09/22/17 06:00 Creatinine 1.23 mg/dL (0.55-1.02) H 09/22/17 06:00 Est GFR (MDRD) Af Amer 56 (>60) L 09/22/17 06:00 Est GFR (MDRD) Non-Af 47 (>60) L 09/22/17 06:00 Glucose 169 mg/dL (65-99) H 09/22/17 06:00 POC Glucose (mg/dL) 164 mg/dL (65-99) H 09/22/17 11:48 Calcium 7.5 mg/dL (8.5-10.1) L 09/22/17 06:00 Corrected Calcium 8.9 mg/dL (8.5-10.1) 09/22/17 06:00 Total Bilirubin 0.30 mg/dL (0.2-1.0) 09/22/17 06:00 AST 15 Units/L (15-37) 09/22/17 06:00 ALT 18 Units/L (12-78) 09/22/17 06:00 Alkaline Phosphatase 86 Units/L (46-116) 09/22/17 06:00 Total Protein 6.2 g/dL (6.4-8.2) L 09/22/17 06:00 Albumin 2.2 g/dL (3.4-5.0) L 09/22/17 06:00 Globulin 4.0 g/dL (2.5-4.5) 09/22/17 06:00 Albumin/Globulin Ratio 0.6 Ratio (1.1-2.1) L 09/22/17 06:00 Specimen Type Catherized urine 09/14/17 14:30 Urine Color Straw (YELLOW) 09/14/17 14:30 Urine Appearance Clear (CLEAR) 09/14/17 14:30 Urine pH 6.0 (5.0 - 8.0) 09/14/17 14:30 Ur Specific [place] 1.010 (1.000-1.030) 09/14/17 14:30 Urine Protein Negative (NEGATIVE) 09/14/17 14:30 Urine Glucose (UA) 4+ (NEGATIVE) 09/14/17 14:30 Urine Ketones Negative (NEGATIVE) 09/14/17 14:30 Urine Occult Blood Negative (NEGATIVE) 09/14/17 14:30 Urine Nitrite Negative (NEGATIVE) 09/14/17 14:30 Urine Bilirubin Negative (NEGATIVE) 09/14/17 14:30 Urine Urobilinogen Normal (NORMAL) 09/14/17 14:30 Ur Leukocyte Esterase 1+ (NEGATIVE) 09/14/17 14:30 Urine RBC 0-2 /HPF (NONE SEEN) 09/14/17 14:30 Urine WBC 5-10 /HPF (NONE SEEN) 09/14/17 14:30 Ur Squamous Epith Cells Rare /HPF (NEGATIVE) 09/14/17 14:30 Urine Bacteria 2+ /HPF (NEGATIVE) 09/14/17 14:30 Ur Culture Indicated? Yes/culture set up 09/14/17 14:30 Acetone, Semi-Quant Negative (NEGATIVE) 09/14/17 10:50 - Plan (1) Urinary tract infection, E. coli Status: Acute Plan: ROCEPHIN 1GM IV DAILY, CONTINUE IV FLUIDS, CONTINUE TO MONITOR (2) Diabetes mellitus type 1, uncontrolled, insulin dependent Status: Acute Qualifiers: Diabetes mellitus complication status: with unspecified complications Qualified Code(s): E10.8 - Type 1 diabetes mellitus with unspecified complications; E10.65 - Type 1 diabetes mellitus with hyperglycemia; E10.65 - Type 1 diabetes mellitus with hyperglycemia; E10.65 - Type 1 diabetes mellitus with hyperglycemia; E10.65 - Type 1 diabetes mellitus with hyperglycemia Plan: MONITOR OTBS, TOUJEO 70 UNITS SC DAILY, HUMALOG 8 UNITS SC BEFORE EACH MEAL, CONTINUE TO MONITOR
== END 2017-09-22 14:25 | disposition home or self-care (01) | DRG 638 ==
LOC: ER 08:45 → ICU 10:16 → UNDOADMIN 10:16
PROVIDERS: ADMIT Internal Medicine; ATTEND Internal Medicine
DX: E10.65 Type 1 diabetes mellitus with hyperglycemia (principal); N39.0 Urinary tract infection, site not specified; E87.1 Hypo-osmolality and hyponatremia; D68.9 Coagulation defect, unspecified; B96.20 Unspecified Escherichia coli [E. coli] as the cause of diseases classified elsewhere; S00.83XA Contusion of other part of head, initial encounter; S50.12XA Contusion of left forearm, initial encounter; Z79.01 Long term (current) use of anticoagulants; S80.02XA Contusion of left knee, initial encounter; R26.81 Unsteadiness on feet; S80.01XA Contusion of right knee, initial encounter; S60.221A Contusion of right hand, initial encounter; S50.11XA Contusion of right forearm, initial encounter; W19.XXXA Unspecified fall, initial encounter; Y92.002 Bathroom of unspecified non-institutional (private) residence as the place of occurrence of the external cause; I12.9 Hypertensive chronic kidney disease with stage 1 through stage 4 chronic kidney disease, or unspecified chronic kidney disease; E10.22 Type 1 diabetes mellitus with diabetic chronic kidney disease; N18.9 Chronic kidney disease, unspecified; J44.9 Chronic obstructive pulmonary disease, unspecified; K21.9 Gastro-esophageal reflux disease without esophagitis
CPT/HCPCS: 36415; 36591; 51702; 70450; 71045; 73090; 73130; 73560; 80048; 80053; 81001; 81003; 82009; 82550; 82553; 82947; 83735; 84484; 85025; 85610; 85730; 87040; 87086; 87088; 87186; 93005; 96365; 96367; 96374; 96375; 99221; 99231; 99283; 99284; A4218; A4222; J0696; J1815; J1817

== ENCOUNTER 2017-10-04 16:10 | Observation (INO) ==
--- NOTE | 2017-10-04 17:16 | DR.EXTPAIN ---
HPI - Time seen Time seen: 17:00 - PCP Primary Care Physician: nita - HPI Comment HPI Comment: PATIENT SAID SYMTOMS GETTING WORSE. NO FEVER OR DYSURIA. NO COUGH OR HEMOPTESIS. SLIGHT SOB WITH EXERSION. - Complaint/Symptoms Chief Complaint Doctor Comments: GENERALIZE FATIGUE AND ELEVATED BLOOD GLUCOSE ALL DAY. Chief Complaint:: pt stated she has taken all her blood sugar medication and her surgar is at 315 and she stated she has been tired all day. - Nurses notes reviewed Nurses Notes Review: Yes - Source History Provided: Patient - Mode of arrival Mode of Arrival: Wheelchair - Timing Onset of Chief Complaint: 10/04/17 - Context History of: Arthritis - Associated signs and symptoms Associated Signs and Symptoms: Pain PMH - PMH Past Medical History: Yes Past Medical History: Arthritis, Diabetes, GERD, Hypertension, Renal Disease Past Surgical History: Yes Surgical History: Cholecystectomy, Hysterectomy, Ortho Surgery - Family History History of Family Medical Conditions: Yes Family Medical History: Cancer, [place] - Social History Does patient currently use any type of tobacco product: No Have you used tobacco products in the last 12 months: No Type of Tobacco Use: None Does any household member use tobacco: No Alcohol Use: None Do you use any recreational Drugs:: No Lives With: Family Lives Where: Home - infectious screening In the last 2 months have you had wt loss of >10#?: NO Have you had fever, night sweats or hemotysis?: No Have you traveled outside the country in the last 6 months?: No Isolation: Standard ROS - Review of Systems Constitutional: Weakness, Fatigue. negative: Chills, Fever Eyes: negative: Eye Pain, Discharge ENTM: negative: Ear Pain, Nose Discharge, Nose Congestion, Throat Swelling Respiratoy: Short of Breath. negative: Productive Cough, Non-Productive Cough, Wheezing, Hemoptysis Cardiovascular: negative: Chest Pain, Palpitations Gastrointestinal/Abdominal: Abdominal Pain. negative: Diarrhea, Nausea, Vomiting Genitourinary: negative: Dysuria, Hematuria Musculoskeletal: Muscle Pain Integumentary: negative: Change in Color Hematologic/Lymphatic: Anemia Endocrine: No Symptoms Reported All Other Systems: Reviewed and Negative PE - General Limitations: Altered Mental Status General Appearance: Alert - Head Head Exam: Normal Inspection - Eyes Eye exam: Normal Appearance - ENT ENT Exam: Normal External Ear Exam - Neck Neck Exam: Trachea Midline - Chest Chest Inspection: Symmetric Chest Wall Rise - Respiratory Respiratory Exam: Normal Lung Sounds Bilat Respiratory Exam: Bilateral Rhonchi, Lower Rhonchi - Cardiovascular Cardiovascular Exam: Regular Rate, Normal Rhythm, Normal Heart Sounds - Abdominal Exam Abdominal Exam: Normal Bowel Sounds, Soft. negative: Tenderness - Extremities Extremities Exam: Normal Inspection - Lower Extremities Gait Exam: Observed & Limited by Pain - Back Back Exam: Paraspinal Tenderness - Neurological Neurological Exam: Alert - Psychiatric Psychiatric Exam: Normal Affect, Normal Mood - Skin Skin Exam: Erythema - Vital Signs Vitals: Temperature 98.7 F Pulse Rate 81 Respiratory Rate 18 Blood Pressure [Left Calf] 161/70 Blood Pressure [Right Calf] 123/58 Blood Pressure [Left Arm] 147/65 Blood Pressure [Right Arm] 189/78 Blood Pressure 147/77 O2 Sat by Pulse Oximetry 90 MDM - Differential Diagnosis Differential Diagnosis: Other (AMS, DEHYDRATION, GNERALIZE WEAKNESS, NC, PNEUMONIA, UTI, CVA) Course - Treatment Treatment: SEE ORDERS. - Education/Counseling Education/Counseling: Patient Educated On: Diagnosis ROR - Labs Reviewed Laboratory Results Reviewed?: Yes Result Diagrams: 10/06/17 05:15 10/06/17 05:15 - XRAY XRAY Findings: REPORT NOTED. - EKG Rhythm: NSR (EKG NOTED.) - Diagnosis Discharge Problem: Dehydration, Generalized weakness Altered mental state Qualifiers: Altered mental status type: transient alteration of awareness Qualified Code(s) : R40.4 - Transient alteration of awareness - Discharge Plan Disposition: ADMITTED INPATIENT Condition: Stable
[2017-10-04 17:36] LABS: BASOPHILS # (AUTO) 0.1 X10^3/uL (0.0-0.1); BASOPHILS % (AUTO) 0.9 % (0.2-1.0); EOSINOPHILS # (AUTO) 0.2 x10^3/uL (0.0-0.2); EOSINOPHILS % (AUTO) 1.8 % (0.9-2.9); HEMOGLOBIN 9.2 g/dL (12.0-16.0); LYMPHOCYTES # (AUTO) 1.9 X10^3/uL (1.3-2.9); LYMPHOCYTES % (AUTO) 14.5 % (21.0-51.0); MEAN CORPUSCULAR HEMOGLOBIN 22.6 pg (27.0-34.0); MEAN CORPUSCULAR HGB CONC 31.6 g/dL (33.0-35.0); MEAN CORPUSCULAR VOLUME 71.4 fL (80.0-100.0); MONOCYTES # (AUTO) 0.8 x10^3/uL (0.3-0.8); MONOCYTES % (AUTO) 5.9 % (0.0-13.0); NEUTROPHILS # (AUTO) 10.3 x10^3/uL (2.2-4.8); NEUTROPHILS % (AUTO) 76.9 % (42.0-75.0); PLATELET COUNT 324 X10^3/uL (150.0-450.0); RED BLOOD COUNT 4.07 X10^6/uL (3.5-5.4); WHITE BLOOD COUNT 13.4 X10^3/uL (3.6-10.0)
[2017-10-04 17:40] LABS: ALANINE AMINOTRANSFERASE 18 Units/L (12-78); ALBUMIN 2.8 g/dL (3.4-5.0); ALKALINE PHOSPHATASE 112 Units/L (46-116); ASPARTATE AMINO TRANSFERASE 16 Units/L (15-37); BLOOD UREA NITROGEN 25 mg/dL (7-18); CALCIUM 7.7 mg/dL (8.5-10.1); CARBON DIOXIDE 28.8 mmol/L (21-32); CHLORIDE 100 mmol/L (98-107); COR CA(FOR HYPOALB) 8.7 mg/dL (8.5-10.1); COR NA(FOR HYPERGLY) 137 mmol/L (136-145); SODIUM 135 mmol/L (136-145); eGFR NON BLACK RACES 34 (>60)
[2017-10-04 17:55] LABS: ANISOCYTOSIS 2+; HYPOCHROMASIA 1+; MICROCYTOSIS 1+; PLATELET MORPHOLOGY COMMENT NORMAL (NORMAL)
[2017-10-04 18:02] LABS: CKMB % 2.5 % (<4); CREATINE KINASE 48 Units/L (26-192); CREATINE KINASE MB 1.2 ng/mL (0-4.0); SERUM ACETONE NEGATIVE (NEGATIVE); TROPONIN I < 0.02 ng/mL (0-1.5)
--- NOTE | 2017-10-04 18:10 | CT ---
HISTORY: Altered mental status. Study: CT brain without contrast. Comparison: 05/28/2017. Technique: Multiple axial images of the brain were obtained from the skull base to the vertex without administra tion of IV contrast. Findings: The cerebellar tonsils extend 5 mm below the level of the foramen magnum. The basilar cist erns are patent. No acute intraparenchymal hemorrhage or mass can be identified. No extra-axial flui d collections are seen. No alteration in the attenuation of the brain parenchyma can be identified t o suggest acute or subacute ischemic change. The ventricular system is symmetric and nondilated. Th e extracranial structures are grossly unremarkable. IMPRESSION: No acute intracranial process can be identified. Cerebellar tonsillar ectopia as above. Reported By:
--- NOTE | 2017-10-04 18:10 | RAD ---
HISTORY: 67-year-old female with shortness of breath. Study: Frontal view of the chest. Comparison: Chest radiograph 09/19/2017 Findings: Study is limited secondary to patient body habitus and technique with excessive quantum mottle. Left chest chemo port is stable. The trachea is midline. The cardiac silhouette is stably enlarged with low lung volumes. The lungs are clear without focal consolidation, effusion or pneumothorax. Soft tissues are unremarkable. Osse ous structures are unremarkable. IMPRESSION: 1. No acute cardiopulmonary disease. Reported By:
[2017-10-04] MEDS: NS 1000 ML 1,000 ML IV SCH (21:11)
[2017-10-04] MEDS ORDERED: REQUIP PO ONE (21:56)
[2017-10-04 21:57] LABS: APPEARANCE,URINE CLEAR (CLEAR); BILIRUBIN,URINE NEGATIVE (NEGATIVE); BLOOD/HEMOGLOBIN,URINE NEGATIVE (NEGATIVE); COLOR,URINE YELLOW (YELLOW); GLUCOSE, URINE NEGATIVE (NEGATIVE); KETONES,URINE NEGATIVE (NEGATIVE); LEUKOCYTE ESTERASE ,URINE NEGATIVE (NEGATIVE); NITRITES,URINE NEGATIVE (NEGATIVE); PROTEIN,URINE 1+ (NEGATIVE); UROBILINOGEN,URINE NORMAL (NORMAL)
[2017-10-04 21:58] LABS: BACTERIA,URINE NEGATIVE /HPF (NEGATIVE); HYALINE CASTS, URINE FEW /LPF (NEGATIVE); RBC,URINE 0-2 /HPF (NONE SEEN); SQUAMOUS EPITHELIAL CELL,UR FEW /HPF (NEGATIVE)
[2017-10-04 22:42] VITALS: BMI 61.1
[2017-10-05 00:09] LABS: CREATINE KINASE 40 Units/L (26-192); CREATINE KINASE MB 1.2 ng/mL (0-4.0); TROPONIN I < 0.02 ng/mL (0-1.5)
[2017-10-05 06:20] LABS: BASOPHILS % (AUTO) 0.5 % (0.2-1.0); EOSINOPHILS # (AUTO) 0.3 x10^3/uL (0.0-0.2); EOSINOPHILS % (AUTO) 2.4 % (0.9-2.9); HEMATOCRIT 25.8 % (36.0-47.0); HEMOGLOBIN 8.3 g/dL (12.0-16.0); LYMPHOCYTES # (AUTO) 1.5 X10^3/uL (1.3-2.9); LYMPHOCYTES % (AUTO) 14.6 % (21.0-51.0); MEAN CORPUSCULAR HEMOGLOBIN 23.3 pg (27.0-34.0); MEAN CORPUSCULAR HGB CONC 32.4 g/dL (33.0-35.0); MEAN CORPUSCULAR VOLUME 71.9 fL (80.0-100.0); MEAN PLATELET VOLUME 7.9 fL (7.4-11.0); MONOCYTES # (AUTO) 0.6 x10^3/uL (0.3-0.8); MONOCYTES % (AUTO) 5.4 % (0.0-13.0); NEUTROPHILS # (AUTO) 8.2 x10^3/uL (2.2-4.8); NEUTROPHILS % (AUTO) 77.1 % (42.0-75.0); PLATELET COUNT 282 X10^3/uL (150.0-450.0); RED BLOOD COUNT 3.59 X10^6/uL (3.5-5.4); RED CELL DISTRIBUTION WIDTH 21.4 % (11.6-16.5); WHITE BLOOD COUNT 10.6 X10^3/uL (3.6-10.0)
[2017-10-05] MEDS: KLONOPIN TAB 0.5 MG PO SCH ×2 (06:35→21:04)
[2017-10-05 07:07] LABS: ALANINE AMINOTRANSFERASE 25 Units/L (12-78); ALBUMIN 2.4 g/dL (3.4-5.0); ALKALINE PHOSPHATASE 104 Units/L (46-116); ASPARTATE AMINO TRANSFERASE 16 Units/L (15-37); BLOOD UREA NITROGEN 23 mg/dL (7-18); CALCIUM 7.6 mg/dL (8.5-10.1); CARBON DIOXIDE 28.5 mmol/L (21-32); CHLORIDE 102 mmol/L (98-107); CKMB % 3.3 % (<4); COR CA(FOR HYPOALB) 8.9 mg/dL (8.5-10.1); COR NA(FOR HYPERGLY) 138 mmol/L (136-145); CREATINE KINASE 33 Units/L (26-192); CREATINE KINASE MB 1.1 ng/mL (0-4.0); CREATININE 1.42 mg/dL (0.55-1.02); SODIUM 137 mmol/L (136-145); TOTAL PROTEIN 6.3 g/dL (6.4-8.2); TROPONIN I < 0.02 ng/mL (0-1.5); eGFR NON BLACK RACES 39 (>60)
[2017-10-05 07:38] LABS: ANISOCYTOSIS 1+; HYPOCHROMASIA 1+; PLATELET MORPHOLOGY COMMENT NORMAL (NORMAL)
[2017-10-05] MEDS: NS 1000 ML 1,000 ML IV SCH ×3 (08:32→21:06)
[2017-10-05] MEDS ORDERED: BENADRYL CAP/TAB 25 MG PO PRN (10:24)
[2017-10-05] MEDS ORDERED: ROXICODONE TAB 15 MG PO PRN (10:57)
[2017-10-05] MEDS ORDERED: TOUJEO SOLOSTAR PEN SC SCH ×2 (11:00→21:00)
[2017-10-05] MEDS: LOPRESSOR TAB 25 MG PO SCH ×2 (12:24→21:04)
[2017-10-05] MEDS: NexIUM PO SCH (12:25)
[2017-10-05] MEDS: LYRICA CAP 50 MG PO SCH ×2 (12:25→21:03)
[2017-10-05] MEDS: SINGULAIR TAB 10 MG PO SCH (12:26)
[2017-10-05] MEDS: PLETAL PO SCH ×2 (12:26→21:13)
[2017-10-05] MEDS: PROTONIX TAB 40 MG PO SCH ×2 (12:26→21:02)
[2017-10-05] MEDS ORDERED: REQUIP PO ONE (12:40)
[2017-10-05] MEDS: REQUIP PO SCH ×2 (12:45→21:04)
[2017-10-05] MEDS: HumaLOG SC SCH ×2 (13:13→17:35)
--- NOTE | 2017-10-05 16:40 | DR.H&P ---
H&P - History & Physical for Day of: H&P Date: 10/04/17 - Chief Complaint Chief Complaint: WEAKNESS, FATIGUE, INCREASED BLOOD GLUCOSE, SLURRED SPEECH, BLURRED VISION - History of Present Illness History of Present Illness: IS A 67 YEAR OLD PATIENT OF OURS WHO PRESENTED TO THE EMERGENCY ROOM WITH COMPLAINTS OF WEAKNESS, FATIGUE, AND AN INCREASED BLOOD SUGAR AT HOME. SHE REPORTS THAT HER BLOOD SUGAR WAS 315 JUST PRIOR TO ARRIVAL AT THE ER AND THAT SHE HAD BLURRED VISION AND SLURRED SPEECH. ON ARRIVAL, VITALS WERE 98.7-81-18-90%-147/77. LABS WERE OBTAINED. ABNORMAL LAB VALUES INCLUDE THE FOLLOWING: WBC 13.4, HGB 9.2, HCT 29.0, SODIUM 135, BUN 25, CREATININE 1.60, GLUCOSE 186, CALCIUM 7.7, ALBUMIN 2.8. CARDIAC ENZYMES WITHIN NORMAL LIMITS. URIALYSIS UNREMARKABLE. A BRAIN CT WAS OBTAINED AND REVEALED NO ACUTE INTRACRANIAL PROCESS, CEREBELLAR TONSILLAR ECTOPIA. A CHEST XRAY REVELAED NO ACUTE CARDIOPULMONARY DISEASE. EKG REVEALED SINUS RHYTHM WITH HR 79. PATIENT ADMITTED FOR FURTHER EVALUATION AND TREATMENT. SHE WAS STARTED ON NORMAL SALINE AT 50ML/HR. WE WILL MONITOR OTBS ACHS AND FOLLOW UP WITH AM LABS. - Past Medical History Past Medical History: Arthritis, Diabetes, GERD, Hypertension, Renal Disease - Past Surgical History Surgical History: Cholecystectomy, Hysterectomy, Ortho Surgery - Family History Family Medical History: Cancer, [place] - Social History Does patient currently use any type of tobacco product: No Have you used tobacco products in the last 12 months: No Type of Tobacco Use: None Does any household member use tobacco: No Alcohol Use: None Drug Use: None - Medications Home Medications: amitriptyline 50 mg PO HS 10/04/17 [History Confirmed 10/04/17] cilostazol 50 mg PO BID 10/04/17 [History Confirmed 10/05/17] clonazepam 0.5 mg PO HS 10/04/17 [History Confirmed 10/05/17] diphenhydramine HCl [Benadryl] 25 mg PO Q4-6H PRN 10/04/17 [History Confirmed ] esomeprazole magnesium [Nexium] 40 mg PO DAILY 10/04/17 [History Confirmed 10/05] furosemide [Lasix] 40 mg PO BID 10/04/17 [History Confirmed 10/04/17] glipizide 10 mg PO DAILY 10/04/17 [History Confirmed 10/05/17] insulin glargine [Toujeo SoloStar U-300 Insulin] 70 unit SUB-Q Q24H 10/04/17 [ History Confirmed 10/05/17] insulin lispro [Humalog U-100 Insulin] 10 unit SUB-Q TID 10/04/17 [History Confirmed 10/04/17] ketoconazole 200 mg PO BID 10/04/17 [History Confirmed 10/04/17] levocetirizine 5 mg PO DAILY 10/04/17 [History Confirmed 10/04/17] levothyroxine 75 mcg PO ONCE 10/04/17 [History Confirmed 10/04/17] metoprolol tartrate 12.5 mg PO BID 10/04/17 [History Confirmed 10/05/17] montelukast 10 mg PO DAILY 10/04/17 [History Confirmed 10/05/17] oxybutynin chloride 10 mg PO DAILY 10/04/17 [History Confirmed 10/05/17] oxycodone 30 mg PO Q6H PRN 10/04/17 [History Confirmed 10/05/17] pantoprazole [Protonix] 40 mg PO BID 10/04/17 [History Confirmed 10/05/17] pregabalin [Lyrica] 50 mg PO BID 10/04/17 [History Confirmed 10/05/17] rivaroxaban [Xarelto] 10 mg PO HS 10/04/17 [History Confirmed 10/05/17] ropinirole 4 mg PO QID 10/04/17 [History Confirmed 10/05/17] simvastatin [Zocor] 20 mg PO HS 10/04/17 [History Confirmed 10/05/17] - Review of Systems Constitutional: Weakness, Malaise, Other (FATIGUE) Eyes: See HPI, Vision Change Respiratory: Shortness of Breath Cardiovascular: No Symptoms Reported Gastrointestinal: No Symptoms Reported Genitourinary: No Symptoms Reported Musculoskeletal: No Symptoms Reported Skin: No Symptoms Reported Neurological: Weakness, Change in Speech (PATIENT REPORTS SLURRED SPEECH) - Physical Exam Vital Signs: Temperature 97.2 F Pulse Rate [Right Brachial] 81 Pulse Rate 81 Respiratory Rate 18 Blood Pressure [Left Calf] 161/70 Blood Pressure [Right Calf] 123/58 Blood Pressure [Left Arm] 143/68 Blood Pressure [Right Arm] 143/61 Blood Pressure 147/77 O2 Sat by Pulse Oximetry 95 Oriented: Normal Eyes: Blurred Vision Ear: Normal Nose: Normal Throat: Normal Respiratory: Diminished Throughout Cardiovascular: Normal. negative: S3, S4, Murmur : Normal Auscultation: Bowel Sounds: Normal Palpation: Normal Tenderness: Normal Skin: Normal Musculoskeletal: Normal Psychiatric: Normal Mood Description: Calm Affect: Normal Speech Pattern: Clear - Assessment/Plan (1) Diabetes mellitus type 1, uncontrolled, insulin dependent Qualifiers: Diabetes mellitus complication status: without complication Qualified Code( s): E10.65 - Type 1 diabetes mellitus with hyperglycemia Status: Acute Plan: OTBS ACHS, MONITOR LABS, RESUME HOME INSULINS (2) Generalized weakness Status: Acute Plan: NORMAL SALINE AT 50ML/HR, CONTINUE TO MONITOR - Allergies Allergies/Adverse Reactions: Allergies Allergy/AdvReac Type Severity Reaction Status Date / Time bacitracin Allergy Verified 10/05/17 07:31 [From Neosporin ([id number])] clopidogrel [From Plavix] Allergy Verified 10/05/17 07:31 gabapentin [From Neurontin] Allergy Verified 10/05/17 07:31 hydrochlorothiazide Allergy Verified 10/05/17 07:31 [From Hyzaar] latex Allergy Verified 10/05/17 07:31 losartan [From Hyzaar] Allergy Verified 10/05/17 07:31 neomycin Allergy Verified 10/05/17 07:31 [From Neosporin ([id number])] polymyxin B Allergy Verified 10/05/17 07:31 [From Neosporin ([id number]-[id number])] propoxyphene [From Darvon] Allergy Verified 10/05/17 07:31 rosuvastatin [From Crestor] Allergy Verified 10/05/17 07:31 No Dye Allergy Uncoded 10/04/17 16:11
[2017-10-05] MEDS ORDERED: ELAVIL PO SCH (21:00)
[2017-10-05] MEDS ORDERED: ZOCOR TAB 20 MG PO SCH (21:00)
[2017-10-05] MEDS ORDERED: XARELTO PO SCH (21:00)
[2017-10-05] MEDS: NIZORAL PO SCH (21:41)
[2017-10-06] MEDS: HumaLOG SC SCH (06:03)
[2017-10-06 06:16] LABS: BASOPHILS # (AUTO) 0.1 X10^3/uL (0.0-0.1); BASOPHILS % (AUTO) 0.9 % (0.2-1.0); EOSINOPHILS # (AUTO) 0.3 x10^3/uL (0.0-0.2); EOSINOPHILS % (AUTO) 3.4 % (0.9-2.9); HEMATOCRIT 24.7 % (36.0-47.0); HEMOGLOBIN 8.1 g/dL (12.0-16.0); LYMPHOCYTES # (AUTO) 1.9 X10^3/uL (1.3-2.9); LYMPHOCYTES % (AUTO) 20.8 % (21.0-51.0); MEAN CORPUSCULAR HEMOGLOBIN 23.6 pg (27.0-34.0); MEAN CORPUSCULAR HGB CONC 32.7 g/dL (33.0-35.0); MEAN CORPUSCULAR VOLUME 72.2 fL (80.0-100.0); MEAN PLATELET VOLUME 8.2 fL (7.4-11.0); MONOCYTES # (AUTO) 0.6 x10^3/uL (0.3-0.8); NEUTROPHILS # (AUTO) 6.3 x10^3/uL (2.2-4.8); NEUTROPHILS % (AUTO) 67.9 % (42.0-75.0); PLATELET COUNT 276 X10^3/uL (150.0-450.0); RED BLOOD COUNT 3.42 X10^6/uL (3.5-5.4); RED CELL DISTRIBUTION WIDTH 21.4 % (11.6-16.5); WHITE BLOOD COUNT 9.3 X10^3/uL (3.6-10.0)
[2017-10-06 06:30] LABS: ALBUMIN 2.3 g/dL (3.4-5.0); CALCIUM 7.5 mg/dL (8.5-10.1); CARBON DIOXIDE 28.4 mmol/L (21-32); COR CA(FOR HYPOALB) 8.9 mg/dL (8.5-10.1); CREATININE 1.32 mg/dL (0.55-1.02)
[2017-10-06 06:59] LABS: HYPOCHROMASIA 1+; PLATELET MORPHOLOGY COMMENT NORMAL (NORMAL)
[2017-10-06 07:00] LABS: ANISOCYTOSIS 1+
[2017-10-06] MEDS ORDERED: GLUCOTROL PO SCH (07:00)
[2017-10-06] MEDS ORDERED: SYNTHROID 75 mcg TAB PO SCH (07:00)
[2017-10-06 08:18] VITALS: BP 149/64
[2017-10-06] MEDS: SINGULAIR TAB 10 MG PO SCH (08:45)
[2017-10-06] MEDS: REQUIP PO SCH (08:46)
[2017-10-06] MEDS: LYRICA CAP 50 MG PO SCH ×2 (08:46→08:54)
[2017-10-06] MEDS: LOPRESSOR TAB 25 MG PO SCH (08:51)
[2017-10-06] MEDS: PROTONIX TAB 40 MG PO SCH (08:51)
[2017-10-06] MEDS: NexIUM PO SCH (08:51)
[2017-10-06] MEDS: PLETAL PO SCH (08:52)
[2017-10-06] MEDS ORDERED: DITROPAN TAB 5 MG PO SCH (09:00)
[2017-10-06] MEDS ORDERED: ZyrTEC TAB 10 MG PO SCH (09:00)
[2017-10-06] MEDS: NIZORAL PO SCH (10:54)
--- NOTE | 2017-10-06 21:49 | PCM.PROG ---
Progress Note - Progress Note for Day of Date: 10/05/17 - Subjective Subjective: WAS ADMITTED FOR HYPERGLYCEMIA AND GENERALIZED WEAKNESS. TODAY, SHE IS ALERT AND ORIENTED, LYING IN BED ON MORNING ROUNDS. SHE CONTINUES WITH COMPLAINTS OF GENERALIZED WEAKNESS. ON EXAMINATION, HEART IS REGULAR IN RATE AND RHYTHM. BILATERAL LUNGS ARE CLEAR TO AUSCULTATION. ABDOMEN IS ROUND, SOFT, AND NON-TENDER WITH NORMAL BOWEL SOUNDS NOTED IN ALL QUADRANTS. HER VITALS TODAY ARE 97.4-80-18-93%-143/61. LABS WERE OBTAINED. ABNORMAL LAB VALUES INCLUDE THE FOLLOWING: WBC 10.6, HGB 8.3, HCT 25.8, BUN 23, CREATININE 1.42, GLUCOSE 153, CALCIUM 7.6, TOTAL PROTEIN 6.3, ALBUMIN 2.4. CARDIAC ENZYMES AND EKGS WITHIN NORMAL LIMITS. TODAY, WE WILL CONTINUE WITH IV FLUIDS AND CURRENT PLAN OF CARE. WE WILL RESUME HOME MEDICATIONS. OTHERWISE, WE WILL FOLLOW UP WITH AM LABS AND CONTINUE TO MONITOR PATIENT. - Past Medical Family Social History Past Med/Fam/Surg Hx: No changes since H&P Allergies: Allergies bacitracin [From Neosporin ([id number])] Allergy (Verified 10/05/17 07:31) clopidogrel [From Plavix] Allergy (Verified 10/05/17 07:31) gabapentin [From Neurontin] Allergy (Verified 10/05/17 07:31) hydrochlorothiazide [From Hyzaar] Allergy (Verified 10/05/17 07:31) latex Allergy (Verified 10/05/17 07:31) losartan [From Hyzaar] Allergy (Verified 10/05/17 07:31) neomycin [From Neosporin (dek-ftm-azyqa)] Allergy (Verified 10/05/17 07:31) polymyxin B [From Neosporin ([id number]-omw-[id number])] Allergy (Verified 10/05/17 07:31) propoxyphene [From Darvon] Allergy (Verified 10/05/17 07:31) rosuvastatin [From Crestor] Allergy (Verified 10/05/17 07:31) No Dye Allergy (Uncoded 10/04/17 16:11) - Review of Systems ROS: No change since H&P - Vital Signs and I&O's Vital Signs: Temperature 97.5 F Pulse Rate [Left Brachial] 62 Pulse Rate [Right Brachial] 66 Pulse Rate 81 Respiratory Rate 20 Blood Pressure [Left Calf] 161/70 Blood Pressure [Right Calf] 123/58 Blood Pressure [Left Arm] 137/60 Blood Pressure [Right Arm] 149/64 Blood Pressure 147/77 O2 Sat by Pulse Oximetry 97 Intake and Output: Intake & Output 10/04/17 10/05/17 10/06/17 10/07/17 11:59 11:59 11:59 11:59 Intake Total 1682 / 1682 3220 / 3220 Output Total 1700 / 1700 Balance - 3220 / 3220 - Physical Exam Oriented: Normal Eyes: Blurred Vision Ear: Normal Nose: Normal Throat: Normal Respiratory: Normal Cardiovascular: Normal. negative: S3, S4, Murmur : Normal Auscultation: Bowel Sounds: Normal Palpation: Normal Tenderness: Normal Skin: Normal Musculoskeletal: Normal Psychiatric: Normal Mood Description: Calm Affect: Normal Speech Pattern: Clear - Laboratory and Diagnostics Result Diagrams: 10/06/17 05:15 10/06/17 05:15 Labs: Laboratory WBC 9.3 X10^3/uL (3.6-10.0) 10/06/17 05:15 RBC 3.42 X10^6/uL (3.5-5.4) L 10/06/17 05:15 Hgb 8.1 g/dL (12.0-16.0) L 10/06/17 05:15 Hct 24.7 % (36.0-47.0) L 10/06/17 05:15 MCV 72.2 fL (80.0-100.0) L 10/06/17 05:15 MCH 23.6 pg (27.0-34.0) L 10/06/17 05:15 MCHC 32.7 g/dL (33.0-35.0) L 10/06/17 05:15 RDW 21.4 % (11.6-16.5) H 10/06/17 05:15 Plt Count 276 X10^3/uL (150.0-450.0) 10/06/17 05:15 Plt Count Comment Adequate (ADEQUATE) 10/06/17 05:15 MPV 8.2 fL (7.4-11.0) 10/06/17 05:15 Neut % (Auto) 67.9 % (42.0-75.0) 10/06/17 05:15 Lymph % (Auto) 20.8 % (21.0-51.0) L 10/06/17 05:15 [place] % (Auto) 7.0 % (0.0-13.0) 10/06/17 05:15 Eos % (Auto) 3.4 % (0.9-2.9) H 10/06/17 05:15 Baso % (Auto) 0.9 % (0.2-1.0) 10/06/17 05:15 Neut # (Auto) 6.3 x10^3/uL (2.2-4.8) H 10/06/17 05:15 Lymph # (Auto) 1.9 X10^3/uL (1.3-2.9) 10/06/17 05:15 [place] # (Auto) 0.6 x10^3/uL (0.3-0.8) 10/06/17 05:15 Eos # (Auto) 0.3 x10^3/uL (0.0-0.2) H 10/06/17 05:15 Baso # (Auto) 0.1 X10^3/uL (0.0-0.1) 10/06/17 05:15 Absolute Nucleated RBC 0.0 /100WBC 10/06/17 05:15 Plt Morphology Comment Normal (NORMAL) 10/06/17 05:15 RBC Morphology Normal (NORMAL) 10/06/17 05:15 Hypochromasia 1+ A 10/06/17 05:15 Anisocytosis 1+ A 10/06/17 05:15 Microcytosis 1+ A 10/04/17 17:13 Sodium 137 mmol/L (136-145) 10/06/17 05:15 Corrected Sodium 139 mmol/L (136-145) 10/06/17 05:15 Potassium 3.8 mmol/L (3.5-5.1) 10/06/17 05:15 Chloride 104 mmol/L (98-107) 10/06/17 05:15 Carbon Dioxide 28.4 mmol/L (21-32) 10/06/17 05:15 BUN 17 mg/dL (7-18) 10/06/17 05:15 Creatinine 1.32 mg/dL (0.55-1.02) H 10/06/17 05:15 Est GFR (MDRD) Af Amer 52 (>60) L 10/06/17 05:15 Est GFR (MDRD) Non-Af 43 (>60) L 10/06/17 05:15 Glucose 187 mg/dL (65-99) H 10/06/17 05:15 Calcium 7.5 mg/dL (8.5-10.1) L 10/06/17 05:15 Corrected Calcium 8.9 mg/dL (8.5-10.1) 10/06/17 05:15 Total Bilirubin 0.20 mg/dL (0.2-1.0) 10/06/17 05:15 AST 17 Units/L (15-37) 10/06/17 05:15 ALT 24 Units/L (12-78) 10/06/17 05:15 Alkaline Phosphatase 96 Units/L (46-116) 10/06/17 05:15 Creatine Kinase 33 Units/L (26-192) 10/05/17 05:53 CK-MB (CK-2) 1.1 ng/mL (0-4.0) 10/05/17 05:53 CK/CKMB % Calc 3.3 % (<4) 10/05/17 05:53 Troponin I < 0.02 ng/mL (0-1.5) 10/05/17 05:53 Total Protein 6.0 g/dL (6.4-8.2) L 10/06/17 05:15 Albumin 2.3 g/dL (3.4-5.0) L 10/06/17 05:15 Globulin 3.7 g/dL (2.5-4.5) 10/06/17 05:15 Albumin/Globulin Ratio 0.6 Ratio (1.1-2.1) L 10/06/17 05:15 Specimen Type Random urine 10/04/17 21:23 Urine Color Yellow (YELLOW) 10/04/17 21:23 Urine Appearance Clear (CLEAR) 10/04/17 21:23 Urine pH 6.0 (5.0 - 8.0) 10/04/17 21:23 Ur Specific [place] 1.010 (1.000-1.030) 10/04/17 21:23 Urine Protein 1+ (NEGATIVE) 10/04/17 21:23 Urine Glucose (UA) Negative (NEGATIVE) 10/04/17 21:23 Urine Ketones Negative (NEGATIVE) 10/04/17 21:23 Urine Occult Blood Negative (NEGATIVE) 10/04/17 21:23 Urine Nitrite Negative (NEGATIVE) 10/04/17 21:23 Urine Bilirubin Negative (NEGATIVE) 10/04/17 21:23 Urine Urobilinogen Normal (NORMAL) 10/04/17 21:23 Ur Leukocyte Esterase Negative (NEGATIVE) 10/04/17 21:23 Urine RBC 0-2 /HPF (NONE SEEN) 10/04/17 21:23 Urine WBC 0-2 /HPF (NONE SEEN) 10/04/17 21:23 Ur Squamous Epith Cells Few /HPF (NEGATIVE) 10/04/17 21:23 Urine Bacteria Negative /HPF (NEGATIVE) 10/04/17 21:23 Hyaline Casts Few /LPF (NEGATIVE) 10/04/17 21:23 Ur Culture Indicated? No/not indicated 10/04/17 21:23 Acetone, Semi-Quant Negative (NEGATIVE) 10/04/17 17:13 - Plan (1) Diabetes mellitus type 1, uncontrolled, insulin dependent Status: Acute Qualifiers: Diabetes mellitus complication status: without complication Qualified Code( s): E10.65 - Type 1 diabetes mellitus with hyperglycemia Plan: OTBS ACHS, MONITOR LABS, RESUME HOME INSULINS (2) Generalized weakness Status: Acute Plan: NORMAL SALINE AT 50ML/HR, CONTINUE TO MONITOR
--- NOTE | 2017-10-08 23:25 | DR.CARTERD ---
- Discharge Summary for: Discharge Summary for Date of:: 10/06/17 - Admission Date Date of Admission: 10/04/17 - Admission Diagnoses Admission Diagnosis: (1) AMS (2) Dehydration (3) Generalized weakness (4) Diabetes mellitus type 1, uncontrolled, insulin dependent - Discharge Date Discharge Date: 10/06/17 - Discharge Diagnoses Discharge Diagnosis: (1) AMS (2) Dehydration (3) Generalized weakness (4) Diabetes mellitus type 1, uncontrolled, insulin dependent - Hospital Course Hospital Course: DAY ONE, MS. BARAHONA IS A 67 YEAR OLD PATIENT OF OURS WHO PRESENTED TO THE EMERGENCY ROOM WITH COMPLAINTS OF WEAKNESS, FATIGUE, AND AN INCREASED BLOOD SUGAR AT HOME. SHE REPORTED THAT HER BLOOD SUGAR WAS 315 JUST PRIOR TO ARRIVAL AT THE ER AND THAT SHE HAD BLURRED VISION AND SLURRED SPEECH. ON ARRIVAL, VITALS WERE 98.7-81-18-90%-147/77. LABS WERE OBTAINED. ABNORMAL LAB VALUES INCLUDED THE FOLLOWING: WBC 13.4, HGB 9.2, HCT 29.0, SODIUM 135, BUN 25, CREATININE 1.60, GLUCOSE 186, CALCIUM 7.7, ALBUMIN 2.8. CARDIAC ENZYMES WITHIN NORMAL LIMITS. URINALYSIS UNREMARKABLE. A BRAIN CT WAS OBTAINED AND REVEALED NO ACUTE INTRACRANIAL PROCESS, CEREBELLAR TONSILLAR ECTOPIA. A CHEST XRAY REVEALED NO ACUTE CARDIOPULMONARY DISEASE. EKG REVEALED SINUS RHYTHM WITH HR 79. PATIENT ADMITTED FOR FURTHER EVALUATION AND TREATMENT. SHE WAS STARTED ON NORMAL SALINE AT 50ML/HR. WE CONTINUED TO MONITOR. DAY TWO, SHE CONTINUED WITH COMPLAINTS OF GENERALIZED WEAKNESS. ON EXAMINATION, HEART WAS REGULAR IN RATE AND RHYTHM. BILATERAL LUNGS WERE CLEAR TO AUSCULTATION. ABDOMEN WAS ROUND, SOFT, AND NON-TENDER WITH NORMAL BOWEL SOUNDS NOTED IN ALL QUADRANTS. HER VITALS WERE 97.4-80-18-93%-143/61. LABS WERE OBTAINED. ABNORMAL LAB VALUES INCLUDED THE FOLLOWING: WBC 10.6, HGB 8.3, HCT 25.8, BUN 23, CREATININE 1.42, GLUCOSE 153, CALCIUM 7.6, TOTAL PROTEIN 6.3, ALBUMIN 2.4. CARDIAC ENZYMES AND EKGS WITHIN NORMAL LIMITS. WE CONTINUED WITH IV FLUIDS. WE RESUMED HOME MEDICATIONS AND CONTINUED TO MONITOR PATIENT. DAY THREE, PATIENT WAS NOTED WITH NO ALTERED MENTAL STATUS OR SLURRED SPEECH. SHE DENIED BLURRED VISION. VITAL SIGNS STABLE. LABS WNL. GLUCOSE 187. PATIENT REPORTED SHE FELT BETTER. WE PLANNED FOR DISCHARGE. INSTRUCTIONS FOR MEDICATIONS AND FOLLOW UP WERE DISCUSSED WITH PATIENT AND FAMILY, BOTH VOICED UNDERSTANDING. PATIENT DISCHARGED HOME IN STABLE CONDITION WITH FAMILY. - Discharge Medications Discharge Medications: amitriptyline 50 mg PO HS 10/04/17 [History] cilostazol 50 mg PO BID 10/04/17 [History] clonazepam 0.5 mg PO HS 10/04/17 [History] diphenhydramine HCl [Benadryl] 25 mg PO Q4-6H PRN 10/04/17 [History] esomeprazole magnesium [Nexium] 40 mg PO DAILY 10/04/17 [History] furosemide [Lasix] 40 mg PO BID 10/04/17 [History] glipizide 10 mg PO DAILY 10/04/17 [History] insulin glargine [Toujeo SoloStar U-300 Insulin] 70 unit SUB-Q Q24H 10/04/17 [ History] insulin lispro [Humalog U-100 Insulin] 10 unit SUB-Q TID 10/04/17 [History] ketoconazole 200 mg PO BID 10/04/17 [History] levocetirizine 5 mg PO DAILY 10/04/17 [History] levothyroxine 75 mcg PO ONCE 10/04/17 [History] metoprolol tartrate 12.5 mg PO BID 10/04/17 [History] montelukast 10 mg PO DAILY 10/04/17 [History] oxybutynin chloride 10 mg PO DAILY 10/04/17 [History] oxycodone 30 mg PO Q6H PRN 10/04/17 [History] pantoprazole [Protonix] 40 mg PO BID 10/04/17 [History] pregabalin [Lyrica] 50 mg PO BID 10/04/17 [History] rivaroxaban [Xarelto] 10 mg PO HS 10/04/17 [History] ropinirole 4 mg PO QID 10/04/17 [History] simvastatin [Zocor] 20 mg PO HS 10/04/17 [History] - Discharge Disposition Discharge Disposition: PATIENT IS TO FOLLOW UP IN OUR OFFICE IN ONE WEEK.
== END 2017-10-06 10:40 | disposition home or self-care (01) ==
LOC: OBS 16:37 → ER 16:37 → OBS 20:20 → MED/SURG 10-05 11:46
PROVIDERS: ADMIT Internal Medicine; ATTEND Internal Medicine
DX: R53.83 Other fatigue; R06.02 Shortness of breath; R94.31 Abnormal electrocardiogram [ECG] [EKG]; E86.0 Dehydration; Z79.899 Other long term (current) drug therapy; R53.1 Weakness; R47.81 Slurred speech; Z79.4 Long term (current) use of insulin; R41.82 Altered mental status, unspecified; I10 Essential (primary) hypertension; E10.65 Type 1 diabetes mellitus with hyperglycemia; H53.8 Other visual disturbances
CPT/HCPCS: 36415; 70450; 71010; 71045; 80053; 81001; 82009; 82550; 82553; 84484; 85025; 93005; 94760; 99284; G0378; J1817; J7030

== ENCOUNTER 2017-10-17 15:59 | Observation (INO) ==
[2017-10-17 17:18] VITALS: BMI 62.8
[2017-10-17 17:34] LABS: BASOPHILS # (AUTO) 0.1 X10^3/uL (0.0-0.1); BASOPHILS % (AUTO) 0.8 % (0.2-1.0); EOSINOPHILS # (AUTO) 0.2 x10^3/uL (0.0-0.2); EOSINOPHILS % (AUTO) 1.8 % (0.9-2.9); HEMOGLOBIN 9.2 g/dL (12.0-16.0); LYMPHOCYTES # (AUTO) 1.9 X10^3/uL (1.3-2.9); LYMPHOCYTES % (AUTO) 16.7 % (21.0-51.0); MEAN CORPUSCULAR HEMOGLOBIN 22.3 pg (27.0-34.0); MEAN CORPUSCULAR HGB CONC 31.8 g/dL (33.0-35.0); MEAN CORPUSCULAR VOLUME 70.3 fL (80.0-100.0); MEAN PLATELET VOLUME 7.9 fL (7.4-11.0); MONOCYTES # (AUTO) 0.9 x10^3/uL (0.3-0.8); NEUTROPHILS # (AUTO) 8.3 x10^3/uL (2.2-4.8); NEUTROPHILS % (AUTO) 72.7 % (42.0-75.0); PLATELET COUNT 382 X10^3/uL (150.0-450.0); RED BLOOD COUNT 4.12 X10^6/uL (3.5-5.4); RED CELL DISTRIBUTION WIDTH 20.9 % (11.6-16.5); WHITE BLOOD COUNT 11.4 X10^3/uL (3.6-10.0)
[2017-10-17] MEDS: LASIX IVP SCH (17:45)
[2017-10-17 17:52] LABS: PLATELET MORPHOLOGY COMMENT NORMAL (NORMAL)
[2017-10-17 17:53] LABS: ANISOCYTOSIS 2+; HYPOCHROMASIA 1+; MICROCYTOSIS 1+
[2017-10-17 17:58] LABS: ALBUMIN 2.8 g/dL (3.4-5.0); CALCIUM 8.6 mg/dL (8.5-10.1); CARBON DIOXIDE 30.4 mmol/L (21-32); COR CA(FOR HYPOALB) 9.6 mg/dL (8.5-10.1); CREATININE 1.79 mg/dL (0.55-1.02)
[2017-10-17] MEDS ORDERED: K-LYTE EFFERVESCENT PO PRN (20:36)
[2017-10-17] MEDS ORDERED: POTASSIUM CHL 60 MEQ/NS 0.45% 500 ML IV PRN (20:36)
[2017-10-17] MEDS ORDERED: POTASSIUM CHL 40 MEQ/NS 0.45% 500 ML IV PRN (20:36)
[2017-10-17] MEDS ORDERED: K-RIDER 10 MEQ/NS 100 ML 10 MEQ/100 ML BAG IV PRN (20:36)
[2017-10-17] MEDS ORDERED: POTASSIUM CHLORIDE LIQ 20 MEQ UDC PO PRN (20:36)
[2017-10-17] MEDS ORDERED: K-LYTE EFFERVESCENT PO ONE (21:21)
[2017-10-17] MEDS ORDERED: NS 250 ML IV 250 ML IV ONE (21:28)
[2017-10-17] MEDS: MAGNESIUM SULFATE 1 GRAM/100 mL PREMIX 1 GM/100 ML BAG IV PRN ×2 (21:45→22:51)
[2017-10-17] MEDS: HumuLIN R SUBCUT PRN (22:50)
[2017-10-18] MEDS: MAGNESIUM SULFATE 1 GRAM/100 mL PREMIX 1 GM/100 ML BAG IV PRN ×2 (00:47→01:50)
[2017-10-18 05:46] LABS: BASOPHILS # (AUTO) 0.1 X10^3/uL (0.0-0.1); BASOPHILS % (AUTO) 0.6 % (0.2-1.0); EOSINOPHILS # (AUTO) 0.2 x10^3/uL (0.0-0.2); HEMATOCRIT 26.5 % (36.0-47.0); HEMOGLOBIN 8.6 g/dL (12.0-16.0); LYMPHOCYTES # (AUTO) 1.7 X10^3/uL (1.3-2.9); LYMPHOCYTES % (AUTO) 18.2 % (21.0-51.0); MEAN CORPUSCULAR HEMOGLOBIN 22.8 pg (27.0-34.0); MEAN CORPUSCULAR HGB CONC 32.3 g/dL (33.0-35.0); MEAN CORPUSCULAR VOLUME 70.5 fL (80.0-100.0); MEAN PLATELET VOLUME 7.9 fL (7.4-11.0); MONOCYTES # (AUTO) 0.7 x10^3/uL (0.3-0.8); MONOCYTES % (AUTO) 7.6 % (0.0-13.0); NEUTROPHILS # (AUTO) 6.5 x10^3/uL (2.2-4.8); NEUTROPHILS % (AUTO) 71.6 % (42.0-75.0); PLATELET COUNT 358 X10^3/uL (150.0-450.0); RED BLOOD COUNT 3.75 X10^6/uL (3.5-5.4); RED CELL DISTRIBUTION WIDTH 20.6 % (11.6-16.5); WHITE BLOOD COUNT 9.1 X10^3/uL (3.6-10.0)
[2017-10-18] MEDS: HumuLIN R SUBCUT PRN ×2 (05:57→20:36)
[2017-10-18 06:06] LABS: ALBUMIN 2.4 g/dL (3.4-5.0); CALCIUM 8.1 mg/dL (8.5-10.1); CARBON DIOXIDE 34.5 mmol/L (21-32); COR CA(FOR HYPOALB) 9.4 mg/dL (8.5-10.1); CREATININE 1.74 mg/dL (0.55-1.02); TOTAL PROTEIN 6.5 g/dL (6.4-8.2)
[2017-10-18 06:27] LABS: PLATELET MORPHOLOGY COMMENT NORMAL (NORMAL)
[2017-10-18 06:28] LABS: ANISOCYTOSIS 2+; HYPOCHROMASIA 1+; STOMATOCYTES 1+
[2017-10-18] MEDS: LASIX IVP SCH (09:02)
[2017-10-18] MEDS ORDERED: PATIENT'S HOME MEDICATION (Oxycodone [Oxycodone] 30 MG) PO PRN (09:45)
[2017-10-18] MEDS ORDERED: PATIENT'S HOME MEDICATION (Levocetirizine [Levocetirizine] 5 MG) PO SCH (10:00)
[2017-10-18] MEDS ORDERED: PATIENT'S HOME MEDICATION (Levothyroxine [Levothyroxine] 75 MCG) PO SCH (10:00)
[2017-10-18] MEDS ORDERED: GLIPIZIDE 10 MG PO SCH (10:00)
[2017-10-18] MEDS ORDERED: PATIENT'S HOME MEDICATION (Oxybutynin Chloride [Oxybutynin Chloride] 10 MG) PO SCH (10:00)
[2017-10-18] MEDS ORDERED: KETOCONAZOLE 200 MG PO SCH (10:00)
[2017-10-18] MEDS ORDERED: ROPINIROLE 4 MG PO SCH (10:00)
[2017-10-18] MEDS ORDERED: CILOSTAZOL 50 MG PO SCH (10:00)
--- NOTE | 2017-10-18 12:14 | DR.UPDATE ---
H&P Update History and Physical Update: WAS SEEN IN THE OFFICE TODAY. A H&P WAS COMPLETED PRIOR TO ADMISSION. PATIENT HAS BEEN SEEN AND EXAMINED WITH NO CHANGES NOTED TO H&P. Changes noted: NO Yes with the following:
[2017-10-18] MEDS: LOPRESSOR TAB 25 MG PO SCH ×2 (12:39→20:34)
[2017-10-18] MEDS: SINGULAIR TAB 10 MG PO SCH (12:40)
[2017-10-18] MEDS: PROTONIX TAB 40 MG PO SCH (12:40)
[2017-10-18] MEDS: NexIUM PO SCH ×2 (12:40→20:33)
[2017-10-18] MEDS: NIZORAL PO SCH ×2 (12:41→20:38)
[2017-10-18] MEDS: TOUJEO SOLOSTAR PEN SC SCH (12:41)
[2017-10-18] MEDS: ROXICODONE TAB 15 MG PO PRN (12:41)
[2017-10-18] MEDS: DITROPAN TAB 5 MG PO SCH (12:41)
[2017-10-18] MEDS: HumaLOG SC SCH ×2 (12:42→16:29)
[2017-10-18] MEDS: REQUIP PO SCH ×3 (12:43→20:35)
[2017-10-18] MEDS: BENADRYL CAP/TAB 25 MG PO PRN ×2 (16:30→20:59)
[2017-10-18] MEDS ORDERED: SNACK - Diabetic Appropriate PO SCH (20:00)
--- NOTE | 2017-10-18 20:00 | PCM.PROG ---
Progress Note - Progress Note for Day of Date: 10/18/17 - Subjective Subjective: WAS ADMITTED FOR CHF EXACERBATION AND BILATERAL LOWER EXTREMITY CELLULITIS. TODAY, SHE IS ALERT AND ORIENTED, LYING IN BED ON MORNING ROUNDS. SHE CONTINUES WITH COMPLAINTS OF SHORTNESS OF BREATH AND EDEMA TO THE LOWER EXTREMITIES. ON EXAMINATION, HEART IS REGULAR IN RATE AND RHYTHM. BILATERAL LUNGS ARE NOTED WITH DIMINISHED LUNG SOUNDS THROUGHOUT. ABDOMEN IS ROUND, SOFT, AND NON-TENDER WITH NORMAL BOWEL SOUNDS NOTED IN ALL QUADRANTS. BILATERAL LOWER EXTREMITIES ARE NOTED WITH 1+ PITTING EDEMA AND ERYTHEMA. A COFFEY CATHETER IS NOTED TO BEDSIDE DRAINAGE. HER VITALS THIS MORNING ARE 98.2-82 -22-96%-146/66. LABS WERE OBTAINED. ABNORMAL LAB VALUES INCLUDE THE FOLLOWING: HGB 8.6, HCT 26.5, SODIUM 134, CHLORIDE 96, CARBON DIOXIDE 34.5, CREATININE 1.74 , GLUCOSE 193, CALCIUM 8.1, ALBUMIN 2.4. WE WILL ADMINISTER AN ADDITIONAL DOSE OF LASIX 80MG IV TONIGHT. OTHERWISE, WE WILL FOLLOW UP WITH AM LABS AND CONTINUE TO MONITOR PATIENT. - Past Medical Family Social History Past Med/Fam/Surg Hx: No changes since H&P Allergies: Allergies bacitracin [From Neosporin ([id number])] Allergy (Verified 10/05/17 07:31) clopidogrel [From Plavix] Allergy (Verified 10/05/17 07:31) gabapentin [From Neurontin] Allergy (Verified 10/05/17 07:31) hydrochlorothiazide [From Hyzaar] Allergy (Verified 10/05/17 07:31) latex Allergy (Verified 10/05/17 07:31) losartan [From Hyzaar] Allergy (Verified 10/05/17 07:31) neomycin [From Neosporin ([id number])] Allergy (Verified 10/05/17 07:31) polymyxin B [From Neosporin ([id number])] Allergy (Verified 10/05/17 07:31) propoxyphene [From Darvon] Allergy (Verified 10/05/17 07:31) rosuvastatin [From Crestor] Allergy (Verified 10/05/17 07:31) No Dye Allergy (Uncoded 10/04/17 16:11) - Review of Systems ROS: No change since H&P - Vital Signs and I&O's Vital Signs: Temperature 98.6 F Pulse Rate [Left Radial] 64 Respiratory Rate 24 Blood Pressure [RIGHT WRIST] 156/68 Blood Pressure [Left Calf] 161/70 Blood Pressure [Right Calf] 123/58 Blood Pressure [Left Arm] 137/60 Blood Pressure [Right Arm] 149/64 Blood Pressure 149/64 O2 Sat by Pulse Oximetry 94 Intake and Output: Intake & Output 10/16/17 10/17/17 10/18/17 10/19/17 11:59 11:59 11:59 11:59 Intake Total 1561 / 1561 570 / 570 Output Total 4075 / 4075 2600 / 2600 Balance -2514 / -2514 -2029 / -2029 - Physical Exam Oriented: Normal Eyes: Normal Ear: Normal Nose: Normal Throat: Normal Respiratory: Diminished Cardiovascular: Edema (BILATERAL LOWER EXTREMITY 2+ PITTING EDEMA ) : Normal Auscultation: Bowel Sounds: Normal Palpation: Normal Tenderness: Normal Skin: Normal Musculoskeletal: Normal Psychiatric: Normal Mood Description: Calm Affect: Normal Speech Pattern: Clear - Laboratory and Diagnostics Result Diagrams: 10/18/17 05:18 10/18/17 05:18 Labs: Laboratory WBC 9.1 X10^3/uL (3.6-10.0) 10/18/17 05:18 RBC 3.75 X10^6/uL (3.5-5.4) 10/18/17 05:18 Hgb 8.6 g/dL (12.0-16.0) L 10/18/17 05:18 Hct 26.5 % (36.0-47.0) L 10/18/17 05:18 MCV 70.5 fL (80.0-100.0) L 10/18/17 05:18 MCH 22.8 pg (27.0-34.0) L 10/18/17 05:18 MCHC 32.3 g/dL (33.0-35.0) L 10/18/17 05:18 RDW 20.6 % (11.6-16.5) H 10/18/17 05:18 Plt Count 358 X10^3/uL (150.0-450.0) 10/18/17 05:18 Plt Count Comment Adequate (ADEQUATE) 10/18/17 05:18 MPV 7.9 fL (7.4-11.0) 10/18/17 05:18 Neut % (Auto) 71.6 % (42.0-75.0) 10/18/17 05:18 Lymph % (Auto) 18.2 % (21.0-51.0) L 10/18/17 05:18 [place] % (Auto) 7.6 % (0.0-13.0) 10/18/17 05:18 Eos % (Auto) 2.0 % (0.9-2.9) 10/18/17 05:18 Baso % (Auto) 0.6 % (0.2-1.0) 10/18/17 05:18 Neut # (Auto) 6.5 x10^3/uL (2.2-4.8) H 10/18/17 05:18 Lymph # (Auto) 1.7 X10^3/uL (1.3-2.9) 10/18/17 05:18 [place] # (Auto) 0.7 x10^3/uL (0.3-0.8) 10/18/17 05:18 Eos # (Auto) 0.2 x10^3/uL (0.0-0.2) 10/18/17 05:18 Baso # (Auto) 0.1 X10^3/uL (0.0-0.1) 10/18/17 05:18 Absolute Nucleated RBC 0.1 /100WBC 10/18/17 05:18 Plt Morphology Comment Normal (NORMAL) 10/18/17 05:18 RBC Morphology Abnormal (NORMAL) A 10/18/17 05:18 Hypochromasia 1+ A 10/18/17 05:18 Anisocytosis 2+ A 10/18/17 05:18 Microcytosis 1+ A 10/17/17 17:12 Stomatocytes 1+ A 10/18/17 05:18 Sodium 134 mmol/L (136-145) L 10/18/17 05:18 Corrected Sodium 136 mmol/L (136-145) 10/18/17 05:18 Potassium 3.6 mmol/L (3.5-5.1) 10/18/17 05:18 Chloride 96 mmol/L (98-107) L 10/18/17 05:18 Carbon Dioxide 34.5 mmol/L (21-32) H 10/18/17 05:18 BUN 14 mg/dL (7-18) 10/18/17 05:18 Creatinine 1.74 mg/dL (0.55-1.02) H 10/18/17 05:18 Est GFR (MDRD) Af Amer 38 (>60) L 10/18/17 05:18 Est GFR (MDRD) Non-Af 31 (>60) L 10/18/17 05:18 Glucose 193 mg/dL (65-99) H 10/18/17 05:18 POC Glucose (mg/dL) 198 mg/dL (65-99) H 10/18/17 16:12 Calcium 8.1 mg/dL (8.5-10.1) L 10/18/17 05:18 Corrected Calcium 9.4 mg/dL (8.5-10.1) 10/18/17 05:18 Magnesium 2.6 mg/dL (1.7-2.9) 10/18/17 05:18 Total Bilirubin 0.30 mg/dL (0.2-1.0) 10/18/17 05:18 AST 20 Units/L (15-37) 10/18/17 05:18 ALT 24 Units/L (12-78) 10/18/17 05:18 Alkaline Phosphatase 99 Units/L (46-116) 10/18/17 05:18 Total Protein 6.5 g/dL (6.4-8.2) 10/18/17 05:18 Albumin 2.4 g/dL (3.4-5.0) L 10/18/17 05:18 Globulin 4.1 g/dL (2.5-4.5) 10/18/17 05:18 Albumin/Globulin Ratio 0.6 Ratio (1.1-2.1) L 10/18/17 05:18 - Plan (1) CHF (congestive heart failure) Status: Chronic Qualifiers: Heart failure type: unspecified Heart failure chronicity: acute on chronic Qualified Code(s): I50.9 - Heart failure, unspecified Plan: LASIX 80MG IV BID, COFFEY CATHETER, SUPPLEMENTAL OXYGEN, RESPIRATORY TREATMENTS, CONTINUE HOME MEDS, CONTINUE TO MONITOR (2) Cellulitis Status: Acute Qualifiers: Site of cellulitis: extremity Site of cellulitis of extremity: lower extremity Laterality: unspecified laterality Qualified Code(s): L03.119 - Cellulitis of unspecified part of limb (3) Diabetes mellitus type 1, uncontrolled, insulin dependent Status: Acute Qualifiers: Diabetes mellitus complication status: with unspecified complications Qualified Code(s): E10.8 - Type 1 diabetes mellitus with unspecified complications; E10.65 - Type 1 diabetes mellitus with hyperglycemia Plan: MONITOR OTBS, CONTINUE HOME MEDICATIONS
[2017-10-18] MEDS: PLETAL PO SCH (20:33)
[2017-10-18] MEDS ORDERED: KLONOPIN TAB 0.5 MG PO SCH (21:00)
[2017-10-18] MEDS ORDERED: ELAVIL PO SCH (21:00)
[2017-10-18] MEDS ORDERED: XARELTO PO SCH (21:00)
[2017-10-18] MEDS ORDERED: ZOCOR TAB 20 MG PO SCH (21:00)
[2017-10-18] MEDS ORDERED: AMITRIPTYLINE 50 MG PO SCH (21:00)
[2017-10-19] MEDS: ROXICODONE TAB 15 MG PO PRN (05:33)
[2017-10-19 06:33] LABS: BASOPHILS # (AUTO) 0.1 X10^3/uL (0.0-0.1); BASOPHILS % (AUTO) 0.7 % (0.2-1.0); EOSINOPHILS # (AUTO) 0.2 x10^3/uL (0.0-0.2); EOSINOPHILS % (AUTO) 2.3 % (0.9-2.9); HEMOGLOBIN 8.7 g/dL (12.0-16.0); LYMPHOCYTES % (AUTO) 21.5 % (21.0-51.0); MEAN CORPUSCULAR HEMOGLOBIN 22.8 pg (27.0-34.0); MEAN CORPUSCULAR HGB CONC 32.2 g/dL (33.0-35.0); MEAN CORPUSCULAR VOLUME 70.9 fL (80.0-100.0); MEAN PLATELET VOLUME 7.9 fL (7.4-11.0); MONOCYTES # (AUTO) 0.7 x10^3/uL (0.3-0.8); MONOCYTES % (AUTO) 7.6 % (0.0-13.0); NEUTROPHILS # (AUTO) 6.4 x10^3/uL (2.2-4.8); NEUTROPHILS % (AUTO) 67.9 % (42.0-75.0); PLATELET COUNT 337 X10^3/uL (150.0-450.0); RED BLOOD COUNT 3.82 X10^6/uL (3.5-5.4); WHITE BLOOD COUNT 9.4 X10^3/uL (3.6-10.0)
[2017-10-19] MEDS: HumaLOG SC SCH ×2 (06:33→12:10)
[2017-10-19 06:49] LABS: HYPOCHROMASIA SLIGHT; PLATELET MORPHOLOGY COMMENT NORMAL (NORMAL); POIKILOCYTOSIS SLIGHT
[2017-10-19 06:52] LABS: ALBUMIN 2.4 g/dL (3.4-5.0); COR CA(FOR HYPOALB) 9.3 mg/dL (8.5-10.1); CREATININE 1.58 mg/dL (0.55-1.02); TOTAL PROTEIN 6.5 g/dL (6.4-8.2)
[2017-10-19] MEDS ORDERED: SYNTHROID 75 mcg TAB PO SCH (07:00)
[2017-10-19] MEDS ORDERED: GLUCOTROL PO SCH (07:00)
[2017-10-19] MEDS: PLETAL PO SCH (10:13)
[2017-10-19] MEDS: NIZORAL PO SCH (10:13)
[2017-10-19] MEDS: DITROPAN TAB 5 MG PO SCH (10:13)
[2017-10-19] MEDS: LOPRESSOR TAB 25 MG PO SCH (10:13)
[2017-10-19] MEDS: TOUJEO SOLOSTAR PEN SC SCH (10:14)
[2017-10-19] MEDS: PROTONIX TAB 40 MG PO SCH (10:14)
[2017-10-19] MEDS: REQUIP PO SCH ×2 (10:14→13:10)
[2017-10-19] MEDS: SINGULAIR TAB 10 MG PO SCH (10:14)
[2017-10-19] MEDS ORDERED: EUCERIN TOP SCH (11:00)
[2017-10-19] MEDS ORDERED: LASIX IVP SCH (11:00)
[2017-10-19] MEDS ORDERED: TEMOVATE CREAM EXT SCH (11:00)
[2017-10-19 13:39] VITALS: BP 133/65
--- NOTE | 2017-11-13 22:42 | DR.CARTERD ---
- Discharge Summary for: Discharge Summary for Date of:: 10/19/17 - Admission Date Date of Admission: 10/17/17 - Admission Diagnoses Admission Diagnosis: (1) CHF (congestive heart failure) (2) Cellulitis (3) Diabetes mellitus type 1, uncontrolled, insulin dependent - Discharge Date Discharge Date: 10/19/17 - Discharge Diagnoses Discharge Diagnosis: (1) CHF (congestive heart failure) (2) Cellulitis (3) Diabetes mellitus type 1, uncontrolled, insulin dependent - Hospital Course Hospital Course: Ms. Covington presented to the hospital as a direct admission after being seen in the office with reports of lower extremity edema. Patient reported symptoms started one day prior with consistent pain and swelling with pitting edema. Patient reported she had been taking Lasix 40mg twice daily without improvement. Associated symptoms included hypertension and dyspnea on exertion. On auscultation of lung horner patient noted with diminished breath sounds throughout. Pitting edema noted to be 3+ to bilateral lower extremities. Patient admitted to the hospital for further evaluation and treatment. Patient started on IV Lasix 80mg twice daily. Medical History: CAD , Hypertension, CHF, COPD, Gerd, Renal Failure, Urinary Incontinence, Muscle Weakness, DM type II, Hypothyroidism, Anemia. Abnormal Labs: WBC 11.4, Hgb 9.2 , Hct 29.0, MCV 70.3, MCH 31.8, RDW 20.9, Lymph% 16.7, RBC Morphology Abnormal, Hypochromasia 1+, Anisocytosis 2+, Microcytosis 1+, Sodium 131, Corrected Sodium 133, Potassium 3.3, Chloride 91, Creatinine 1.79, GFR af 37, GFR non 30, Glucose 185, Magnesium 1.4, Albumin 2.8, Globulin 5.2, A/G Ratio 0.5. Chest X- Ray: No acute cardiopulmonary abnormality or significant change since prior. On day two, she continued with shortness of breath and edema to the lower extremities. Bilateral lungs were noted with diminished lung sounds on auscultation. Bilateral lower extremities were noted with 1+ pitting edema and erythema. We continued treatment and added an additional dose of Lasix 80mg IV for one dose. On day three, patient reported symptoms were greatly improved. Bilateral lower extremities were noted with minimal edema and no redness. She denied shortness of breath. Vital signs stable. Labs wnl. We planned for discharge. Instructions for medications and follow up were discussed with patient and family, both voiced understanding. Patient discharged home in stable condition with family. - Discharge Medications Discharge Medications: Prescriptions: None Home medications amitriptyline 50 mg PO HS 10/04/17 cilostazol 50 mg PO BID 10/04/17 clonazepam 0.5 mg PO HS 10/04/17 diphenhydramine HCl [Benadryl] 25 mg PO Q4-6H PRN 10/04/17 esomeprazole magnesium [Nexium] 40 mg PO DAILY 10/04/17 glipizide 10 mg PO DAILY 10/04/17 insulin glargine [Toujeo SoloStar U-300 Insulin] 70 unit SUB-Q Q24H 10/04/17 insulin lispro [Humalog U-100 Insulin] 10 unit SUB-Q TIDWM 10/04/17 ketoconazole 200 mg PO BID 10/04/17 levocetirizine 5 mg PO DAILY 10/04/17 levothyroxine 75 mcg PO DAILY 10/04/17 metoprolol tartrate 12.5 mg PO BID 10/04/17 montelukast 10 mg PO DAILY 10/04/17 oxybutynin chloride 10 mg PO DAILY 10/04/17 oxycodone 30 mg PO Q6H PRN 10/04/17 pantoprazole [Protonix] 40 mg PO DAILY 10/04/17 rivaroxaban [Xarelto] 10 mg PO HS 10/04/17 ropinirole 4 mg PO QID 10/04/17 simvastatin [Zocor] 20 mg PO HS 10/04/17 - Discharge Disposition Discharge Disposition: Patient is to follow up in our office in one week.
== END 2017-10-19 15:15 | disposition home or self-care (01) ==
LOC: ICU
PROVIDERS: ADMIT Internal Medicine; ATTEND Internal Medicine
DX: R60.0 Localized edema; I48.2 Chronic atrial fibrillation; D64.89 Other specified anemias; E10.65 Type 1 diabetes mellitus with hyperglycemia; Z66 Do not resuscitate; E66.9 Obesity, unspecified; R26.89 Other abnormalities of gait and mobility; R48.8 Other symbolic dysfunctions; I10 Essential (primary) hypertension; E03.8 Other specified hypothyroidism; E78.2 Mixed hyperlipidemia; I50.9 Heart failure, unspecified; L03.119 Cellulitis of unspecified part of limb; Z79.4 Long term (current) use of insulin
CPT/HCPCS: 36415; 71010; 71045; 80053; 83735; 85025; 92507; 92523; 97110; 97163; A4216; A4222; G0378; J1642; J1815; J1817; J1940; J3475; J7050; J8499

== ENCOUNTER 2017-12-03 15:45 | Observation (INO) ==
[2017-12-03 17:19] LABS: BASOPHILS # (AUTO) 0.1 X10^3/uL (0.0-0.1); BASOPHILS % (AUTO) 0.7 % (0.2-1.0); EOSINOPHILS # (AUTO) 0.3 x10^3/uL (0.0-0.2); EOSINOPHILS % (AUTO) 2.3 % (0.9-2.9); HEMATOCRIT 26.2 % (36.0-47.0); HEMOGLOBIN 8.3 g/dL (12.0-16.0); LYMPHOCYTES # (AUTO) 1.6 X10^3/uL (1.3-2.9); LYMPHOCYTES % (AUTO) 13.8 % (21.0-51.0); MEAN CORPUSCULAR HEMOGLOBIN 21.3 pg (27.0-34.0); MEAN CORPUSCULAR HGB CONC 31.5 g/dL (33.0-35.0); MEAN CORPUSCULAR VOLUME 67.4 fL (80.0-100.0); MEAN PLATELET VOLUME 7.6 fL (7.4-11.0); MONOCYTES # (AUTO) 0.7 x10^3/uL (0.3-0.8); MONOCYTES % (AUTO) 6.2 % (0.0-13.0); NEUTROPHILS # (AUTO) 8.8 x10^3/uL (2.2-4.8); PLATELET COUNT 337 X10^3/uL (150.0-450.0); RED BLOOD COUNT 3.89 X10^6/uL (3.5-5.4); RED CELL DISTRIBUTION WIDTH 20.4 % (11.6-16.5); WHITE BLOOD COUNT 11.4 X10^3/uL (3.6-10.0)
[2017-12-03] MEDS: TORADOL 15 MG VIAL IVP SCH ×2 (17:19→23:07)
[2017-12-03] MEDS: NS 1000 ML 1,000 ML IV SCH (17:19)
[2017-12-03 17:28] LABS: ALBUMIN 2.4 g/dL (3.4-5.0); CALCIUM 8.5 mg/dL (8.5-10.1); CARBON DIOXIDE 29.4 mmol/L (21-32); COR CA(FOR HYPOALB) 9.8 mg/dL (8.5-10.1); CREATININE 1.78 mg/dL (0.55-1.02)
[2017-12-03 17:33] LABS: ANISOCYTOSIS 1+; HYPOCHROMASIA 2+; MICROCYTOSIS 1+; PLATELET MORPHOLOGY COMMENT NORMAL (NORMAL)
[2017-12-03 18:10] VITALS: BMI 58.0
[2017-12-03] MEDS ORDERED: POTASSIUM CHL 40 MEQ/NS 0.45% 500 ML IV PRN (18:46)
[2017-12-03] MEDS ORDERED: K-RIDER 10 MEQ/NS 100 ML 10 MEQ/100 ML BAG IV PRN (18:46)
[2017-12-03] MEDS ORDERED: POTASSIUM CHLORIDE LIQ 20 MEQ UDC PO PRN (18:46)
[2017-12-03] MEDS ORDERED: K-LYTE EFFERVESCENT PO PRN (18:46)
[2017-12-03] MEDS ORDERED: POTASSIUM CHL 60 MEQ/NS 0.45% 500 ML IV PRN (18:46)
[2017-12-03] MEDS ORDERED: MAGNESIUM SULFATE 1 GRAM/100 mL PREMIX 1 GM/100 ML BAG IV PRN (19:06)
[2017-12-04 05:02] LABS: BASOPHILS # (AUTO) 0.1 X10^3/uL (0.0-0.1); BASOPHILS % (AUTO) 0.6 % (0.2-1.0); EOSINOPHILS # (AUTO) 0.3 x10^3/uL (0.0-0.2); EOSINOPHILS % (AUTO) 3.7 % (0.9-2.9); HEMATOCRIT 24.3 % (36.0-47.0); HEMOGLOBIN 7.8 g/dL (12.0-16.0); LYMPHOCYTES # (AUTO) 1.4 X10^3/uL (1.3-2.9); LYMPHOCYTES % (AUTO) 16.4 % (21.0-51.0); MEAN CORPUSCULAR HEMOGLOBIN 21.7 pg (27.0-34.0); MEAN CORPUSCULAR VOLUME 67.8 fL (80.0-100.0); MEAN PLATELET VOLUME 7.8 fL (7.4-11.0); MONOCYTES # (AUTO) 0.8 x10^3/uL (0.3-0.8); MONOCYTES % (AUTO) 8.6 % (0.0-13.0); NEUTROPHILS # (AUTO) 6.2 x10^3/uL (2.2-4.8); NEUTROPHILS % (AUTO) 70.7 % (42.0-75.0); PLATELET COUNT 342 X10^3/uL (150.0-450.0); RED BLOOD COUNT 3.58 X10^6/uL (3.5-5.4); RED CELL DISTRIBUTION WIDTH 20.1 % (11.6-16.5); WHITE BLOOD COUNT 8.7 X10^3/uL (3.6-10.0)
[2017-12-04 05:15] LABS: ALBUMIN 2.3 g/dL (3.4-5.0); CALCIUM 8.4 mg/dL (8.5-10.1); CARBON DIOXIDE 29.5 mmol/L (21-32); COR CA(FOR HYPOALB) 9.8 mg/dL (8.5-10.1); CREATININE 1.83 mg/dL (0.55-1.02); TOTAL PROTEIN 6.6 g/dL (6.4-8.2)
[2017-12-04] MEDS: TORADOL 15 MG VIAL IVP SCH ×5 (05:15→23:25)
[2017-12-04] MEDS: HumuLIN R SUBCUT PRN ×3 (05:35→22:25)
[2017-12-04 06:10] LABS: ANISOCYTOSIS 1+; HYPOCHROMASIA 2+; MICROCYTOSIS 1+; PLATELET MORPHOLOGY COMMENT NORMAL (NORMAL)
[2017-12-04] MEDS: NS 1000 ML 1,000 ML IV SCH ×2 (06:11→19:00)
[2017-12-04 06:14] LABS: BILIRUBIN,URINE NEGATIVE (NEGATIVE); BLOOD/HEMOGLOBIN,URINE 1+ (NEGATIVE); GLUCOSE, URINE NEGATIVE (NEGATIVE); KETONES,URINE NEGATIVE (NEGATIVE); LEUKOCYTE ESTERASE ,URINE 3+ (NEGATIVE); NITRITES,URINE POSITIVE (NEGATIVE); PROTEIN,URINE 1+ (NEGATIVE); UROBILINOGEN,URINE NORMAL (NORMAL)
[2017-12-04 06:46] LABS: APPEARANCE,URINE HAZY (CLEAR); COLOR,URINE YELLOW (YELLOW)
[2017-12-04 06:47] LABS: BACTERIA,URINE 1+ /HPF (NEGATIVE); SQUAMOUS EPITHELIAL CELL,UR MANY /HPF (NEGATIVE)
[2017-12-04] MEDS ORDERED: XYLOCAINE 1 % (PLAIN) ONE (09:45)
[2017-12-04 10:26] LABS: RETICULOCYTE % 2.05 % (0.8-2.2)
[2017-12-04] MEDS ORDERED: TAPENTADOL PO PRN (11:18)
[2017-12-04] MEDS ORDERED: OXYCODONE PO PRN (11:18)
[2017-12-04] MEDS ORDERED: BENADRYL CAP/TAB 25 MG PO PRN (11:18)
[2017-12-04] MEDS ORDERED: ANTIVERT TAB 25 MG PO PRN (11:18)
[2017-12-04] MEDS ORDERED: PATIENT'S HOME MEDICATION (Levocetirizine [Levocetirizine] 1 TAB) PO SCH (11:19)
[2017-12-04] MEDS ORDERED: KETOCONAZOLE PO SCH (11:30)
[2017-12-04] MEDS ORDERED: CILOSTAZOL PO SCH (11:30)
[2017-12-04] MEDS ORDERED: ACTIVASE CATHFLO IJ ONE (11:47)
[2017-12-04] MEDS ORDERED: ROXICODONE TAB 15 MG PO PRN (11:58)
[2017-12-04] MEDS ORDERED: NexIUM PO SCH (12:00)
[2017-12-04 12:01] LABS: BILIRUBIN,URINE NEGATIVE (NEGATIVE); BLOOD/HEMOGLOBIN,URINE NEGATIVE (NEGATIVE); GLUCOSE, URINE NEGATIVE (NEGATIVE); KETONES,URINE NEGATIVE (NEGATIVE); LEUKOCYTE ESTERASE ,URINE 2+ (NEGATIVE); NITRITES,URINE POSITIVE (NEGATIVE); PROTEIN,URINE NEGATIVE (NEGATIVE); UROBILINOGEN,URINE NORMAL (NORMAL)
[2017-12-04 12:06] LABS: APPEARANCE,URINE HAZY (CLEAR); COLOR,URINE YELLOW (YELLOW)
[2017-12-04 12:07] LABS: BACTERIA,URINE 3+ /HPF (NEGATIVE); RBC,URINE NONE SEEN /HPF (NONE SEEN); SQUAMOUS EPITHELIAL CELL,UR RARE /HPF (NEGATIVE)
[2017-12-04] MEDS: REQUIP PO SCH ×3 (12:52→22:22)
[2017-12-04] MEDS: SYNTHROID 75 mcg TAB PO SCH (12:53)
[2017-12-04] MEDS ORDERED: ROPINIROLE PO SCH (13:00)
[2017-12-04] MEDS: LOPRESSOR TAB 25 MG PO SCH ×2 (13:37→22:21)
[2017-12-04] MEDS: PLETAL PO SCH ×2 (13:38→22:21)
[2017-12-04] MEDS: PROTONIX TAB 40 MG PO SCH (13:40)
[2017-12-04] MEDS: SINGULAIR TAB 10 MG PO SCH (13:40)
[2017-12-04] MEDS: NIZORAL PO SCH ×2 (13:49→22:24)
[2017-12-04] MEDS: DITROPAN TAB 5 MG PO SCH (13:49)
[2017-12-04] MEDS: ROCEPHIN VIAL 1 GRAM 1 G in NS 100 ML IV + SPIKE MINIBAG* 100 ML IV SCH (15:31)
[2017-12-04] MEDS ORDERED: ELAVIL PO SCH (21:00)
[2017-12-04] MEDS ORDERED: XARELTO PO SCH (21:00)
[2017-12-04] MEDS ORDERED: COLACE CAP 100 MG PO SCH (21:00)
[2017-12-04] MEDS ORDERED: KLONOPIN TAB 1 MG PO SCH (21:00)
[2017-12-04] MEDS ORDERED: MILK OF MAGNESIA PO SCH (21:00)
--- NOTE | 2017-12-04 21:25 | PCM.PROG ---
Progress Note - Progress Note for Day of Date of Exam: 12/04/17 - Subjective Subjective: WAS ADMITTED FOR INTRACTABLE BACK PAIN. TODAY, SHE IS ALERT AND ORIENTED, LYING IN BED ON MORNING ROUNDS. SHE CONTINUES WITH COMPLAINTS OF LOWER BACK PAIN. ON EXAMINATION, HEART IS REGULAR IN RATE AND RHYTHM. BILATERAL LUNGS ARE NOTED WITH DIMINISHED LUNG SOUNDS THROUGHOUT. ABDOMEN IS ROUND, SOFT, AND NON-TENDER WITH NORMAL BOWEL SOUNDS NOTED IN ALL QUADRANTS. BACK IS NOTED WITH PARASPINOUS TENDERNESS TO THE LUMBAR REGION. SHE REPORTS MODERATE PAIN UPON AMBULATION. HER VITALS TODAY ARE 97.0-81-24-96%-132/ 61. LABS WERE OBTAINED. ABNORMAL LAB VALUES INCLUDE THE FOLLOWING: HGB 7.8, HCT 24.3, BUN 26, CREATININE 1.83, GLUCOSE 144, CALCIUM 8.4, IRON 17, ALBUMIN 2.3, FOLATE 7.4. A URINALYSIS WAS OBTAINED AND REPORTED: WBC 3-5, RBC NONE SEEN. BACTERIA 3+, LEUKOCYTES 2+, NITRITES POSITIVE. SHE IS CURRENTLY RECEIVING SCHEDULED IV TORADOL. TODAY, WE WILL OBTAIN AN ANEMIA PANEL AND START ROCEPHIN 1GM IV DAILY. WE WILL CONSULT DUE TO HER PORT A CATH NOT FUNCTIONING. OTHERWISE, WE WILL FOLLOW UP WITH AM LABS AND CONTINUE TO MONITOR PATIENT. - Past Medical Family Social History Past Med/Fam/Surg Hx: No changes since H&P Allergies: Allergies bacitracin [From Neosporin ([id number])] Allergy (Verified 12/03/17 17:05) clopidogrel [From Plavix] Allergy (Verified 12/03/17 17:05) gabapentin [From Neurontin] Allergy (Verified 12/03/17 17:05) hydrochlorothiazide [From Hyzaar] Allergy (Verified 12/03/17 17:05) latex Allergy (Verified 12/03/17 17:05) losartan [From Hyzaar] Allergy (Verified 12/03/17 17:05) neomycin [From Neosporin ([id number])] Allergy (Verified 12/03/17 17:05) polymyxin B [From Neosporin ([id number])] Allergy (Verified 12/03/17 17:05) propoxyphene [From Darvon] Allergy (Verified 12/03/17 17:05) rosuvastatin [From Crestor] Allergy (Verified 12/03/17 17:05) No Dye Allergy (Uncoded 10/04/17 16:11) - Review of Systems ROS: No change since H&P - Vital Signs and I&O's Vital Signs: Temperature 98.3 F Pulse Rate [Right Radial] 79 Respiratory Rate 20 Blood Pressure [RIGHT WRIST] 148/61 Blood Pressure [Left Calf] 161/70 Blood Pressure [Right Calf] 123/58 Blood Pressure [Left Arm] 137/60 Blood Pressure [Right Arm] 149/64 Blood Pressure 112/89 O2 Sat by Pulse Oximetry 96 Intake and Output: Intake & Output 12/02/17 12/03/17 12/04/17 12/05/17 11:59 11:59 11:59 11:59 Intake Total 698 / 698 490 / 490 Output Total 400 / 400 750 / 750 Balance 298 / 298 -260 / -260 - Physical Exam Oriented: Normal Eyes: Normal Ear: Normal Nose: Normal Throat: Normal Respiratory: Diminished Cardiovascular: Normal. negative: S3, S4, Murmur : Normal Auscultation: Bowel Sounds: Normal Palpation: Normal Tenderness: Normal Skin: Normal Musculoskeletal: Back:Lumbar, Tender Psychiatric: Normal Mood Description: Calm Affect: Normal Speech Pattern: Clear - Laboratory and Diagnostics Result Diagrams: 12/04/17 04:15 12/04/17 04:15 Labs: Laboratory WBC 8.7 X10^3/uL (3.6-10.0) 12/04/17 04:15 RBC 3.58 X10^6/uL (3.5-5.4) 12/04/17 04:15 Hgb 7.8 g/dL (12.0-16.0) L 12/04/17 04:15 Hct 24.3 % (36.0-47.0) L 12/04/17 04:15 MCV 67.8 fL (80.0-100.0) L 12/04/17 04:15 MCH 21.7 pg (27.0-34.0) L 12/04/17 04:15 MCHC 32.0 g/dL (33.0-35.0) L 12/04/17 04:15 RDW 20.1 % (11.6-16.5) H 12/04/17 04:15 Plt Count 342 X10^3/uL (150.0-450.0) 12/04/17 04:15 Plt Count Comment Adequate (ADEQUATE) 12/04/17 04:15 MPV 7.8 fL (7.4-11.0) 12/04/17 04:15 Neut % (Auto) 70.7 % (42.0-75.0) 12/04/17 04:15 Lymph % (Auto) 16.4 % (21.0-51.0) L 12/04/17 04:15 [place] % (Auto) 8.6 % (0.0-13.0) 12/04/17 04:15 Eos % (Auto) 3.7 % (0.9-2.9) H 12/04/17 04:15 Baso % (Auto) 0.6 % (0.2-1.0) 12/04/17 04:15 Neut # (Auto) 6.2 x10^3/uL (2.2-4.8) H 12/04/17 04:15 Lymph # (Auto) 1.4 X10^3/uL (1.3-2.9) 12/04/17 04:15 [place] # (Auto) 0.8 x10^3/uL (0.3-0.8) 12/04/17 04:15 Eos # (Auto) 0.3 x10^3/uL (0.0-0.2) H 12/04/17 04:15 Baso # (Auto) 0.1 X10^3/uL (0.0-0.1) 12/04/17 04:15 Absolute Nucleated RBC 0.4 /100WBC 12/04/17 04:15 Plt Morphology Comment Normal (NORMAL) 12/04/17 04:15 RBC Morphology Abnormal (NORMAL) A 12/04/17 04:15 Hypochromasia 2+ A 12/04/17 04:15 Anisocytosis 1+ A 12/04/17 04:15 Microcytosis 1+ A 12/04/17 04:15 Absolute Retic 0.0738 10^6/uL 12/04/17 04:15 Percent Retic 2.05 % (0.8-2.2) 12/04/17 04:15 Sodium 137 mmol/L (136-145) 12/04/17 04:15 Corrected Sodium 138 mmol/L (136-145) 12/04/17 04:15 Potassium 3.6 mmol/L (3.5-5.1) 12/04/17 04:15 Chloride 100 mmol/L (98-107) 12/04/17 04:15 Carbon Dioxide 29.5 mmol/L (21-32) 12/04/17 04:15 BUN 26 mg/dL (7-18) H 12/04/17 04:15 Creatinine 1.83 mg/dL (0.55-1.02) H 12/04/17 04:15 Est GFR (MDRD) Af Amer 36 (>60) L 12/04/17 04:15 Est GFR (MDRD) Non-Af 29 (>60) L 12/04/17 04:15 Glucose 144 mg/dL (65-99) H 12/04/17 04:15 POC Glucose (mg/dL) 178 mg/dL (65-99) H 12/04/17 16:29 Calcium 8.4 mg/dL (8.5-10.1) L 12/04/17 04:15 Corrected Calcium 9.8 mg/dL (8.5-10.1) 12/04/17 04:15 Magnesium 2.0 mg/dL (1.7-2.9) 12/04/17 04:15 Iron 17 ug/dL (50-175) L 12/04/17 04:15 Transferrin 244 mg/dL (202-364) 12/04/17 04:15 Ferritin 10 ng/mL (8-252) 12/04/17 04:15 Total Bilirubin 0.30 mg/dL (0.2-1.0) 12/04/17 04:15 AST 30 Units/L (15-37) 12/04/17 04:15 ALT 16 Units/L (12-78) 12/04/17 04:15 Alkaline Phosphatase 101 Units/L (46-116) 12/04/17 04:15 Total Protein 6.6 g/dL (6.4-8.2) 12/04/17 04:15 Albumin 2.3 g/dL (3.4-5.0) L 12/04/17 04:15 Globulin 4.3 g/dL (2.5-4.5) 12/04/17 04:15 Albumin/Globulin Ratio 0.5 Ratio (1.1-2.1) L 12/04/17 04:15 Vitamin B12 268 pg/mL (193-986) 12/04/17 04:15 Folate 7.4 ng/mL (>8.6) L 12/04/17 04:15 Specimen Type Catherized urine 12/04/17 11:48 Urine Color Yellow (YELLOW) 12/04/17 11:48 Urine Appearance Hazy (CLEAR) 12/04/17 11:48 Urine pH 5.0 (5.0 - 8.0) 12/04/17 11:48 Ur Specific [place] 1.010 (1.000-1.030) 12/04/17 11:48 Urine Protein Negative (NEGATIVE) 12/04/17 11:48 Urine Glucose (UA) Negative (NEGATIVE) 12/04/17 11:48 Urine Ketones Negative (NEGATIVE) 12/04/17 11:48 Urine Occult Blood Negative (NEGATIVE) 12/04/17 11:48 Urine Nitrite Positive (NEGATIVE) 12/04/17 11:48 Urine Bilirubin Negative (NEGATIVE) 12/04/17 11:48 Urine Urobilinogen Normal (NORMAL) 12/04/17 11:48 Ur Leukocyte Esterase 2+ (NEGATIVE) 12/04/17 11:48 Urine RBC None seen /HPF (NONE SEEN) 12/04/17 11:48 Urine WBC 3-5 /HPF (NONE SEEN) 12/04/17 11:48 Ur Squamous Epith Cells Rare /HPF (NEGATIVE) 12/04/17 11:48 Urine Bacteria 3+ /HPF (NEGATIVE) 12/04/17 11:48 Ur Culture Indicated? Yes/culture set up 12/04/17 11:48 - Plan (1) Intractable low back pain Status: Acute Plan: TORADOL 15MG IV Q6H TRICIA PAIN, PHYSICAL THERAPY, CONTINUE TO MONITOR (2) Urinary tract infection Status: Acute Qualifiers: Urinary tract infection type: acute cystitis Hematuria presence: without hematuria Qualified Code(s): N30.00 - Acute cystitis without hematuria Plan: ROCEPHIN 1GM IV DAILY, CONTINUE TO MONITOR (3) Anemia Status: Acute Qualifiers: Anemia type: iron deficiency Iron deficiency anemia type: unspecified iron deficiency Qualified Code(s): D50.9 - Iron deficiency anemia, unspecified Plan: ANEMIA PANEL, CONTINUE TO MONITOR
[2017-12-05] MEDS: TORADOL 15 MG VIAL IVP SCH ×2 (05:25→10:02)
[2017-12-05 05:43] LABS: BASOPHILS # (AUTO) 0.1 X10^3/uL (0.0-0.1); BASOPHILS % (AUTO) 0.9 % (0.2-1.0); EOSINOPHILS # (AUTO) 0.4 x10^3/uL (0.0-0.2); EOSINOPHILS % (AUTO) 3.9 % (0.9-2.9); HEMATOCRIT 25.5 % (36.0-47.0); HEMOGLOBIN 8.1 g/dL (12.0-16.0); LYMPHOCYTES # (AUTO) 1.7 X10^3/uL (1.3-2.9); LYMPHOCYTES % (AUTO) 16.8 % (21.0-51.0); MEAN CORPUSCULAR HEMOGLOBIN 21.7 pg (27.0-34.0); MEAN CORPUSCULAR HGB CONC 31.8 g/dL (33.0-35.0); MEAN CORPUSCULAR VOLUME 68.1 fL (80.0-100.0); MEAN PLATELET VOLUME 7.7 fL (7.4-11.0); MONOCYTES # (AUTO) 0.9 x10^3/uL (0.3-0.8); MONOCYTES % (AUTO) 9.5 % (0.0-13.0); NEUTROPHILS # (AUTO) 6.8 x10^3/uL (2.2-4.8); NEUTROPHILS % (AUTO) 68.9 % (42.0-75.0); PLATELET COUNT 354 X10^3/uL (150.0-450.0); RED BLOOD COUNT 3.74 X10^6/uL (3.5-5.4); RED CELL DISTRIBUTION WIDTH 20.5 % (11.6-16.5); WHITE BLOOD COUNT 9.9 X10^3/uL (3.6-10.0)
[2017-12-05 05:58] LABS: ALBUMIN 2.2 g/dL (3.4-5.0); CALCIUM 8.2 mg/dL (8.5-10.1); CARBON DIOXIDE 28.1 mmol/L (21-32); COR CA(FOR HYPOALB) 9.6 mg/dL (8.5-10.1); CREATININE 1.83 mg/dL (0.55-1.02); TOTAL PROTEIN 6.7 g/dL (6.4-8.2)
[2017-12-05 06:18] LABS: ANISOCYTOSIS 1+; HYPOCHROMASIA 2+; MICROCYTOSIS 1+; PLATELET MORPHOLOGY COMMENT NORMAL (NORMAL)
[2017-12-05] MEDS ORDERED: NYSTATIN POWDER ONE (06:46)
[2017-12-05] MEDS ORDERED: TOUJEO SOLOSTAR PEN SC SCH (09:00)
[2017-12-05] MEDS ORDERED: NYSTATIN POWDER TOP SCH (09:00)
[2017-12-05] MEDS: ROCEPHIN VIAL 1 GRAM 1 G in NS 100 ML IV + SPIKE MINIBAG* 100 ML IV SCH (09:50)
[2017-12-05] MEDS: PLETAL PO SCH (09:50)
[2017-12-05] MEDS: DITROPAN TAB 5 MG PO SCH (09:51)
[2017-12-05] MEDS: LOPRESSOR TAB 25 MG PO SCH (09:53)
[2017-12-05] MEDS: PROTONIX TAB 40 MG PO SCH (09:54)
[2017-12-05] MEDS: NIZORAL PO SCH (09:54)
[2017-12-05] MEDS: SYNTHROID 75 mcg TAB PO SCH (09:55)
[2017-12-05] MEDS: SINGULAIR TAB 10 MG PO SCH (09:55)
[2017-12-05] MEDS: REQUIP PO SCH ×2 (09:55→12:20)
[2017-12-05] MEDS: NS 1000 ML 1,000 ML IV SCH (10:30)
[2017-12-05 12:21] VITALS: BP 131/59
--- NOTE | 2018-01-06 22:19 | DR.CARTERD ---
- Discharge Summary for: Discharge Summary for Date of:: 12/05/17 - Admission Date Date of Admission: 12/03/17 - Admission Diagnoses Admission Diagnosis: (1) Intractable low back pain (2) Urinary tract infection (3) Anemia - Discharge Date Discharge Date: 12/05/17 - Discharge Diagnoses Discharge Diagnosis: (1) Intractable low back pain (2) E. Coli Urinary tract infection (3) Anemia - Hospital Course Hospital Course: Day one, Ms. Covington presented to the hospital as a direct admission after being seen in the office with reports of back pain. Patient reported pain as a stabbing pain to her right lower back. Pain reported it worsened with activity and position changes. Patient noted to be in distress in the office secondary to pain. Patient noted with tenderness on palpation to spine with decreased bending and rotation noted. Pain noted to bilateral lower extremities as well with range of motion. Medical History: Cataracts, Macular Degeneration, COPD, Sleep Apnea, Gerd, UTIs, Cystitis, Renal Disease, Hysterectomy, Muscle Weakness , Back Pain, DM type II, Hypothyroidism, Anemia. Abnormal Labs: WBC 11.4, Hgb 8.3, Hct 26.2, MCV 21.3, MCHC 31.5, RDW 20.4, Neut% 77.0, Lymph% 13.8, Neut# 8.8 , Eos# 0.3, RBC Morphology Abnormal, Hypochromasia 2+, Anisocytosis 1+, Microcytosis 1+, Sodium 134, Potassium 3.2, BUN 26, Creatinine 1.78, Glucose 163 , Albumin 2.4, Globulin 4.6, A/G Ratio 0.5. Patient admitted to the hospital as observation and started on Toradol 15mg IV scheduled every six hours. Medications: Humulin R sliding scale PRN, OTBS ACHS, Toradol 15mg IV Q6hr, NS @ 30ml/hr, Potassium Protocol PRN, Magnesium Protocol PRN. Day two, Ms. Covington was alert and oriented. She continued with lower back pain. On examination, back was noted with paraspinous tenderness to the lumbar region. We started Rocephin IV for UTI and consulted Dr. Manzanares for non-functioning portacath. Dr. Manzanares flushed portacath with Activase and portacath was functional. Patient tolerated well with no bleeding noted. On day three, patient reported that she was feeling better. She denied lower back pain. Urine culture was positive for E. Coli, which was sensitive to Rocephin. Vital signs stable. Labs wnl. We planned for discharge. Instructions for medications and follow up were discussed with patient and family, both voiced understanding. Patient discharged home in stable condition with family. Labs: Microbiology 12/04/17 11:48 Urine,Catheterized Urine Culture - Final Escherichia Coli - Discharge Medications Discharge Medications: Home Medication List RX: amitriptyline 50 mg PO HS 12/03/17 [History] RX: cilostazol 50 mg PO BID 12/03/17 [History] RX: diphenhydramine HCl [Benadryl] 25 mg PO PRN PRN 12/03/17 [History] RX: esomeprazole magnesium [Nexium] 40 mg PO DAILY 12/03/17 [History] RX: ketoconazole 200 mg PO BID 12/03/17 [History] RX: levocetirizine 5 mg PO DAILY 12/03/17 [History] RX: levothyroxine [Synthroid] 75 mcg PO DAILY 12/03/17 [History] RX: metoprolol tartrate 12.5 mg PO BID 12/03/17 [History] RX: montelukast [Singulair] 10 mg PO DAILY 12/03/17 [History] RX: oxybutynin chloride 10 mg PO DAILY 12/03/17 [History] RX: pantoprazole [Protonix] 40 mg PO DAILY 12/03/17 [History] RX: rivaroxaban [Xarelto] 10 mg PO HS 12/03/17 [History] RX: ropinirole 4 mg PO QID 12/03/17 [History] Prescriptions: Home Medications cyclobenzaprine 10 mg PO TID PRN 12/08/17 clonazepam 0.5 mg PO HS 12/15/17 furosemide [Lasix] 40 mg PO BID 12/15/17 meclizine 12.5 mg PO TID PRN 12/15/17 oxycodone 30 mg PO QID PRN 12/15/17 tapentadol 100 mg PO BID 12/15/17 insulin glargine U-300 conc [Toujeo SoloStar U-300 Insulin] 25 unit SUBCUT QDAY #1 unit 12/17/17 megestrol 40 mg PO BID #60 tab 12/17/17 - Discharge Disposition Discharge Disposition: Patient is to follow up in our office in one week.
== END 2017-12-05 14:28 | disposition home health service (06) ==
LOC: ICU
PROVIDERS: ADMIT Internal Medicine; ATTEND Internal Medicine
DX: B96.29 Other Escherichia coli [E. coli] as the cause of diseases classified elsewhere; D50.8 Other iron deficiency anemias; M54.89 Other dorsalgia; N30.00 Acute cystitis without hematuria; J44.9 Chronic obstructive pulmonary disease, unspecified; Z43.8 Encounter for attention to other artificial openings; M10.00 Idiopathic gout, unspecified site; E11.65 Type 2 diabetes mellitus with hyperglycemia; E87.5 Hyperkalemia; E03.8 Other specified hypothyroidism
CPT/HCPCS: 36415; 80053; 81001; 82607; 82728; 82746; 83540; 83735; 84466; 85025; 85045; 85060; 87086; 87088; 87186; A4216; A4222; G0378; J0696; J1642; J1815; J1885; J2997; J7030; J7050

== ENCOUNTER 2017-12-15 03:21 | Observation (INO) ==
[2017-12-15] MEDS ORDERED: TORADOL 60 MG VIAL IM ONE (03:24)
--- NOTE | 2017-12-15 03:30 | DR.GENAD ---
HPI - Complaint/Symptoms Chief Complaint Doctors Comments: Patient states she was going to the bathroom and when she stood up the water went everywhere and she had a chair in the bathroom she was trying to set on when the chair tilted over and she fell on the floor mainly on the right side hitting her right elbow, right knee and foot. states she was not able to get up from the floor after the fall and her brother called EMS. She denies head trauma or LOC. she denies neck pain. states the back pain is worst and the pain is 9 of 10 in her back. She denies dysuria, hematuria, nausea, vomitng, headache or dizziness. states she is on two liters oxygen at home all the time. She is a patient of Dr. Barger and her tetanus shot is up to date. She is a diabetic and states her glucose was running around [address] at home[address] Daughter states Dr. Barger has made plans for patient to go to the half-way and the patient agreed to go to the half-way earlier but today she states she do not want to go into the nursing now and will go at the end of the month. Patient lives alone but states she wants to go back home. Patient talked with her daughter and states she will now go into the half-way because she cannot take care of herself at home and she continues to fall. - Nurses notes reviewed Nurses Notes Review: Yes - Source History Provided: Patient, EMS - Mode of Arrival Mode of Arrival: EMS - Timing Came on: Suddenly - Duration Duration: Constant How lon Duration: Hours - Location Location: lower back ain - Severity Severity: Moderate - Modifying Factors Worsens:: movement Improves:: nothing PMH - PMH Past Medical History: Hypertension, Diabetes, Renal Disease, GERD, Arthritis Past Surgical History: Yes Surgical History: Cholecystectomy, Hysterectomy, Ortho Surgery - Family History Family Medical History: Cancer, [place] - Social History Do you use any recreational Drugs:: No ROS - Review of Systems Constitutional: No Symptoms Reported. negative: See HPI, Chills, Diaphoresis, Fever, Malaise, Weakness, Irritable, Fatigue, Loss of Appetite, Other Eyes: No Symptoms Reported ENTM: No Symptoms Reported Respiratoy: No Symptoms Reported Cardiovascular: No Symptoms Reported. negative: See HPI, Chest Pain, Edema, Palpitations, Syncope, Cyanosis, Skin Mottling, Other Gastrointestinal/Abdominal: No Symptoms Reported. negative: See HPI, Abdominal Pain, Constipation, Diarrhea, Nausea, Vomiting, Food Intolerance, Other Genitourinary: No Symptoms Reported, Frequency Neurological: No Symptoms Reported, Problems Walking (right knee and back pain) Musculoskeletal: No Symptoms Reported, Back Pain, Right, Knee, Foot Integumentary: No Symptoms Reported. negative: See HPI, Change in Color, Change in Hair/Nails, Dryness, Lesions, Lumps, Rash, Itching, Wound, Bruises, Juandice, Other Hematologic/Lymphatic: No Symptoms Reported, Easy Bruising Endocrine: No Symptoms Reported Psychiatric: No Symptoms Reported PE - General Limitations: No Limitations General Appearance: Alert, In Distress (moderate), Cachectic - Head Head Exam: Normal Inspection, Atraumatic, Normocephalic - Eyes Eye exam: Normal Appearance, PERRL, EOMI. negative: Scleral Icterus, Conjunctival Injection, Nystagmus, Miosis, Mydrasis, Periorbital Swelling, Periorbital Tenderness, Other - ENT ENT Exam: Normal Exam, Normal Oropharynx, Normal External Ear Exam, Mucous Membranes Moist, TM's Normal Bilaterally External Ear Exam: Normal External Inspection TM/Canal Exam: Bilateral Normal Nose Exam: Normal Nose Exam Mouth Exam: Normal Inspection Throat Exam: Normal Inspection - Neck Neck Exam: Normal Inspection, Full ROM, Trachea Midline - Chest Chest Inspection: Normal Inspection, Symmetric Chest Wall Rise - Respiratory Respiratory Exam: Normal Lung Sounds Bilat Respiratory Exam: Bilateral Clear to Auscultation - Cardiovascular Cardiovascular Exam: Regular Rate, Normal Rhythm, Normal Heart Sounds - Abdominal Exam Abdominal Exam: Normal Inspection, Normal Bowel Sounds, Soft. negative: Distention, Tenderness, Guarding, Rebound, Rigidity, Dimnished Bowel Sounds, Hyperactive Bowel Sounds, Hypoactive Bowel Sounds, Organomegaly, Trauma, Incision, Ascites, Mass, Bruit, Pulsatile Mass, Hernia, Other Abdominal Tenderness: negative: RUQ, RLQ, LUQ, LLQ, Epigastrium, Suprapubic, Diffuse, Mild, Moderate, Severe, Other - Extremities Extremities Exam: Normal Inspection, Full ROM, Tenderness (right knee wit 2 cm erythematous abrasion; tender on palpation and flexion), Normal Capillary Refill , Edema - Back Back Exam: Normal Inspection, Full ROM, Tenderness - Neurologic Neurological Exam: Alert, Oriented X3, CN II-XII Intact, Reflexes Normal. negative: Normal Gait (gait not tested) - Psychiatric Psychiatric Exam: Normal Affect, Normal Mood. negative: Depressed, Agitated, Anxious, Flat Affect, Manic, Homicidal Ideation, Suicidal Ideation, Other - Skin Skin Exam: Warm, Dry, Intact, Normal Color - Vital Signs Vitals: Temperature 97.2 F Pulse Rate [Left Radial] 82 Pulse Rate 80 Respiratory Rate 20 Blood Pressure [RIGHT WRIST] 111/51 Blood Pressure [Left Calf] 161/70 Blood Pressure [Right Calf] 123/58 Blood Pressure [Left Arm] 137/60 Blood Pressure [Right Arm] 149/64 Blood Pressure 122/47 O2 Sat by Pulse Oximetry 97 Course - Reevaluation 1st: Improved - Consultation Called: 06:56 Call Returned: 06:56 - Education/Counseling Education/Counseling: Patient, Family Educated On: Treatment, Diagnosis, Needs for Follow Up ROR - Labs Reviewed Laboratory Results Reviewed?: Yes - XRAY XRAY Interpreted by: Radiologist (CT lumbar spine: NO acute lumbar spine fracture or subluxation. Multilevel degenerative and postsurgical changes. Generalized osteopenia) XRAY Findings: x-ray right knee: No acute osseous abnormality. Foot: no fracture or dislo - Diagnosis Discharge Problem: Lumbar contusion, Encounter for examination for admission to half-way, Chronic kidney disease, Failure of outpatient treatment, Facet arthritis, degenerative, L5-S1 level, lumbosacral spine, History of anemia Diabetes Qualifiers: Diabetes mellitus type: type 2 Fall at home Qualifiers: Encounter type: initial encounter Qualified Code(s): W19.XXXA - Unspecified fall, initial encounter; Y92.009 - Unspecified place in unspecified non- institutional (private) residence as the place of occurrence of the external cause - Discharge Plan Disposition: 02 XFER [facility] HOSP Condition: Stable - Follow ups/Referrals Follow ups/Referrals: Samuel Barger [Primary Care Provider] - 3 days - Instructions
[2017-12-15] MEDS ORDERED: TORADOL 60 MG VIAL ONE (04:10)
--- NOTE | 2017-12-15 04:46 | CT ---
CT lumbar spine without contrast Indication: Fall Technique: CT images of the lumbar spine were obtained without contrast. Automatic exposure control w as utilized. Findings: There is marked generalized osteopenia, limiting evaluation of fine bony detail. The lumbar spine alignment is within normal limits. Previous lower lumbar posterior decompression is noted. The re is moderate to advanced multilevel discogenic and facet degenerative disease, worst at L5-S1. No a cute fracture or subluxation is identified. The paravertebral soft tissues are grossly unremarkable. Impression: No acute lumbar spine fracture or subluxation. Multilevel degenerative and postsurgical changes. Generalized osteopenia. Reported By:
--- NOTE | 2017-12-15 06:24 | RAD ---
Right knee, three views Indication: Fall Comparison: 09/06/2017 Findings: Arthroplasty hardware appears normally positioned. No acute cortical disruption or malalign ment. No significant joint effusion. There are chronic calcifications of the quadriceps and patellar tendons. Impression: No acute osseous abnormality. Reported By:
--- NOTE | 2017-12-15 06:25 | RAD ---
Examination: Right foot, three views History: Fell Findings: There is no evidence for acute fracture, dislocation or significant joint space deformity. Large calcaneal enthesophytes are present. Impression: No acute injury demonstrated. Reported By:
[2017-12-15 07:13] LABS: BASOPHILS # (AUTO) 0.1 X10^3/uL (0.0-0.1); BASOPHILS % (AUTO) 1.4 % (0.2-1.0); EOSINOPHILS # (AUTO) 0.5 x10^3/uL (0.0-0.2); EOSINOPHILS % (AUTO) 6.4 % (0.9-2.9); HEMATOCRIT 28.1 % (36.0-47.0); HEMOGLOBIN 8.9 g/dL (12.0-16.0); LYMPHOCYTES # (AUTO) 1.2 X10^3/uL (1.3-2.9); LYMPHOCYTES % (AUTO) 13.9 % (21.0-51.0); MEAN CORPUSCULAR HEMOGLOBIN 21.4 pg (27.0-34.0); MEAN CORPUSCULAR HGB CONC 31.8 g/dL (33.0-35.0); MEAN CORPUSCULAR VOLUME 67.2 fL (80.0-100.0); MEAN PLATELET VOLUME 7.4 fL (7.4-11.0); MONOCYTES # (AUTO) 0.6 x10^3/uL (0.3-0.8); MONOCYTES % (AUTO) 7.4 % (0.0-13.0); NEUTROPHILS # (AUTO) 6.1 x10^3/uL (2.2-4.8); NEUTROPHILS % (AUTO) 70.9 % (42.0-75.0); PLATELET COUNT 482 X10^3/uL (150.0-450.0); RED BLOOD COUNT 4.18 X10^6/uL (3.5-5.4); RED CELL DISTRIBUTION WIDTH 21.4 % (11.6-16.5); WHITE BLOOD COUNT 8.6 X10^3/uL (3.6-10.0)
[2017-12-15 07:25] LABS: BLOOD UREA NITROGEN 14 mg/dL (7-18); CALCIUM 8.9 mg/dL (8.5-10.1); CARBON DIOXIDE 33.4 mmol/L (21-32); CHLORIDE 95 mmol/L (98-107); COR NA(FOR HYPERGLY) 132 mmol/L (136-145); CREATININE 2.18 mg/dL (0.55-1.02); SODIUM 130 mmol/L (136-145); TROPONIN I < 0.02 ng/mL (0-1.5); eGFR NON BLACK RACES 24 (>60)
[2017-12-15 07:29] LABS: ALANINE AMINOTRANSFERASE 21 Units/L (12-78); ALBUMIN 2.9 g/dL (3.4-5.0); ALKALINE PHOSPHATASE 96 Units/L (46-116); ASPARTATE AMINO TRANSFERASE 27 Units/L (15-37); CKMB % 2.5 % (<4); COR CA(FOR HYPOALB) 9.8 mg/dL (8.5-10.1); CREATINE KINASE 57 Units/L (26-192); CREATINE KINASE MB 1.4 ng/mL (0-4.0); MAGNESIUM 2.2 mg/dL (1.7-2.9); TOTAL PROTEIN 7.8 g/dL (6.4-8.2)
[2017-12-15] MEDS ORDERED: PATIENT'S HOME MEDICATION (Cholecalciferol (Vitamin D3) [Vitamin D3] 5,000 UNIT) PO SCH (07:30)
[2017-12-15 07:40] LABS: PLATELET MORPHOLOGY COMMENT NORMAL (NORMAL)
[2017-12-15 07:41] LABS: ANISOCYTOSIS 1+; HYPOCHROMASIA 2+; MICROCYTOSIS 1+
[2017-12-15] MEDS ORDERED: CILOSTAZOL PO SCH (09:00)
[2017-12-15 10:15] VITALS: BMI 57.6
[2017-12-15] MEDS: ZOCOR TAB 20 MG PO SCH ×2 (10:26→21:08)
[2017-12-15] MEDS: VITAMIN D3 PO SCH (10:41)
[2017-12-15] MEDS: NexIUM PO SCH (10:41)
[2017-12-15] MEDS: LASIX PO SCH ×2 (10:42→21:08)
[2017-12-15] MEDS: LOPRESSOR TAB 25 MG PO SCH ×2 (10:42→21:07)
[2017-12-15] MEDS: PLETAL PO SCH ×2 (10:42→21:12)
[2017-12-15] MEDS: SYNTHROID 75 mcg TAB PO SCH (10:42)
[2017-12-15] MEDS ORDERED: ANTIVERT TAB 25 MG PO PRN (11:30)
[2017-12-15] MEDS ORDERED: PATIENT'S HOME MEDICATION (Levocetirizine [Levocetirizine] 5 MG) PO SCH (11:45)
[2017-12-15] MEDS ORDERED: KETOCONAZOLE 200 MG PO SCH (11:45)
[2017-12-15] MEDS ORDERED: PROTONIX TAB 40 MG PO SCH (12:00)
[2017-12-15] MEDS: SINGULAIR TAB 10 MG PO SCH (15:53)
[2017-12-15] MEDS: DITROPAN TAB 5 MG PO SCH (15:53)
[2017-12-15] MEDS: ROPINIROLE 4 MG PO SCH (16:41)
[2017-12-15] MEDS: TAPENTADOL 100 MG PO SCH ×2 (16:41→21:10)
[2017-12-15] MEDS: NS 1/2 + KCL 20 MEQ/L 1,000 ML IV SCH (18:20)
[2017-12-15] MEDS ORDERED: BUTT CREAM (COMPOUND) TOP PRN (20:28)
[2017-12-15] MEDS: REQUIP PO SCH (21:04)
[2017-12-15] MEDS: XARELTO PO SCH (21:06)
[2017-12-15] MEDS: ELAVIL PO SCH (21:07)
[2017-12-15] MEDS: KLONOPIN TAB 0.5 MG PO SCH (21:08)
[2017-12-15] MEDS: NIZORAL PO SCH (21:10)
[2017-12-15] MEDS: ZyrTEC TAB 10 MG PO SCH (21:11)
[2017-12-15 23:06] LABS: BILIRUBIN,URINE NEGATIVE (NEGATIVE); BLOOD/HEMOGLOBIN,URINE NEGATIVE (NEGATIVE); GLUCOSE, URINE NEGATIVE (NEGATIVE); KETONES,URINE NEGATIVE (NEGATIVE); LEUKOCYTE ESTERASE ,URINE NEGATIVE (NEGATIVE); NITRITES,URINE NEGATIVE (NEGATIVE); PROTEIN,URINE NEGATIVE (NEGATIVE); UROBILINOGEN,URINE NORMAL (NORMAL)
[2017-12-15 23:13] LABS: APPEARANCE,URINE CLEAR (CLEAR); COLOR,URINE YELLOW (YELLOW)
[2017-12-15] MEDS: ROXICODONE TAB 15 MG PO PRN (23:13)
[2017-12-16] MEDS: FLEXERIL TAB 10 MG PO PRN ×2 (00:51→20:57)
[2017-12-16] MEDS: NS 1/2 + KCL 20 MEQ/L 1,000 ML IV SCH ×2 (06:03→21:08)
[2017-12-16 06:12] LABS: BASOPHILS # (AUTO) 0.1 X10^3/uL (0.0-0.1); BASOPHILS % (AUTO) 1.2 % (0.2-1.0); EOSINOPHILS # (AUTO) 0.5 x10^3/uL (0.0-0.2); EOSINOPHILS % (AUTO) 4.8 % (0.9-2.9); HEMATOCRIT 23.1 % (36.0-47.0); HEMOGLOBIN 7.4 g/dL (12.0-16.0); LYMPHOCYTES # (AUTO) 1.2 X10^3/uL (1.3-2.9); LYMPHOCYTES % (AUTO) 12.4 % (21.0-51.0); MEAN CORPUSCULAR HEMOGLOBIN 21.5 pg (27.0-34.0); MEAN CORPUSCULAR HGB CONC 32.2 g/dL (33.0-35.0); MEAN CORPUSCULAR VOLUME 66.9 fL (80.0-100.0); MEAN PLATELET VOLUME 8.1 fL (7.4-11.0); MONOCYTES # (AUTO) 0.8 x10^3/uL (0.3-0.8); MONOCYTES % (AUTO) 8.1 % (0.0-13.0); NEUTROPHILS # (AUTO) 7.4 x10^3/uL (2.2-4.8); NEUTROPHILS % (AUTO) 73.5 % (42.0-75.0); PLATELET COUNT 392 X10^3/uL (150.0-450.0); RED BLOOD COUNT 3.45 X10^6/uL (3.5-5.4); RED CELL DISTRIBUTION WIDTH 21.6 % (11.6-16.5)
[2017-12-16 06:22] LABS: ALBUMIN 2.3 g/dL (3.4-5.0); CALCIUM 8.2 mg/dL (8.5-10.1); CARBON DIOXIDE 30.9 mmol/L (21-32); COR CA(FOR HYPOALB) 9.6 mg/dL (8.5-10.1); CREATININE 2.11 mg/dL (0.55-1.02); TOTAL PROTEIN 6.5 g/dL (6.4-8.2)
[2017-12-16] MEDS: SYNTHROID 75 mcg TAB PO SCH (06:30)
[2017-12-16 07:13] LABS: ANISOCYTOSIS 1+; HYPOCHROMASIA 2+; MICROCYTOSIS 1+; PLATELET MORPHOLOGY COMMENT NORMAL (NORMAL)
[2017-12-16] MEDS: VITAMIN D3 PO SCH (09:53)
[2017-12-16] MEDS: REQUIP PO SCH ×4 (09:53→20:58)
[2017-12-16] MEDS: ZyrTEC TAB 10 MG PO SCH (09:54)
[2017-12-16] MEDS: DITROPAN TAB 5 MG PO SCH (09:57)
[2017-12-16] MEDS: SINGULAIR TAB 10 MG PO SCH (09:57)
[2017-12-16] MEDS: LOPRESSOR TAB 25 MG PO SCH ×2 (09:57→20:56)
[2017-12-16] MEDS: LASIX PO SCH ×2 (09:57→20:58)
[2017-12-16] MEDS: PLETAL PO SCH ×2 (09:58→20:54)
[2017-12-16] MEDS: NexIUM PO SCH (09:59)
[2017-12-16] MEDS: TAPENTADOL 100 MG PO SCH ×2 (10:00→21:08)
[2017-12-16] MEDS: MEGACE PO SCH ×2 (10:03→20:58)
[2017-12-16] MEDS: HumuLIN R SUBCUT PRN ×3 (11:48→21:59)
[2017-12-16] MEDS: NIZORAL PO SCH ×2 (11:58→21:08)
[2017-12-16] MEDS: BENADRYL CAP/TAB 25 MG PO PRN (17:04)
[2017-12-16] MEDS: ROXICODONE TAB 15 MG PO PRN (17:04)
[2017-12-16 17:13] LABS: HEMATOCRIT 23.6 % (36.0-47.0); HEMOGLOBIN 7.6 g/dL (12.0-16.0)
[2017-12-16] MEDS: XARELTO PO SCH (20:57)
[2017-12-16] MEDS: ZOCOR TAB 20 MG PO SCH (20:57)
[2017-12-16] MEDS: ELAVIL PO SCH (20:57)
[2017-12-16] MEDS: KLONOPIN TAB 0.5 MG PO SCH (20:59)
[2017-12-16] MEDS ORDERED: TOUJEO SOLOSTAR PEN SC SCH (21:00)
--- NOTE | 2017-12-16 21:44 | DR.H&P ---
H&P - History & Physical for Day of: H&P Date: 12/15/17 - Chief Complaint Chief Complaint: back pain, elbow pain, knee pain, foot pain - History of Present Illness History of Present Illness: is a 67 year old patient of ours who presented to the [facility] emergency room with complaints of back pain from a fall at home. Patient states that she fell over a chair in the bathroom and landed on her right elbow, right knee, and right foot. She states she was not able to get up from the floor after the fall and her brother called EMS. She denies head trauma or LOC. She denies neck pain. States the back pain is worst and the pain is 9 of 10 in her back. She is a diabetic and states that her glucose was running around 200 at home. On arrival, vitals were 97.2-80-20- 97%-122/47. Labs were obtained. Abnormal lab values include the following: HGB 8.9, HCT 28.1, MCV 67.2, MCH 21.4, MCHC 31.8, RDW 21.4, PLT Count 482, INR 2.79 , APTT 50.5, Sodium 130, Corrected Sodium 132, Potassium 3.3, Chloride 95, Carbon Dioxide 33.4, Creatinine 2.18, GFR (AA) 29, GFR (NON) 24, Glucose 174, Albumin 2.9, Globulin 4.9, A/G ratio 0.6. Knee x-ray obtained and revealed: No acute osseous abnormality. Lumbar x-ray obtained and revealed: No acute lumbar spine fracture or subluxation. Foot x-ray obtained and revealed: No acute injury demonstrated. She was admitted to the hospital for further evaluation of weakness, diabetes mellitus, and multiple falls. We will continue to monitor and repeat labs in the AM. - Past Medical History Past Medical History: Hypertension, Diabetes, Renal Disease, GERD, Arthritis - Past Surgical History Surgical History: Cholecystectomy, Hysterectomy, Ortho Surgery - Family History Family Medical History: Cancer, [place] - Social History Does patient currently use any type of tobacco product: No Have you used tobacco products in the last 12 months: No Type of Tobacco Use: None Does any household member use tobacco: No Alcohol Use: None Drug Use: None - Medications Home Medications: bacitracin [From Neosporin ([id number])] Allergy (Verified 12/15/17 07:26) clopidogrel [From Plavix] Allergy (Verified 12/15/17 07:26) gabapentin [From Neurontin] Allergy (Verified 12/15/17 07:26) hydrochlorothiazide [From Hyzaar] Allergy (Verified 12/15/17 07:26) latex Allergy (Verified 12/15/17 07:26) losartan [From Hyzaar] Allergy (Verified 12/15/17 07:26) neomycin [From Neosporin ([id number])] Allergy (Verified 12/15/17 07:26) polymyxin B [From Neosporin ([id number]-[id number])] Allergy (Verified 12/15/17 07:26) propoxyphene [From Darvon] Allergy (Verified 12/15/17 07:26) rosuvastatin [From Crestor] Allergy (Verified 12/15/17 07:26) No Dye Allergy (Uncoded 12/08/17 20:14) CONTINUE taking the following medications clonazepam 0.5 mg PO HS 12/15/17 [History] furosemide [Lasix] 40 mg PO BID 12/15/17 [History] meclizine 12.5 mg PO TID PRN 12/15/17 [History] oxycodone 30 mg PO QID PRN 12/15/17 [History] sulfamethoxazole-trimethoprim 1 tab PO BID 12/15/17 [History] tapentadol [Nucynta ER] 100 mg PO BID 12/15/17 [History] - Review of Systems Constitutional: No Symptoms Reported Eyes: No Symptoms Reported ENT: No Symptoms Reported Respiratory: No Symptoms Reported Cardiovascular: No Symptoms Reported Gastrointestinal: No Symptoms Reported Genitourinary: No Symptoms Reported Musculoskeletal: See HPI, Back Pain, Leg Pain, Foot Pain Skin: No Symptoms Reported Neurological: No Symptoms Reported - Physical Exam Vital Signs: Temperature 98.9 F Pulse Rate [Right Brachial] 79 Pulse Rate [Left Radial] 78 Pulse Rate 80 Respiratory Rate 20 Blood Pressure [RIGHT WRIST] 111/51 Blood Pressure [Left Calf] 161/70 Blood Pressure [Right Calf] 123/58 Blood Pressure [Left Arm] 131/60 Blood Pressure [Right Arm] 151/67 Blood Pressure 122/47 O2 Sat by Pulse Oximetry 94 Oriented: Normal Eyes: Normal Ear: Normal Nose: Normal Throat: Normal Respiratory: Diminished Throughout Cardiovascular: Normal. negative: S3, S4, Murmur : Normal Auscultation: Bowel Sounds: Normal Palpation: Normal Tenderness: Normal Skin: Normal Musculoskeletal: Right, Elbow, Knee, Foot, Back:Lumbar, Swelling, Tender Psychiatric: Normal Mood Description: Calm Affect: Normal Speech Pattern: Clear - Assessment/Plan (1) Fall at home Qualifiers: Encounter type: initial encounter Qualified Code(s): W19.XXXA - Unspecified fall, initial encounter; Y92.009 - Unspecified place in unspecified non-institutional (private) residence as the place of occurrence of the external cause Status: Acute (2) Generalized weakness Status: Acute (3) Diabetes Qualifiers: Diabetes mellitus type: type 2 Diabetes mellitus fpc insulin use: with intermediate accountant use Diabetes mellitus complication status: with hyperglycemia Qualified Code(s): E11.65 - Type 2 diabetes mellitus with hyperglycemia; 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 Status: Chronic Plan: monitor otbs, humulin r sliding scale, continue home meds - Allergies Allergies/Adverse Reactions: Allergies Allergy/AdvReac Type Severity Reaction Status Date / Time bacitracin Allergy Verified 12/15/17 07:26 [From Neosporin ([id number])] clopidogrel [From Plavix] Allergy Verified 12/15/17 07:26 gabapentin [From Neurontin] Allergy Verified 12/15/17 07:26 hydrochlorothiazide Allergy Verified 12/15/17 07:26 [From Hyzaar] latex Allergy Verified 12/15/17 07:26 losartan [From Hyzaar] Allergy Verified 12/15/17 07:26 neomycin Allergy Verified 12/15/17 07:26 [From Neosporin ([id number]-[id number])] polymyxin B Allergy Verified 12/15/17 07:26 [From Neosporin ([id number]-ils-cqcib)] propoxyphene [From Darvon] Allergy Verified 12/15/17 07:26 rosuvastatin [From Crestor] Allergy Verified 12/15/17 07:26 No Dye Allergy Uncoded 12/08/17 20:14
[2017-12-16] MEDS: NYSTATIN POWDER TOP SCH (22:41)
[2017-12-17] MEDS: ROXICODONE TAB 15 MG PO PRN (05:11)
[2017-12-17 06:13] LABS: ALBUMIN 2.5 g/dL (3.4-5.0); CALCIUM 8.3 mg/dL (8.5-10.1); CARBON DIOXIDE 31.7 mmol/L (21-32); COR CA(FOR HYPOALB) 9.5 mg/dL (8.5-10.1); CREATININE 1.88 mg/dL (0.55-1.02); TOTAL PROTEIN 6.9 g/dL (6.4-8.2)
[2017-12-17 06:14] LABS: BASOPHILS % (AUTO) 0.6 % (0.2-1.0); EOSINOPHILS # (AUTO) 0.5 x10^3/uL (0.0-0.2); EOSINOPHILS % (AUTO) 6.4 % (0.9-2.9); HEMATOCRIT 24.7 % (36.0-47.0); LYMPHOCYTES # (AUTO) 1.7 X10^3/uL (1.3-2.9); MEAN CORPUSCULAR HEMOGLOBIN 21.8 pg (27.0-34.0); MEAN CORPUSCULAR HGB CONC 32.3 g/dL (33.0-35.0); MEAN CORPUSCULAR VOLUME 67.6 fL (80.0-100.0); MONOCYTES # (AUTO) 0.8 x10^3/uL (0.3-0.8); NEUTROPHILS # (AUTO) 5.2 x10^3/uL (2.2-4.8); PLATELET COUNT 401 X10^3/uL (150.0-450.0); RED BLOOD COUNT 3.65 X10^6/uL (3.5-5.4); RED CELL DISTRIBUTION WIDTH 21.1 % (11.6-16.5); WHITE BLOOD COUNT 8.3 X10^3/uL (3.6-10.0)
[2017-12-17] MEDS: HumuLIN R SUBCUT PRN ×3 (07:09→17:55)
[2017-12-17] MEDS: SYNTHROID 75 mcg TAB PO SCH (07:10)
[2017-12-17 07:22] LABS: ANISOCYTOSIS 1+; HYPOCHROMASIA 2+; PLATELET MORPHOLOGY COMMENT NORMAL (NORMAL)
[2017-12-17 07:23] LABS: MICROCYTOSIS 1+
[2017-12-17] MEDS: ZyrTEC TAB 10 MG PO SCH (09:13)
[2017-12-17] MEDS: SINGULAIR TAB 10 MG PO SCH (09:13)
[2017-12-17] MEDS: DITROPAN TAB 5 MG PO SCH (09:13)
[2017-12-17] MEDS: VITAMIN D3 PO SCH (09:13)
[2017-12-17] MEDS: TAPENTADOL 100 MG PO SCH (09:13)
[2017-12-17] MEDS: PLETAL PO SCH (09:14)
[2017-12-17] MEDS: NIZORAL PO SCH (09:14)
[2017-12-17] MEDS: NYSTATIN POWDER TOP SCH (09:14)
[2017-12-17] MEDS: REQUIP PO SCH ×2 (09:14→14:11)
[2017-12-17] MEDS: NexIUM PO SCH (09:14)
[2017-12-17] MEDS: LOPRESSOR TAB 25 MG PO SCH (09:15)
[2017-12-17] MEDS: LASIX PO SCH (09:15)
[2017-12-17] MEDS: MEGACE PO SCH (09:15)
[2017-12-17] MEDS ORDERED: COLACE CAP 100 MG PO SCH (10:00)
[2017-12-17] MEDS: MILK OF MAGNESIA PO SCH ×3 (11:21→17:54)
[2017-12-17] MEDS: BENADRYL CAP/TAB 25 MG PO PRN (14:11)
[2017-12-17] MEDS ORDERED: MAALOX or MYLANTA PO PRN (15:06)
[2017-12-17] MEDS ORDERED: DULCOLAX SUPPOSITORY 10 MG RECTAL ONE (16:00)
[2017-12-17 18:31] VITALS: BP 149/65
--- NOTE | 2018-01-26 21:35 | DR.CARTERD ---
- Discharge Summary for: Discharge Summary for Date of:: 12/17/17 - Admission Date Date of Admission: 12/15/17 - Admission Diagnoses Admission Diagnosis: (1) Intractable back pain (2) Fall at home (3) Generalized weakness (4) Diabetes - Discharge Date Discharge Date: 12/17/17 - Discharge Diagnoses Discharge Diagnosis: (1) Intractable back pain (2) Fall at home (3) Generalized weakness (4) Diabetes - Hospital Course Hospital Course: Ms. Covington is a 67 year old patient of ours who presented to the [facility] emergency room with complaints of back pain from a fall at home. Patient stated that she fell over a chair in the bathroom and landed on her right elbow, right knee, and right foot. She stated she was not able to get up from the floor after the fall and her brother called EMS. She denied head trauma or LOC. She denied neck pain. She stated the back pain was worse and the pain was 9 of 10 in her back. She was a diabetic and stated that her glucose was running around 200 at home. On arrival, vitals were 97.2-80-20-97%-122/47. Labs were obtained. Abnormal lab values included the following: HGB 8.9, HCT 28.1, MCV 67.2, MCH 21.4, MCHC 31.8, RDW 21.4, PLT Count 482, INR 2.79, APTT 50.5, Sodium 130, Corrected Sodium 132, Potassium 3.3, Chloride 95, Carbon Dioxide 33.4, Creatinine 2.18, GFR 24, Glucose 174, Albumin 2.9, Globulin 4.9, A/G ratio 0.6. Knee x-ray obtained and revealed: No acute osseous abnormality. Lumbar x-ray obtained and revealed: No acute lumbar spine fracture or subluxation. Foot x- ray obtained and revealed: No acute injury demonstrated. She was admitted to the hospital for further evaluation of weakness, diabetes mellitus, and multiple falls. We continued to monitor. Patient reported that she was unable to care for herself at home and requested halfway placement. We sought placement at [facility]. On day three, patient reported back pain was improving. She continued with unsteady gait. Vital signs stable. Labs wnl. We planned for discharge with monthly labs and PT/OT. We planned for discharge. Instructions for medications and follow up were discussed with patient and family, both voiced understanding. Patient discharged to [facility] in stable condition with family. - Discharge Medications Discharge Medications: Home Medication List clonazepam 0.5 mg PO HS 12/15/17 [History] furosemide [Lasix] 40 mg PO BID 12/15/17 [History] meclizine 12.5 mg PO TID PRN 12/15/17 [History] oxycodone 30 mg PO QID PRN 12/15/17 [History] tapentadol 100 mg PO BID 12/15/17 [History] insulin glargine U-300 conc [Toujeo SoloStar U-300 Insulin] 25 unit SUBCUT QDAY #1 unit 12/17/17 [Rx] megestrol 40 mg PO BID #60 tab 12/17/17 [Rx] Prescriptions: insulin glargine U-300 conc [Toujeo SoloStar U-300 Insulin] Samuel Barger megestrol Samuel Barger Home medications amitriptyline 50 mg PO HS 12/03/17 cilostazol 50 mg PO BID 12/03/17 diphenhydramine HCl [Benadryl] 25 mg PO PRN PRN 12/03/17 esomeprazole magnesium [Nexium] 40 mg PO DAILY 12/03/17 ketoconazole 200 mg PO BID 12/03/17 levocetirizine 5 mg PO DAILY 12/03/17 levothyroxine [Synthroid] 75 mcg PO DAILY 12/03/17 metoprolol tartrate 12.5 mg PO BID 12/03/17 montelukast [Singulair] 10 mg PO DAILY 12/03/17 oxybutynin chloride 10 mg PO DAILY 12/03/17 pantoprazole [Protonix] 40 mg PO DAILY 12/03/17 rivaroxaban [Xarelto] 10 mg PO HS 12/03/17 ropinirole 4 mg PO QID 12/03/17 cyclobenzaprine 10 mg PO TID PRN 12/08/17 - Discharge Disposition Discharge Disposition: We will follow up with patient in one week at halfway.
== END 2017-12-17 18:55 ==
LOC: MED/SURG 03:21 → ER 03:21 → MED/SURG 08:17
PROVIDERS: ADMIT Internal Medicine; ATTEND Internal Medicine
DX: I10 Essential (primary) hypertension; M54.5 Low back pain; M25.561 Pain in right knee; Z79.4 Long term (current) use of insulin; E11.65 Type 2 diabetes mellitus with hyperglycemia; E87.1 Hypo-osmolality and hyponatremia; Y92.092 Bedroom in other non-institutional residence as the place of occurrence of the external cause; R26.89 Other abnormalities of gait and mobility; M51.36 Other intervertebral disc degeneration, lumbar region; R79.1 Abnormal coagulation profile; M79.673 Pain in unspecified foot; W07.XXXA Fall from chair, initial encounter; R29.6 Repeated falls; R94.4 Abnormal results of kidney function studies; K21.9 Gastro-esophageal reflux disease without esophagitis; R53.1 Weakness
CPT/HCPCS: 36415; 72131; 73564; 73630; 80053; 81003; 82550; 82553; 83735; 84484; 85014; 85018; 85025; 85610; 85730; 94760; 96372; 96374; 97167; 99282; 99284; A4222; J7030; S0179; G0378; J1815; J1885

== ENCOUNTER 2018-06-14 02:54 | Observation (INO) ==
[2018-06-14 03:05] VITALS: BMI 58.0
--- NOTE | 2018-06-14 03:19 | DR.GENAD ---
HPI - PCP Primary Care Physician: BETTY - Complaint/Symptoms Chief Complaint Doctors Comments: Patient is complaining of chest pain radiating to both arms for the past hour. Patient states she woke up with chest pain. She denies cold, cough, fever or chills. she denies dysuria, hematuria, diarrhea or any recent trauma. she andre tobacco or alcohol use. Patient at the shelter complaining of chest pain was given nitroglycerin with drop in blood pressure. States her legs and feet has been swelling. Chief Complaint:: PATIENT STATES THAT SHE WOKE UP OUT OF HER SLEEP WITH CHEST PAINS ACROSS AND DOWN HER ARMS. Self Treatment fo Chief Complaint: NITRO - Nurses notes reviewed Nurses Notes Review: Yes - Source History Provided: Patient, [facility] - Mode of Arrival Mode of Arrival: Wheelchair - Timing Onset of Chief Complaint: 06/14/18 Came on: Gradually - Duration Duration: Constant How lon Duration: Hours - Location Location: chest pain - Severity Severity: Moderate - Modifying Factors Worsens:: nothing Improves:: nothing PMH - PMH Past Medical History: Yes Past Medical History: Anemia, Anxiety, Arthritis, COPD, Hypothyroidism Past Surgical History: No Surgical History: Cholecystectomy, Hysterectomy, Ortho Surgery - Family History History of Family Medical Conditions: No Family Medical History: Cancer, [place] - Social History Does patient currently use any type of tobacco product: No Have you used tobacco products in the last 12 months: No Type of Tobacco Use: None Does any household member use tobacco: No Do you use any recreational Drugs:: No Lives With: Other - infectious screening In the last 2 months have you had wt loss of >10#?: NO Have you had fever, night sweats or hemotysis?: No Have you traveled outside the country in the last 6 months?: No Isolation: Standard ROS - Review of Systems Constitutional: No Symptoms Reported Eyes: No Symptoms Reported ENTM: No Symptoms Reported Respiratoy: No Symptoms Reported Cardiovascular: No Symptoms Reported, Chest Pain, Edema. negative: See HPI, Palpitations, Syncope, Cyanosis, Skin Mottling, Other Gastrointestinal/Abdominal: No Symptoms Reported Genitourinary: No Symptoms Reported. negative: See HPI, Discharge, Dysuria, Frequency, Hematuria, Pain, Bleeding, Other Neurological: No Symptoms Reported Musculoskeletal: No Symptoms Reported Integumentary: No Symptoms Reported Hematologic/Lymphatic: No Symptoms Reported Endocrine: No Symptoms Reported Psychiatric: No Symptoms Reported. negative: See HPI, Anxiety, Depression, Hallucinations, Excessive crying, Suicidal, Other PE - General Limitations: No Limitations General Appearance: Alert, In No Apparent Distress - Head Head Exam: Normal Inspection, Atraumatic, Normocephalic - Eyes Eye exam: Normal Appearance, PERRL, EOMI. negative: Scleral Icterus, C onjunctival Injection, Nystagmus, Miosis, Mydrasis, Periorbital Swelling, Periorbital Tenderness, Other - ENT ENT Exam: Normal Exam, Normal Oropharynx, Normal External Ear Exam, Mucous Membranes Moist External Ear Exam: Normal External Inspection TM/Canal Exam: Bilateral Normal Nose Exam: Normal Nose Exam Mouth Exam: Normal Inspection Throat Exam: Normal Inspection - Neck Neck Exam: Normal Inspection, Full ROM, Trachea Midline. negative: Tenderness, Meningismus, Lymphadenopathy, Thyromegaly, Other - Chest Chest Inspection: Normal Inspection, Symmetric Chest Wall Rise - Respiratory Respiratory Exam: Normal Lung Sounds Bilat Respiratory Exam: Bilateral Clear to Auscultation - Cardiovascular Cardiovascular Exam: Regular Rate, Normal Rhythm, Normal Heart Sounds - Abdominal Exam Abdominal Exam: Normal Inspection, Normal Bowel Sounds, Soft Abdominal Tenderness: negative: RUQ, RLQ, LUQ, LLQ, Epigastrium, Suprapubic, Diffuse, Mild, Moderate, Severe, Other - Extremities Extremities Exam: Normal Inspection, Full ROM, Normal Capillary Refill. n egative: Tenderness, Edema, Joint Swelling, Calf Tenderness, Other - Back Back Exam: Normal Inspection, Full ROM. negative: Tenderness, (R) CVA Tenderness, (L) CVA Tenderness, Muscle Spasm, Paraspinal Tenderness, Vertebral Tenderness, Rashes, (R) Sciatic Notch Tenderness, (L) Sciatic Notch Tendern, (R) Straight Leg Raise, (L) Straight Leg Raise, Other - Neurologic Neurological Exam: Alert, Oriented X3, CN II-XII Intact, Reflexes Normal. negative: Normal Gait (gait not tested) - Psychiatric Psychiatric Exam: Normal Affect, Normal Mood - Skin Skin Exam: Warm, Dry, Intact, Normal Color, Erythema (right lower leg with swelling, warm with erythema; no discharge) - Vital Signs Vitals: Temperature 98.2 F Pulse Rate 74 Respiratory Rate 12 Blood Pressure [RIGHT WRIST] 111/51 Blood Pressure [Left Calf] 161/70 Blood Pressure [Right Calf] 123/58 Blood Pressure [Left Arm] 145/63 Blood Pressure [Right Arm] 151/67 Blood Pressure 139/84 O2 Sat by Pulse Oximetry 95 Course - Reevaluation 1st: Improved - Consultation Called: 04:22 (Dr. Betty stevens) - Education/Counseling Education/Counseling: Patient, Family Educated On: Treatment, Diagnosis, Needs for Follow Up ROR - Labs Reviewed Laboratory Results Reviewed?: Yes (All labs and x-ray results reviewed and discussed with patient) Result Diagrams: 06/14/18 03:25 06/14/18 03:25 - XRAY XRAY Interpreted by: Radiologist (CXR: Cardiomegaly and increased interstitial markings without other acute abnormality) - EKG Rate: 83 [place]: Normal Rhythm: NSR Block: None Hypertrophy: None ST: Normal, Nonsp - Labs Reviewed Laboratory: WBC 10.7 X10^3/uL (3.6-10.0) H 06/14/18 03:25 RBC 4.29 X10^6/uL (3.5-5.4) 06/14/18 03:25 Hgb 11.9 g/dL (12.0-16.0) L 06/14/18 03:25 Hct 36.0 % (36.0-47.0) 06/14/18 03:25 MCV 83.9 fL (80.0-100.0) 06/14/18 03:25 MCH 27.6 pg (27.0-34.0) 06/14/18 03:25 MCHC 32.9 g/dL (33.0-35.0) L 06/14/18 03:25 RDW 15.5 % (11.6-16.5) 06/14/18 03:25 Plt Count 224 X10^3/uL (150.0-450.0) 06/14/18 03:25 MPV 9.5 fL (7.4-11.0) 06/14/18 03:25 Neut % (Auto) 68.4 % (42.0-75.0) 06/14/18 03:25 Lymph % (Auto) 21.2 % (21.0-51.0) 06/14/18 03:25 [place] % (Auto) 5.3 % (0.0-13.0) 06/14/18 03:25 Eos % (Auto) 4.4 % (0.9-2.9) H 06/14/18 03:25 Baso % (Auto) 0.7 % (0.2-1.0) 06/14/18 03:25 Neut # (Auto) 7.3 x10^3/uL (2.2-4.8) H 06/14/18 03:25 Lymph # (Auto) 2.3 X10^3/uL (1.3-2.9) 06/14/18 03:25 [place] # (Auto) 0.6 x10^3/uL (0.3-0.8) 06/14/18 03:25 Eos # (Auto) 0.5 x10^3/uL (0.0-0.2) H 06/14/18 03:25 Baso # (Auto) 0.1 X10^3/uL (0.0-0.1) 06/14/18 03:25 Absolute Nucleated RBC 0.0 /100WBC 06/14/18 03:25 INR Target Range - 06/14/18 03:32 INR 1.29 (0.8-1.3) 06/14/18 03:32 APTT 35.3 SECONDS (22.9-36.5) 06/14/18 03:32 PTT Comment - 06/14/18 03:32 D-Dimer 932 ng/mL (0-400) H* 06/14/18 03:25 Sodium 138 mmol/L (136-145) 06/14/18 03:25 Corrected Sodium 144 mmol/L (136-145) 06/14/18 03:25 Potassium 3.5 mmol/L (3.5-5.1) 06/14/18 03:25 Chloride 100 mmol/L (98-107) 06/14/18 03:25 Carbon Dioxide 29.8 mmol/L (21-32) 06/14/18 03:25 BUN 25 mg/dL (7-18) H 06/14/18 03:25 Creatinine 1.59 mg/dL (0.55-1.02) H 06/14/18 03:25 Est GFR (MDRD) Af Amer 42 (>60) L 06/14/18 03:25 Est GFR (MDRD) Non-Af 35 (>60) L 06/14/18 03:25 Glucose 343 mg/dL (65-99) H 06/14/18 03:25 Calcium 8.6 mg/dL (8.5-10.1) 06/14/18 03:25 Corrected Calcium 9.6 mg/dL (8.5-10.1) 06/14/18 03:25 Magnesium 1.7 mg/dL (1.7-2.9) 06/14/18 03:25 Total Bilirubin 0.30 mg/dL (0.2-1.0) 06/14/18 03:25 AST 17 Units/L (15-37) 06/14/18 03:25 ALT 28 Units/L (12-78) 06/14/18 03:25 Alkaline Phosphatase 117 Units/L (46-116) H 06/14/18 03:25 Creatine Kinase 75 Units/L (26-192) 06/14/18 03:25 CK-MB (CK-2) 1.4 ng/mL (0-4.0) 06/14/18 03:25 CK/CKMB % Calc 1.9 % (<4) 06/14/18 03:25 Troponin I < 0.02 ng/mL (0-1.5) 06/14/18 03:25 Total Protein 6.6 g/dL (6.4-8.2) 06/14/18 03:25 Albumin 2.7 g/dL (3.4-5.0) L 06/14/18 03:25 Globulin 3.9 g/dL (2.5-4.5) 06/14/18 03:25 Albumin/Globulin Ratio 0.7 Ratio (1.1-2.1) L 06/14/18 03:25 - Diagnosis Discharge Problem: Chest pain, rule out acute myocardial infarction, Cellulitis of right lower leg, Hypothyroidism, Cardiomegaly Diabetes mellitus type 1, uncontrolled Qualifiers: Glycemic state: with hyperglycemia Qualified Code(s): E10.65 - Type 1 diabetes mellitus with hyperglycemia Chronic kidney disease (CKD) Qualifiers: Chronic kidney disease stage: stage 3 (moderate) Qualified Code(s): N18.3 - Chronic kidney disease, stage 3 (moderate) - Discharge Plan Condition: Stable - Follow ups/Referrals Follow ups/Referrals: Samuel Barger [Primary Care Provider] - 3 days - Instructions
[2018-06-14 03:43] LABS: BASOPHILS # (AUTO) 0.1 X10^3/uL (0.0-0.1); BASOPHILS % (AUTO) 0.7 % (0.2-1.0); EOSINOPHILS # (AUTO) 0.5 x10^3/uL (0.0-0.2); EOSINOPHILS % (AUTO) 4.4 % (0.9-2.9); HEMOGLOBIN 11.9 g/dL (12.0-16.0); LYMPHOCYTES # (AUTO) 2.3 X10^3/uL (1.3-2.9); LYMPHOCYTES % (AUTO) 21.2 % (21.0-51.0); MEAN CORPUSCULAR HEMOGLOBIN 27.6 pg (27.0-34.0); MEAN CORPUSCULAR HGB CONC 32.9 g/dL (33.0-35.0); MEAN CORPUSCULAR VOLUME 83.9 fL (80.0-100.0); MEAN PLATELET VOLUME 9.5 fL (7.4-11.0); MONOCYTES # (AUTO) 0.6 x10^3/uL (0.3-0.8); MONOCYTES % (AUTO) 5.3 % (0.0-13.0); NEUTROPHILS # (AUTO) 7.3 x10^3/uL (2.2-4.8); NEUTROPHILS % (AUTO) 68.4 % (42.0-75.0); PLATELET COUNT 224 X10^3/uL (150.0-450.0); RED BLOOD COUNT 4.29 X10^6/uL (3.5-5.4); RED CELL DISTRIBUTION WIDTH 15.5 % (11.6-16.5); WHITE BLOOD COUNT 10.7 X10^3/uL (3.6-10.0)
--- NOTE | 2018-06-14 03:53 | RAD ---
Chest AP portable Indication: Chest pain. Comparison: 10/17/2017 Findings: There is no pneumothorax or effusion. There is no consolidation. Heart size is prominent. Port-A-Cath tip is over the SVC. Monitoring leads obscure detail. Impression: Cardiomegaly and increased interstitial markings without other acute abnormality. Reported By:
[2018-06-14 03:58] LABS: BLOOD UREA NITROGEN 25 mg/dL (7-18); CALCIUM 8.6 mg/dL (8.5-10.1); CARBON DIOXIDE 29.8 mmol/L (21-32); CHLORIDE 100 mmol/L (98-107); COR NA(FOR HYPERGLY) 144 mmol/L (136-145); CREATININE 1.59 mg/dL (0.55-1.02); SODIUM 138 mmol/L (136-145); TROPONIN I < 0.02 ng/mL (0-1.5); eGFR NON BLACK RACES 35 (>60)
[2018-06-14 04:02] LABS: ALANINE AMINOTRANSFERASE 28 Units/L (12-78); ALBUMIN 2.7 g/dL (3.4-5.0); ALKALINE PHOSPHATASE 117 Units/L (46-116); ASPARTATE AMINO TRANSFERASE 17 Units/L (15-37); CKMB % 1.9 % (<4); COR CA(FOR HYPOALB) 9.6 mg/dL (8.5-10.1); CREATINE KINASE 75 Units/L (26-192); CREATINE KINASE MB 1.4 ng/mL (0-4.0); MAGNESIUM 1.7 mg/dL (1.7-2.9); TOTAL PROTEIN 6.6 g/dL (6.4-8.2)
[2018-06-14] MEDS ORDERED: MORPHINE SULFATE INJ 2 MG INJ IVP ONE (04:16)
[2018-06-14] MEDS ORDERED: ROCEPHIN VIAL 1 GRAM IVP ONE (04:19)
[2018-06-14] MEDS ORDERED: MORPHINE SULFATE INJ 2 MG INJ ONE (04:20)
[2018-06-14] MEDS: NS 1000 ML 1,000 ML IV SCH ×2 (04:30→13:23)
[2018-06-14] MEDS ORDERED: ROCEPHIN VIAL 1 GRAM ONE (04:33)
[2018-06-14] MEDS ORDERED: MORPHINE SULFATE INJ 2 MG INJ IVP PRN (07:10)
[2018-06-14 09:12] LABS: BILIRUBIN,URINE NEGATIVE (NEGATIVE); BLOOD/HEMOGLOBIN,URINE NEGATIVE (NEGATIVE); GLUCOSE, URINE 1+ (NEGATIVE); KETONES,URINE NEGATIVE (NEGATIVE); LEUKOCYTE ESTERASE ,URINE 1+ (NEGATIVE); NITRITES,URINE NEGATIVE (NEGATIVE); PH,URINE 6.5 (5.0 - 8.0); PROTEIN,URINE NEGATIVE (NEGATIVE); UROBILINOGEN,URINE NORMAL (NORMAL)
[2018-06-14 09:25] LABS: APPEARANCE,URINE CLEAR (CLEAR); COLOR,URINE YELLOW (YELLOW); RBC,URINE 0-2 /HPF (NONE SEEN)
[2018-06-14 09:26] LABS: BACTERIA,URINE 1+ /HPF (NEGATIVE); SQUAMOUS EPITHELIAL CELL,UR FEW /HPF (NEGATIVE)
[2018-06-14 09:58] LABS: CKMB % 1.7 % (<4); CREATINE KINASE 89 Units/L (26-192); CREATINE KINASE MB 1.5 ng/mL (0-4.0); TROPONIN I < 0.02 ng/mL (0-1.5)
[2018-06-14] MEDS: HumuLIN R SUBCUT PRN ×2 (11:29→16:14)
[2018-06-14 12:33] LABS: CALCIUM 8.4 mg/dL (8.5-10.1); CREATININE 1.58 mg/dL (0.55-1.02)
[2018-06-14] MEDS ORDERED: REQUIP PO ONE ×2 (14:06→14:23)
--- NOTE | 2018-06-14 15:37 | CT ---
CT CHEST WITHOUT IV CONTRAST CLINICAL HISTORY: 67-year-old female with shortness of breath. History of COPD. COMPARISON: Chest radiograph this date. TECHNIQUE: Contiguous axial CT images were obtained of the chest without contrast and reformatted in the sagittal and coronal planes. FINDINGS: Study is limited secondary to patient body habitus contacting the CT gantry producing beam hardening and streak artifact. Base of the neck and thyroid are unremarkable for study without contrast. Heart is normal in size without pericardial effusion. Atherosclerotic calcification of coronary vessels and aortic annulus. No focal areas of consolidation are identified in the lungs. No pleural effusion or pneumothorax is seen. No pathologically enlarged lymph nodes are identified in the mediastinum or brinda, though detection is difficult in the absence of intravenous contrast. Scattered, nonspecific, nonenlarged reactive appearing lymph nodes within the mediastinum and perihilar distributions. Imaged upper abdomen without acute abnormality. No fracture, dislocation or abnormal lytic or blastic bone lesions are identified. IMPRESSION: 1. No acute intrathoracic process. Reported By:
[2018-06-14 16:12] VITALS: BP 170/90
[2018-06-14 16:25] LABS: CKMB % 2.3 % (<4); CREATINE KINASE 71 Units/L (26-192); CREATINE KINASE MB 1.6 ng/mL (0-4.0); TROPONIN I < 0.02 ng/mL (0-1.5)
[2018-06-14] MEDS ORDERED: SNACK - Diabetic Appropriate PO SCH (20:00)
== END 2018-06-14 16:23 ==
LOC: ER 02:55 → MED/SURG 02:55
PROVIDERS: ADMIT Internal Medicine; ATTEND Internal Medicine
DX: E03.8 Other specified hypothyroidism; I12.9 Hypertensive chronic kidney disease with stage 1 through stage 4 chronic kidney disease, or unspecified chronic kidney disease; R79.1 Abnormal coagulation profile; E10.65 Type 1 diabetes mellitus with hyperglycemia; F41.8 Other specified anxiety disorders; J44.9 Chronic obstructive pulmonary disease, unspecified; N18.3 Chronic kidney disease, stage 3 (moderate); L03.115 Cellulitis of right lower limb; K21.9 Gastro-esophageal reflux disease without esophagitis; Z79.899 Other long term (current) drug therapy; R07.89 Other chest pain; R60.0 Localized edema
CPT/HCPCS: 36415; 36591; 71010; 71045; 71250; 80048; 80053; 81001; 82550; 82553; 83735; 84484; 85025; 85378; 85610; 85730; 87086; 93005; 94760; 96365; 96367; 96372; 96374; 96375; 99283; 99284; G0378; J0696; J1642; J1815; J2270; J7030

== ENCOUNTER 2019-12-08 08:47 | Inpatient (IN) ==
[2019-12-08 09:19] VITALS: BMI 54.9
[2019-12-08 09:45] LABS: ABG BASE EXCESS 2.6 mmol/L (-2.0-2.0); ABG HCO3 26.2 mmol/L (22-26)
[2019-12-08 10:34] LABS: BASOPHILS % (AUTO) 0.1 % (0.2-1.0); HEMATOCRIT 43.7 % (36.0-47.0); LYMPHOCYTES # (AUTO) 0.5 X10^3/uL (1.3-2.9); LYMPHOCYTES % (AUTO) 3.5 % (21.0-51.0); MEAN CORPUSCULAR HEMOGLOBIN 26.2 pg (27.0-34.0); MEAN CORPUSCULAR HGB CONC 32.1 g/dL (33.0-35.0); MEAN CORPUSCULAR VOLUME 81.8 fL (80.0-100.0); MEAN PLATELET VOLUME 9.9 fL (7.4-11.0); MONOCYTES # (AUTO) 0.5 x10^3/uL (0.3-0.8); MONOCYTES % (AUTO) 3.6 % (0.0-13.0); NEUTROPHILS # (AUTO) 13.7 x10^3/uL (2.2-4.8); NEUTROPHILS % (AUTO) 92.8 % (42.0-75.0); PLATELET COUNT 177 X10^3/uL (150.0-450.0); RED BLOOD COUNT 5.34 X10^6/uL (3.5-5.4); RED CELL DISTRIBUTION WIDTH 17.9 % (11.6-16.5); WHITE BLOOD COUNT 14.8 X10^3/uL (3.6-10.0)
[2019-12-08 10:47] LABS: BLOOD UREA NITROGEN 51 mg/dL (7-18); CALCIUM 7.9 mg/dL (8.5-10.1); CARBON DIOXIDE 27.6 mmol/L (21-32); CHLORIDE 104 mmol/L (98-107); COR NA(FOR HYPERGLY) 149 mmol/L (136-145); CREATININE 2.07 mg/dL (0.55-1.02); LACTIC ACID 1.9 mmol/L (0.4-2.0); SODIUM 141 mmol/L (136-145); TROPONIN I < 0.02 ng/mL (0-1.5); eGFR NON BLACK RACES 25 (>60)
[2019-12-08 11:04] LABS: PLATELET MORPHOLOGY COMMENT NORMAL (NORMAL)
[2019-12-08 11:10] LABS: ALANINE AMINOTRANSFERASE 40 Units/L (12-78); ALBUMIN 2.4 g/dL (3.4-5.0); ALKALINE PHOSPHATASE 100 Units/L (46-116); ASPARTATE AMINO TRANSFERASE 85 Units/L (15-37); COR CA(FOR HYPOALB) 9.2 mg/dL (8.5-10.1); CREATINE KINASE MB 3.7 ng/mL (0-4.0); TOTAL PROTEIN 7.6 g/dL (6.4-8.2)
[2019-12-08 11:11] LABS: CKMB % 0.1 % (<4); CREATINE KINASE 2684 Units/L (26-192)
[2019-12-08 11:25] LABS: BILIRUBIN,URINE NEGATIVE (NEGATIVE); BLOOD/HEMOGLOBIN,URINE 4+ (NEGATIVE); GLUCOSE, URINE 3+ (NEGATIVE); KETONES,URINE 1+ (NEGATIVE); LEUKOCYTE ESTERASE ,URINE 1+ (NEGATIVE); NITRITES,URINE POSITIVE (NEGATIVE); PROTEIN,URINE 2+ (NEGATIVE); UROBILINOGEN,URINE NORMAL (NORMAL)
[2019-12-08 11:27] LABS: APPEARANCE,URINE HAZY (CLEAR); COLOR,URINE YELLOW (YELLOW)
[2019-12-08 11:37] LABS: BACTERIA,URINE 3+ /HPF (NEGATIVE); SQUAMOUS EPITHELIAL CELL,UR NEGATIVE /HPF (NEGATIVE)
[2019-12-08 11:38] LABS: MUCUS,URINE FEW /HPF (NEGATIVE); YEAST,URINE MODERATE /HPF (NEGATIVE)
[2019-12-09 05:12] LABS: ABG HCO3 29.1 mmol/L (22-26)
[2019-12-09 05:16] LABS: BASOPHILS % (AUTO) 0.1 % (0.2-1.0); HEMATOCRIT 38.8 % (36.0-47.0); HEMOGLOBIN 12.5 g/dL (12.0-16.0); LYMPHOCYTES # (AUTO) 1.1 X10^3/uL (1.3-2.9); LYMPHOCYTES % (AUTO) 7.1 % (21.0-51.0); MEAN CORPUSCULAR HEMOGLOBIN 26.1 pg (27.0-34.0); MEAN CORPUSCULAR HGB CONC 32.1 g/dL (33.0-35.0); MEAN CORPUSCULAR VOLUME 81.2 fL (80.0-100.0); MEAN PLATELET VOLUME 10.2 fL (7.4-11.0); MONOCYTES % (AUTO) 6.8 % (0.0-13.0); NEUTROPHILS # (AUTO) 13.3 x10^3/uL (2.2-4.8); PLATELET COUNT 146 X10^3/uL (150.0-450.0); RED BLOOD COUNT 4.77 X10^6/uL (3.5-5.4); RED CELL DISTRIBUTION WIDTH 17.2 % (11.6-16.5); WHITE BLOOD COUNT 15.4 X10^3/uL (3.6-10.0)
[2019-12-09 05:19] LABS: ALBUMIN 2.1 g/dL (3.4-5.0); CALCIUM 7.6 mg/dL (8.5-10.1); CARBON DIOXIDE 27.3 mmol/L (21-32); COR CA(FOR HYPOALB) 9.1 mg/dL (8.5-10.1); CREATININE 1.66 mg/dL (0.55-1.02); TOTAL PROTEIN 6.5 g/dL (6.4-8.2)
[2019-12-10 05:31] LABS: BASOPHILS % (AUTO) 0.2 % (0.2-1.0); HEMATOCRIT 39.8 % (36.0-47.0); HEMOGLOBIN 12.5 g/dL (12.0-16.0); LYMPHOCYTES # (AUTO) 0.5 X10^3/uL (1.3-2.9); LYMPHOCYTES % (AUTO) 5.4 % (21.0-51.0); MEAN CORPUSCULAR HEMOGLOBIN 26.1 pg (27.0-34.0); MEAN CORPUSCULAR HGB CONC 31.4 g/dL (33.0-35.0); MEAN CORPUSCULAR VOLUME 83.2 fL (80.0-100.0); MEAN PLATELET VOLUME 10.5 fL (7.4-11.0); MONOCYTES # (AUTO) 0.4 x10^3/uL (0.3-0.8); MONOCYTES % (AUTO) 4.4 % (0.0-13.0); NEUTROPHILS # (AUTO) 8.9 x10^3/uL (2.2-4.8); PLATELET COUNT 133 X10^3/uL (150.0-450.0); RED BLOOD COUNT 4.79 X10^6/uL (3.5-5.4); RED CELL DISTRIBUTION WIDTH 17.4 % (11.6-16.5); WHITE BLOOD COUNT 9.9 X10^3/uL (3.6-10.0)
[2019-12-10 05:53] LABS: ALBUMIN 2.1 g/dL (3.4-5.0); CALCIUM 7.7 mg/dL (8.5-10.1); CARBON DIOXIDE 23.8 mmol/L (21-32); COR CA(FOR HYPOALB) 9.2 mg/dL (8.5-10.1); CREATININE 1.84 mg/dL (0.55-1.02); TOTAL PROTEIN 6.6 g/dL (6.4-8.2)
[2019-12-11 05:25] LABS: BASOPHILS % (AUTO) 0.2 % (0.2-1.0); HEMATOCRIT 39.1 % (36.0-47.0); HEMOGLOBIN 12.3 g/dL (12.0-16.0); LYMPHOCYTES # (AUTO) 0.5 X10^3/uL (1.3-2.9); LYMPHOCYTES % (AUTO) 6.3 % (21.0-51.0); MEAN CORPUSCULAR HEMOGLOBIN 26.1 pg (27.0-34.0); MEAN CORPUSCULAR HGB CONC 31.5 g/dL (33.0-35.0); MEAN CORPUSCULAR VOLUME 83.1 fL (80.0-100.0); MEAN PLATELET VOLUME 10.2 fL (7.4-11.0); MONOCYTES # (AUTO) 0.3 x10^3/uL (0.3-0.8); MONOCYTES % (AUTO) 4.2 % (0.0-13.0); NEUTROPHILS # (AUTO) 6.6 x10^3/uL (2.2-4.8); NEUTROPHILS % (AUTO) 89.3 % (42.0-75.0); PLATELET COUNT 112 X10^3/uL (150.0-450.0); RED CELL DISTRIBUTION WIDTH 16.8 % (11.6-16.5); WHITE BLOOD COUNT 7.4 X10^3/uL (3.6-10.0)
[2019-12-11 05:50] LABS: CARBON DIOXIDE 27.6 mmol/L (21-32); COR CA(FOR HYPOALB) 9.6 mg/dL (8.5-10.1); CREATININE 1.7 mg/dL (0.55-1.02); TOTAL PROTEIN 6.4 g/dL (6.4-8.2)
[2019-12-11 06:29] LABS: PLATELET MORPHOLOGY COMMENT NORMAL (NORMAL)
[2019-12-11 06:30] LABS: ANISOCYTOSIS SLIGHT; GIANT PLATELET MANY
[2019-12-12 05:30] LABS: BASOPHILS % (AUTO) 0.2 % (0.2-1.0); EOSINOPHILS % (AUTO) 0.2 % (0.9-2.9); HEMATOCRIT 39.3 % (36.0-47.0); HEMOGLOBIN 12.5 g/dL (12.0-16.0); LYMPHOCYTES # (AUTO) 1.6 X10^3/uL (1.3-2.9); LYMPHOCYTES % (AUTO) 13.2 % (21.0-51.0); MEAN CORPUSCULAR HEMOGLOBIN 25.6 pg (27.0-34.0); MEAN CORPUSCULAR HGB CONC 31.7 g/dL (33.0-35.0); MEAN CORPUSCULAR VOLUME 80.7 fL (80.0-100.0); MEAN PLATELET VOLUME 10.9 fL (7.4-11.0); MONOCYTES # (AUTO) 0.9 x10^3/uL (0.3-0.8); NEUTROPHILS # (AUTO) 9.3 x10^3/uL (2.2-4.8); NEUTROPHILS % (AUTO) 78.4 % (42.0-75.0); PLATELET COUNT 124 X10^3/uL (150.0-450.0); RED BLOOD COUNT 4.87 X10^6/uL (3.5-5.4); RED CELL DISTRIBUTION WIDTH 16.7 % (11.6-16.5); WHITE BLOOD COUNT 11.8 X10^3/uL (3.6-10.0)
[2019-12-12 06:01] LABS: CALCIUM 7.8 mg/dL (8.5-10.1); CARBON DIOXIDE 25.9 mmol/L (21-32); COR CA(FOR HYPOALB) 9.4 mg/dL (8.5-10.1); CREATININE 1.53 mg/dL (0.55-1.02)
[2019-12-12 06:27] LABS: ANISOCYTOSIS SLIGHT; HYPOCHROMASIA SLIGHT; PLATELET MORPHOLOGY COMMENT NORMAL (NORMAL)
[2019-12-13 06:19] LABS: BASOPHILS % (AUTO) 0.1 % (0.2-1.0); EOSINOPHILS # (AUTO) 0.3 x10^3/uL (0.0-0.2); EOSINOPHILS % (AUTO) 2.4 % (0.9-2.9); HEMATOCRIT 40.8 % (36.0-47.0); HEMOGLOBIN 13.1 g/dL (12.0-16.0); LYMPHOCYTES # (AUTO) 1.5 X10^3/uL (1.3-2.9); LYMPHOCYTES % (AUTO) 13.9 % (21.0-51.0); MEAN CORPUSCULAR HEMOGLOBIN 26.1 pg (27.0-34.0); MEAN CORPUSCULAR HGB CONC 32.2 g/dL (33.0-35.0); MEAN CORPUSCULAR VOLUME 81.1 fL (80.0-100.0); MEAN PLATELET VOLUME 11.9 fL (7.4-11.0); MONOCYTES % (AUTO) 9.4 % (0.0-13.0); NEUTROPHILS % (AUTO) 74.2 % (42.0-75.0); PLATELET COUNT 118 X10^3/uL (150.0-450.0); RED BLOOD COUNT 5.03 X10^6/uL (3.5-5.4); RED CELL DISTRIBUTION WIDTH 17.1 % (11.6-16.5); WHITE BLOOD COUNT 10.7 X10^3/uL (3.6-10.0)
[2019-12-13 06:47] LABS: ALBUMIN 1.9 g/dL (3.4-5.0); CARBON DIOXIDE 29.3 mmol/L (21-32); COR CA(FOR HYPOALB) 9.7 mg/dL (8.5-10.1); CREATININE 1.52 mg/dL (0.55-1.02); TOTAL PROTEIN 6.1 g/dL (6.4-8.2)
[2019-12-14 06:11] LABS: BASOPHILS % (AUTO) 0.1 % (0.2-1.0); HEMATOCRIT 40.5 % (36.0-47.0); HEMOGLOBIN 12.8 g/dL (12.0-16.0); LYMPHOCYTES # (AUTO) 0.3 X10^3/uL (1.3-2.9); LYMPHOCYTES % (AUTO) 2.9 % (21.0-51.0); MEAN CORPUSCULAR HEMOGLOBIN 25.8 pg (27.0-34.0); MEAN CORPUSCULAR HGB CONC 31.7 g/dL (33.0-35.0); MEAN CORPUSCULAR VOLUME 81.4 fL (80.0-100.0); MEAN PLATELET VOLUME 11.9 fL (7.4-11.0); MONOCYTES # (AUTO) 0.2 x10^3/uL (0.3-0.8); MONOCYTES % (AUTO) 2.1 % (0.0-13.0); NEUTROPHILS # (AUTO) 9.2 x10^3/uL (2.2-4.8); NEUTROPHILS % (AUTO) 94.9 % (42.0-75.0); PLATELET COUNT 134 X10^3/uL (150.0-450.0); RED BLOOD COUNT 4.97 X10^6/uL (3.5-5.4); RED CELL DISTRIBUTION WIDTH 17.3 % (11.6-16.5); WHITE BLOOD COUNT 9.7 X10^3/uL (3.6-10.0)
[2019-12-14 06:33] LABS: ALBUMIN 1.9 g/dL (3.4-5.0); CALCIUM 7.8 mg/dL (8.5-10.1); CARBON DIOXIDE 29.6 mmol/L (21-32); COR CA(FOR HYPOALB) 9.5 mg/dL (8.5-10.1); CREATININE 1.8 mg/dL (0.55-1.02); TOTAL PROTEIN 6.2 g/dL (6.4-8.2)
[2019-12-14 06:41] LABS: ABG ALLEN TEST POS
[2019-12-14 07:15] LABS: ABG BASE EXCESS 4.7 mmol/L (-2.0-2.0)
[2019-12-14 07:16] LABS: ABG HCO3 28.2 mmol/L (22-26)
[2019-12-14 07:17] LABS: FRACTIONATED INSPIRED OXYGEN 40
[2019-12-14 08:00] LABS: PLATELET MORPHOLOGY COMMENT NORMAL (NORMAL)
[2019-12-14 09:05] LABS: CREATININE 1.6 mg/dL (0.55-1.02); VANCOMYCIN,TROUGH 12.3 ug/mL (15-20)
[2019-12-15 06:09] LABS: BASOPHILS % (AUTO) 0.3 % (0.2-1.0); HEMATOCRIT 38.3 % (36.0-47.0); HEMOGLOBIN 12.1 g/dL (12.0-16.0); LYMPHOCYTES # (AUTO) 0.7 X10^3/uL (1.3-2.9); LYMPHOCYTES % (AUTO) 4.7 % (21.0-51.0); MEAN CORPUSCULAR HGB CONC 31.6 g/dL (33.0-35.0); MEAN CORPUSCULAR VOLUME 82.2 fL (80.0-100.0); MEAN PLATELET VOLUME 12.1 fL (7.4-11.0); MONOCYTES # (AUTO) 0.7 x10^3/uL (0.3-0.8); MONOCYTES % (AUTO) 4.3 % (0.0-13.0); NEUTROPHILS # (AUTO) 14.2 x10^3/uL (2.2-4.8); NEUTROPHILS % (AUTO) 90.7 % (42.0-75.0); PLATELET COUNT 154 X10^3/uL (150.0-450.0); RED BLOOD COUNT 4.66 X10^6/uL (3.5-5.4); RED CELL DISTRIBUTION WIDTH 17.3 % (11.6-16.5); WHITE BLOOD COUNT 15.7 X10^3/uL (3.6-10.0)
[2019-12-15 06:34] LABS: ALBUMIN 1.8 g/dL (3.4-5.0); CALCIUM 7.9 mg/dL (8.5-10.1); CARBON DIOXIDE 25.1 mmol/L (21-32); COR CA(FOR HYPOALB) 9.7 mg/dL (8.5-10.1); CREATININE 1.6 mg/dL (0.55-1.02)
[2019-12-15 07:52] LABS: PLATELET MORPHOLOGY COMMENT NORMAL (NORMAL)
[2019-12-16 06:26] LABS: ALANINE AMINOTRANSFERASE 25 Units/L (12-78); ALBUMIN 1.9 g/dL (3.4-5.0); ALKALINE PHOSPHATASE 111 Units/L (46-116); ASPARTATE AMINO TRANSFERASE 26 Units/L (15-37); BLOOD UREA NITROGEN 32 mg/dL (7-18); CALCIUM 8.1 mg/dL (8.5-10.1); CHLORIDE 101 mmol/L (98-107); COR CA(FOR HYPOALB) 9.8 mg/dL (8.5-10.1); CREATININE 1.39 mg/dL (0.55-1.02); SODIUM 137 mmol/L (136-145); eGFR NON BLACK RACES 40 (>60)
[2019-12-16 06:34] LABS: BASOPHILS % (AUTO) 0.1 % (0.2-1.0); EOSINOPHILS # (AUTO) 0.3 x10^3/uL (0.0-0.2); EOSINOPHILS % (AUTO) 1.8 % (0.9-2.9); HEMATOCRIT 38.2 % (36.0-47.0); HEMOGLOBIN 12.4 g/dL (12.0-16.0); LYMPHOCYTES # (AUTO) 2.2 X10^3/uL (1.3-2.9); LYMPHOCYTES % (AUTO) 15.3 % (21.0-51.0); MEAN CORPUSCULAR HGB CONC 32.4 g/dL (33.0-35.0); MEAN CORPUSCULAR VOLUME 80.4 fL (80.0-100.0); MEAN PLATELET VOLUME 11.6 fL (7.4-11.0); MONOCYTES # (AUTO) 0.8 x10^3/uL (0.3-0.8); MONOCYTES % (AUTO) 5.7 % (0.0-13.0); NEUTROPHILS # (AUTO) 10.9 x10^3/uL (2.2-4.8); NEUTROPHILS % (AUTO) 77.1 % (42.0-75.0); PLATELET COUNT 167 X10^3/uL (150.0-450.0); RED BLOOD COUNT 4.74 X10^6/uL (3.5-5.4); RED CELL DISTRIBUTION WIDTH 16.9 % (11.6-16.5); WHITE BLOOD COUNT 14.1 X10^3/uL (3.6-10.0)
[2019-12-16 08:00] LABS: PLATELET MORPHOLOGY COMMENT NORMAL (NORMAL)
[2019-12-16 09:45] VITALS: BP 129/60
== END 2019-12-16 15:15 ==
LOC: ER 08:50 → ICU 13:29 → ER 13:41
PROVIDERS: ADMIT Internal Medicine; ATTEND Internal Medicine

== ENCOUNTER 2020-09-06 07:27 | Observation (INO) ==
[2020-09-06 09:15] LABS: BASOPHILS # (AUTO) 0.1 X10^3/uL (0.0-0.1); BASOPHILS % (AUTO) 0.8 % (0.2-1.0); EOSINOPHILS # (AUTO) 0.1 x10^3/uL (0.0-0.2); EOSINOPHILS % (AUTO) 1.8 % (0.9-2.9); HEMATOCRIT 43.8 % (36.0-47.0); HEMOGLOBIN 14.4 g/dL (12.0-16.0); LYMPHOCYTES # (AUTO) 1.8 X10^3/uL (1.3-2.9); LYMPHOCYTES % (AUTO) 21.8 % (21.0-51.0); MEAN CORPUSCULAR HEMOGLOBIN 28.3 pg (27.0-34.0); MEAN CORPUSCULAR VOLUME 85.8 fL (80.0-100.0); MEAN PLATELET VOLUME 9.9 fL (7.4-11.0); MONOCYTES # (AUTO) 0.7 x10^3/uL (0.3-0.8); NEUTROPHILS # (AUTO) 5.4 x10^3/uL (2.2-4.8); NEUTROPHILS % (AUTO) 66.6 % (42.0-75.0); PLATELET COUNT 196 X10^3/uL (150.0-450.0); RED BLOOD COUNT 5.11 X10^6/uL (3.5-5.4); RED CELL DISTRIBUTION WIDTH 16.1 % (11.6-16.5); WHITE BLOOD COUNT 8.1 X10^3/uL (3.6-10.0)
[2020-09-06] MEDS: PULMICORT NEB TX 0.5 MG NEB SCH ×2 (09:25→20:20)
[2020-09-06] MEDS: PROVENTIL NEB TX 0.083% 2.5MG/ 3ML NEB SCH ×4 (09:25→20:20)
--- NOTE | 2020-09-06 09:27 | RAD ---
HISTORYCHFSTUDYCHEST, 1 [id number]/21/2021.TECHNIQUEAP view of the chestFINDINGSLeft chest wall port with tip in good position.[The cardiac and mediastinal contours are within normal limits. The lungs are clear without focal consolidation or segmental collapse. No pleural effusion or pneumothorax.] Elevated right hemidiaphragm. Soft tissue attenuation limits evaluation.IMPRESSIONNo acute pulmonary process.Electronically signed by: Lonny Contreras (September 06, 2020 09:26:00)
[2020-09-06 09:32] VITALS: BMI 58.1
[2020-09-06 10:20] LABS: CARBON DIOXIDE 28.5 mmol/L (21-32); COR CA(FOR HYPOALB) 9.8 mg/dL (8.5-10.1); CREATININE 1.94 mg/dL (0.55-1.02); TOTAL PROTEIN 7.5 g/dL (6.4-8.2)
[2020-09-06] MEDS: LASIX IVP SCH ×2 (10:57→16:45)
[2020-09-06] MEDS: XARELTO PO SCH (11:21)
[2020-09-06] MEDS: HumuLIN R SUBCUT PRN ×2 (12:18→21:05)
[2020-09-06] MEDS: VOLTAREN 1 % GEL MULTI DOSE TUBE TOP SCH ×3 (15:14→21:21)
[2020-09-06] MEDS: REQUIP PO SCH ×2 (16:08→21:03)
[2020-09-06] MEDS: REGLAN TAB 10 MG PO SCH ×2 (16:08→21:01)
[2020-09-06] MEDS ORDERED: BUTT CREAM (COMPOUND) TOP PRN (19:56)
[2020-09-06] MEDS ORDERED: SNACK - Diabetic Appropriate PO SCH (20:00)
[2020-09-06] MEDS: ANTIVERT TAB 25 MG PO SCH (20:58)
[2020-09-06] MEDS: LYRICA CAP 150 mg PO SCH (20:58)
[2020-09-06] MEDS: COLACE CAP 100 MG PO SCH (20:58)
[2020-09-06] MEDS: ZyrTEC TAB 10 MG PO SCH (20:59)
[2020-09-06] MEDS: LOPRESSOR TAB 25 MG PO SCH (21:00)
[2020-09-06] MEDS: K-DUR TAB 20 MEQ PO SCH (21:00)
[2020-09-06] MEDS: ZOCOR TAB 20 MG PO SCH (21:00)
[2020-09-06] MEDS: KLONOPIN TAB 0.5 MG PO SCH (21:03)
[2020-09-06] MEDS: LEVEMIR SC SCH (21:03)
[2020-09-06] MEDS: PLETAL PO SCH (21:07)
[2020-09-06] MEDS: SNACK - Diabetic Appropriate PO SCH (21:09)
[2020-09-06] MEDS: ASTELIN NASAL SPRAY ENOSTRIL SCH (21:09)
[2020-09-06] MEDS: HYDROCORTISONE CRM 1% TOP SCH (21:12)
[2020-09-06] MEDS: ROXICODONE TAB 15 MG PO PRN (21:42)
[2020-09-07] MEDS: REGLAN TAB 10 MG PO SCH ×4 (05:32→21:03)
[2020-09-07] MEDS: ROXICODONE TAB 15 MG PO PRN ×2 (05:33→21:03)
[2020-09-07] MEDS: HumuLIN R SUBCUT PRN ×3 (05:58→22:04)
--- NOTE | 2020-09-07 06:02 | RAD ---
HISTORYSOBSTUDYCHEST, 1 [id number]/04/2021.TECHNIQUEAP view of the chestFINDINGSLeft chest wall port tip in good position. Cardiac and mediastinal contours are within normal limits. There is mild patchy left mid and lower lung opacity. No pleural effusion or pneumothorax.IMPRESSIONMild patchy left mid and lower lung opacity may represent atelectasis or early pneumonia.Electronically signed by: Lonny Contreras (September 07, 2020 05:59:47)
[2020-09-07 06:29] LABS: BASOPHILS # (AUTO) 0.1 X10^3/uL (0.0-0.1); BASOPHILS % (AUTO) 0.5 % (0.2-1.0); EOSINOPHILS # (AUTO) 0.2 x10^3/uL (0.0-0.2); EOSINOPHILS % (AUTO) 1.4 % (0.9-2.9); HEMATOCRIT 41.2 % (36.0-47.0); HEMOGLOBIN 13.8 g/dL (12.0-16.0); LYMPHOCYTES # (AUTO) 1.8 X10^3/uL (1.3-2.9); LYMPHOCYTES % (AUTO) 17.7 % (21.0-51.0); MEAN CORPUSCULAR HEMOGLOBIN 28.4 pg (27.0-34.0); MEAN CORPUSCULAR HGB CONC 33.4 g/dL (33.0-35.0); MEAN CORPUSCULAR VOLUME 85.1 fL (80.0-100.0); MEAN PLATELET VOLUME 10.1 fL (7.4-11.0); MONOCYTES # (AUTO) 0.8 x10^3/uL (0.3-0.8); MONOCYTES % (AUTO) 7.8 % (0.0-13.0); NEUTROPHILS # (AUTO) 7.5 x10^3/uL (2.2-4.8); NEUTROPHILS % (AUTO) 72.6 % (42.0-75.0); PLATELET COUNT 186 X10^3/uL (150.0-450.0); RED BLOOD COUNT 4.85 X10^6/uL (3.5-5.4); RED CELL DISTRIBUTION WIDTH 16.4 % (11.6-16.5); WHITE BLOOD COUNT 10.4 X10^3/uL (3.6-10.0)
[2020-09-07 06:52] LABS: ALBUMIN 2.8 g/dL (3.4-5.0); CALCIUM 8.7 mg/dL (8.5-10.1); CARBON DIOXIDE 31.4 mmol/L (21-32); COR CA(FOR HYPOALB) 9.7 mg/dL (8.5-10.1); CREATININE 1.88 mg/dL (0.55-1.02); TOTAL PROTEIN 6.7 g/dL (6.4-8.2)
[2020-09-07] MEDS ORDERED: ASTELIN NASAL SPRAY ENOSTRIL ONE (08:14)
[2020-09-07] MEDS: FLONASE NASAL SPRAY ENOSTRIL SCH (08:55)
[2020-09-07] MEDS: ASTELIN NASAL SPRAY ENOSTRIL SCH ×2 (08:55→21:06)
[2020-09-07] MEDS: K-DUR TAB 20 MEQ PO SCH ×2 (08:56→21:04)
[2020-09-07] MEDS: LOPRESSOR TAB 25 MG PO SCH ×2 (08:57→21:04)
[2020-09-07] MEDS: LASIX IVP SCH ×2 (08:57→17:24)
[2020-09-07] MEDS: PULMICORT NEB TX 0.5 MG NEB SCH ×2 (08:57→20:18)
[2020-09-07] MEDS: DIFLUCAN PO SCH (08:57)
[2020-09-07] MEDS: PROVENTIL NEB TX 0.083% 2.5MG/ 3ML NEB SCH ×4 (08:57→20:18)
[2020-09-07] MEDS: OXYBUTYNIN CHLORIDE ER PO SCH (08:58)
[2020-09-07] MEDS: SINGULAIR TAB 10 MG PO SCH (08:58)
[2020-09-07] MEDS: HEMOCYTE-PLUS PO SCH (08:59)
[2020-09-07] MEDS: XARELTO PO SCH (08:59)
[2020-09-07] MEDS: COLACE CAP 100 MG PO SCH ×2 (09:00→21:05)
[2020-09-07] MEDS ORDERED: PATIENT'S HOME MEDICATION (Dapagliflozin [Farxiga] 5 mg Tablet) PO SCH (09:00)
[2020-09-07] MEDS: JANUVIA PO SCH (09:00)
[2020-09-07] MEDS ORDERED: BIOTIN 10 MG PO SCH (09:00)
[2020-09-07] MEDS ORDERED: XARELTO PO SCH (09:00)
[2020-09-07] MEDS ORDERED: FERROUS FUMARATE PO SCH (09:00)
[2020-09-07] MEDS: VSL#3 PO SCH (09:00)
[2020-09-07] MEDS: PROTONIX TAB 40 MG PO SCH (09:00)
[2020-09-07] MEDS: LEVEMIR SC SCH ×2 (09:01→21:08)
[2020-09-07] MEDS: LYRICA CAP 150 mg PO SCH ×2 (09:01→21:05)
[2020-09-07] MEDS: SYNTHROID 88 mcg TAB PO SCH (09:01)
[2020-09-07] MEDS: ZYLOPRIM PO SCH (09:01)
[2020-09-07] MEDS: WELLBUTRIN XL 150 MG (DAILY) PO SCH (09:01)
[2020-09-07] MEDS: VICTOZA SC SCH (09:02)
[2020-09-07] MEDS: PLETAL PO SCH ×2 (09:03→21:08)
[2020-09-07] MEDS: REQUIP PO SCH ×4 (09:06→21:18)
[2020-09-07] MEDS: HYDROCORTISONE CRM 1% TOP SCH ×3 (09:29→22:03)
[2020-09-07] MEDS: MIRALAX POWDER (1 DOSE 17 G) PO SCH (09:29)
[2020-09-07] MEDS ORDERED: NS 500 ML IV 500 ML IV SCH (09:55)
[2020-09-07] MEDS ORDERED: NS 500 ML IV 500 ML IV ONE (09:56)
[2020-09-07] MEDS ORDERED: LEVAQUIN PREMIX IV 750 MG 750 MG/150 ML BAG IV SCH ×2 (10:00)
[2020-09-07] MEDS ORDERED: FORTAZ or TAZICEF VIAL INJ 1 G in NS 100 ML IV + SPIKE MINIBAG* 100 ML IV SCH (10:00)
--- NOTE | 2020-09-07 10:46 | DR.H&P ---
H&P - History & Physical for Day of: H&P Date: 09/06/20 - Chief Complaint Chief Complaint: LOWER EXTREMITY SWELLING, SHORTNESS OF BREATH, COUGH - History of Present Illness History of Present Illness: IS A 70 YEAR OLD PATIENT OF [facility]. SHE IS A RESIDENT OF [facility]. SHE PRESENTED TO THE HOSPITAL A DIRECT ADMISSION DUE TO CHF EXACERBATION AND ACUTE BRONCHITIS. SHE HAS HAD COMPLAINTS OF LOWER EXTREMITY SWELLING AND SHORTNESS OF BREATH FOR THE PAST 3-4 DAYS. SHE WAS PLACED ON LASIX 80MG PO BID X 3 DAYS OVER THE WEEKEND. DESPITE INCREASED DOSES OF LASIX, PATIENT CONTINUES TO HAVE 3+ PITTING EDEMA TO BILATERAL LOWER EXTREMITIES AND INCREASED SHORTNESS OF BREATH. SHE ALSO REPORTS AN INTERMITTENT COUGH. COUGH IS NON-PRODUCTIVE. ON ARRIVAL TO THE HOSPITAL, VITALS WERE 97.9-73-16-94%-150/68. LABS WERE OBTAINED. ABNORMAL LAB VALUES INCLUDE THE FOLLOWING: BUN 36, CREATININE 1.94, GLUCOSE 425, ALK PHOS 127, ALBUMIN 3.0. COVID-19 NEGATIVE. A CHEST XRAY WAS OBTAINED AND REVEALED: Left chest wall port with tip in good position. The cardiac and mediastinal contours are within normal limits. The lungs are clear without focal consolidation or segmental collapse. No pleural effusion or pneumothorax. Elevated right hemidiaphragm. Soft tissue attenuation limits evaluation. SHE WAS STARTED ON LASIX 40MG IV BID, PROVENTIL NEB TX QID, PULMICORT NEB TX BID, HUMULIN R SLIDING SCALE. WE WILL REVIEW HER HOME MEDICATIONS AND RESUME APPROPRIATE. OTHERWISE, WE PLAN TO FOLLOW UP WITH AM LABS AND CONTINUE TO MONITOR. TIME SPENT ON CLINICAL ASSESSMENT, REVIEWING LABS AND IMAGING, DECISION MAKING, AND DOCUMENTATION GREA TER THAN 75 MINUTES. - Past Medical History Past Medical History: Hypertension, Dyslipidemia, Diabetes, Renal Disease, Depression, Anxiety, Hypothyroidism, Anemia, CVA, COPD, GERD, Arthritis, Gout, Sleep Apnea - Past Surgical History Surgical History: Cholecystectomy, Hysterectomy Additional Surgical History: RIGHT KNEE REPLACEMENT, DILATION OF ESOPHAGUS - Family History Family Medical History: Diabetes Mellitus, Cancer, [place] - Social History Does patient currently use any type of tobacco product: No Have you used tobacco products in the last 12 months: No How many years tobacco product used: 35 Alcohol Use: Occasionally Drug Use: None - Medications Home Medications: bacitracin [From Neosporin (owx-voy-exiym)] Allergy (Verified 05/26/20 14:08) clopidogrel [From Plavix] Allergy (Verified 05/26/20 14:08) gabapentin [From Neurontin] Allergy (Verified 05/26/20 14:08) hydrochlorothiazide [From Hyzaar] Allergy (Verified 05/26/20 14:08) latex Allergy (Verified 05/26/20 14:08) losartan [From Hyzaar] Allergy (Verified 05/26/20 14:08) neomycin [From Neosporin (ttg-fsj-xyvsp)] Allergy (Verified 05/26/20 14:08) polymyxin B [From Neosporin (hji-giu-gdzlc)] Allergy (Verified 05/26/20 14:08) propoxyphene [From Darvon] Allergy (Verified 05/26/20 14:08) rosuvastatin [From Crestor] Allergy (Verified 05/26/20 14:08) sulfamethoxazole [From Bactrim] Allergy (Verified 05/26/20 14:08) trimethoprim [From Bactrim] Allergy (Verified 05/26/20 14:08) No Dye Allergy (Uncoded 05/26/20 14:08) CONTINUE taking the following medications Lactobac #2-Bifido #1-S. therm [VSL#3] 1 cap PO DAILY 09/06/20 [History] allopurinol 100 mg PO DAILY 09/06/20 [History] azelastine 2 spray INTRANASAL BID 09/06/20 [History] biotin 10 mg PO DAILY 09/06/20 [History] dapagliflozin [Farxiga] 5 mg PO DAILY 09/06/20 [History] docusate sodium [Colace] 100 mg PO BID 09/06/20 [History] fluticasone propionate 2 spray INTRANASAL DAILY 09/06/20 [History] metoclopramide HCl 10 mg PO ACHS 09/06/20 [History] sitagliptin [Januvia] 100 mg PO DAILY 09/06/20 [History] - Review of Systems Constitutional: Weakness Eyes: No Symptoms Reported ENT: No Symptoms Reported Respiratory: See HPI, Cough, Shortness of Breath, SOB with Excertion Cardiovascular: See HPI, Edema (BLE 3+ PITTING EDEMA ) Gastrointestinal: No Symptoms Reported Genitourinary: No Symptoms Reported Musculoskeletal: No Symptoms Reported Skin: No Symptoms Reported Neurological: Weakness - Physical Exam Vital Signs: Temperature 98.1 F Pulse Rate [Left Brachial] 73 Pulse Rate 67 Respiratory Rate 16 Blood Pressure [RIGHT WRIST] 111/51 Blood Pressure [Left Calf] 161/70 Blood Pressure [Right Calf] 123/58 Blood Pressure [Left Arm] 147/67 Blood Pressure 124/58 O2 Sat by Pulse Oximetry 97 Oriented: Normal Eyes: Normal Ear: Normal Nose: Normal Throat: Normal Respiratory: Diminished Throughout Cardiovascular: Normal : Normal Auscultation: Bowel Sounds: Normal Palpation: Normal Tenderness: Normal Skin: Normal Musculoskeletal: Normal Psychiatric: Normal Mood Description: Calm Affect: Normal Speech Pattern: Clear - Assessment/Plan (1) CHF (congestive heart failure) Qualifiers: Heart failure type: unspecified Heart failure chronicity: acute on chronic Qualified Code(s): I50.9 - Heart failure, unspecified Status: Acute Plan: ADMIT, LASIX 40MG IV BID, PROVENTIL NEB TX QID, PULMICORT NEB TX BID, HUMULIN R SLIDING SCALE. (2) Dyspnea Qualifiers: Dyspnea type: shortness of breath Qualified Code(s): R06.02 - Shortness of breath Status: Acute (3) Acute bronchitis Qualifiers: Bronchitis organism: unspecified organism Qualified Code(s): J20.9 - Acute bronchitis, unspecified Status: Acute - Allergies Allergies/Adverse Reactions: Allergies Allergy/AdvReac Type Severity Reaction Status Date / Time bacitracin Allergy Verified 05/26/20 14:08 [From Neosporin ([id number]-ebs-qcxtt)] clopidogrel [From Plavix] Allergy Verified 05/26/20 14:08 gabapentin [From Neurontin] Allergy Verified 05/26/20 14:08 hydrochlorothiazide Allergy Verified 05/26/20 14:08 [From Hyzaar] latex Allergy Verified 05/26/20 14:08 losartan [From Hyzaar] Allergy Verified 05/26/20 14:08 neomycin Allergy Verified 05/26/20 14:08 [From Neosporin (lil-xdi-xwkpx)] polymyxin B Allergy Verified 05/26/20 14:08 [From Neosporin (wir-smy-aawyr)] propoxyphene [From Darvon] Allergy Verified 05/26/20 14:08 rosuvastatin [From Crestor] Allergy Verified 05/26/20 14:08 sulfamethoxazole Allergy Verified 05/26/20 14:08 [From Bactrim] trimethoprim [From Bactrim] Allergy Verified 05/26/20 14:08 No Dye Allergy Uncoded 05/26/20 14:08
[2020-09-07] MEDS: TYLENOL 325 MG TAB PO PRN (11:13)
[2020-09-07] MEDS: VOLTAREN 1 % GEL MULTI DOSE TUBE TOP SCH ×4 (11:39→21:10)
[2020-09-07] MEDS: FORTAZ or TAZICEF VIAL INJ 1 G in NS 100 ML IV + SPIKE MINIBAG* 100 ML IV SCH ×2 (12:58→21:06)
[2020-09-07] MEDS: NYSTATIN CREAM TOP SCH ×2 (15:42→21:09)
[2020-09-07] MEDS ORDERED: REQUIP PO ONE (17:20)
[2020-09-07] MEDS: ZOCOR TAB 20 MG PO SCH (21:02)
[2020-09-07] MEDS: ANTIVERT TAB 25 MG PO SCH (21:04)
[2020-09-07] MEDS: ZyrTEC TAB 10 MG PO SCH (21:05)
[2020-09-07] MEDS: KLONOPIN TAB 0.5 MG PO SCH (21:07)
[2020-09-07] MEDS: SNACK - Diabetic Appropriate PO SCH (22:02)
[2020-09-08] MEDS: REGLAN TAB 10 MG PO SCH ×2 (05:31→12:01)
[2020-09-08] MEDS: HumuLIN R SUBCUT PRN ×2 (05:32→12:01)
[2020-09-08 06:08] LABS: BASOPHILS % (AUTO) 0.7 % (0.2-1.0); EOSINOPHILS # (AUTO) 0.3 x10^3/uL (0.0-0.2); EOSINOPHILS % (AUTO) 3.7 % (0.9-2.9); HEMATOCRIT 39.3 % (36.0-47.0); HEMOGLOBIN 12.9 g/dL (12.0-16.0); LYMPHOCYTES # (AUTO) 1.8 X10^3/uL (1.3-2.9); LYMPHOCYTES % (AUTO) 25.8 % (21.0-51.0); MEAN CORPUSCULAR HEMOGLOBIN 28.3 pg (27.0-34.0); MEAN CORPUSCULAR HGB CONC 32.9 g/dL (33.0-35.0); MONOCYTES # (AUTO) 0.7 x10^3/uL (0.3-0.8); MONOCYTES % (AUTO) 10.2 % (0.0-13.0); NEUTROPHILS # (AUTO) 4.3 x10^3/uL (2.2-4.8); NEUTROPHILS % (AUTO) 59.6 % (42.0-75.0); PLATELET COUNT 162 X10^3/uL (150.0-450.0); RED BLOOD COUNT 4.57 X10^6/uL (3.5-5.4); WHITE BLOOD COUNT 7.1 X10^3/uL (3.6-10.0)
--- NOTE | 2020-09-08 06:18 | RAD ---
HISTORYSOBSTUDYCHEST, 1 [id number]/05/2021.TECHNIQUEAP view of the chestFINDINGSLeft chest wall port with tip in good position. Cardiac silhouette is borderline in size. Mediastinal contours appear stable. Mild patchy bibasilar opacities are present. No the discernible pleural effusion or pneumothorax.IMPRESSIONMild patchy bibasilar opacities, not significantly changed from prior. Differential includes atelectasis and pneumonia.Electronically signed by: Lonny Contreras (September 08, 2020 06:16:04)
[2020-09-08 06:30] LABS: ALBUMIN 2.4 g/dL (3.4-5.0); CALCIUM 8.6 mg/dL (8.5-10.1); CARBON DIOXIDE 30.2 mmol/L (21-32); COR CA(FOR HYPOALB) 9.9 mg/dL (8.5-10.1); CREATININE 1.61 mg/dL (0.55-1.02); TOTAL PROTEIN 6.2 g/dL (6.4-8.2)
[2020-09-08] MEDS: TYLENOL 325 MG TAB PO PRN (07:36)
[2020-09-08] MEDS: FORTAZ or TAZICEF VIAL INJ 1 G in NS 100 ML IV + SPIKE MINIBAG* 100 ML IV SCH (08:28)
[2020-09-08] MEDS: LYRICA CAP 150 mg PO SCH (08:29)
[2020-09-08] MEDS: OXYBUTYNIN CHLORIDE ER PO SCH (08:29)
[2020-09-08] MEDS: SINGULAIR TAB 10 MG PO SCH (08:29)
[2020-09-08] MEDS: LOPRESSOR TAB 25 MG PO SCH (08:29)
[2020-09-08] MEDS: PROTONIX TAB 40 MG PO SCH (08:29)
[2020-09-08] MEDS: REQUIP PO SCH ×2 (08:30→13:10)
[2020-09-08] MEDS: WELLBUTRIN XL 150 MG (DAILY) PO SCH (08:30)
[2020-09-08] MEDS: SYNTHROID 88 mcg TAB PO SCH (08:30)
[2020-09-08] MEDS: PLETAL PO SCH (08:31)
[2020-09-08] MEDS: LASIX IVP SCH (08:31)
[2020-09-08] MEDS: VSL#3 PO SCH (08:31)
[2020-09-08] MEDS: K-DUR TAB 20 MEQ PO SCH (08:32)
[2020-09-08] MEDS: COLACE CAP 100 MG PO SCH (08:32)
[2020-09-08] MEDS: ZYLOPRIM PO SCH (08:32)
[2020-09-08] MEDS: ASTELIN NASAL SPRAY ENOSTRIL SCH (08:32)
[2020-09-08] MEDS: DIFLUCAN PO SCH (08:33)
[2020-09-08] MEDS: JANUVIA PO SCH (08:33)
[2020-09-08] MEDS: FLONASE NASAL SPRAY ENOSTRIL SCH (08:33)
[2020-09-08] MEDS: HEMOCYTE-PLUS PO SCH (08:33)
[2020-09-08] MEDS: LEVEMIR SC SCH (08:33)
[2020-09-08] MEDS: VICTOZA SC SCH (08:34)
[2020-09-08] MEDS: XARELTO PO SCH (08:35)
[2020-09-08] MEDS: PROVENTIL NEB TX 0.083% 2.5MG/ 3ML NEB SCH ×2 (09:10→13:30)
[2020-09-08] MEDS: PULMICORT NEB TX 0.5 MG NEB SCH (09:10)
[2020-09-08] MEDS ORDERED: PHARMACY CONSULT LTC MEDICATIONS XX SCH (10:00)
[2020-09-08] MEDS: HYDROCORTISONE CRM 1% TOP SCH (11:46)
[2020-09-08] MEDS: MIRALAX POWDER (1 DOSE 17 G) PO SCH (11:46)
[2020-09-08] MEDS: VOLTAREN 1 % GEL MULTI DOSE TUBE TOP SCH ×2 (11:47→13:10)
[2020-09-08] MEDS: NYSTATIN CREAM TOP SCH (11:47)
[2020-09-08 12:26] VITALS: BP 175/72
== END 2020-09-08 14:00 ==
LOC: MED/SURG
PROVIDERS: ADMIT Internal Medicine; ATTEND Internal Medicine
DX: E11.65 Type 2 diabetes mellitus with hyperglycemia; R06.02 Shortness of breath; R26.89 Other abnormalities of gait and mobility; I11.0 Hypertensive heart disease with heart failure; E78.2 Mixed hyperlipidemia; Z66 Do not resuscitate; R60.0 Localized edema; I50.9 Heart failure, unspecified; J20.8 Acute bronchitis due to other specified organisms; K21.9 Gastro-esophageal reflux disease without esophagitis; Z20.822 Contact with and (suspected) exposure to COVID-19

== ENCOUNTER 2021-04-11 17:13 | Observation (INO) ==
[2021-04-11] MEDS: SNACK - Diabetic Appropriate PO SCH (20:00)
[2021-04-11 20:40] LABS: BASOPHILS # (AUTO) 0.1 X10^3/uL (0.0-0.1); BASOPHILS % (AUTO) 0.7 % (0.2-1.0); EOSINOPHILS # (AUTO) 0.2 x10^3/uL (0.0-0.2); EOSINOPHILS % (AUTO) 1.7 % (0.9-2.9); HEMATOCRIT 40.7 % (36.0-47.0); HEMOGLOBIN 13.4 g/dL (12.0-16.0); LYMPHOCYTES # (AUTO) 1.6 X10^3/uL (1.3-2.9); LYMPHOCYTES % (AUTO) 12.7 % (21.0-51.0); MEAN CORPUSCULAR HEMOGLOBIN 27.8 pg (27.0-34.0); MEAN CORPUSCULAR HGB CONC 32.9 g/dL (33.0-35.0); MEAN CORPUSCULAR VOLUME 84.6 fL (80.0-100.0); MEAN PLATELET VOLUME 9.9 fL (7.4-11.0); MONOCYTES # (AUTO) 1.4 x10^3/uL (0.3-0.8); MONOCYTES % (AUTO) 11.4 % (0.0-13.0); NEUTROPHILS # (AUTO) 9.2 x10^3/uL (2.2-4.8); NEUTROPHILS % (AUTO) 73.5 % (42.0-75.0); PLATELET COUNT 242 X10^3/uL (150.0-450.0); RED BLOOD COUNT 4.81 X10^6/uL (3.5-5.4); RED CELL DISTRIBUTION WIDTH 16.9 % (11.6-16.5); WHITE BLOOD COUNT 12.4 X10^3/uL (3.6-10.0)
[2021-04-11 20:46] LABS: CALCIUM 9.2 mg/dL (8.5-10.1); CARBON DIOXIDE 28.7 mmol/L (21-32); CREATININE 1.72 mg/dL (0.55-1.02)
[2021-04-11 20:50] VITALS: BMI 57.5
[2021-04-11] MEDS: NovoLIN R (or HumuLIN R) SUBCUT PRN (21:09)
[2021-04-11 21:22] LABS: ALBUMIN 2.5 g/dL (3.4-5.0); COR CA(FOR HYPOALB) 10.4 mg/dL (8.5-10.1)
[2021-04-12] MEDS: ROXICODONE TAB 15 MG PO PRN ×2 (00:30→06:30)
[2021-04-12] MEDS: NS 1,000 ML IV 1,000 ML IV SCH ×4 (01:20→21:57)
[2021-04-12 05:59] LABS: BILIRUBIN,URINE NEGATIVE (NEGATIVE); BLOOD/HEMOGLOBIN,URINE 2+ (NEGATIVE); GLUCOSE, URINE 4+ (NEGATIVE); KETONES,URINE 1+ (NEGATIVE); LEUKOCYTE ESTERASE ,URINE 3+ (NEGATIVE); NITRITES,URINE NEGATIVE (NEGATIVE); PROTEIN,URINE 1+ (NEGATIVE); UROBILINOGEN,URINE NORMAL (NORMAL)
[2021-04-12 06:05] LABS: APPEARANCE,URINE CLOUDY (CLEAR); BACTERIA,URINE 2+ /HPF (NEGATIVE); COLOR,URINE YELLOW (YELLOW); SQUAMOUS EPITHELIAL CELL,UR FEW /HPF (NEGATIVE)
[2021-04-12] MEDS: NovoLIN R (or HumuLIN R) SUBCUT PRN ×4 (06:18→21:59)
[2021-04-12] MEDS ORDERED: NYSTATIN POWDER TOP PRN (06:28)
[2021-04-12 06:35] LABS: BASOPHILS # (AUTO) 0.1 X10^3/uL (0.0-0.1); BASOPHILS % (AUTO) 0.8 % (0.2-1.0); EOSINOPHILS # (AUTO) 0.3 x10^3/uL (0.0-0.2); EOSINOPHILS % (AUTO) 3.4 % (0.9-2.9); HEMATOCRIT 40.6 % (36.0-47.0); HEMOGLOBIN 13.7 g/dL (12.0-16.0); LYMPHOCYTES # (AUTO) 2.6 X10^3/uL (1.3-2.9); LYMPHOCYTES % (AUTO) 26.5 % (21.0-51.0); MEAN CORPUSCULAR HEMOGLOBIN 28.4 pg (27.0-34.0); MEAN CORPUSCULAR HGB CONC 33.9 g/dL (33.0-35.0); MEAN CORPUSCULAR VOLUME 83.9 fL (80.0-100.0); MONOCYTES # (AUTO) 1.2 x10^3/uL (0.3-0.8); MONOCYTES % (AUTO) 12.3 % (0.0-13.0); NEUTROPHILS # (AUTO) 5.5 x10^3/uL (2.2-4.8); PLATELET COUNT 260 X10^3/uL (150.0-450.0); RED BLOOD COUNT 4.84 X10^6/uL (3.5-5.4); RED CELL DISTRIBUTION WIDTH 16.9 % (11.6-16.5); WHITE BLOOD COUNT 9.7 X10^3/uL (3.6-10.0)
[2021-04-12 06:37] LABS: ALBUMIN 2.4 g/dL (3.4-5.0); CALCIUM 9.1 mg/dL (8.5-10.1); CARBON DIOXIDE 26.4 mmol/L (21-32); COR CA(FOR HYPOALB) 10.4 mg/dL (8.5-10.1); CREATININE 1.82 mg/dL (0.55-1.02); TOTAL PROTEIN 7.8 g/dL (6.4-8.2)
--- NOTE | 2021-04-12 07:18 | RAD ---
HISTORYShortness of breathSTUDYChest AP accrzylaNQWACZSVLZ50/29/2021FINDINGSTher e is a left-sided port present with its tip in the expected position of superior vena cava. The heart is minimally enlarged. No congestive heart failure is noted. Right hemidiaphragm remains mildly elevated. No acute alveolar infiltrates or pleural effusions are identified. There is minimal subsegmental atelectasis at the right lung base. Bony thorax is unremarkable with the exception of osteopenia.IMPRESSIONMinimal cardiomegaly without congestive heart failureNo definite acute infiltratesMinimal subsegmental atelectasis right lung baseElectronically signed by: DARIEN EDDY (Apr 12, 2021 07:17:16)
[2021-04-12] MEDS ORDERED: OXYCODONE 30 MG PO PRN (08:54)
[2021-04-12] MEDS: INVANZ INJ 1 GM VIAL 1 GM in NS 100 ML IV + SPIKE MINIBAG* 100 ML IV SCH (08:58)
[2021-04-12] MEDS ORDERED: PLETAL PO SCH (09:00)
[2021-04-12] MEDS ORDERED: BIOTIN 10 MG PO SCH (09:00)
[2021-04-12] MEDS ORDERED: PATIENT'S HOME MEDICATION (Budesonide-Formoterol 160-4.5 mcg/actuation HFA aerosol inhaler IN SCH (09:00)
[2021-04-12] MEDS ORDERED: ASTELIN NASAL SPRAY ENOSTRIL ONE (09:19)
[2021-04-12] MEDS: MIRALAX POWDER (1 DOSE 17 G) PO SCH (09:33)
[2021-04-12] MEDS: COLACE CAP 100 MG PO SCH ×2 (09:33→21:58)
[2021-04-12] MEDS: DIFLUCAN PO SCH (09:34)
[2021-04-12] MEDS: HEMOCYTE-PLUS PO SCH (09:34)
[2021-04-12] MEDS: CYMBALTA PO SCH (09:34)
[2021-04-12] MEDS: AYR NASAL DROPS ENOSTRIL SCH ×2 (09:34→21:55)
[2021-04-12] MEDS: ASTELIN NASAL SPRAY ENOSTRIL SCH ×2 (09:34→21:58)
[2021-04-12] MEDS: LYRICA CAP 150 mg PO SCH ×2 (09:35→21:56)
[2021-04-12] MEDS: JANUVIA PO SCH (09:37)
[2021-04-12] MEDS: ZYLOPRIM PO SCH (09:37)
[2021-04-12] MEDS: ROBITUSSIN (PLAIN) PO SCH ×4 (09:38→21:55)
[2021-04-12] MEDS: XARELTO PO SCH (09:38)
[2021-04-12] MEDS: K-DUR TAB 20 MEQ PO SCH ×2 (09:38→21:55)
[2021-04-12] MEDS: LOPRESSOR TAB 25 MG PO SCH ×2 (09:38→21:57)
[2021-04-12] MEDS: SINGULAIR TAB 10 MG PO SCH (09:39)
[2021-04-12] MEDS: SYNTHROID 88 mcg TAB PO SCH (09:39)
[2021-04-12] MEDS: VSL#3 PO SCH (09:39)
--- NOTE | 2021-04-12 09:51 | DR.H&P ---
H&P - History & Physical for Day of: H&P Date: 04/11/21 - Chief Complaint Chief Complaint: WEAKNESS, DYSURIA - History of Present Illness History of Present Illness: IS A 70 YEAR OLD PATIENT OF [facility]. SHE IS A RESIDENT OF [facility]. SHE PRESENTED TO THE HOSPITAL A DIRECT ADMISSION DUE DEHYDRATION, RENAL FAILURE, HYPERGLYCEMIA, DYSURIA, AND WEAKNESS. SYMPTOMS STARTED AROUND TWO DAYS PRIOR TO ADMISSION. ON ARRIVAL TO THE HOSPITAL, VITALS WERE 98.2-95-20-95%-142/70. LABS WERE OBTAINED. ABNORMAL LAB VALUES INCLUDE THE FOLLOWING: WBC 12.4, SODIUM 133, CHLORIDE 94, BUN 32, CREATININE 1.72, GLUCOSE 323, ALBUMIN 2.5, GLOBULIN 5.5. COVID-19 NEGATIVE. A URINALYSIS WAS OBTAINED AND REVEALED: WBC TNTC, RBC 10-20, LEUKOCYTES 3+, BACTERIA 2+. A URINE CULTURE WAS SET UP. A CHEST XRAY WAS OBTAINED AND REVEALED: Minimal c ardiomegaly without congestive heart failure. No definite acute infiltrates. Minimal subsegmental atelectasis right lung base. SHE WAS STARTED ON NORMAL SALINE AT 75 ML/HR, INVANZ 1G IV DAILY, OTBS ACHS, HUMULIN R SLIDING SCALE. WE WILL REVIEW HER HOME MEDICATIONS AND RESUME APPROPRIATE. OTHERWISE, WE PLAN TO FOLLOW UP WITH AM LABS AND CONTINUE TO MONITOR. TIME SPENT ON CLINICAL ASSESSMENT, REVIEWING LABS AND IMAGING, DECISION MAKING, AND DOCUMENTATION GREATER THAN 75 MINUTES. - Past Medical History Past Medical History: Hypertension, Dyslipidemia, Diabetes, Renal Disease, Depression, Anxiety, Hypothyroidism, Anemia, CVA, COPD, GERD, Arthritis, Gout, Sleep Apnea - Past Surgical History Surgical History: Cholecystectomy, Hysterectomy Additional Surgical History: RIGHT KNEE REPLACEMENT, DILATION OF ESOPHAGUS - Family History Family Medical History: Diabetes Mellitus, Cancer, [place] - Social History How many years tobacco product used: 35 Alcohol Use: None Drug Use: None - Medications Home Medications: bacitracin [From Neosporin (ovh-vco-cvvlu)] Allergy (Verified 05/26/20 14:08) clopidogrel [From Plavix] Allergy (Verified 05/26/20 14:08) gabapentin [From Neurontin] Allergy (Verified 05/26/20 14:08) hydrochlorothiazide [From Hyzaar] Allergy (Verified 05/26/20 14:08) latex Allergy (Verified 05/26/20 14:08) losartan [From Hyzaar] Allergy (Verified 05/26/20 14:08) neomycin [From Neosporin (rjq-hjy-zdant)] Allergy (Verified 05/26/20 14:08) polymyxin B [From Neosporin (hdj-khi-jvktr)] Allergy (Verified 05/26/20 14:08) propoxyphene [From Darvon] Allergy (Verified 05/26/20 14:08) rosuvastatin [From Crestor] Allergy (Verified 05/26/20 14:08) sulfamethoxazole [From Bactrim] Allergy (Verified 05/26/20 14:08) trimethoprim [From Bactrim] Allergy (Verified 05/26/20 14:08) No Dye Allergy (Uncoded 05/26/20 14:08) CONTINUE taking the following medications B afsofri-M-pjr-Fe-FA [Hemocyte-Plus] 1 tab PO DAILY 04/11/21 [History] benzonatate [Tessalon Perles] 100 mg PO Q8H 04/11/21 [History] budesonide-formoterol [Symbicort] 1 puff INHALATION BID 04/11/21 [History] carboxymethylcellulose sodium 1 drp OPHTHALMIC (EYE) HS 04/11/21 [History] carboxymethylcellulose sodium [Refresh Tears] 1 drp OPHTHALMIC (EYE) QID 04/11/21 [History] duloxetine 30 mg PO DAILY 04/11/21 [History] fluconazole [Diflucan] 100 mg PO DAILY 04/11/21 [History] guaifenesin [Robitussin Mucus-Chest Congest] 200 mg PO QID 04/11/21 [History] insulin detemir U-100 [Levemir U-100 Insulin] 65 unit SUBCUT BID 04/11/21 [History] ipratropium-albuterol [DuoNeb] 3 ml INHALATION BID 04/11/21 [History] semaglutide [Ozempic] 0.5 mg SUBCUT DAILY 04/11/21 [History] sodium chloride [Saline Nasal] 1 spray INTRANASAL BID 04/11/21 [History] - Review of Systems Constitutional: Weakness, Malaise Eyes: No Symptoms Reported ENT: No Symptoms Reported Respiratory: No Symptoms Reported Cardiovascular: No Symptoms Reported Gastrointestinal: No Symptoms Reported Genitourinary: Dysuria Musculoskeletal: No Symptoms Reported Skin: No Symptoms Reported Neurological: Weakness - Physical Exam Vital Signs: Temperature 97.5 F Pulse Rate [Left Radial] 86 Respiratory Rate 11 Blood Pressure [RIGHT WRIST] 111/51 Blood Pressure [Right Arm] 153/66 Blood Pressure [Left Calf] 161/70 Blood Pressure [Right Calf] 123/58 Blood Pressure [Left Arm] 122/59 Blood Pressure 125/73 O2 Sat by Pulse Oximetry 94 Oriented: Normal Eyes: Normal Ear: Normal Nose: Normal Throat: Normal Respiratory: Diminished Throughout Cardiovascular: Normal : Normal Auscultation: Bowel Sounds: Normal Palpation: Normal Tenderness: Normal Skin: Decreased Turgur Musculoskeletal: Right, Shoulder, Tender Psychiatric: Normal Mood Description: Calm Affect: Normal Speech Pattern: Clear - Assessment/Plan (1) UTI (urinary tract infection) Qualifiers: Urinary tract infection type: acute cystitis Hematuria presence: with hematuria Qualified Code(s): N30.01 - Acute cystitis with hematuria Status: Acute Plan: ADMIT, NORMAL SALINE AT 75 ML/HR, INVANZ 1G IV DAILY, OTBS ACHS, HUMULIN R SLIDING SCALE. RESUME HOME MEDS, HOLD LASIX (2) Dehydration Status: Acute (3) Acute on chronic renal failure Qualifiers: Acute renal failure type: unspecified Chronic kidney disease stage: unsp ecified stage Qualified Code(s): N17.9 - Acute kidney failure, unspecified; N18.9 - Chronic kidney disease, unspecified Status: Acute (4) Generalized weakness Status: Acute (5) Diabetes mellitus, type 2 Qualifiers: Diabetes mellitus terminal makeup operator insulin use: with fpc use Diabetes mellitus complication status: with kidney complications Diabetes mellitus complication detail: with chronic kidney disease Chronic kidney disease stage: unspecified stage Qualified Code(s): E11.22 - Type 2 diabetes mellitus with diabetic chronic kidney disease; Z79.4 - intermediate (current) use of insulin Status: Chronic (6) COPD (chronic obstructive pulmonary disease) with acute bronchitis Status: Chronic (7) CHF (congestive heart failure) Qualifiers: Heart failure type: unspecified Heart failure chronicity: unspecified Qualified Code(s): I50.9 - Heart failure, unspecified Status: Chronic (8) Essential hypertension Status: Chronic (9) Hyperlipidemia Qualifiers: Hyperlipidemia type: mixed hyperlipidemia Status: Chronic (10) GERD (gastroesophageal reflux disease) Qualifiers: Esophagitis presence: esophagitis presence not specified Qualified Code(s): K21.9 - Gastro-esophageal reflux disease without esophagitis Status: Chronic (11) Osteoarthritis Qualifiers: Osteoarthritis location: unspecified site Osteoarthritis type: unspecified Qualified Code(s): M19.90 - Unspecified osteoarthritis, unspecified site Status: Chronic (12) Hypothyroidism Qualifiers: Hypothyroidism type: acquired Status: Chronic (13) History of anemia Status: Chronic - Allergies Allergies/Adverse Reactions: Allergies Allergy/AdvReac Type Severity Reaction Status Date / Time bacitracin Allergy Verified 05/26/20 14:08 [From Neosporin (pow-qji-azzao)] clopidogrel [From Plavix] Allergy Verified 05/26/20 14:08 gabapentin [From Neurontin] Allergy Verified 05/26/20 14:08 hydrochlorothiazide Allergy Verified 05/26/20 14:08 [From Hyzaar] latex Allergy Verified 05/26/20 14:08 losartan [From Hyzaar] Allergy Verified 05/26/20 14:08 neomycin Allergy Verified 05/26/20 14:08 [From Neosporin (uso-wet-tjoho)] polymyxin B Allergy Verified 05/26/20 14:08 [From Neosporin (slk-eij-flzvg)] propoxyphene [From Darvon] Allergy Verified 05/26/20 14:08 rosuvastatin [From Crestor] Allergy Verified 05/26/20 14:08 sulfamethoxazole Allergy Verified 05/26/20 14:08 [From Bactrim] trimethoprim [From Bactrim] Allergy Verified 05/26/20 14:08 No Dye Allergy Uncoded 05/26/20 14:08
[2021-04-12] MEDS: REQUIP PO SCH ×4 (09:58→22:03)
[2021-04-12] MEDS: TESSALON PERLES PO SCH ×2 (09:58→16:41)
[2021-04-12] MEDS: ARTIFICIAL TEARS DROPS OP SCH ×4 (09:59→21:58)
[2021-04-12] MEDS: OXYBUTYNIN CHLORIDE ER PO SCH (09:59)
[2021-04-12] MEDS: PATIENT'S HOME MEDICATION (Dapagliflozin [Farxiga] 5 mg Tablet) PO SCH (10:00)
[2021-04-12] MEDS: DUONEB 0.5 MG/3 MG (3 mL) NEB SCH ×2 (10:59→20:21)
[2021-04-12] MEDS: REGLAN TAB 10 MG PO SCH ×3 (11:31→21:55)
[2021-04-12] MEDS ORDERED: SNACK - Diabetic Appropriate PO SCH (20:00)
[2021-04-12] MEDS ORDERED: ZyrTEC TAB 10 MG PO SCH (21:00)
[2021-04-12] MEDS ORDERED: CARBOXYMETHYLCELLULOSE SODIUM 1% OP SCH (21:00)
[2021-04-12] MEDS ORDERED: ANTIVERT TAB 25 MG PO SCH (21:00)
[2021-04-12] MEDS ORDERED: ZOCOR TAB 20 MG PO SCH (21:00)
[2021-04-12] MEDS: SNACK - Diabetic Appropriate PO SCH (21:57)
[2021-04-13] MEDS: ROXICODONE TAB 15 MG PO PRN (02:14)
[2021-04-13] MEDS: TESSALON PERLES PO SCH ×2 (02:14→09:50)
[2021-04-13 06:21] LABS: BASOPHILS # (AUTO) 0.1 X10^3/uL (0.0-0.1); BASOPHILS % (AUTO) 0.9 % (0.2-1.0); EOSINOPHILS # (AUTO) 0.4 x10^3/uL (0.0-0.2); EOSINOPHILS % (AUTO) 5.3 % (0.9-2.9); HEMATOCRIT 35.3 % (36.0-47.0); HEMOGLOBIN 11.9 g/dL (12.0-16.0); LYMPHOCYTES # (AUTO) 1.8 X10^3/uL (1.3-2.9); LYMPHOCYTES % (AUTO) 25.6 % (21.0-51.0); MEAN CORPUSCULAR HEMOGLOBIN 27.8 pg (27.0-34.0); MEAN CORPUSCULAR HGB CONC 33.6 g/dL (33.0-35.0); MEAN CORPUSCULAR VOLUME 82.8 fL (80.0-100.0); MEAN PLATELET VOLUME 9.8 fL (7.4-11.0); MONOCYTES # (AUTO) 0.9 x10^3/uL (0.3-0.8); MONOCYTES % (AUTO) 12.8 % (0.0-13.0); NEUTROPHILS # (AUTO) 3.8 x10^3/uL (2.2-4.8); NEUTROPHILS % (AUTO) 55.4 % (42.0-75.0); PLATELET COUNT 226 X10^3/uL (150.0-450.0); RED BLOOD COUNT 4.26 X10^6/uL (3.5-5.4); RED CELL DISTRIBUTION WIDTH 16.8 % (11.6-16.5); WHITE BLOOD COUNT 6.9 X10^3/uL (3.6-10.0)
[2021-04-13] MEDS: REGLAN TAB 10 MG PO SCH (06:27)
[2021-04-13] MEDS: NovoLIN R (or HumuLIN R) SUBCUT PRN (06:27)
[2021-04-13] MEDS: NS 1,000 ML IV 1,000 ML IV SCH ×2 (06:30→10:42)
[2021-04-13 06:38] LABS: ALBUMIN 2.1 g/dL (3.4-5.0); CALCIUM 8.5 mg/dL (8.5-10.1); CARBON DIOXIDE 26.2 mmol/L (21-32); CREATININE 1.28 mg/dL (0.55-1.02); TOTAL PROTEIN 6.8 g/dL (6.4-8.2)
[2021-04-13 07:56] VITALS: BP 126/60
[2021-04-13] MEDS: DUONEB 0.5 MG/3 MG (3 mL) NEB SCH (09:30)
[2021-04-13] MEDS: ARTIFICIAL TEARS DROPS OP SCH (09:46)
[2021-04-13] MEDS: COLACE CAP 100 MG PO SCH (09:46)
[2021-04-13] MEDS: ASTELIN NASAL SPRAY ENOSTRIL SCH (09:46)
[2021-04-13] MEDS: AYR NASAL DROPS ENOSTRIL SCH (09:46)
[2021-04-13] MEDS: CYMBALTA PO SCH (09:47)
[2021-04-13] MEDS: PATIENT'S HOME MEDICATION (Dapagliflozin [Farxiga] 5 mg Tablet) PO SCH (09:47)
[2021-04-13] MEDS: HEMOCYTE-PLUS PO SCH (09:48)
[2021-04-13] MEDS: LYRICA CAP 150 mg PO SCH (09:48)
[2021-04-13] MEDS: DIFLUCAN PO SCH (09:48)
[2021-04-13] MEDS: K-DUR TAB 20 MEQ PO SCH (09:48)
[2021-04-13] MEDS: JANUVIA PO SCH (09:48)
[2021-04-13] MEDS: INVANZ INJ 1 GM VIAL 1 GM in NS 100 ML IV + SPIKE MINIBAG* 100 ML IV SCH (09:48)
[2021-04-13] MEDS: OXYBUTYNIN CHLORIDE ER PO SCH (09:49)
[2021-04-13] MEDS: REQUIP PO SCH (09:49)
[2021-04-13] MEDS: LOPRESSOR TAB 25 MG PO SCH (09:49)
[2021-04-13] MEDS: MIRALAX POWDER (1 DOSE 17 G) PO SCH (09:49)
[2021-04-13] MEDS: XARELTO PO SCH (09:50)
[2021-04-13] MEDS: ZYLOPRIM PO SCH (09:50)
[2021-04-13] MEDS: SINGULAIR TAB 10 MG PO SCH (09:50)
[2021-04-13] MEDS: ROBITUSSIN (PLAIN) PO SCH (09:50)
[2021-04-13] MEDS: SYNTHROID 88 mcg TAB PO SCH (09:50)
[2021-04-13] MEDS: VSL#3 PO SCH (09:50)
[2021-04-14] MEDS ORDERED: PATIENT'S HOME MEDICATION (Semaglutide [Ozempic] 0.25 mg or 0.5 mg(2 mg/1.5 mL) pen inject SUBCUT SCH (09:00)
== END 2021-04-13 11:50 ==
LOC: MED/SURG
PROVIDERS: ADMIT Internal Medicine; ATTEND Internal Medicine
DX: E86.0 Dehydration; E11.65 Type 2 diabetes mellitus with hyperglycemia; R26.89 Other abnormalities of gait and mobility; N30.01 Acute cystitis with hematuria; N18.9 Chronic kidney disease, unspecified; E78.2 Mixed hyperlipidemia; K21.9 Gastro-esophageal reflux disease without esophagitis; J44.9 Chronic obstructive pulmonary disease, unspecified; N17.8 Other acute kidney failure; I12.9 Hypertensive chronic kidney disease with stage 1 through stage 4 chronic kidney disease, or unspecified chronic kidney disease; Z79.4 Long term (current) use of insulin; B96.1 Klebsiella pneumoniae [K. pneumoniae] as the cause of diseases classified elsewhere; R53.1 Weakness; E03.8 Other specified hypothyroidism; Z20.822 Contact with and (suspected) exposure to COVID-19; M19.90 Unspecified osteoarthritis, unspecified site

== ENCOUNTER 2021-12-11 11:59 | Inpatient (IN) ==
--- NOTE | 2021-12-11 12:23 | DR.AMS ---
HPI Time Seen Time Seen by Provider: 12/11/21 12:23 PMH PMH Past Medical History: Anemia, Anxiety, Arthritis, COPD, CVA, Depression, Diabetes, Dyslipidemia, GERD, Gout, Hypertension, Hypothyroidism, Renal Disease and Sleep Apnea Past Surgical History: Yes Surgical History: Cholecystectomy and Hysterectomy Family History Family Medical History: Diabetes Mellitus, Cancer and [place] Social History Do you use any recreational Drugs:: No PE Vitals Vital Signs: Temp Pulse Resp BP BP BP BP 04/13/21 08:00 126/60 04/12/21 20:21 09/07/20 23:38 12/15/17 03:23 111/51 09/19/17 12:00 161/70 09/14/17 12:05 12/11/21 14:30 115 H 12 12/11/21 14:15 115 H 15 12/11/21 14:00 116 H 18 12/11/21 13:45 115 H 19 12/11/21 13:30 114 H 18 12/11/21 13:15 114 H 16 12/11/21 13:01 153/93 12/11/21 13:01 115 H 17 12/11/21 13:00 115 H 21 12/11/21 12:56 116 H 18 12/11/21 12:15 98.3 F 113 H 15 124/74 10/11/21 17:57 138/65 BP BP Pulse Ox O2 Del Method FiO2 04/13/21 08:00 04/12/21 20:21 28 09/07/20 23:38 153/66 12/15/17 03:23 09/19/17 12:00 09/14/17 12:05 123/58 12/11/21 14:30 97 12/11/21 14:15 98 12/11/21 14:00 98 12/11/21 13:45 97 12/11/21 13:30 97 12/11/21 13:15 12/11/21 13:01 12/11/21 13:01 96 12/11/21 13:00 96 12/11/21 12:56 96 12/11/21 12:15 95 Nasal Cannula 10/11/21 17:57 ROR Labs Reviewed Result Diagrams: 12/13/21 05:35 12/13/21 05:35 Laboratory: 12/11/21 13:28 Blood Blood Culture - Preliminary 12/11/21 13:40 Urine,Catheterized Urine Culture - Preliminary 12/11/21 13:37 Blood Blood Culture - Preliminary WBC 31.8 X10^3/uL (3.6-10.0) H* 12/11/21 12:28 RBC 5.51 X10^6/uL (3.5-5.4) H 12/11/21 12:28 Hgb 14.6 g/dL (12.0-16.0) 12/11/21 12:28 Hct 44.7 % (36.0-47.0) 12/11/21 12:28 MCV 81.0 fL (80.0-100.0) 12/11/21 12:28 MCH 26.4 pg (27.0-34.0) L 12/11/21 12:28 MCHC 32.6 g/dL (33.0-35.0) L 12/11/21 12:28 RDW 22.2 % (11.6-16.5) H 12/11/21 12:28 Plt Count 188 X10^3/uL (150.0-450.0) 12/11/21 12:28 Plt Count Comment Adequate (ADEQUATE) 12/11/21 12:28 MPV 11.1 fL (7.4-11.0) H 12/11/21 12:28 Neut % (Auto) 86.4 % (42.0-75.0) H 12/11/21 12:28 Lymph % (Auto) 6.7 % (21.0-51.0) L 12/11/21 12:28 Cook % (Auto) 4.2 % (0.0-13.0) 12/11/21 12:28 Eos % (Auto) 2.7 % (0.9-2.9) 12/11/21 12:28 Baso % (Auto) 0 % (0.2-1.0) L 12/11/21 12:28 Neut # (Auto) 27.5 x10^3/uL (2.2-4.8) H 12/11/21 12:28 Lymph # (Auto) 2.1 X10^3/uL (1.3-2.9) 12/11/21 12:28 Cook # (Auto) 1.3 x10^3/uL (0.3-0.8) H 12/11/21 12:28 Eos # (Auto) 0.9 x10^3/uL (0.0-0.2) H 12/11/21 12:28 Baso # (Auto) 0.0 X10^3/uL (0.0-0.1) 12/11/21 12:28 Absolute Nucleated RBC 0.0 /100WBC 12/11/21 12:28 Total Counted 100 12/11/21 12:28 Neutrophils % (Manual) 87 % (39-76) H 12/11/21 12:28 Band Neutrophils % 4 % (0-10) 12/11/21 12:28 Lymphocytes % (Manual) 6 % (13-43) L 12/11/21 12: Monocytes % (Manual) 2 % (4-9) L 12/11/21 12:28 Eosinophils % (Manual) 1 % (0-6) 12/11/21 12:28 Plt Morphology Comment Normal (NORMAL) 12/11/21 12:28 RBC Morphology Abnormal (NORMAL) A 12/11/21 12:28 Anisocytosis 2+ A 12/11/21 12:28 Sample Site Rrad 12/11/21 12:22 ABG pH 7.420 (7.35-7.45) 12/11/21 12: ABG pCO2 43.0 mmHg (35.0-45.0) 12/11/21 12: ABG pO2 82.0 mmHg (80.0-100.0) 12/11/21 12: ABG HCO3 27.9 mmol/L (22-26) H 12/11/21 12:22 ABG O2 Saturation 96.0 % (90-100) 12/11/21 12:22 ABG Base Excess 3.0 mmol/L (-2.0-2.0) H 12/11/21 12:22 Candelario Test Pos 12/11/21 12:22 A-a Gradient 64.0 mmHg 12/11/21 12:22 FiO2 28.0 12/11/21 12:22 Blood Gas Comments Chun well ms 12/11/21 12:22 Sodium 145 mmol/L (136-145) 12/11/21 12:28 Corrected Sodium 146 mmol/L (136-145) H 12/11/21 12:28 Potassium 4.1 mmol/L (3.5-5.1) 12/11/21 12:28 Chloride 107 mmol/L (98-107) 12/11/21 12:28 Carbon Dioxide 26.2 mmol/L (21-32) 12/11/21 12:28 BUN 48 mg/dL (7-18) H 12/11/21 12:28 Creatinine 1.60 mg/dL (0.55-1.02) H 12/11/21 12:28 Est GFR (MDRD) Af Amer 41 (>60) L 12/11/21 12:28 Est GFR (MDRD) Non-Af 34 (>60) L 12/11/21 12:28 Glucose 157 mg/dL (65-99) H 12/11/21 12:28 POC Glucose (mg/dL) 146 mg/dL (65-99) H 12/11/21 12:47 Lactic Acid 3.3 mmol/L (0.4-2.0) H 12/11/21 13:37 Calcium 9.9 mg/dL (8.5-10.1) 12/11/21 12:28 Corrected Calcium 11.1 mg/dL (8.5-10.1) H 12/11/21 12:28 Total Bilirubin 0.50 mg/dL (0.2-1.0) 12/11/21 12:28 AST 21 Units/L (15-37) 12/11/21 12:28 ALT < 6 Units/L (12-78) L 12/11/21 12:28 Alkaline Phosphatase 125 Units/L (46-116) H 12/11/21 12:28 Ammonia < 10 umol/L (11-32) L 12/11/21 13:37 Creatine Kinase 133 Units/L (26-192) 12/11/21 12:28 Troponin I High Sens 12.9 ng/L (4.0-60.0) 12/11/21 12:28 B-Natriuretic Peptide 69.8 pg/mL (0-79) 12/11/21 13:37 Total Protein 7.7 g/dL (6.4-8.2) 12/11/21 12:28 Albumin 2.5 g/dL (3.4-5.0) L 12/11/21 12:28 Globulin 5.2 g/dL (2.5-4.5) H 12/11/21 12:28 Albumin/Globulin Ratio 0.5 Ratio (1.1-2.1) L 12/11/21 12:28 Specimen Type Catherized urine 12/11/21 13:40 Urine Color Yellow (YELLOW) 12/11/21 13:40 Urine Appearance Cloudy (CLEAR) 12/11/21 13:40 Urine pH 5.0 (5.0 - 8.0) 12/11/21 13:40 Ur Specific Cochrane 1.025 (1.000-1.030) 12/11/21 13:40 Urine Protein 2+ (NEGATIVE) 12/11/21 13:40 Urine Glucose (UA) Negative (NEGATIVE) 12/11/21 13:40 Urine Ketones Negative (NEGATIVE) 12/11/21 13:40 Urine Blood 3+ (NEGATIVE) 12/11/21 13:40 Urine Nitrite Negative (NEGATIVE) 12/11/21 13:40 Urine Bilirubin Negative (NEGATIVE) 12/11/21 13:40 Urine Urobilinogen Normal (NORMAL) 12/11/21 13:40 Ur Leukocyte Esterase 3+ (NEGATIVE) 12/11/21 13:40 Urine RBC Tntc /HPF (0-3) A 12/11/21 13:40 Urine WBC Tntc /HPF (0-5) A 12/11/21 13:40 Ur Squamous Epith Cells Negative /HPF (NEGATIVE) 12/11/21 13:40 Ur Renal Epithelial Cell Rare /HPF (NEGATIVE) 12/11/21 13:40 Amorphous Sediment Trace /HPF (NEGATIVE) 12/11/21 13:40 Urine Bacteria 3+ /HPF (NEGATIVE) 12/11/21 13:40 Ur Culture Indicated? Yes/culture set up 12/11/21 13:40 Urine Opiates Screen Negative (NEG=<300) 12/11/21 13:40 Urine Methadone Screen Negative (NEG=<300) 12/11/21 13:40 Ur Barbiturates Screen Negative (NEG=<200) 12/11/21 13:40 Ur Phencyclidine Scrn Negative (NEG=<25) 12/11/21 13:40 Ur Amphetamines Screen Negative (NEG=<1000) 12/11/21 13:40 U Benzodiazepines Scrn Negative (NEG=<200) 12/11/21 13:40 Urine Cocaine Screen Negative (NEG=<300) 12/11/21 13:40 U Marijuana (THC) Screen Negative (NEG=<50) 12/11/21 13:40 Acetone, Semi-Quant Negative (NEGATIVE) 12/11/21 13:37 SARS-CoV-2 (PCR) Negative (NEGATIVE) 12/11/21 13:40 Influenza Type A (PCR) Negative (NEGATIVE) 12/11/21 13:40 Influenza Type B (PCR) Negative (NEGATIVE) 12/11/21 13:40 RSV (PCR) Negative (NEGATIVE) 12/11/21 13:40 Opioid Opioid Risk Tool Age (Jose box if 16-45): No History of Preadolescent Sexual Abuse: No Total: 0 Total Score Risk Category: Low Risk Copyright: Vaibhav MEYERS predicting aberrant behaviors Discharge Plan Discharge Plan Patient Disposition: 09 ADMITTED INPATIENT Condition: Stable
[2021-12-11 12:24] LABS: ABG ALLEN TEST POS; ABG HCO3 27.9 mmol/L (22-26)
[2021-12-11] MEDS ORDERED: NARCAN INJ IVP ONE (12:29)
[2021-12-11 12:48] LABS: BASOPHILS % (AUTO) 0 % (0.2-1.0); EOSINOPHILS # (AUTO) 0.9 x10^3/uL (0.0-0.2); EOSINOPHILS % (AUTO) 2.7 % (0.9-2.9); HEMATOCRIT 44.7 % (36.0-47.0); HEMOGLOBIN 14.6 g/dL (12.0-16.0); LYMPHOCYTES # (AUTO) 2.1 X10^3/uL (1.3-2.9); LYMPHOCYTES % (AUTO) 6.7 % (21.0-51.0); MEAN CORPUSCULAR HEMOGLOBIN 26.4 pg (27.0-34.0); MEAN CORPUSCULAR HGB CONC 32.6 g/dL (33.0-35.0); MEAN PLATELET VOLUME 11.1 fL (7.4-11.0); MONOCYTES # (AUTO) 1.3 x10^3/uL (0.3-0.8); MONOCYTES % (AUTO) 4.2 % (0.0-13.0); NEUTROPHILS # (AUTO) 27.5 x10^3/uL (2.2-4.8); NEUTROPHILS % (AUTO) 86.4 % (42.0-75.0); RED BLOOD COUNT 5.51 X10^6/uL (3.5-5.4); RED CELL DISTRIBUTION WIDTH 22.2 % (11.6-16.5)
[2021-12-11] MEDS ORDERED: NARCAN INJ ONE (12:48)
[2021-12-11 12:50] LABS: WHITE BLOOD COUNT 31.8 X10^3/uL (3.6-10.0)
[2021-12-11 12:57] LABS: ALANINE AMINOTRANSFERASE < 6 Units/L (12-78); ALBUMIN 2.5 g/dL (3.4-5.0); ALKALINE PHOSPHATASE 125 Units/L (46-116); ASPARTATE AMINO TRANSFERASE 21 Units/L (15-37); BLOOD UREA NITROGEN 48 mg/dL (7-18); CALCIUM 9.9 mg/dL (8.5-10.1); CARBON DIOXIDE 26.2 mmol/L (21-32); CHLORIDE 107 mmol/L (98-107); COR CA(FOR HYPOALB) 11.1 mg/dL (8.5-10.1); COR NA(FOR HYPERGLY) 146 mmol/L (136-145); CREATINE KINASE 133 Units/L (26-192); SODIUM 145 mmol/L (136-145); TOTAL PROTEIN 7.7 g/dL (6.4-8.2); eGFR NON BLACK RACES 34 (>60)
[2021-12-11 13:00] LABS: ANISOCYTOSIS 2+; BAND NEUTROPHILS % 4 % (0-10); PLATELET MORPHOLOGY COMMENT NORMAL (NORMAL)
--- NOTE | 2021-12-11 13:53 | CT ---
HISTORYUnresponsive 30 minutesSTUDYCT brain without contrastCOMPARISONJanuary 2019TECHNIQUEMultiple axial images of the brain were obtained from the skull base to the vertex [without] administration of IV contrast.Dose reduction techniques including Automated Exposure Control (AEC) and adjustment of mA and kV were utlized.FINDINGS[No acute intraparenchymal hemorrhage or mass can be identified.] [No extra-axial fluid collections are seen.] [No alteration in the attenuation of the brain parenchyma can be identified to suggest acute or subacute ischemic change.] Mild small vessel ischemic changes are noted along with age-appropriate atrophy. [The ventricular system is symmetric and nondilated.] [The extracranial structures are grossly unremarkable.]IMPRESSION[No acute intracranial process can be identified.]Electronically signed by: HANNAH OLMOS (Dec 11, 2021 13:50:54)
[2021-12-11 13:57] LABS: BILIRUBIN,URINE NEGATIVE (NEGATIVE); BLOOD/HEMOGLOBIN,URINE 3+ (NEGATIVE); GLUCOSE, URINE NEGATIVE (NEGATIVE); KETONES,URINE NEGATIVE (NEGATIVE); LEUKOCYTE ESTERASE ,URINE 3+ (NEGATIVE); NITRITES,URINE NEGATIVE (NEGATIVE); PROTEIN,URINE 2+ (NEGATIVE); UROBILINOGEN,URINE NORMAL (NORMAL)
[2021-12-11] MEDS ORDERED: NS 1,000 ML IV 1,000 ML ONE (13:58)
[2021-12-11 13:59] LABS: APPEARANCE,URINE CLOUDY (CLEAR); COLOR,URINE YELLOW (YELLOW)
--- NOTE | 2021-12-11 13:59 | RAD ---
HISTORYRelevant Clinical Information unresponsiveSTUDYCHEST, 1 VIEWCOMPARISONApril 2021FINDINGSThe trachea is midline. The cardiac silhouette is stable as is a left-sided Port-A-Cath the lungs are clear without focal infiltrate or effusion. The bony thorax is unremarkable.IMPRESSIONNo acute cardiopulmonary disease.Electronically signed by: HANNAH OLMOS (Dec 11, 2021 13:57:50)
[2021-12-11 14:02] LABS: AMMONIA < 10 umol/L (11-32)
[2021-12-11] MEDS: NS 1,000 ML IV 1,000 ML IV SCH ×2 (14:03→21:31)
[2021-12-11 14:08] LABS: LACTIC ACID 3.3 mmol/L (0.4-2.0)
[2021-12-11 14:08] LABS: BACTERIA,URINE 3+ /HPF (NEGATIVE); RBC,URINE TNTC /HPF (0-3); SQUAMOUS EPITHELIAL CELL,UR NEGATIVE /HPF (NEGATIVE)
[2021-12-11 14:09] LABS: RENAL EPITHELIAL CELLS,URINE RARE /HPF (NEGATIVE)
[2021-12-11 14:15] LABS: SERUM ACETONE NEGATIVE (NEGATIVE)
[2021-12-11] MEDS ORDERED: ZOSYN VIAL 3.375 GRAMS 3.375 G in NS 100 ML IV 100 ML IV ONE (15:00)
[2021-12-11] MEDS ORDERED: ZOSYN VIAL 3.375 GRAMS IV ONE (15:13)
[2021-12-11] MEDS ORDERED: NS 100 ML IV 100 ML ONE (15:13)
[2021-12-11] MEDS ORDERED: NS 250 ML IV 250 ML IV ONE (16:16)
[2021-12-11] MEDS ORDERED: NS 1,000 ML IV 1,000 ML IV SCH (16:20)
[2021-12-11] MEDS: FORTAZ or TAZICEF VIAL INJ 1 G in NS 100 ML IV 100 ML IV SCH ×2 (17:00→21:07)
[2021-12-11] MEDS: ZOSYN VIAL 3.375 GRAMS 3.375 G in NS 100 ML IV 100 ML IV SCH ×2 (17:20→22:18)
[2021-12-11] MEDS ORDERED: NS 250 ML IV 250 ML IV SCH (17:30)
[2021-12-11] MEDS ORDERED: PHARMACY CONSULT LTC MEDICATIONS XX SCH (18:00)
--- NOTE | 2021-12-11 19:07 | CT ---
EXAM: FACIAL BONE CTHISTORY: Facial pain. Swelling.TECHNIQUE: Spiral axial images are obtained through the face without the administration of intravenous contrast. Coronal and sagittal reformatted images are reconstructed.DOSIMETRY: Total DLP 488.2 mGycm; CTDI 20.17 mGyCOMPARISON: None available.FINDINGS:There is no gross facial or orbital bone fracture, subluxation, or dislocation seen. There is no bony destruction reminiscent of osteomyelitis or neoplastic disease seen. No significant bony nasal septal deviation or spurring is seen. The mandible and TMJs are intact.The ocular globes are intact. There is no intraorbital hematoma, emphysema, or foreign body seen. There is a small complex air-fluid level within the sphenoid sinus in keeping with acute sinusitis in the appropriate clinical setting; DDx includes acute posttraumatic change. The paranasal sinuses, middle ear cavities, and mastoid air cells are otherwise clear. No radiodense soft tissue abnormality or foreign body seen. There is severe bilateral cervical carotid atherosclerosis.There is severe DJD of the atlantoaxial joint marked by severe joint space narrowing and marginal osteophytosis. C5/6: Severe DDD marked by severe disc space narrowing, endplate irregularity and sclerosis, and prominent posterior marginal osteophytosis (projecting up to 5.1 mm AP, with potential for neural impingement).IMPRESSION:1. No facial/orbital bone fracture or dislocation seen.2. No radiodense soft tissue abnormality or foreign body seen.3. Severe DJD of the atlantoaxial joint marked by severe joint space narrowing and marginal osteophytosis.4. C5/6: Severe DDD marked by severe disc space narrowing, endplate irregularity and sclerosis, and prominent posterior marginal osteophytosis (projecting up to 5.1 mm AP, with potential for neural impingement).5. Bilateral severe cervical carotid atherosclerosis. Consider follow-up dedicated vascular imaging to rule out hemodynamically significant carotid stenosis as clinically warranted.6. Small complex air-fluid level within the sphenoid sinus in keeping with acute sinusitis in the appropriate clinical setting; DDx includes acute posttraumatic change.Electronically signed by: Aiyana Mckeon (Dec 11, 2021 19:05:32)
[2021-12-11] MEDS: DUONEB 0.5 MG/3 MG (3 mL) NEB SCH (21:05)
[2021-12-11] MEDS: PULMICORT NEB TX 0.5 MG NEB SCH (21:05)
[2021-12-12 01:14] LABS: BASOPHILS # (AUTO) 0.1 X10^3/uL (0.0-0.1); BASOPHILS % (AUTO) 0.3 % (0.2-1.0); EOSINOPHILS # (AUTO) 0.1 x10^3/uL (0.0-0.2); EOSINOPHILS % (AUTO) 0.2 % (0.9-2.9); HEMATOCRIT 42.6 % (36.0-47.0); LYMPHOCYTES # (AUTO) 1.6 X10^3/uL (1.3-2.9); LYMPHOCYTES % (AUTO) 5.8 % (21.0-51.0); MEAN CORPUSCULAR HEMOGLOBIN 26.6 pg (27.0-34.0); MEAN CORPUSCULAR HGB CONC 32.8 g/dL (33.0-35.0); MEAN CORPUSCULAR VOLUME 81.2 fL (80.0-100.0); MEAN PLATELET VOLUME 10.9 fL (7.4-11.0); MONOCYTES # (AUTO) 1.7 x10^3/uL (0.3-0.8); MONOCYTES % (AUTO) 6.2 % (0.0-13.0); NEUTROPHILS # (AUTO) 24.8 x10^3/uL (2.2-4.8); NEUTROPHILS % (AUTO) 87.5 % (42.0-75.0); RED BLOOD COUNT 5.25 X10^6/uL (3.5-5.4); RED CELL DISTRIBUTION WIDTH 22.1 % (11.6-16.5); WHITE BLOOD COUNT 28.3 X10^3/uL (3.6-10.0)
[2021-12-12 01:39] LABS: ALBUMIN 2.2 g/dL (3.4-5.0); CALCIUM 8.8 mg/dL (8.5-10.1); CARBON DIOXIDE 25.8 mmol/L (21-32); COR CA(FOR HYPOALB) 10.2 mg/dL (8.5-10.1); CREATININE 1.4 mg/dL (0.55-1.02); MAGNESIUM 2.1 mg/dL (1.7-2.9); TOTAL PROTEIN 6.1 g/dL (6.4-8.2)
[2021-12-12 01:42] LABS: ANISOCYTOSIS 1+; BAND NEUTROPHILS % 2 % (0-10); HYPOCHROMASIA SLIGHT; PLATELET MORPHOLOGY COMMENT NORMAL (NORMAL)
[2021-12-12 01:43] LABS: TARGET CELLS 1+
[2021-12-12] MEDS: NS 1,000 ML IV 1,000 ML IV SCH (02:00)
[2021-12-12] MEDS ORDERED: LR 1,000 ML IV 1,000 ML IV ONE (02:10)
[2021-12-12] MEDS: LR 1,000 ML IV 1,000 ML IV SCH ×2 (02:16→10:03)
[2021-12-12] MEDS: ZOSYN VIAL 3.375 GRAMS 3.375 G in NS 100 ML IV 100 ML IV SCH ×3 (05:20→21:48)
[2021-12-12] MEDS: DUONEB 0.5 MG/3 MG (3 mL) NEB SCH ×2 (08:55→20:00)
[2021-12-12] MEDS: PULMICORT NEB TX 0.5 MG NEB SCH ×2 (08:55→20:00)
[2021-12-12] MEDS: FORTAZ or TAZICEF VIAL INJ 1 G in NS 100 ML IV 100 ML IV SCH ×2 (09:56→20:16)
[2021-12-12] MEDS ORDERED: XARELTO PO SCH (10:00)
[2021-12-12] MEDS: LOVENOX INJ 40 MG SYR SC SCH (12:05)
--- NOTE | 2021-12-12 12:51 | DR.H&P ---
H&P - History & Physical for Day of: H&P Date: 12/11/21 - Chief Complaint Chief Complaint: UNRESPONSIVE - History of Present Illness History of Present Illness: IS A 71 YEAR OLD PATIENT OF OURS. SHE IS A RESIDENT OF [facility] SHE PRESENTED TO THE ER FROM THE [facility] WITH STAFF REPORTING THAT PATIENT HAD BEEN UNRESPONSIVE. STAFF REPORTED THAT PATIENT WAS LAS SEEN ALERT AND ORIENTED X 3 APPROXIMATELY 30 MINUTES PRIOR TO ARRIVAL. HER PMH INCLUDES: ANEMIA, ANXIETY, ARTHRITIS, COPD, CVA, DEPRESSION, DM II, DYSLIPIDEMIA, GERD, GOUT, HTN, HYPOTHYROIDISM, RENAL DISEASE, SLEEP APNEA, CHOLECYSTECTOMY, HYSTERECTOMY. ON ARRIVAL TO THE ER, PATIENT WAS NOTED TO BE LETHARGIC WITH FLACCID EXTREMITIES. SHE WAS NOT ABLE TO FOLLOW-COMMANDS OR RESPOND VERBALLY. HER ONLY RESPONSE WAS MOANING TO DEEP STERNAL RUB. SHE WAS NO ELYSIA TO HAVE A MODERATE AMOUNT OF SWELLING TO THE LEFT SIDE FACE. ON ARRIVAL, VITALS WERE: 98.3-15-113-95%-124/74. SHE WAS ON NASAL CANNULA AT 2 LPM. LABS WERE OBTAINED. WBC 31.8, RBC 5.51, HGB 14.6, HCT 44.7, PLT COUNT 188, INR 1.64, PTT 38.6, SODIUM 145, POTASSIUM 4.1, CHLORIDE 107, BUN 48, CREATININE 1.60, GLUCOSE 157, LACTIC ACID 3.3, AST 21, ALT <6, ALK PHOS 125, TOTAL PROTEIN 7.7, ALBUMIN 2.5, GLOBULIN 5.2, AMMONIA <10. CARDIAC ENZYMES WERE WITHIN NORMAL LIMITS. A URINALYSIS WAS OBTAINED AND REVEALED: WBC TNTC, RBC TNTC, BACTERIA 3+, LEUKOCYTES 3+, BLOOD 3+. A URINE CULTURE WAS SET UP. URINE ACETONES NEGATIVE. UDS NEGATIVE. COVID, RSV, INFLUENZA NEGATIVE. AN ABG WAS OBTAINED AND REVEALED: PH 7.420, PC02 43, P02 82, HC03 27.9, 02 SAT 96, BASE EXCESS 3.0, A-A GRADIENT 64, FI02 28.0. BLOOD CULTURES WERE SET UP. EKG WAS OBTAINED AND REVEALED: SINUS TACHYCARDIA WITH HR 112. A CHEST XRAY WAS OBTAINED AND REVEALED: NO ACUTE CARDIOPULMONARY DISEASE. A BRAIN CT WITHOUT CONTRAST WAS OBTAINED AND REVEALED: No acute intracranial process can be identified. A FACIAL BONES CT WAS OBTAINED AND REVEALED: 1. No facial/orbital bone fracture or dislocation seen. 2. No radiodense soft tissue abnormality or foreign body seen. 3. Severe DJD of the atlantoaxial joint marked by severe joint space narrowing and marginal osteophytosis. 4. C5/6: Severe DDD marked by severe disc space narrowing, en dplate irregularity and sclerosis, and prominent posterior marginal osteophytosis (projecting up to 5.1 mm AP, with potential for neural impingement). 5. Bilateral severe cervical carotid atherosclerosis. Consider follow-up dedicated vascular imaging to rule out hemodynamically significant carotid stenosis as clinically warranted. 6. Small complex air-fluid level within the sphenoid sinus in keeping with acute sinusitis in the appropriate clinical setting; DDx includes acute posttraumatic change. SHE WAS GIVEN NARCAN IN THE ER WITH NO RESPONSE. SHE WAS ALSO GIVEN ZOSYN 3.375G IV X 1 DOSE WHILE IN THE ER. SHE WAS ADMITTED TO THE HOSPITAL FOR FURTHER EVAULATION AND TREATMENT OF SEPSIS DUE TO UTI, DEHYDRATION, RENAL INSUFFICIENCY, AND AMS. SHE WAS STARTED ON NS AT 125 ML/HR, DUONEBS BID, PULMICORT NEBS BID, ZOSYN 3.375G IV TID, LOVENOX 40MG SC DAILY, OTBS ACHS, HUMULIN R SLIDING SCALE. WHEN SHE IS MORE ALERT AND ABLE TO SWALLOW, WE WILL RESUME HER HOME MEDICATIONS. OTHERWISE, WE WILL FOLLOW- UP WITH AM LABS AND CONTINUE TO MONITOR. TIME SPENT ON CLINICAL ASSESSMENT, REVIWING LABS AND IMAGING, DECISION MAKING, AND DOCUMENTATION GREATER THAN 75 MINUTES. - Past Medical History Past Medical History: Hypertension, Dyslipidemia, Diabetes, Renal Disease, Depression, Anxiety, Hypothyroidism, Anemia, CVA, COPD, GERD, Arthritis, Gout, Sleep Apnea - Past Surgical History Surgical History: Cholecystectomy, Hysterectomy, Other Additional Surgical History: RIGHT KNEE REPLACEMENT, DILATION OF ESOPHAGUS - Family History Family Medical History: Diabetes Mellitus, Cancer, SD - Social History Does patient currently use any type of tobacco product: No Have you used tobacco products in the last 12 months: No Type of Tobacco Use: None Does any household member use tobacco: No Alcohol Use: None Drug Use: None - Medications Home Medications: bacitracin [From Neosporin (voo-cqa-cnjrr)] Allergy (Unknown, Verified 05/11/21 08:55) clopidogrel [From Plavix] Allergy (Unknown, Verified 05/11/21 08:55) gabapentin [From Neurontin] Allergy (Unknown, Verified 05/11/21 08:55) hydrochlorothiazide [From Hyzaar] Allergy (Unknown, Verified 05/11/21 08:55) latex Allergy (Unknown, Verified 05/11/21 08:55) losartan [From Hyzaar] Allergy (Unknown, Verified 05/11/21 08:55) neomycin [From Neosporin (rlm-xhm-gwews)] Allergy (Unknown, Verified 05/11/21 08:55) polymyxin B [From Neosporin (wpy-eap-wxizh)] Allergy (Unknown, Verified 05/11/21 08:55) propoxyphene [From Darvon] Allergy (Unknown, Verified 05/11/21 08:55) rosuvastatin [From Crestor] Allergy (Unknown, Verified 05/11/21 08:55) sulfamethoxazole [From Bactrim] Allergy (Unknown, Verified 05/11/21 08:55) trimethoprim [From Bactrim] Allergy (Unknown, Verified 05/11/21 08:55) No Dye Allergy (Uncoded 05/26/20 14:08) CONTINUE taking the following medications apremilast 30 mg tablet (Otezla) 1 tab PO BID 12/11/21 [History] carbidopa 25 mg-levodopa 100 mg tablet 1 tab PO TID 12/11/21 [History] oxycodone-acetaminophen 7.5 mg-325 mg tablet 1 tab PO QID PRN Moderate Pain (Scale Score 5-6) 12/11/21 [History] triamcinolone acetonide 0.1 % topical cream 11 applic topical BID 12/11/21 [History] - Review of Systems Constitutional: Weakness Eyes: No Symptoms Reported ENT: No Symptoms Reported Respiratory: No Symptoms Reported Cardiovascular: No Symptoms Reported Gastrointestinal: No Symptoms Reported Genitourinary: No Symptoms Reported Musculoskeletal: No Symptoms Reported Skin: No Symptoms Reported Neurological: See HPI, Weakness, Confusion - Physical Exam Vital Signs: Temperature 97.5 F Pulse Rate 125 Respiratory Rate 18 Blood Pressure [RIGHT WRIST] 111/51 Blood Pressure [Right Arm] 153/66 Blood Pressure [Left Calf] 161/70 Blood Pressure [Right Calf] 123/58 Blood Pressure [Left Arm] 126/60 Blood Pressure 170/77 O2 Sat by Pulse Oximetry 97 Oriented: Unable to test Eyes: Normal Ear: Normal Nose: Normal Throat: Normal Respiratory: Diminished Throughout Cardiovascular: Normal : Normal Auscultation: Bowel Sounds: Normal Palpation: Normal Tenderness: Normal Skin: Red (LEFT SIDE FACE ), Hot Musculoskeletal: Swelling (LEFT SIDE FACE ) Psychiatric: Other (LETHARGIC ) - Assessment/Plan (1) Sepsis Qualifiers: Sepsis type: sepsis due to unspecified organism Sepsis acute organ dysfunction status: unspecified Qualified Code(s): A41.9 - Sepsis, unspecified organism Status: Acute Plan: ADMIT, NS AT 125 ML/HR, DUONEBS BID, PULMICORT NEBS BID, ZOSYN 3.375G IV TID, LOVENOX 40MG SC DAILY, OTBS ACHS, HUMULIN R SLIDING SCALE. (2) UTI (urinary tract infection) Qualifiers: Urinary tract infection type: acute cystitis Hematuria presence: with hematuria Qualified Code(s): N30.01 - Acute cystitis with hematuria Status: Acute (3) Dehydration Status: Acute (4) Altered mental status Qualifiers: Altered mental status type: transient alteration of awareness Status: Acute (5) Renal failure Qualifiers: Renal failure chronicity: acute on chronic Acute renal failure type: unspecified Chronic kidney disease stage: unspecified stage Qualified Code(s): N17.9 - Acute kidney failure, unspecified; N18.9 - Chronic kidney disease, unspecified Status: Chronic (6) Facial cellulitis Status: Acute (7) COPD (chronic obstructive pulmonary disease) with acute bronchitis Status: Chronic (8) Diabetes mellitus, type 2 Qualifiers: Diabetes mellitus correction insulin use: with correction use Diabetes mellitus complication status: with kidney complications Diabetes mellitus complication detail: with chronic kidney disease Chronic kidney disease stage: unspecified stage Qualified Code(s): E11.22 - Type 2 diabetes mellitus with diabetic chronic kidney disease; Z79.4 - long-term (current) use of insulin Status: Chronic (9) Essential hypertension Status: Chronic - Allergies Allergies/Adverse Reactions: Allergies Allergy/AdvReac Type Severity Reaction Status Date / Time bacitracin Allergy Unknown Verified 05/11/21 08:55 [From Neosporin ([id number]-mvd-[id number])] clopidogrel [From Plavix] Allergy Unknown Verified 05/11/21 08:55 gabapentin [From Neurontin] Allergy Unknown Verified 05/11/21 08:55 hydrochlorothiazide Allergy Unknown Verified 05/11/21 08:55 [From Hyzaar] latex Allergy Unknown Verified 05/11/21 08:55 losartan [From Hyzaar] Allergy Unknown Verified 05/11/21 08:55 neomycin Allergy Unknown Verified 05/11/21 08:55 [From Neosporin ([id number]-ieg-oteev)] polymyxin B Allergy Unknown Verified 05/11/21 08:55 [From Neosporin (mke-wjr-dtuom)] propoxyphene [From Darvon] Allergy Unknown Verified 05/11/21 08:55 rosuvastatin [From Crestor] Allergy Unknown Verified 05/11/21 08:55 sulfamethoxazole Allergy Unknown Verified 05/11/21 08:55 [From Bactrim] trimethoprim [From Bactrim] Allergy Unknown Verified 05/11/21 08:55 No Dye Allergy Uncoded 05/26/20 14:08
[2021-12-12] MEDS ORDERED: NS 1/2 1,000 ML IV 1,000 ML IV ONE (14:46)
[2021-12-12] MEDS: NS 1/2 1,000 ML IV 1,000 ML IV SCH ×2 (14:48→21:48)
[2021-12-12] MEDS: MORPHINE SULFATE INJ 2 MG INJ IVP PRN (19:31)
[2021-12-13] MEDS ORDERED: NS 1/2 1,000 ML IV 1,000 ML IV ONE (00:57)
[2021-12-13] MEDS: NS 1/2 1,000 ML IV 1,000 ML IV SCH ×2 (00:59→05:56)
[2021-12-13] MEDS ORDERED: NS 250 ML IV 250 ML IV ONE (05:21)
[2021-12-13 05:55] LABS: BASOPHILS # (AUTO) 0.1 X10^3/uL (0.0-0.1); BASOPHILS % (AUTO) 0.7 % (0.2-1.0); EOSINOPHILS # (AUTO) 0.3 x10^3/uL (0.0-0.2); EOSINOPHILS % (AUTO) 1.9 % (0.9-2.9); HEMOGLOBIN 11.4 g/dL (12.0-16.0); LYMPHOCYTES # (AUTO) 1.5 X10^3/uL (1.3-2.9); LYMPHOCYTES % (AUTO) 8.5 % (21.0-51.0); MEAN CORPUSCULAR HEMOGLOBIN 26.8 pg (27.0-34.0); MEAN CORPUSCULAR HGB CONC 32.7 g/dL (33.0-35.0); MEAN PLATELET VOLUME 10.1 fL (7.4-11.0); MONOCYTES # (AUTO) 1.1 x10^3/uL (0.3-0.8); MONOCYTES % (AUTO) 6.1 % (0.0-13.0); NEUTROPHILS # (AUTO) 14.4 x10^3/uL (2.2-4.8); NEUTROPHILS % (AUTO) 82.8 % (42.0-75.0); RED BLOOD COUNT 4.27 X10^6/uL (3.5-5.4); RED CELL DISTRIBUTION WIDTH 21.8 % (11.6-16.5); WHITE BLOOD COUNT 17.4 X10^3/uL (3.6-10.0)
[2021-12-13] MEDS: ZOSYN VIAL 3.375 GRAMS 3.375 G in NS 100 ML IV 100 ML IV SCH ×3 (05:56→22:14)
[2021-12-13 05:59] LABS: ALANINE AMINOTRANSFERASE 16 Units/L (12-78); ALBUMIN 1.5 g/dL (3.4-5.0); ALKALINE PHOSPHATASE 101 Units/L (46-116); ASPARTATE AMINO TRANSFERASE 16 Units/L (15-37); BLOOD UREA NITROGEN 31 mg/dL (7-18); CALCIUM 8.7 mg/dL (8.5-10.1); CARBON DIOXIDE 24.8 mmol/L (21-32); CHLORIDE 114 mmol/L (98-107); COR CA(FOR HYPOALB) 10.7 mg/dL (8.5-10.1); CREATININE 1.05 mg/dL (0.55-1.02); TOTAL PROTEIN 5.7 g/dL (6.4-8.2); eGFR NON BLACK RACES 55 (>60)
[2021-12-13 06:01] LABS: LACTIC ACID 0.8 mmol/L (0.4-2.0)
[2021-12-13 06:07] LABS: COR NA(FOR HYPERGLY) 151 mmol/L (136-145)
[2021-12-13 06:12] LABS: SODIUM 150 mmol/L (136-145)
[2021-12-13] MEDS ORDERED: K-DUR TAB 20 MEQ PO PRN (06:22)
[2021-12-13 06:24] LABS: ANISOCYTOSIS 1+; HYPOCHROMASIA SLIGHT; PLATELET MORPHOLOGY COMMENT NORMAL (NORMAL); TARGET CELLS SLIGHT
[2021-12-13] MEDS ORDERED: K-RIDER 10 MEQ/NS 100 ML 10 MEQ/100 ML BAG IV ONE (06:26)
[2021-12-13] MEDS: K-RIDER 10 MEQ/NS 100 ML 10 MEQ/100 ML BAG IV PRN ×5 (06:31→15:40)
[2021-12-13] MEDS: MORPHINE SULFATE INJ 2 MG INJ IVP PRN ×2 (07:25→19:17)
[2021-12-13] MEDS: FORTAZ or TAZICEF VIAL INJ 1 G in NS 100 ML IV 100 ML IV SCH ×2 (08:18→20:24)
[2021-12-13] MEDS: LOVENOX INJ 40 MG SYR SC SCH (08:18)
[2021-12-13] MEDS ORDERED: NovoLIN R (or HumuLIN R) SUBCUT PRN (08:25)
[2021-12-13] MEDS: PULMICORT NEB TX 0.5 MG NEB SCH ×2 (08:30→21:35)
[2021-12-13] MEDS: DUONEB 0.5 MG/3 MG (3 mL) NEB SCH ×2 (08:30→21:34)
[2021-12-13] MEDS: ALBUMIN HUMAN 25%- 100 ML 100 ML IV SCH (10:07)
[2021-12-13] MEDS: D5W 1,000 ML IV 1,000 ML IV SCH ×2 (13:17→22:11)
[2021-12-13] MEDS: SNACK - Diabetic Appropriate PO SCH (22:13)
[2021-12-14] MEDS: D5W 1,000 ML IV 1,000 ML IV SCH ×4 (00:29→16:23)
[2021-12-14] MEDS: ZOSYN VIAL 3.375 GRAMS 3.375 G in NS 100 ML IV 100 ML IV SCH (05:17)
[2021-12-14 05:27] LABS: ALANINE AMINOTRANSFERASE 13 Units/L (12-78); ALBUMIN 1.9 g/dL (3.4-5.0); ALKALINE PHOSPHATASE 90 Units/L (46-116); ASPARTATE AMINO TRANSFERASE 14 Units/L (15-37); BASOPHILS # (AUTO) 0.1 X10^3/uL (0.0-0.1); BASOPHILS % (AUTO) 0.8 % (0.2-1.0); BLOOD UREA NITROGEN 16 mg/dL (7-18); CALCIUM 8.4 mg/dL (8.5-10.1); CHLORIDE 107 mmol/L (98-107); COR CA(FOR HYPOALB) 10.1 mg/dL (8.5-10.1); COR NA(FOR HYPERGLY) 142 mmol/L (136-145); CREATININE 0.84 mg/dL (0.55-1.02); EOSINOPHILS # (AUTO) 0.4 x10^3/uL (0.0-0.2); EOSINOPHILS % (AUTO) 3.8 % (0.9-2.9); HEMATOCRIT 32.1 % (36.0-47.0); HEMOGLOBIN 10.6 g/dL (12.0-16.0); LYMPHOCYTES # (AUTO) 1.6 X10^3/uL (1.3-2.9); LYMPHOCYTES % (AUTO) 14.4 % (21.0-51.0); MEAN CORPUSCULAR HEMOGLOBIN 27.1 pg (27.0-34.0); MEAN CORPUSCULAR HGB CONC 33.2 g/dL (33.0-35.0); MEAN CORPUSCULAR VOLUME 81.9 fL (80.0-100.0); MEAN PLATELET VOLUME 10.7 fL (7.4-11.0); MONOCYTES # (AUTO) 0.7 x10^3/uL (0.3-0.8); MONOCYTES % (AUTO) 6.8 % (0.0-13.0); NEUTROPHILS % (AUTO) 74.2 % (42.0-75.0); RED BLOOD COUNT 3.92 X10^6/uL (3.5-5.4); RED CELL DISTRIBUTION WIDTH 21.6 % (11.6-16.5); SODIUM 141 mmol/L (136-145); TOTAL PROTEIN 5.9 g/dL (6.4-8.2); WHITE BLOOD COUNT 10.9 X10^3/uL (3.6-10.0); eGFR NON BLACK RACES > 60 (>60)
[2021-12-14 06:18] LABS: ANISOCYTOSIS 1+; HYPOCHROMASIA SLIGHT; PLATELET MORPHOLOGY COMMENT NORMAL (NORMAL)
[2021-12-14 06:19] LABS: TARGET CELLS 1+
[2021-12-14] MEDS: K-RIDER 10 MEQ/NS 100 ML 10 MEQ/100 ML BAG IV PRN ×4 (06:21→17:18)
[2021-12-14] MEDS: PULMICORT NEB TX 0.5 MG NEB SCH ×2 (08:17→21:06)
[2021-12-14] MEDS: DUONEB 0.5 MG/3 MG (3 mL) NEB SCH ×2 (08:17→21:06)
--- NOTE | 2021-12-14 08:35 | CT ---
HISTORYAltered mental status, weaknessSTUDYCT head without contrastTechnique: Axial noncontrast images with coronal and sagittal reformats. Dose reduction procedures were used with mA/kv adjusted for body size.[id number]/2022FINDINGSThe ventricles are normal in size, shape, and position. There are no focal areas of abnormal attenuation to suggest recent or remote CVA, hemorrhage, mass lesion, or extra-axial fluid collection. The visualized sinuses are clear with the exception an air-fluid level in the left sphenoid sinus suggestive of acute left sphenoid sinusitis.IMPRESSIONNo significant intracranial abnormality identifiedAir-fluid level in the left sphenoid sinus suggestive of acute left sphenoid sinusitisElectronically signed by: DARIEN EDDY (Dec 14, 2021 08:33:15)
[2021-12-14] MEDS ORDERED: FORTAZ or TAZICEF VIAL INJ ONE (08:42)
[2021-12-14] MEDS: ALBUMIN HUMAN 25%- 100 ML 100 ML IV SCH (08:43)
[2021-12-14] MEDS: LOVENOX INJ 40 MG SYR SC SCH (08:44)
[2021-12-14] MEDS ORDERED: VANCOMYCIN IV *PREMIX 1.5 G/300 ML BAG 1.5 G/300 ML PIGGYBACK IV ONE (09:00)
[2021-12-14] MEDS ORDERED: PHARMACY CONSULT - VANCOMYCIN XX SCH (09:00)
[2021-12-14] MEDS: FORTAZ or TAZICEF VIAL INJ 1 G in NS 100 ML IV 100 ML IV SCH ×2 (09:53→20:12)
[2021-12-14] MEDS ORDERED: ASTELIN NASAL SPRAY ENOSTRIL ONE (11:46)
[2021-12-14] MEDS: LASIX IVP SCH ×2 (11:48→16:23)
[2021-12-14] MEDS: ASTELIN NASAL SPRAY ENOSTRIL SCH ×2 (11:48→20:03)
--- NOTE | 2021-12-14 11:52 | PCM.PROG ---
Progress Note - Progress Note for Day of Date of Exam: 12/13/21 - Subjective Subjective: WAS ADMITTED FOR TREATMENT OF SEPSIS, UTI, SINUS INFECTION, FACIAL CELLULIITS, DEHYDRATION, AND AMS. TODAY, SHE IS LYING IN BED WITH EYES CLOSED ON MORNING ROUNDS. SHE OPENS EYES TO VERBAL STIMULI. SHE SPEAKS WHEN SPOKEN TO AND ANSWERS QUESTIONS APPROPRIATELY. SHE CONTINUES WITH MODERATE WEAKNESS OF UPPER AND LOWER EXTREMITIES. SHE ALSO REPORTS DIFFICULTY SWALLOWING. SHE HAS A HX OF ESOPHAGEAL STRICTURE AND HAS REQUIRED STRETCHING MULTIPLE TIMES. SHE COMPLAINS OF HEADACHE AND WEAKNESS TODAY. ON EXAMINATION, LEFT SIDE FACE CONTINUES TO BE EDEMATOUS WITH ERRYTHEMA, BUT HAS IMPROVED SINCE YESTERDAY. HEART IS REGULAR IN RATE AND RHYTHM. BILATERAL LUNGS ARE NOTED WITH DIMINISHED LUNG SOUNDS THROUGHOUT. ABDOMEN IS OBESE, SOFT, AND NON-TENDER WITH NORMAL BOWEL SOUNDS NOTED IN ALL QUADRANTS. COFFEY CATHETER IS NOTED TO BEDSIDE DRAINAGE. TRACE LOWER EXTREMITY EDEMA NOTED. HER VITALS THIS MORNING ARE: 98.7-100-14-98%-153/67. SHE IS CURRENTLY UTILIZING OXYGEN VIA NASAL CANNULA AT 2 LPM. LABS WERE OBTAINED. WBC 17.4, RBC 4.27, HGB 11.4, HCT 35.0, PLT COUNT 138, SODIUM 150, POTASSIUM 3.2, CHLORIDE 114, BUN 31, CREATININE 1.05, GLUCOSE 154, CALCIUM 8.7, AST 16, ALT 16, ALK PHOS 101, TOTAL PROTEIN 5.7, ALBUMIN 1.5. URINE CULTURE IS POSITIVE FOR GROWTH OF E.COLI. PRELIMINARY BLOOD CULTURES ARE POSITIVE WELL. SHE IS CURRENTLY RECEIVING: NS AT 125 ML/HR, DUONEBS BID, PULMICORT NEBS BID, ZOSYN 3.375G IV TID, LOVENOX 40MG SC DAILY, OTBS ACHS, HUMULIN R SLIDING SCALE. WE WILL CONTINUE WITH CURRENT PLAN OF CARE TODAY. WE WILL CONTINUE TO HOLD HER NPO DUE TO DYSPHAGIA. WE WILL ORDER A SPEECH THERAPY EVALUATION. OTHERWISE, WE PLAN TO FOLLOW-UP WITH AM LABS AND CONTINUE TO M ONITOR. TIME SPENT ON CLINICAL ASSESSMENT, REVIWING LABS AND IMAGING, DECISION MAKING, AND DOCUMENTATION GREATER THAN 45 MINUTES. - Past Medical Family Social History Past Med/Fam/Surg Hx: No changes since H&P Allergies: Allergies bacitracin [From Neosporin ([id number]-dax-tkkif)] Allergy (Unknown, Verified 05/11/21 08:55) clopidogrel [From Plavix] Allergy (Unknown, Verified 05/11/21 08:55) gabapentin [From Neurontin] Allergy (Unknown, Verified 05/11/21 08:55) hydrochlorothiazide [From Hyzaar] Allergy (Unknown, Verified 05/11/21 08:55) latex Allergy (Unknown, Verified 05/11/21 08:55) losartan [From Hyzaar] Allergy (Unknown, Verified 05/11/21 08:55) neomycin [From Neosporin (gri-jyt-lsmbj)] Allergy (Unknown, Verified 05/11/21 08:55) polymyxin B [From Neosporin (kxu-vcp-wvmrp)] Allergy (Unknown, Verified 05/11/21 08:55) propoxyphene [From Darvon] Allergy (Unknown, Verified 05/11/21 08:55) rosuvastatin [From Crestor] Allergy (Unknown, Verified 05/11/21 08:55) sulfamethoxazole [From Bactrim] Allergy (Unknown, Verified 05/11/21 08:55) trimethoprim [From Bactrim] Allergy (Unknown, Verified 05/11/21 08:55) No Dye Allergy (Uncoded 05/26/20 14:08) - Review of Systems ROS: No change since H&P - Vital Signs and I&O's Vital Signs: Temperature 97.8 F Pulse Rate 103 Respiratory Rate 16 Blood Pressure [RIGHT WRIST] 111/51 Blood Pressure [Right Arm] 153/66 Blood Pressure [Left Calf] 161/70 Blood Pressure [Right Calf] 123/58 Blood Pressure [Left Arm] 126/60 Blood Pressure 155/67 O2 Sat by Pulse Oximetry 99 Intake and Output: Intake & Output 12/11/21 12/12/21 12/13/21 12/14/21 11:59 11:59 11:59 11:59 Intake Total 1781 / 1781 3455 / 3455 3375 / 3375 Output Total 400 / 400 1200 / 1200 1200 / 1200 Balance 1381 / 1381 2255 / 2255 2175 / 2175 - Physical Exam Oriented: Person Eyes: Normal Ear: Normal Nose: Normal Throat: Normal Cardiovascular: Normal : Normal Auscultation: Bowel Sounds: Normal Palpation: Normal Tenderness: Normal Skin: Red (LEFT SIDE FACE ), Hot Musculoskeletal: Swelling (LEFT SIDE FACE ) Psychiatric: Normal Mood Description: Calm Affect: Normal Speech Pattern: Delayed - Laboratory and Diagnostics Result Diagrams: 12/14/21 04:50 12/14/21 04:50 Labs: 12/11/21 13:37 Blood Blood Culture - Final Enterococcus Faecalis 12/11/21 13:28 Blood Blood Culture - Final Enterococcus Faecalis 12/11/21 13:40 Urine,Catheterized Urine Culture - Final Escherichia Coli Laboratory WBC 10.9 X10^3/uL (3.6-10.0) H 12/14/21 04:50 RBC 3.92 X10^6/uL (3.5-5.4) 12/14/21 04:50 Hgb 10.6 g/dL (12.0-16.0) L 12/14/21 04:50 Hct 32.1 % (36.0-47.0) L 12/14/21 04:50 MCV 81.9 fL (80.0-100.0) 12/14/21 04:50 MCH 27.1 pg (27.0-34.0) 12/14/21 04:50 MCHC 33.2 g/dL (33.0-35.0) 12/14/21 04:50 RDW 21.6 % (11.6-16.5) H 12/14/21 04:50 Plt Count 134 X10^3/uL (150.0-450.0) L 12/14/21 04:50 Plt Count Comment Decreased (ADEQUATE) A 12/14/21 04:50 MPV 10.7 fL (7.4-11.0) 12/14/21 04:50 Neut % (Auto) 74.2 % (42.0-75.0) 12/14/21 04:50 Lymph % (Auto) 14.4 % (21.0-51.0) L 12/14/21 04:50 [place] % (Auto) 6.8 % (0.0-13.0) 12/14/21 04:50 Eos % (Auto) 3.8 % (0.9-2.9) H 12/14/21 04:50 Baso % (Auto) 0.8 % (0.2-1.0) 12/14/21 04:50 Neut # (Auto) 8.0 x10^3/uL (2.2-4.8) H 12/14/21 04:50 Lymph # (Auto) 1.6 X10^3/uL (1.3-2.9) 12/14/21 04:50 [place] # (Auto) 0.7 x10^3/uL (0.3-0.8) 12/14/21 04:50 Eos # (Auto) 0.4 x10^3/uL (0.0-0.2) H 12/14/21 04:50 Baso # (Auto) 0.1 X10^3/uL (0.0-0.1) 12/14/21 04:50 Absolute Nucleated RBC 0.0 /100WBC 12/14/21 04:50 Total Counted 100 12/12/21 01:00 Neutrophils % (Manual) 82 % (39-76) H 12/12/21 01:00 Band Neutrophils % 2 % (0-10) 12/12/21 01:00 Lymphocytes % (Manual) 7 % (13-43) L 12/12/21 01:00 Monocytes % (Manual) 9 % (4-9) 12/12/21 01:00 Eosinophils % (Manual) 1 % (0-6) 12/11/21 12:28 Plt Morphology Comment Normal (NORMAL) 12/14/21 04:50 RBC Morphology Abnormal (NORMAL) A 12/14/21 04:50 Hypochromasia Slight A 12/14/21 04:50 Anisocytosis 1+ A 12/14/21 04:50 Target Cells 1+ A 12/14/21 04:50 PT 18.8 SECONDS (11.8-14.3) 12/12/21 01:00 INR Target Range - 12/12/21 01:00 INR 1.64 (0.8-1.3) H 12/12/21 01:00 APTT 38.6 SECONDS (22.9-36.5) H 12/12/21 01:00 PTT Comment - 12/12/21 01:00 Sample Site Rrad 12/11/21 12:22 ABG pH 7.420 (7.35-7.45) 12/11/21 12:22 ABG pCO2 43.0 mmHg (35.0-45.0) 12/11/21 12:22 ABG pO2 82.0 mmHg (80.0-100.0) 12/11/21 12:22 ABG HCO3 27.9 mmol/L (22-26) H 12/11/21 12:22 ABG O2 Saturation 96.0 % (90-100) 12/11/21 12:22 ABG Base Excess 3.0 mmol/L (-2.0-2.0) H 12/11/21 12:22 Candelario Test Pos 12/11/21 12:22 A-a Gradient 64.0 mmHg 12/11/21 12:22 FiO2 28.0 12/11/21 12:22 Blood Gas Comments Chun well ms 12/11/21 12:22 Sodium 141 mmol/L (136-145) 12/14/21 04:50 Corrected Sodium 142 mmol/L (136-145) 12/14/21 04:50 Potassium 3.3 mmol/L (3.5-5.1) L 12/14/21 04:50 Chloride 107 mmol/L (98-107) 12/14/21 04:50 Carbon Dioxide 26.0 mmol/L (21-32) 12/14/21 04:50 BUN 16 mg/dL (7-18) 12/14/21 04:50 Creatinine 0.84 mg/dL (0.55-1.02) 12/14/21 04:50 Est GFR (MDRD) Af Amer > 60 (>60) 12/14/21 04:50 Est GFR (MDRD) Non-Af > 60 (>60) 12/14/21 04:50 Glucose 161 mg/dL (65-99) H 12/14/21 04:50 POC Glucose (mg/dL) 155 mg/dL (65-99) H 12/14/21 11:32 Lactic Acid 0.8 mmol/L (0.4-2.0) 12/13/21 05:35 Calcium 8.4 mg/dL (8.5-10.1) L 12/14/21 04:50 Corrected Calcium 10.1 mg/dL (8.5-10.1) 12/14/21 04:50 Magnesium 2.1 mg/dL (1.7-2.9) 12/13/21 05:35 Total Bilirubin 0.30 mg/dL (0.2-1.0) 12/14/21 04:50 AST 14 Units/L (15-37) L 12/14/21 04:50 ALT 13 Units/L (12-78) 12/14/21 04:50 Alkaline Phosphatase 90 Units/L (46-116) 12/14/21 04:50 Ammonia < 10 umol/L (11-32) L 12/11/21 13:37 Creatine Kinase 52 Units/L (26-192) 12/12/21 01:00 Troponin I High Sens 14.5 ng/L (4.0-60.0) 12/12/21 01:00 B-Natriuretic Peptide 69.8 pg/mL (0-79) 12/11/21 13:37 Total Protein 5.9 g/dL (6.4-8.2) L 12/14/21 04:50 Albumin 1.9 g/dL (3.4-5.0) L 12/14/21 04:50 Globulin 4.0 g/dL (2.5-4.5) 12/14/21 04:50 Albumin/Globulin Ratio 0.5 Ratio (1.1-2.1) L 12/14/21 04:50 Specimen Type Catherized urine 12/11/21 13:40 Urine Color Yellow (YELLOW) 12/11/21 13:40 Urine Appearance Cloudy (CLEAR) 12/11/21 13:40 Urine pH 5.0 (5.0 - 8.0) 12/11/21 13:40 Ur Specific [place] 1.025 (1.000-1.030) 12/11/21 13:40 Urine Protein 2+ (NEGATIVE) 12/11/21 13:40 Urine Glucose (UA) Negative (NEGATIVE) 12/11/21 13:40 Urine Ketones Negative (NEGATIVE) 12/11/21 13:40 Urine Blood 3+ (NEGATIVE) 12/11/21 13:40 Urine Nitrite Negative (NEGATIVE) 12/11/21 13:40 Urine Bilirubin Negative (NEGATIVE) 12/11/21 13:40 Urine Urobilinogen Normal (NORMAL) 12/11/21 13:40 Ur Leukocyte Esterase 3+ (NEGATIVE) 12/11/21 13:40 Urine RBC Tntc /HPF (0-3) A 12/11/21 13:40 Urine WBC Tntc /HPF (0-5) A 12/11/21 13:40 Ur Squamous Epith Cells Negative /HPF (NEGATIVE) 12/11/21 13:40 Ur Renal Epithelial Cell Rare /HPF (NEGATIVE) 12/11/21 13:40 Amorphous Sediment Trace /HPF (NEGATIVE) 12/11/21 13:40 Urine Bacteria 3+ /HPF (NEGATIVE) 12/11/21 13:40 Ur Culture Indicated? Yes/culture set up 12/11/21 13:40 Urine Opiates Screen Negative (NEG=<300) 12/11/21 13:40 Urine Methadone Screen Negative (NEG=<300) 12/11/21 13:40 Ur Barbiturates Screen Negative (NEG=<200) 12/11/21 13:40 Ur Phencyclidine Scrn Negative (NEG=<25) 12/11/21 13:40 Ur Amphetamines Screen Negative (NEG=<1000) 12/11/21 13:40 U Benzodiazepines Scrn Negative (NEG=<200) 12/11/21 13:40 Urine Cocaine Screen Negative (NEG=<300) 12/11/21 13:40 U Marijuana (THC) Screen Negative (NEG=<50) 12/11/21 13:40 Acetone, Semi-Quant Negative (NEGATIVE) 12/11/21 13:37 SARS-CoV-2 (PCR) Negative (NEGATIVE) 12/11/21 13:40 Influenza Type A (PCR) Negative (NEGATIVE) 12/11/21 13:40 Influenza Type B (PCR) Negative (NEGATIVE) 12/11/21 13:40 RSV (PCR) Negative (NEGATIVE) 12/11/21 13:40 - Plan (1) Sepsis Status: Acute Qualifiers: Sepsis type: sepsis due to unspecified organism Sepsis acute organ dysfunction status: unspecified Qualified Code(s): A41.9 - Sepsis, unspecified organism Plan: NS AT 125 ML/HR, DUONEBS BID, PULMICORT NEBS BID, ZOSYN 3.375G IV TID, FORTAZ IV, LOVENOX 40MG SC DAILY, OTBS ACHS, HUMULIN R SLIDING SCALE. (2) Acute sinusitis Status: Acute Qualifiers: Sinusitis location: sphenoidal Recurrence: not specified as recurrent Qualified Code(s): J01.30 - Acute sphenoidal sinusitis, unspecified (3) UTI (urinary tract infection) Status: Acute Qualifiers: Urinary tract infection type: acute cystitis Hematuria presence: with hematuria Qualified Code(s): N30.01 - Acute cystitis with hematuria (4) Dehydration Status: Acute (5) Altered mental status Status: Acute Qualifiers: Altered mental status type: transient alteration of awareness (6) Renal failure Status: Chronic Qualifiers: Renal failure chronicity: acute on chronic Acute renal failure type: unspecified Chronic kidney disease stage: unspecified stage Qualified Code(s): N17.9 - Acute kidney failure, unspecified; N18.9 - Chronic kidney disease, unspecified (7) Facial cellulitis Status: Acute (8) COPD (chronic obstructive pulmonary disease) with acute bronchitis Status: Chronic (9) Diabetes mellitus, type 2 Status: Chronic Qualifiers: Diabetes mellitus senior care insulin use: with ferry terminal supervisor use Diabetes mellitus complication status: with kidney complications Diabetes mellitus complication detail: with chronic kidney disease Chronic kidney disease stage: unspecified stage Qualified Code(s): E11.22 - Type 2 diabetes mellitus with diabetic chronic kidney disease; Z79.4 - ferry terminal supervisor (current) use of insulin (10) Essential hypertension Status: Chronic
--- NOTE | 2021-12-14 12:05 | PCM.PROG ---
Progress Note - Progress Note for Day of Date of Exam: 12/14/21 - Subjective Subjective: WAS ADMITTED FOR TREATMENT OF SEPSIS, UTI, LEFT SPHENOID SINUSISTIS, FACIAL CELLULITIS, DEHYDRATION, AND AMS. TODAY, SHE IS ALERT, LYING IN BED ON MORNING ROUNDS. SHE SHE SPEAKS WHEN SPOKEN TO AND ANSWERS QUESTIONS APPROPRIATELY. SHE CONTINUES WITH WEAKNESS OF UPPER AND LOWER EXTREMITIES. SHE ALSO CONTINUES TO REPORT DIFFICULTY SWALLOWING. SHE HAS A HX OF ESOPHAGEAL STRICTURE AND HAS REQUIRED STRETCHING MULTIPLE TIMES IN THE PAST. SHE COMPLAINS OF HEADACHE AND WEAKNESS TODAY. ON EXAMINATION, LEFT SIDE FACE CONTINUES TO BE EDEMATOUS WITH ERRYTHEMA, BUT HAS SHOWN IMPROVEMENT SINCE ADMISSION. HEART IS REGULAR IN RATE AND RHYTHM. BILATERAL LUNGS ARE NOTED WITH DIMINISHED LUNG S OUNDS THROUGHOUT. ABDOMEN IS OBESE, SOFT, AND NON-TENDER WITH NORMAL BOWEL SOUNDS NOTED IN ALL QUADRANTS. COFFEY CATHETER IS NOTED TO BEDSIDE DRAINAGE. TRACE LOWER EXTREMITY EDEMA NOTED. HER VITALS THIS MORNING ARE: 97.8-83-15-98%-147/67. SHE IS CURRENTLY UTILIZING OXYGEN VIA NASAL CANNULA AT 2 LPM. LABS WERE OBTAINED. WBC 10.9, RBC 3.92, HGB 10.6, HCT 32.1, PLT COUNT 134, SODIUM 141, POTASSIUM 3.3, BUN 16, CREATININE 0.84, GLUCOSE 161, CALCIUM 8.4, AST 14, ALT 13, ALK PHOS 90, TOTAL PROTEIN 5.9, ALBUMIN 1.9. URINE CULTURE IS POSITIVE FOR GROWTH OF E.COLI. BLOOD CULTURES ARE POSITIVE FOR GROWTH OF ENTEROCOCCUS FAECALIS. SHE IS CURRENTLY RECEIVING: D5W @ 125ML/HR, DUONEBS BID, PULMICORT NEBS BID, ZOSYN 3.375G IV TID, FORTAZ 1G IV BID, LOVENOX 40MG SC DAILY, OTBS ACHS, HUMULIN R SLIDING SCALE. TODAY, WE WILL DISCONTINUE THE ZOSYN AND ADD VANCOMYCIN 1G IV Q8H. WE WILL DECREASE HER IV FLUIDS TO 75 ML/HR. OTHERWISE, WE WILL CONTINUE WITH CURRENT PLAN OF CARE TODAY. WE WILL CONTINUE TO HOLD HER NPO DUE TO DYSPHAGIA. WE WILL ORDER A SPEECH THERAPY EVALUATION. WE PLAN TO FOLLOW-UP WITH AM LABS AND CONTINUE TO MONITOR. TIME SPENT ON CLINICAL ASSESSMENT, REVIWING LABS AND IMAGING, DECISION MAKING, AND DOCUMENTATION GREATER THAN 45 MINUTES. - Past Medical Family Social History Past Med/Fam/Surg Hx: No changes since H&P Allergies: Allergies bacitracin [From Neosporin ([id number])] Allergy (Unknown, Verified 05/11/21 08:55) clopidogrel [From Plavix] Allergy (Unknown, Verified 05/11/21 08:55) gabapentin [From Neurontin] Allergy (Unknown, Verified 05/11/21 08:55) hydrochlorothiazide [From Hyzaar] Allergy (Unknown, Verified 05/11/21 08:55) latex Allergy (Unknown, Verified 05/11/21 08:55) losartan [From Hyzaar] Allergy (Unknown, Verified 05/11/21 08:55) neomycin [From Neosporin ([id number])] Allergy (Unknown, Verified 05/11/21 08:55) polymyxin B [From Neosporin ([id number]-roa-[id number])] Allergy (Unknown, Verified 05/11/21 08:55) propoxyphene [From Darvon] Allergy (Unknown, Verified 05/11/21 08:55) rosuvastatin [From Crestor] Allergy (Unknown, Verified 05/11/21 08:55) sulfamethoxazole [From Bactrim] Allergy (Unknown, Verified 05/11/21 08:55) trimethoprim [From Bactrim] Allergy (Unknown, Verified 05/11/21 08:55) No Dye Allergy (Uncoded 05/26/20 14:08) - Review of Systems ROS: No change since H&P - Vital Signs and I&O's Vital Signs: Temperature 97.8 F Pulse Rate 103 Respiratory Rate 16 Blood Pressure [RIGHT WRIST] 111/51 Blood Pressure [Right Arm] 153/66 Blood Pressure [Left Calf] 161/70 Blood Pressure [Right Calf] 123/58 Blood Pressure [Left Arm] 126/60 Blood Pressure 155/67 O2 Sat by Pulse Oximetry 99 Intake and Output: Intake & Output 12/12/21 12/13/21 12/14/21 12/15/21 11:59 11:59 11:59 11:59 Intake Total 1781 / 1781 3455 / 3455 3375 / 3375 Output Total 400 / 400 1200 / 1200 1200 / 1200 Balance 1381 / 1381 2255 / 2255 2175 / 2175 - Physical Exam Oriented: Person Eyes: Normal Ear: Normal Nose: Normal Throat: Normal Respiratory: Generalized, Diminished Cardiovascular: Normal : Normal Auscultation: Bowel Sounds: Normal Palpation: Normal Tenderness: Normal Skin: Red (LEFT SIDE FACE ), Hot Musculoskeletal: Swelling (LEFT SIDE FACE ) Psychiatric: Normal Mood Description: Calm Affect: Normal Speech Pattern: Delayed - Laboratory and Diagnostics Result Diagrams: 12/14/21 04:50 12/14/21 04:50 Labs: 12/11/21 13:37 Blood Blood Culture - Final Enterococcus Faecalis 12/11/21 13:28 Blood Blood Culture - Final Enterococcus Faecalis 12/11/21 13:40 Urine,Catheterized Urine Culture - Final Escherichia Coli Laboratory WBC 10.9 X10^3/uL (3.6-10.0) H 12/14/21 04:50 RBC 3.92 X10^6/uL (3.5-5.4) 12/14/21 04:50 Hgb 10.6 g/dL (12.0-16.0) L 12/14/21 04:50 Hct 32.1 % (36.0-47.0) L 12/14/21 04:50 MCV 81.9 fL (80.0-100.0) 12/14/21 04:50 MCH 27.1 pg (27.0-34.0) 12/14/21 04:50 MCHC 33.2 g/dL (33.0-35.0) 12/14/21 04:50 RDW 21.6 % (11.6-16.5) H 12/14/21 04:50 Plt Count 134 X10^3/uL (150.0-450.0) L 12/14/21 04:50 Plt Count Comment Decreased (ADEQUATE) A 12/14/21 04:50 MPV 10.7 fL (7.4-11.0) 12/14/21 04:50 Neut % (Auto) 74.2 % (42.0-75.0) 12/14/21 04:50 Lymph % (Auto) 14.4 % (21.0-51.0) L 12/14/21 04:50 [place] % (Auto) 6.8 % (0.0-13.0) 12/14/21 04:50 Eos % (Auto) 3.8 % (0.9-2.9) H 12/14/21 04:50 Baso % (Auto) 0.8 % (0.2-1.0) 12/14/21 04:50 Neut # (Auto) 8.0 x10^3/uL (2.2-4.8) H 12/14/21 04:50 Lymph # (Auto) 1.6 X10^3/uL (1.3-2.9) 12/14/21 04:50 [place] # (Auto) 0.7 x10^3/uL (0.3-0.8) 12/14/21 04:50 Eos # (Auto) 0.4 x10^3/uL (0.0-0.2) H 12/14/21 04:50 Baso # (Auto) 0.1 X10^3/uL (0.0-0.1) 12/14/21 04:50 Absolute Nucleated RBC 0.0 /100WBC 12/14/21 04:50 Total Counted 100 12/12/21 01:00 Neutrophils % (Manual) 82 % (39-76) H 12/12/21 01:00 Band Neutrophils % 2 % (0-10) 12/12/21 01:00 Lymphocytes % (Manual) 7 % (13-43) L 12/12/21 01:00 Monocytes % (Manual) 9 % (4-9) 12/12/21 01:00 Eosinophils % (Manual) 1 % (0-6) 12/11/21 12:28 Plt Morphology Comment Normal (NORMAL) 12/14/21 04:50 RBC Morphology Abnormal (NORMAL) A 12/14/21 04:50 Hypochromasia Slight A 12/14/21 04:50 Anisocytosis 1+ A 12/14/21 04:50 Target Cells 1+ A 12/14/21 04:50 PT 18.8 SECONDS (11.8-14.3) 12/12/21 01:00 INR Target Range - 12/12/21 01:00 INR 1.64 (0.8-1.3) H 12/12/21 01:00 APTT 38.6 SECONDS (22.9-36.5) H 12/12/21 01:00 PTT Comment - 12/12/21 01:00 Sample Site Rrad 12/11/21 12:22 ABG pH 7.420 (7.35-7.45) 12/11/21 12:22 ABG pCO2 43.0 mmHg (35.0-45.0) 12/11/21 12:22 ABG pO2 82.0 mmHg (80.0-100.0) 12/11/21 12:22 ABG HCO3 27.9 mmol/L (22-26) H 12/11/21 12:22 ABG O2 Saturation 96.0 % (90-100) 12/11/21 12:22 ABG Base Excess 3.0 mmol/L (-2.0-2.0) H 12/11/21 12:22 Candelario Test Pos 12/11/21 12:22 A-a Gradient 64.0 mmHg 12/11/21 12:22 FiO2 28.0 12/11/21 12:22 Blood Gas Comments Chun well ms 12/11/21 12:22 Sodium 141 mmol/L (136-145) 12/14/21 04:50 Corrected Sodium 142 mmol/L (136-145) 12/14/21 04:50 Potassium 3.3 mmol/L (3.5-5.1) L 12/14/21 04:50 Chloride 107 mmol/L (98-107) 12/14/21 04:50 Carbon Dioxide 26.0 mmol/L (21-32) 12/14/21 04:50 BUN 16 mg/dL (7-18) 12/14/21 04:50 Creatinine 0.84 mg/dL (0.55-1.02) 12/14/21 04:50 Est GFR (MDRD) Af Amer > 60 (>60) 12/14/21 04:50 Est GFR (MDRD) Non-Af > 60 (>60) 12/14/21 04:50 Glucose 161 mg/dL (65-99) H 12/14/21 04:50 POC Glucose (mg/dL) 155 mg/dL (65-99) H 12/14/21 11:32 Lactic Acid 0.8 mmol/L (0.4-2.0) 12/13/21 05:35 Calcium 8.4 mg/dL (8.5-10.1) L 12/14/21 04:50 Corrected Calcium 10.1 mg/dL (8.5-10.1) 12/14/21 04:50 Magnesium 2.1 mg/dL (1.7-2.9) 12/13/21 05:35 Total Bilirubin 0.30 mg/dL (0.2-1.0) 12/14/21 04:50 AST 14 Units/L (15-37) L 12/14/21 04:50 ALT 13 Units/L (12-78) 12/14/21 04:50 Alkaline Phosphatase 90 Units/L (46-116) 12/14/21 04:50 Ammonia < 10 umol/L (11-32) L 12/11/21 13:37 Creatine Kinase 52 Units/L (26-192) 12/12/21 01:00 Troponin I High Sens 14.5 ng/L (4.0-60.0) 12/12/21 01:00 B-Natriuretic Peptide 69.8 pg/mL (0-79) 12/11/21 13:37 Total Protein 5.9 g/dL (6.4-8.2) L 12/14/21 04:50 Albumin 1.9 g/dL (3.4-5.0) L 12/14/21 04:50 Globulin 4.0 g/dL (2.5-4.5) 12/14/21 04:50 Albumin/Globulin Ratio 0.5 Ratio (1.1-2.1) L 12/14/21 04:50 Specimen Type Catherized urine 12/11/21 13:40 Urine Color Yellow (YELLOW) 12/11/21 13:40 Urine Appearance Cloudy (CLEAR) 12/11/21 13:40 Urine pH 5.0 (5.0 - 8.0) 12/11/21 13:40 Ur Specific [place] 1.025 (1.000-1.030) 12/11/21 13:40 Urine Protein 2+ (NEGATIVE) 12/11/21 13:40 Urine Glucose (UA) Negative (NEGATIVE) 12/11/21 13:40 Urine Ketones Negative (NEGATIVE) 12/11/21 13:40 Urine Blood 3+ (NEGATIVE) 12/11/21 13:40 Urine Nitrite Negative (NEGATIVE) 12/11/21 13:40 Urine Bilirubin Negative (NEGATIVE) 12/11/21 13:40 Urine Urobilinogen Normal (NORMAL) 12/11/21 13:40 Ur Leukocyte Esterase 3+ (NEGATIVE) 12/11/21 13:40 Urine RBC Tntc /HPF (0-3) A 12/11/21 13:40 Urine WBC Tntc /HPF (0-5) A 12/11/21 13:40 Ur Squamous Epith Cells Negative /HPF (NEGATIVE) 12/11/21 13:40 Ur Renal Epithelial Cell Rare /HPF (NEGATIVE) 12/11/21 13:40 Amorphous Sediment Trace /HPF (NEGATIVE) 12/11/21 13:40 Urine Bacteria 3+ /HPF (NEGATIVE) 12/11/21 13:40 Ur Culture Indicated? Yes/culture set up 12/11/21 13:40 Urine Opiates Screen Negative (NEG=<300) 12/11/21 13:40 Urine Methadone Screen Negative (NEG=<300) 12/11/21 13:40 Ur Barbiturates Screen Negative (NEG=<200) 12/11/21 13:40 Ur Phencyclidine Scrn Negative (NEG=<25) 12/11/21 13:40 Ur Amphetamines Screen Negative (NEG=<1000) 12/11/21 13:40 U Benzodiazepines Scrn Negative (NEG=<200) 12/11/21 13:40 Urine Cocaine Screen Negative (NEG=<300) 12/11/21 13:40 U Marijuana (THC) Screen Negative (NEG=<50) 12/11/21 13:40 Acetone, Semi-Quant Negative (NEGATIVE) 12/11/21 13:37 SARS-CoV-2 (PCR) Negative (NEGATIVE) 12/11/21 13:40 Influenza Type A (PCR) Negative (NEGATIVE) 12/11/21 13:40 Influenza Type B (PCR) Negative (NEGATIVE) 12/11/21 13:40 RSV (PCR) Negative (NEGATIVE) 12/11/21 13:40 - Plan (1) Sepsis Status: Acute Qualifiers: Sepsis type: sepsis due to unspecified organism Sepsis acute organ dysfunction status: unspecified Qualified Code(s): A41.9 - Sepsis, unspecified organism Plan: NS AT 125 ML/HR, DUONEBS BID, PULMICORT NEBS BID, VANCOMYCIN 1G IV Q8H, FORTAZ IV, LOVENOX 40MG SC DAILY, OTBS ACHS, HUMULIN R SLIDING SCALE. (2) Acute sinusitis Status: Acute Qualifiers: Sinusitis location: sphenoidal Recurrence: not specified as recurrent Qualified Code(s): J01.30 - Acute sphenoidal sinusitis, unspecified (3) UTI (urinary tract infection) Status: Acute Qualifiers: Urinary tract infection type: acute cystitis Hematuria presence: with hematuria Qualified Code(s): N30.01 - Acute cystitis with hematuria (4) Dehydration Status: Acute (5) Altered mental status Status: Acute Qualifiers: Altered mental status type: transient alteration of awareness (6) Renal failure Status: Chronic Qualifiers: Renal failure chronicity: acute on chronic Acute renal failure type: unspecified Chronic kidney disease stage: unspecified stage Qualified Code(s): N17.9 - Acute kidney failure, unspecified; N18.9 - Chronic kidney disease, unspecified (7) Facial cellulitis Status: Acute (8) COPD (chronic obstructive pulmonary disease) with acute bronchitis Status: Chronic (9) Diabetes mellitus, type 2 Status: Chronic Qualifiers: Diabetes mellitus bed bug exterminator insulin use: with bed bug exterminator use Diabetes mellitus complication status: with kidney complications Diabetes mellitus complication detail: with chronic kidney disease Chronic kidney disease stage: unspecified stage Qualified Code(s): E11.22 - Type 2 diabetes mellitus with diabetic chronic kidney disease; Z79.4 - [facility] (current) use of insulin (10) Essential hypertension Status: Chronic
[2021-12-14] MEDS: SNACK - Diabetic Appropriate PO SCH (19:02)
[2021-12-14] MEDS: VANCOMYCIN IV *PREMIX 1 G/200 ML BAG 1 G/200 ML PIGGYBACK IV SCH (21:13)
[2021-12-15] MEDS: D5W 1,000 ML IV 1,000 ML IV SCH ×4 (03:00→17:18)
[2021-12-15] MEDS: VANCOMYCIN IV *PREMIX 1 G/200 ML BAG 1 G/200 ML PIGGYBACK IV SCH ×2 (05:04→15:16)
[2021-12-15 05:19] LABS: BASOPHILS % (AUTO) 0.5 % (0.2-1.0); EOSINOPHILS # (AUTO) 0.4 x10^3/uL (0.0-0.2); EOSINOPHILS % (AUTO) 4.6 % (0.9-2.9); HEMATOCRIT 34.2 % (36.0-47.0); HEMOGLOBIN 11.3 g/dL (12.0-16.0); LYMPHOCYTES # (AUTO) 1.5 X10^3/uL (1.3-2.9); LYMPHOCYTES % (AUTO) 17.2 % (21.0-51.0); MEAN CORPUSCULAR HEMOGLOBIN 26.6 pg (27.0-34.0); MEAN CORPUSCULAR VOLUME 80.6 fL (80.0-100.0); MONOCYTES # (AUTO) 0.7 x10^3/uL (0.3-0.8); MONOCYTES % (AUTO) 7.9 % (0.0-13.0); NEUTROPHILS # (AUTO) 5.9 x10^3/uL (2.2-4.8); NEUTROPHILS % (AUTO) 69.8 % (42.0-75.0); RED BLOOD COUNT 4.24 X10^6/uL (3.5-5.4); RED CELL DISTRIBUTION WIDTH 20.9 % (11.6-16.5); WHITE BLOOD COUNT 8.5 X10^3/uL (3.6-10.0)
[2021-12-15 05:33] LABS: ALANINE AMINOTRANSFERASE 19 Units/L (12-78); ALBUMIN 2.3 g/dL (3.4-5.0); ALKALINE PHOSPHATASE 88 Units/L (46-116); ASPARTATE AMINO TRANSFERASE 15 Units/L (15-37); BLOOD UREA NITROGEN 9 mg/dL (7-18); CALCIUM 8.8 mg/dL (8.5-10.1); CARBON DIOXIDE 25.8 mmol/L (21-32); CHLORIDE 105 mmol/L (98-107); COR CA(FOR HYPOALB) 10.2 mg/dL (8.5-10.1); COR NA(FOR HYPERGLY) 142 mmol/L (136-145); CREATININE 0.69 mg/dL (0.55-1.02); SODIUM 141 mmol/L (136-145); TOTAL PROTEIN 6.3 g/dL (6.4-8.2); eGFR NON BLACK RACES > 60 (>60)
[2021-12-15 05:44] LABS: ANISOCYTOSIS 1+; PLATELET MORPHOLOGY COMMENT NORMAL (NORMAL)
[2021-12-15 05:45] LABS: HYPOCHROMASIA SLIGHT; TARGET CELLS PRESENT
[2021-12-15] MEDS: K-RIDER 10 MEQ/NS 100 ML 10 MEQ/100 ML BAG IV PRN ×4 (06:09→12:28)
[2021-12-15] MEDS: ALBUMIN HUMAN 25%- 100 ML 100 ML IV SCH (08:32)
[2021-12-15] MEDS: ASTELIN NASAL SPRAY ENOSTRIL SCH ×2 (08:33→20:26)
[2021-12-15] MEDS: LASIX IVP SCH ×2 (08:34→17:18)
[2021-12-15] MEDS: FORTAZ or TAZICEF VIAL INJ 1 G in NS 100 ML IV 100 ML IV SCH ×3 (08:34→21:32)
[2021-12-15] MEDS: LOVENOX INJ 40 MG SYR SC SCH (08:34)
[2021-12-15] MEDS: PULMICORT NEB TX 0.5 MG NEB SCH ×2 (08:40→21:07)
[2021-12-15] MEDS: DUONEB 0.5 MG/3 MG (3 mL) NEB SCH ×2 (08:40→21:07)
[2021-12-15] MEDS: MORPHINE SULFATE INJ 2 MG INJ IVP PRN ×2 (11:25→19:14)
--- NOTE | 2021-12-15 11:51 | PCM.PROG ---
Progress Note - Progress Note for Day of Date of Exam: 12/15/21 - Subjective Subjective: WAS ADMITTED FOR TREATMENT OF SEPSIS, UTI, LEFT SPHENOID SINUSISTIS, FACIAL CELLULITIS, DEHYDRATION, AND AMS. TODAY, SHE IS ALERT, LYING IN BED ON MORNING ROUNDS. SHE SPEAKS WHEN SPOKEN TO AND ANSWERS QUESTIONS APPROPRIATELY. SHE CONTINUES WITH WEAKNESS OF UPPER AND LOWER EXTREMITIES AND DIFFICULTY SWALLOWING. SHE HAS A HX OF ESOPHAGEAL STRICTURE AND HAS REQUIRED STRETCHING MULTIPLE TIMES IN THE PAST. SPEECH THERAPY HAS BEEN CONSULTED. ON EXAMINATION, ERYTHEMA AND EDEMA TO LEFT SIDE OF FACE HAVE MARKEDLY IMPROVED. HEART IS REGULAR IN RATE AND RHYTHM. BILATERAL LUNGS ARE NOTED WITH DIMINISHED LUNG SOUNDS THROUGHOUT. ABDOMEN IS OBESE, SOFT, AND NON-TENDER WITH NORMAL BOWEL SOUNDS NOTED IN ALL QUADRANTS. COFFEY CATHETER IS NOTED TO BEDSIDE DRAINAGE. TRACE LOWER EXTREMITY EDEMA NOTED. HER VITALS THIS MORNING ARE: 98.0-92-17-96%-149/67. SHE IS CURRENTLY UTILIZING OXYGEN VIA NASAL CANNULA AT 2 LPM. LABS WERE OBTAINED. WBC 8.5, RBC 4.24, HGB 11.3, HCT 34.2, PLT COUNT 148, SODIUM 141, POTASSIUM 3.2, BUN 9, CREATININE 0.69, GLUCOSE 145, CALCIUM 8.8, AST 15, ALT 19, ALK PHOS 88, TOTAL PROTEIN 6.3, ALBUMIN 2.3. URINE CULTURE IS POSITIVE FOR GROWTH OF E.COLI. BLOOD CULTURES ARE POSITIVE FOR GROWTH OF ENTEROCOCCUS FAECALIS. SHE IS CURRENTLY RECEIVING: D5W @ 75ML/HR, DUONEBS BID, PULMICORT NEBS BID, VANCOMYCIN 1G IV Q8H, FORTAZ 1G IV BID, LOVENOX 40MG SC DAILY, OTBS ACHS, HUMULIN R SLIDING SCALE. WE WILL CONTINUE WITH CURRENT PLAN OF CARE TODAY. WE WILL CONTINUE TO HOLD HER NPO DUE TO DYSPHAGIA UNTIL SHE IS EVALUATED BY SPEECH THERAPY. OTHERWISE, WE PLAN TO FOLLOW-UP WITH AM LABS AND CONTINUE TO MONITOR. TIME SPENT ON CLINICAL ASSESSMENT, REVIWING LABS AND IMAGING, DECISION MAKING, AND DOCUMENTATION GREATER THAN 45 MINUTES. - Past Medical Family Social History Past Med/Fam/Surg Hx: No changes since H&P Allergies: Allergies bacitracin [From Neosporin ([id number])] Allergy (Unknown, Verified 05/11/21 08:55) clopidogrel [From Plavix] Allergy (Unknown, Verified 05/11/21 08:55) gabapentin [From Neurontin] Allergy (Unknown, Verified 05/11/21 08:55) hydrochlorothiazide [From Hyzaar] Allergy (Unknown, Verified 05/11/21 08:55) latex Allergy (Unknown, Verified 05/11/21 08:55) losartan [From Hyzaar] Allergy (Unknown, Verified 05/11/21 08:55) neomycin [From Neosporin ([id number]-[id number])] Allergy (Unknown, Verified 05/11/21 08:55) polymyxin B [From Neosporin ([id number]-lvq-[id number])] Allergy (Unknown, Verified 05/11/21 08:55) propoxyphene [From Darvon] Allergy (Unknown, Verified 05/11/21 08:55) rosuvastatin [From Crestor] Allergy (Unknown, Verified 05/11/21 08:55) sulfamethoxazole [From Bactrim] Allergy (Unknown, Verified 05/11/21 08:55) trimethoprim [From Bactrim] Allergy (Unknown, Verified 05/11/21 08:55) No Dye Allergy (Uncoded 05/26/20 14:08) - Review of Systems ROS: No change since H&P - Vital Signs and I&O's Vital Signs: Temperature 98 F Pulse Rate 99 Respiratory Rate 20 Blood Pressure [RIGHT WRIST] 111/51 Blood Pressure [Right Arm] 153/66 Blood Pressure [Left Calf] 161/70 Blood Pressure [Right Calf] 123/58 Blood Pressure [Left Arm] 126/60 Blood Pressure 153/67 O2 Sat by Pulse Oximetry 96 Intake and Output: Intake & Output 12/12/21 12/13/21 12/14/21 12/15/21 11:59 11:59 11:59 11:59 Intake Total 1781 / 1781 3455 / 3455 3375 / 3375 2735 / 2735 Output Total 400 / 400 1200 / 1200 1200 / 1200 5500 / 5500 Balance 1381 / 1381 2255 / 2255 2175 / 2175 -2765 / -2765 - Physical Exam Oriented: Person Eyes: Normal Ear: Normal Nose: Normal Throat: Normal Respiratory: Generalized, Diminished Cardiovascular: Normal : Normal Auscultation: Bowel Sounds: Normal Tenderness: Normal Skin: Red (LEFT SIDE FACE ), Hot Musculoskeletal: Swelling (LEFT SIDE FACE ) Psychiatric: Normal Mood Description: Calm Affect: Normal Speech Pattern: Delayed - Laboratory and Diagnostics Result Diagrams: 12/15/21 04:35 12/15/21 04:35 Labs: 12/11/21 13:37 Blood Blood Culture - Final Enterococcus Faecalis 12/11/21 13:28 Blood Blood Culture - Final Enterococcus Faecalis 12/11/21 13:40 Urine,Catheterized Urine Culture - Final Escherichia Coli Laboratory WBC 8.5 X10^3/uL (3.6-10.0) 12/15/21 04:35 RBC 4.24 X10^6/uL (3.5-5.4) 12/15/21 04:35 Hgb 11.3 g/dL (12.0-16.0) L 12/15/21 04:35 Hct 34.2 % (36.0-47.0) L 12/15/21 04:35 MCV 80.6 fL (80.0-100.0) 12/15/21 04:35 MCH 26.6 pg (27.0-34.0) L 12/15/21 04:35 MCHC 33.0 g/dL (33.0-35.0) 12/15/21 04:35 RDW 20.9 % (11.6-16.5) H 12/15/21 04:35 Plt Count 148 X10^3/uL (150.0-450.0) L 12/15/21 04:35 Plt Count Comment Decreased (ADEQUATE) A 12/15/21 04:35 MPV 10.0 fL (7.4-11.0) 12/15/21 04:35 Neut % (Auto) 69.8 % (42.0-75.0) 12/15/21 04:35 Lymph % (Auto) 17.2 % (21.0-51.0) L 12/15/21 04:35 [place] % (Auto) 7.9 % (0.0-13.0) 12/15/21 04:35 Eos % (Auto) 4.6 % (0.9-2.9) H 12/15/21 04:35 Baso % (Auto) 0.5 % (0.2-1.0) 12/15/21 04:35 Neut # (Auto) 5.9 x10^3/uL (2.2-4.8) H 12/15/21 04:35 Lymph # (Auto) 1.5 X10^3/uL (1.3-2.9) 12/15/21 04:35 [place] # (Auto) 0.7 x10^3/uL (0.3-0.8) 12/15/21 04:35 Eos # (Auto) 0.4 x10^3/uL (0.0-0.2) H 12/15/21 04:35 Baso # (Auto) 0.0 X10^3/uL (0.0-0.1) 12/15/21 04:35 Absolute Nucleated RBC 0.0 /100WBC 12/15/21 04:35 Total Counted 100 12/12/21 01:00 Neutrophils % (Manual) 82 % (39-76) H 12/12/21 01:00 Band Neutrophils % 2 % (0-10) 12/12/21 01:00 Lymphocytes % (Manual) 7 % (13-43) L 12/12/21 01:00 Monocytes % (Manual) 9 % (4-9) 12/12/21 01:00 Eosinophils % (Manual) 1 % (0-6) 12/11/21 12:28 Plt Morphology Comment Normal (NORMAL) 12/15/21 04:35 RBC Morphology Abnormal (NORMAL) A 12/15/21 04:35 Hypochromasia Slight A 12/15/21 04:35 Anisocytosis 1+ A 12/15/21 04:35 Target Cells Present 12/15/21 04:35 PT 18.8 SECONDS (11.8-14.3) 12/12/21 01:00 INR Target Range - 12/12/21 01:00 INR 1.64 (0.8-1.3) H 12/12/21 01:00 APTT 38.6 SECONDS (22.9-36.5) H 12/12/21 01:00 PTT Comment - 12/12/21 01:00 Sample Site Rrad 12/11/21 12:22 ABG pH 7.420 (7.35-7.45) 12/11/21 12:22 ABG pCO2 43.0 mmHg (35.0-45.0) 12/11/21 12:22 ABG pO2 82.0 mmHg (80.0-100.0) 12/11/21 12:22 ABG HCO3 27.9 mmol/L (22-26) H 12/11/21 12:22 ABG O2 Saturation 96.0 % (90-100) 12/11/21 12:22 ABG Base Excess 3.0 mmol/L (-2.0-2.0) H 12/11/21 12:22 Candelario Test Pos 12/11/21 12:22 A-a Gradient 64.0 mmHg 12/11/21 12:22 FiO2 28.0 12/11/21 12:22 Blood Gas Comments Chun well ms 12/11/21 12:22 Sodium 141 mmol/L (136-145) 12/15/21 04:35 Corrected Sodium 142 mmol/L (136-145) 12/15/21 04:35 Potassium 3.2 mmol/L (3.5-5.1) L 12/15/21 04:35 Chloride 105 mmol/L (98-107) 12/15/21 04:35 Carbon Dioxide 25.8 mmol/L (21-32) 12/15/21 04:35 BUN 9 mg/dL (7-18) 12/15/21 04:35 Creatinine 0.69 mg/dL (0.55-1.02) 12/15/21 04:35 Est GFR (MDRD) Af Amer > 60 (>60) 12/15/21 04:35 Est GFR (MDRD) Non-Af > 60 (>60) 12/15/21 04:35 Glucose 145 mg/dL (65-99) H 12/15/21 04:35 POC Glucose (mg/dL) 154 mg/dL (65-99) H 12/15/21 11:44 Lactic Acid 0.8 mmol/L (0.4-2.0) 12/13/21 05:35 Calcium 8.8 mg/dL (8.5-10.1) 12/15/21 04:35 Corrected Calcium 10.2 mg/dL (8.5-10.1) H 12/15/21 04:35 Magnesium 2.1 mg/dL (1.7-2.9) 12/13/21 05:35 Total Bilirubin 0.40 mg/dL (0.2-1.0) 12/15/21 04:35 AST 15 Units/L (15-37) 12/15/21 04:35 ALT 19 Units/L (12-78) 12/15/21 04:35 Alkaline Phosphatase 88 Units/L (46-116) 12/15/21 04:35 Ammonia < 10 umol/L (11-32) L 12/11/21 13:37 Creatine Kinase 52 Units/L (26-192) 12/12/21 01:00 Troponin I High Sens 14.5 ng/L (4.0-60.0) 12/12/21 01:00 B-Natriuretic Peptide 69.8 pg/mL (0-79) 12/11/21 13:37 Total Protein 6.3 g/dL (6.4-8.2) L 12/15/21 04:35 Albumin 2.3 g/dL (3.4-5.0) L 12/15/21 04:35 Globulin 4.0 g/dL (2.5-4.5) 12/15/21 04:35 Albumin/Globulin Ratio 0.6 Ratio (1.1-2.1) L 12/15/21 04:35 Specimen Type Catherized urine 12/11/21 13:40 Urine Color Yellow (YELLOW) 12/11/21 13:40 Urine Appearance Cloudy (CLEAR) 12/11/21 13:40 Urine pH 5.0 (5.0 - 8.0) 12/11/21 13:40 Ur Specific [place] 1.025 (1.000-1.030) 12/11/21 13:40 Urine Protein 2+ (NEGATIVE) 12/11/21 13:40 Urine Glucose (UA) Negative (NEGATIVE) 12/11/21 13:40 Urine Ketones Negative (NEGATIVE) 12/11/21 13:40 Urine Blood 3+ (NEGATIVE) 12/11/21 13:40 Urine Nitrite Negative (NEGATIVE) 12/11/21 13:40 Urine Bilirubin Negative (NEGATIVE) 12/11/21 13:40 Urine Urobilinogen Normal (NORMAL) 12/11/21 13:40 Ur Leukocyte Esterase 3+ (NEGATIVE) 12/11/21 13:40 Urine RBC Tntc /HPF (0-3) A 12/11/21 13:40 Urine WBC Tntc /HPF (0-5) A 12/11/21 13:40 Ur Squamous Epith Cells Negative /HPF (NEGATIVE) 12/11/21 13:40 Ur Renal Epithelial Cell Rare /HPF (NEGATIVE) 12/11/21 13:40 Amorphous Sediment Trace /HPF (NEGATIVE) 12/11/21 13:40 Urine Bacteria 3+ /HPF (NEGATIVE) 12/11/21 13:40 Ur Culture Indicated? Yes/culture set up 12/11/21 13:40 Urine Opiates Screen Negative (NEG=<300) 12/11/21 13:40 Urine Methadone Screen Negative (NEG=<300) 12/11/21 13:40 Ur Barbiturates Screen Negative (NEG=<200) 12/11/21 13:40 Ur Phencyclidine Scrn Negative (NEG=<25) 12/11/21 13:40 Ur Amphetamines Screen Negative (NEG=<1000) 12/11/21 13:40 U Benzodiazepines Scrn Negative (NEG=<200) 12/11/21 13:40 Urine Cocaine Screen Negative (NEG=<300) 12/11/21 13:40 U Marijuana (THC) Screen Negative (NEG=<50) 12/11/21 13:40 Acetone, Semi-Quant Negative (NEGATIVE) 12/11/21 13:37 SARS-CoV-2 (PCR) Negative (NEGATIVE) 12/11/21 13:40 Influenza Type A (PCR) Negative (NEGATIVE) 12/11/21 13:40 Influenza Type B (PCR) Negative (NEGATIVE) 12/11/21 13:40 RSV (PCR) Negative (NEGATIVE) 12/11/21 13:40 - Plan (1) Sepsis Status: Acute Qualifiers: Sepsis type: sepsis due to unspecified organism Sepsis acute organ dysfunction status: unspecified Qualified Code(s): A41.9 - Sepsis, unspecified organism Plan: NS AT 125 ML/HR, DUONEBS BID, PULMICORT NEBS BID, VANCOMYCIN 1G IV Q8H, FORTAZ IV, LOVENOX 40MG SC DAILY, OTBS ACHS, HUMULIN R SLIDING SCALE. (2) Acute sinusitis Status: Acute Qualifiers: Sinusitis location: sphenoidal Recurrence: not specified as recurrent Qualified Code(s): J01.30 - Acute sphenoidal sinusitis, unspecified (3) UTI (urinary tract infection) Status: Acute Qualifiers: Urinary tract infection type: acute cystitis Hematuria presence: with hematuria Qualified Code(s): N30.01 - Acute cystitis with hematuria (4) Dehydration Status: Acute (5) Altered mental status Status: Acute Qualifiers: Altered mental status type: transient alteration of awareness (6) Renal failure Status: Chronic Qualifiers: Renal failure chronicity: acute on chronic Acute renal failure type: unspecified Chronic kidney disease stage: unspecified stage Qualified Code(s): N17.9 - Acute kidney failure, unspecified; N18.9 - Chronic kidney disease, unspecified (7) Facial cellulitis Status: Acute (8) COPD (chronic obstructive pulmonary disease) with acute bronchitis Status: Chronic (9) Diabetes mellitus, type 2 Status: Chronic Qualifiers: 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
[2021-12-15] MEDS ORDERED: PHARMACY COMMENT IV ONE (13:30)
[2021-12-15 15:11] LABS: CREATININE 0.78 mg/dL (0.55-1.02)
[2021-12-15 15:15] LABS: VANCOMYCIN,TROUGH 23.7 ug/mL (15-20)
[2021-12-15] MEDS: SNACK - Diabetic Appropriate PO SCH (20:22)
[2021-12-15] MEDS: VANCOMYCIN IV *PREMIX 1.25 G/250 ML BAG 1.25 G/250 ML PIGGYBACK IV SCH (20:26)
[2021-12-16] MEDS: D5W 1,000 ML IV 1,000 ML IV SCH ×5 (02:36→23:29)
[2021-12-16] MEDS: FORTAZ or TAZICEF VIAL INJ 1 G in NS 100 ML IV 100 ML IV SCH ×3 (05:00→22:36)
[2021-12-16 05:46] LABS: ALANINE AMINOTRANSFERASE 16 Units/L (12-78); ALBUMIN 2.5 g/dL (3.4-5.0); ALKALINE PHOSPHATASE 83 Units/L (46-116); ASPARTATE AMINO TRANSFERASE 14 Units/L (15-37); BLOOD UREA NITROGEN 10 mg/dL (7-18); CALCIUM 8.7 mg/dL (8.5-10.1); CARBON DIOXIDE 22.5 mmol/L (21-32); CHLORIDE 101 mmol/L (98-107); COR CA(FOR HYPOALB) 9.9 mg/dL (8.5-10.1); COR NA(FOR HYPERGLY) 141 mmol/L (136-145); CREATININE 0.83 mg/dL (0.55-1.02); MAGNESIUM 1.4 mg/dL (1.7-2.9); SODIUM 139 mmol/L (136-145); TOTAL PROTEIN 6.4 g/dL (6.4-8.2); eGFR NON BLACK RACES > 60 (>60)
[2021-12-16 06:16] LABS: BASOPHILS % (AUTO) 0.4 % (0.2-1.0); EOSINOPHILS # (AUTO) 0.4 x10^3/uL (0.0-0.2); EOSINOPHILS % (AUTO) 4.8 % (0.9-2.9); HEMATOCRIT 35.1 % (36.0-47.0); HEMOGLOBIN 11.6 g/dL (12.0-16.0); LYMPHOCYTES % (AUTO) 12.1 % (21.0-51.0); MEAN CORPUSCULAR HEMOGLOBIN 26.4 pg (27.0-34.0); MEAN CORPUSCULAR VOLUME 80.3 fL (80.0-100.0); MEAN PLATELET VOLUME 9.3 fL (7.4-11.0); MONOCYTES # (AUTO) 0.8 x10^3/uL (0.3-0.8); MONOCYTES % (AUTO) 9.2 % (0.0-13.0); NEUTROPHILS # (AUTO) 6.2 x10^3/uL (2.2-4.8); NEUTROPHILS % (AUTO) 73.5 % (42.0-75.0); RED BLOOD COUNT 4.37 X10^6/uL (3.5-5.4); RED CELL DISTRIBUTION WIDTH 20.4 % (11.6-16.5); WHITE BLOOD COUNT 8.4 X10^3/uL (3.6-10.0)
[2021-12-16] MEDS ORDERED: POTASSIUM CHL 60 MEQ/NS 0.45% 500 ML IV PRN (06:28)
[2021-12-16] MEDS ORDERED: MICRO K EXTEN CAP 10 MEQ PO PRN (06:28)
[2021-12-16] MEDS ORDERED: KLOR-CON PO PRN (06:28)
[2021-12-16] MEDS ORDERED: POTASSIUM CHL 40 MEQ/NS 0.45% 500 ML IV PRN (06:28)
[2021-12-16] MEDS ORDERED: POTASSIUM CHLORIDE LIQ 20 MEQ UDC PO PRN (06:28)
[2021-12-16] MEDS ORDERED: K-DUR TAB 20 MEQ PO PRN (06:28)
[2021-12-16] MEDS: K-RIDER 10 MEQ/NS 100 ML 10 MEQ/100 ML BAG IV PRN ×2 (06:41→10:46)
[2021-12-16 06:49] LABS: TOXIC GRANULATION PRESENT
[2021-12-16 06:57] LABS: ANISOCYTOSIS 1+; PLATELET MORPHOLOGY COMMENT NORMAL (NORMAL)
[2021-12-16 07:00] LABS: TARGET CELLS PRESENT
[2021-12-16] MEDS: MAGNESIUM SULFATE 1 GRAM/100 mL PREMIX 1 G/100 ML BAG IV PRN ×4 (07:16→12:58)
[2021-12-16] MEDS: ALBUMIN HUMAN 25%- 100 ML 100 ML IV SCH (08:27)
[2021-12-16] MEDS: ASTELIN NASAL SPRAY ENOSTRIL SCH ×2 (08:28→21:25)
[2021-12-16] MEDS: LOVENOX INJ 40 MG SYR SC SCH (08:28)
[2021-12-16] MEDS: LASIX IVP SCH ×2 (08:28→16:25)
[2021-12-16] MEDS: VANCOMYCIN IV *PREMIX 1.25 G/250 ML BAG 1.25 G/250 ML PIGGYBACK IV SCH ×2 (08:29→21:25)
[2021-12-16] MEDS: PULMICORT NEB TX 0.5 MG NEB SCH ×2 (08:57→20:15)
[2021-12-16] MEDS: DUONEB 0.5 MG/3 MG (3 mL) NEB SCH ×2 (08:57→20:15)
[2021-12-16] MEDS: SNACK - Diabetic Appropriate PO SCH (20:50)
[2021-12-17] MEDS: D5W 1,000 ML IV 1,000 ML IV SCH ×3 (01:43→16:28)
[2021-12-17 05:16] LABS: BASOPHILS % (AUTO) 0.2 % (0.2-1.0); EOSINOPHILS # (AUTO) 0.5 x10^3/uL (0.0-0.2); EOSINOPHILS % (AUTO) 5.2 % (0.9-2.9); HEMOGLOBIN 11.3 g/dL (12.0-16.0); LYMPHOCYTES # (AUTO) 0.9 X10^3/uL (1.3-2.9); LYMPHOCYTES % (AUTO) 9.8 % (21.0-51.0); MEAN CORPUSCULAR HEMOGLOBIN 26.5 pg (27.0-34.0); MEAN CORPUSCULAR HGB CONC 33.1 g/dL (33.0-35.0); MEAN CORPUSCULAR VOLUME 79.9 fL (80.0-100.0); MEAN PLATELET VOLUME 10.4 fL (7.4-11.0); MONOCYTES # (AUTO) 0.9 x10^3/uL (0.3-0.8); MONOCYTES % (AUTO) 9.8 % (0.0-13.0); RED BLOOD COUNT 4.26 X10^6/uL (3.5-5.4); RED CELL DISTRIBUTION WIDTH 21.2 % (11.6-16.5); WHITE BLOOD COUNT 9.3 X10^3/uL (3.6-10.0)
[2021-12-17 05:31] LABS: ALANINE AMINOTRANSFERASE 16 Units/L (12-78); ALBUMIN 2.7 g/dL (3.4-5.0); ALKALINE PHOSPHATASE 75 Units/L (46-116); ASPARTATE AMINO TRANSFERASE 16 Units/L (15-37); BLOOD UREA NITROGEN 8 mg/dL (7-18); CALCIUM 8.7 mg/dL (8.5-10.1); CARBON DIOXIDE 24.4 mmol/L (21-32); CHLORIDE 98 mmol/L (98-107); COR CA(FOR HYPOALB) 9.7 mg/dL (8.5-10.1); COR NA(FOR HYPERGLY) 139 mmol/L (136-145); MAGNESIUM 2.1 mg/dL (1.7-2.9); SODIUM 136 mmol/L (136-145); TOTAL PROTEIN 6.4 g/dL (6.4-8.2); eGFR NON BLACK RACES > 60 (>60)
[2021-12-17] MEDS: FORTAZ or TAZICEF VIAL INJ 1 G in NS 100 ML IV 100 ML IV SCH ×3 (05:34→20:45)
[2021-12-17 05:56] LABS: ANISOCYTOSIS 1+; HYPOCHROMASIA SLIGHT; MICROCYTOSIS SLIGHT; PLATELET MORPHOLOGY COMMENT NORMAL (NORMAL)
[2021-12-17 05:57] LABS: TARGET CELLS PRESENT
--- NOTE | 2021-12-17 06:03 | RAD ---
PROCEDURE: Chest X-ray 1 View .HISTORY: UROSEPSIS, DEHYDRATION .TECHNIQUE: AP view .COMPARISON: 12/11/2021.TECHNICAL QUALITY: Satisfactory .FINDINGS:Left subclavian Port-A-Cath remains in good position.Unchanged start size upper limits of normal.Mediastinum and hilar regions show no masses or lymphadenopathy .Normal central vascularity .No pulmonary consolidation, masses, pleural fluid, or pneumothorax. Discoid atelectasis right lung base. Unchanged elevated right hemidiaphragm.No acute bony abnormality .IMPRESSION:1. Unchanged start size upper limits of normal.2. Discoid atelectasis right lung base.3. Unchanged elevated right hemidiaphragm.Electronically signed by: Ventura Mendez (Dec 17, 2021 06:02:17)
[2021-12-17] MEDS: K-RIDER 10 MEQ/NS 100 ML 10 MEQ/100 ML BAG IV PRN ×4 (06:29→19:50)
[2021-12-17] MEDS: DUONEB 0.5 MG/3 MG (3 mL) NEB SCH ×2 (08:30→20:20)
[2021-12-17] MEDS: PULMICORT NEB TX 0.5 MG NEB SCH ×2 (08:30→20:20)
[2021-12-17] MEDS ORDERED: PHARMACY COMMENT IV ONE (08:30)
[2021-12-17] MEDS: ALBUMIN HUMAN 25%- 100 ML 100 ML IV SCH (09:08)
[2021-12-17] MEDS: ASTELIN NASAL SPRAY ENOSTRIL SCH ×2 (09:09→20:30)
[2021-12-17] MEDS: LOVENOX INJ 40 MG SYR SC SCH (09:09)
[2021-12-17] MEDS: LASIX IVP SCH ×2 (09:09→16:40)
[2021-12-17 09:14] LABS: CREATININE 0.68 mg/dL (0.55-1.02)
[2021-12-17] MEDS: VANCOMYCIN IV *PREMIX 1.25 G/250 ML BAG 1.25 G/250 ML PIGGYBACK IV SCH (09:19)
[2021-12-17 17:52] LABS: VANCOMYCIN,TROUGH 30.9 ug/mL (15-20)
[2021-12-17] MEDS: SNACK - Diabetic Appropriate PO SCH (21:06)
[2021-12-18 05:19] LABS: BASOPHILS % (AUTO) 0.3 % (0.2-1.0); EOSINOPHILS # (AUTO) 0.5 x10^3/uL (0.0-0.2); EOSINOPHILS % (AUTO) 5.9 % (0.9-2.9); HEMATOCRIT 35.2 % (36.0-47.0); HEMOGLOBIN 11.9 g/dL (12.0-16.0); LYMPHOCYTES # (AUTO) 1.4 X10^3/uL (1.3-2.9); LYMPHOCYTES % (AUTO) 15.6 % (21.0-51.0); MEAN CORPUSCULAR HEMOGLOBIN 26.9 pg (27.0-34.0); MEAN CORPUSCULAR HGB CONC 33.7 g/dL (33.0-35.0); MEAN CORPUSCULAR VOLUME 79.7 fL (80.0-100.0); MEAN PLATELET VOLUME 9.9 fL (7.4-11.0); MONOCYTES # (AUTO) 0.9 x10^3/uL (0.3-0.8); MONOCYTES % (AUTO) 9.9 % (0.0-13.0); NEUTROPHILS # (AUTO) 6.1 x10^3/uL (2.2-4.8); NEUTROPHILS % (AUTO) 68.3 % (42.0-75.0); RED BLOOD COUNT 4.42 X10^6/uL (3.5-5.4)
[2021-12-18] MEDS: FORTAZ or TAZICEF VIAL INJ 1 G in NS 100 ML IV 100 ML IV SCH ×3 (05:25→22:45)
[2021-12-18] MEDS: D5W 1,000 ML IV 1,000 ML IV SCH (05:29)
[2021-12-18 05:38] LABS: ALANINE AMINOTRANSFERASE 19 Units/L (12-78); ALKALINE PHOSPHATASE 72 Units/L (46-116); ASPARTATE AMINO TRANSFERASE 17 Units/L (15-37); BLOOD UREA NITROGEN 8 mg/dL (7-18); CALCIUM 9.1 mg/dL (8.5-10.1); CARBON DIOXIDE 22.2 mmol/L (21-32); CHLORIDE 97 mmol/L (98-107); COR CA(FOR HYPOALB) 9.9 mg/dL (8.5-10.1); COR NA(FOR HYPERGLY) 137 mmol/L (136-145); CREATININE 0.73 mg/dL (0.55-1.02); SODIUM 134 mmol/L (136-145); TOTAL PROTEIN 6.6 g/dL (6.4-8.2); eGFR NON BLACK RACES > 60 (>60)
[2021-12-18 05:56] LABS: ANISOCYTOSIS 1+; BAND NEUTROPHILS % 3 % (0-10); HYPOCHROMASIA SLIGHT; MICROCYTOSIS SLIGHT; PLATELET MORPHOLOGY COMMENT NORMAL (NORMAL); ROULEAUX PRESENT; TOXIC GRANULATION PRESENT
[2021-12-18] MEDS: DUONEB 0.5 MG/3 MG (3 mL) NEB SCH ×2 (08:10→21:00)
[2021-12-18] MEDS: PULMICORT NEB TX 0.5 MG NEB SCH ×2 (08:10→21:00)
[2021-12-18] MEDS ORDERED: PHARMACY COMMENT IV NR (08:30)
[2021-12-18 08:57] VITALS: BMI 43.4
[2021-12-18] MEDS ORDERED: PHARMACY CONSULT - TPN XX SCH (09:00)
[2021-12-18] MEDS ORDERED: DEXTROSE 10% 1,000 ML IV PRN (09:02)
--- NOTE | 2021-12-18 09:13 | RAD ---
HISTORYUROSEPSISSTUDYCHEST x-ray, 1 VIEWCOMPARISONX-ray 12/17/2021FINDINGSHeart is probably normal in size. There is mild elevation of the right hemidiaphragm, unchanged. Port catheter terminates in the region of the distal SVC. No pneumothorax, focal infiltrate, or pleural effusion is seen.IMPRESSIONAppearance of the chest is similar to prior study.Electronically signed by: Elmo Rivas (Dec 18, 2021 09:12:08)
[2021-12-18 09:35] LABS: MAGNESIUM 1.8 mg/dL (1.7-2.9); PHOSPHORUS 2.1 mg/dL (2.6-4.7)
[2021-12-18] MEDS: ALBUMIN HUMAN 25%- 100 ML 100 ML IV SCH (09:35)
[2021-12-18] MEDS: LASIX IVP SCH ×2 (09:36→17:19)
[2021-12-18] MEDS: ASTELIN NASAL SPRAY ENOSTRIL SCH ×2 (09:36→21:30)
[2021-12-18] MEDS: LOVENOX INJ 40 MG SYR SC SCH (09:36)
[2021-12-18] MEDS: NS 1,000 ML IV 1,000 ML IV SCH (09:37)
[2021-12-18] MEDS: CLINIMIX 5 %/20 % 1,000 ML with MVI INJ (ADULT) 10 ML, NovoLIN R (or HumuLIN R) 10 UNITS IV SCH ×6 (10:26→23:15)
[2021-12-18] MEDS: MORPHINE SULFATE INJ 2 MG INJ IVP PRN (11:54)
[2021-12-18] MEDS: NovoLIN R (or HumuLIN R) SUBCUT PRN ×3 (13:03→20:55)
--- NOTE | 2021-12-18 21:05 | PCM.PROG ---
Progress Note - Progress Note for Day of Date of Exam: 12/18/21 - Subjective Subjective: WAS ADMITTED FOR TREATMENT OF SEPSIS, UTI, LEFT SPHENOID SINUSISTIS, FACIAL CELLULITIS, DEHYDRATION, AND AMS. TODAY, SHE IS LYING IN BED WITH EYES CLOSED ON MORNING ROUNDS. SHE IS DIFFICULT TO AROUSE THIS MORNING, BUT DOES EVENTUALLY AWAKEN. SHE CONTINUES WITH WEAKNESS OF UPPER AND LOWER EXTREMITIES AND DIFFICULTY SWALLOWING. SHE HAS A HX OF ESOPHAGEAL STRICTURE AND HAS REQUIRED STRETCHING MULTIPLE TIMES IN THE PAST. SPEECH THERAPY HAS BEEN CONSULTED AND WILL SEE PATIENT TODAY. SHE WILL REMAIN NPO UNTIL CLEARED BY SPEECH THERAPY. ON EXAMINATION, ERYTHEMA AND EDEMA TO LEFT SIDE OF FACE HAVE RESOLVED. HEART IS REGULAR IN RATE AND RHYTHM. BILATERAL LUNGS ARE NOTED WITH DIMINISHED LUNG SOUNDS THROUGHOUT. ABDOMEN IS OBESE, SOFT, AND NON-TENDER WITH NORMAL BOWEL SOUNDS NOTED IN ALL QUADRANTS. COFFEY CATHETER IS NOTED TO BEDSIDE DRAINAGE. TRACE LOWER EXTREMITY EDEMA NOTED. HER VITALS THIS MORNING ARE: 99.0-81-18-97%-150/66. SHE IS CURRENTLY UTILIZING OXYGEN VIA NASAL CANNULA AT 2 LPM. LABS WERE OBTAINED. WBC 9.0, HGB 11.9, HCT 35.2, PLT COUNT 177, SODIUM 134, POTASSIUM 4.0, CHLORIDE 97, BUN 8, CREATININE 0.73, GLUCOSE 227, PHOSPHORUS 2.1, MAGNESIUM 1.8, TOTAL PROTEIN 6.6, ALBUMIN 3.0. URINE CULTURE IS POSITIVE FOR GROWTH OF E.COLI. BLOOD CULTURES ARE POSITIVE FOR GROWTH OF ENTEROCOCCUS FAECALIS. A CHEST XRAY IS OBTAINED AND REVEALED: Heart is probably normal in size. There is mild elevation of the right hemidiaphragm, unchanged. Port catheter terminates in the region of the distal SVC. No pneumothorax, focal infiltrate, or pleural effusion is seen. SHE IS CURRENTLY RECEIVING: D5W @ 50ML/HR, TPN, ALBUMIN 25% IV DAILY, DUONEBS BID, PULMICORT NEBS BID, FORTAZ 1G IV TID, LOVENOX 40MG SC DAILY, OTBS ACHS, HUMULIN R SLIDING SCALE, LASIX 20MG IV BID, AND THE POTASSIUM AND MAGNESIUM PROTOCOLS. WE WILL CONTINUE WITH CURRENT PLAN OF CARE TODAY. OTHERWISE, WE PLAN TO FOLLOW-UP WITH AM LABS AND CONTINUE TO MONITOR. TIME SPENT ON CLINICAL ASSESSMENT, REVIWING LABS AND IMAGING, DECISION MAKING, AND DOCUMENTATION GREATER THAN 45 MINUTES. - Past Medical Family Social History Past Med/Fam/Surg Hx: No changes since H&P Allergies: Allergies bacitracin [From Neosporin ([id number])] Allergy (Unknown, Verified 05/11/21 08:55) clopidogrel [From Plavix] Allergy (Unknown, Verified 05/11/21 08:55) gabapentin [From Neurontin] Allergy (Unknown, Verified 05/11/21 08:55) hydrochlorothiazide [From Hyzaar] Allergy (Unknown, Verified 05/11/21 08:55) latex Allergy (Unknown, Verified 05/11/21 08:55) losartan [From Hyzaar] Allergy (Unknown, Verified 05/11/21 08:55) neomycin [From Neosporin ([id number])] Allergy (Unknown, Verified 05/11/21 08:55) polymyxin B [From Neosporin ([id number])] Allergy (Unknown, Verified 05/11/21 08:55) propoxyphene [From Darvon] Allergy (Unknown, Verified 05/11/21 08:55) rosuvastatin [From Crestor] Allergy (Unknown, Verified 05/11/21 08:55) sulfamethoxazole [From Bactrim] Allergy (Unknown, Verified 05/11/21 08:55) trimethoprim [From Bactrim] Allergy (Unknown, Verified 05/11/21 08:55) No Dye Allergy (Uncoded 05/26/20 14:08) - Review of Systems ROS: No change since H&P - Vital Signs and I&O's Vital Signs: Temperature 97.1 F Pulse Rate 80 Respiratory Rate 17 Blood Pressure [RIGHT WRIST] 111/51 Blood Pressure [Right Arm] 153/66 Blood Pressure [Left Calf] 161/70 Blood Pressure [Right Calf] 123/58 Blood Pressure [Left Arm] 126/60 Blood Pressure 155/67 O2 Sat by Pulse Oximetry 97 Intake and Output: Intake & Output 12/16/21 12/17/21 12/18/21 12/19/21 11:59 11:59 11:59 11:59 Intake Total 2336 / 2336 2735 / 2735 2280 / 2280 860 / 860 Output Total 2350 / 2350 2620 / 2620 2500 / 2500 1400 / 1400 Balance -14 / -14 115 / 115 -220 / -220 -540 / -540 - Physical Exam Oriented: Person Eyes: Normal Ear: Normal Nose: Normal Throat: Normal Respiratory: Generalized, Diminished Cardiovascular: Normal : Normal Auscultation: Bowel Sounds: Normal Palpation: Normal Tenderness: Normal Skin: Normal Musculoskeletal: Normal Psychiatric: Normal Mood Description: Calm Affect: Normal Speech Pattern: Delayed - Laboratory and Diagnostics Result Diagrams: 12/18/21 04:40 12/18/21 20:46 Labs: 12/16/21 17:22 Blood Blood Culture - Preliminary 12/16/21 17:12 Blood Blood Culture - Preliminary 12/11/21 13:37 Blood Blood Culture - Final Enterococcus Faecalis 12/11/21 13:28 Blood Blood Culture - Final Enterococcus Faecalis 12/11/21 13:40 Urine,Catheterized Urine Culture - Final Escherichia Coli Laboratory WBC 9.0 X10^3/uL (3.6-10.0) 12/18/21 04:40 RBC 4.42 X10^6/uL (3.5-5.4) 12/18/21 04:40 Hgb 11.9 g/dL (12.0-16.0) L 12/18/21 04:40 Hct 35.2 % (36.0-47.0) L 12/18/21 04:40 MCV 79.7 fL (80.0-100.0) L 12/18/21 04:40 MCH 26.9 pg (27.0-34.0) L 12/18/21 04:40 MCHC 33.7 g/dL (33.0-35.0) 12/18/21 04:40 RDW 21.0 % (11.6-16.5) H 12/18/21 04:40 Plt Count 177 X10^3/uL (150.0-450.0) 12/18/21 04:40 Plt Count Comment Adequate (ADEQUATE) 12/18/21 04:40 MPV 9.9 fL (7.4-11.0) 12/18/21 04:40 Neut % (Auto) 68.3 % (42.0-75.0) 12/18/21 04:40 Lymph % (Auto) 15.6 % (21.0-51.0) L 12/18/21 04:40 [place] % (Auto) 9.9 % (0.0-13.0) 12/18/21 04:40 Eos % (Auto) 5.9 % (0.9-2.9) H 12/18/21 04:40 Baso % (Auto) 0.3 % (0.2-1.0) 12/18/21 04:40 Neut # (Auto) 6.1 x10^3/uL (2.2-4.8) H 12/18/21 04:40 Lymph # (Auto) 1.4 X10^3/uL (1.3-2.9) 12/18/21 04:40 [place] # (Auto) 0.9 x10^3/uL (0.3-0.8) H 12/18/21 04:40 Eos # (Auto) 0.5 x10^3/uL (0.0-0.2) H 12/18/21 04:40 Baso # (Auto) 0.0 X10^3/uL (0.0-0.1) 12/18/21 04:40 Absolute Nucleated RBC 0.1 /100WBC 12/18/21 04:40 Total Counted 100 12/18/21 04:40 Neutrophils % (Manual) 73 % (39-76) 12/18/21 04:40 Band Neutrophils % 3 % (0-10) 12/18/21 04:40 Lymphocytes % (Manual) 13 % (13-43) 12/18/21 04:40 Monocytes % (Manual) 5 % (4-9) 12/18/21 04:40 Eosinophils % (Manual) 6 % (0-6) 12/18/21 04:40 Toxic Granulation Present 12/18/21 04:40 Plt Morphology Comment Normal (NORMAL) 12/18/21 04:40 RBC Morphology Abnormal (NORMAL) A 12/18/21 04:40 Hypochromasia Slight A 12/18/21 04:40 Anisocytosis 1+ A 12/18/21 04:40 Microcytosis Slight A 12/18/21 04:40 Target Cells Present 12/17/21 04:40 Rouleaux Present 12/18/21 04:40 PT 18.8 SECONDS (11.8-14.3) 12/12/21 01:00 INR Target Range - 12/12/21 01:00 INR 1.64 (0.8-1.3) H 12/12/21 01:00 APTT 38.6 SECONDS (22.9-36.5) H 12/12/21 01:00 PTT Comment - 12/12/21 01:00 Sample Site Rrad 12/11/21 12:22 ABG pH 7.420 (7.35-7.45) 12/11/21 12:22 ABG pCO2 43.0 mmHg (35.0-45.0) 12/11/21 12:22 ABG pO2 82.0 mmHg (80.0-100.0) 12/11/21 12:22 ABG HCO3 27.9 mmol/L (22-26) H 12/11/21 12:22 ABG O2 Saturation 96.0 % (90-100) 12/11/21 12:22 ABG Base Excess 3.0 mmol/L (-2.0-2.0) H 12/11/21 12:22 Candelario Test Pos 12/11/21 12:22 A-a Gradient 64.0 mmHg 12/11/21 12:22 FiO2 28.0 12/11/21 12:22 Blood Gas Comments Chun well ms 12/11/21 12:22 Sodium 134 mmol/L (136-145) L 12/18/21 04:40 Corrected Sodium 137 mmol/L (136-145) 12/18/21 04:40 Potassium 4.0 mmol/L (3.5-5.1) 12/18/21 04:40 Chloride 97 mmol/L (98-107) L 12/18/21 04:40 Carbon Dioxide 22.2 mmol/L (21-32) 12/18/21 04:40 BUN 8 mg/dL (7-18) 12/18/21 04:40 Creatinine 0.73 mg/dL (0.55-1.02) 12/18/21 04:40 Est GFR (MDRD) Af Amer > 60 (>60) 12/18/21 04:40 Est GFR (MDRD) Non-Af > 60 (>60) 12/18/21 04:40 Glucose 412 mg/dL (65-99) H 12/18/21 20:46 POC Glucose (mg/dL) 488 mg/dL (65-99) H 12/18/21 20:17 Lactic Acid 0.8 mmol/L (0.4-2.0) 12/13/21 05:35 Calcium 9.1 mg/dL (8.5-10.1) 12/18/21 04:40 Corrected Calcium 9.9 mg/dL (8.5-10.1) 12/18/21 04:40 Phosphorus 2.1 mg/dL (2.6-4.7) L 12/18/21 04:40 Magnesium 1.8 mg/dL (1.7-2.9) 12/18/21 04:40 Total Bilirubin 0.40 mg/dL (0.2-1.0) 12/18/21 04:40 AST 17 Units/L (15-37) 12/18/21 04:40 ALT 19 Units/L (12-78) 12/18/21 04:40 Alkaline Phosphatase 72 Units/L (46-116) 12/18/21 04:40 Ammonia < 10 umol/L (11-32) L 12/11/21 13:37 Creatine Kinase 52 Units/L (26-192) 12/12/21 01:00 Troponin I High Sens 14.5 ng/L (4.0-60.0) 12/12/21 01:00 B-Natriuretic Peptide 69.8 pg/mL (0-79) 12/11/21 13:37 Total Protein 6.6 g/dL (6.4-8.2) 12/18/21 04:40 Albumin 3.0 g/dL (3.4-5.0) L 12/18/21 04:40 Globulin 3.6 g/dL (2.5-4.5) 12/18/21 04:40 Albumin/Globulin Ratio 0.8 Ratio (1.1-2.1) L 12/18/21 04:40 Triglycerides 253 mg/dL (0-150) H 12/18/21 04:40 Specimen Type Catherized urine 12/11/21 13:40 Urine Color Yellow (YELLOW) 12/11/21 13:40 Urine Appearance Cloudy (CLEAR) 12/11/21 13:40 Urine pH 5.0 (5.0 - 8.0) 12/11/21 13:40 Ur Specific [place] 1.025 (1.000-1.030) 12/11/21 13:40 Urine Protein 2+ (NEGATIVE) 12/11/21 13:40 Urine Glucose (UA) Negative (NEGATIVE) 12/11/21 13:40 Urine Ketones Negative (NEGATIVE) 12/11/21 13:40 Urine Blood 3+ (NEGATIVE) 12/11/21 13:40 Urine Nitrite Negative (NEGATIVE) 12/11/21 13:40 Urine Bilirubin Negative (NEGATIVE) 12/11/21 13:40 Urine Urobilinogen Normal (NORMAL) 12/11/21 13:40 Ur Leukocyte Esterase 3+ (NEGATIVE) 12/11/21 13:40 Urine RBC Tntc /HPF (0-3) A 12/11/21 13:40 Urine WBC Tntc /HPF (0-5) A 12/11/21 13:40 Ur Squamous Epith Cells Negative /HPF (NEGATIVE) 12/11/21 13:40 Ur Renal Epithelial Cell Rare /HPF (NEGATIVE) 12/11/21 13:40 Amorphous Sediment Trace /HPF (NEGATIVE) 12/11/21 13:40 Urine Bacteria 3+ /HPF (NEGATIVE) 12/11/21 13:40 Ur Culture Indicated? Yes/culture set up 12/11/21 13:40 Vancomycin Trough 30.9 ug/mL (15-20) H* 12/17/21 08:37 Random Vancomycin 21.1 ug/mL 12/18/21 04:40 Urine Opiates Screen Negative (NEG=<300) 12/11/21 13:40 Urine Methadone Screen Negative (NEG=<300) 12/11/21 13:40 Ur Barbiturates Screen Negative (NEG=<200) 12/11/21 13:40 Ur Phencyclidine Scrn Negative (NEG=<25) 12/11/21 13:40 Ur Amphetamines Screen Negative (NEG=<1000) 12/11/21 13:40 U Benzodiazepines Scrn Negative (NEG=<200) 12/11/21 13:40 Urine Cocaine Screen Negative (NEG=<300) 12/11/21 13:40 U Marijuana (THC) Screen Negative (NEG=<50) 12/11/21 13:40 Acetone, Semi-Quant Negative (NEGATIVE) 12/11/21 13:37 SARS-CoV-2 (PCR) Negative (NEGATIVE) 12/11/21 13:40 Influenza Type A (PCR) Negative (NEGATIVE) 12/11/21 13:40 Influenza Type B (PCR) Negative (NEGATIVE) 12/11/21 13:40 RSV (PCR) Negative (NEGATIVE) 12/11/21 13:40 - Plan (1) Sepsis Status: Acute Qualifiers: Sepsis type: sepsis due to unspecified organism Sepsis acute organ dysfunction status: unspecified Qualified Code(s): A41.9 - Sepsis, unspecified organism Plan: D5W @ 50ML/HR, TPN, ALBUMIN 25% IV DAILY, DUONEBS BID, PULMICORT NEBS BID, FORTAZ 1G IV TID, LOVENOX 40MG SC DAILY, OTBS ACHS, HUMULIN R SLIDING SCALE, LASIX 20MG IV BID, AND THE POTASSIUM AND MAGNESIUM PROTOCOLS. (2) Acute sinusitis Status: Acute Qualifiers: Sinusitis location: sphenoidal Recurrence: not specified as recurrent Qualified Code(s): J01.30 - Acute sphenoidal sinusitis, unspecified (3) UTI (urinary tract infection) Status: Acute Qualifiers: Urinary tract infection type: acute cystitis Hematuria presence: with hematuria Qualified Code(s): N30.01 - Acute cystitis with hematuria (4) Dehydration Status: Acute (5) Altered mental status Status: Acute Qualifiers: Altered mental status type: transient alteration of awareness (6) Renal failure Status: Chronic Qualifiers: Renal failure chronicity: acute on chronic Acute renal failure type: unspecified Chronic kidney disease stage: unspecified stage Qualified Code(s): N17.9 - Acute kidney failure, unspecified; N18.9 - Chronic kidney disease, unspecified (7) Facial cellulitis Status: Acute (8) COPD (chronic obstructive pulmonary disease) with acute bronchitis Status: Chronic (9) Diabetes mellitus, type 2 Status: Chronic Qualifiers: Diabetes mellitus mcc insulin use: with mcc use Diabetes mellitus complication status: with kidney complications Diabetes mellitus complication detail: with chronic kidney disease Chronic kidney disease stage: unspecified stage Qualified Code(s): E11.22 - Type 2 diabetes mellitus with diabetic chronic kidney disease; Z79.4 - senior care (current) use of insulin (10) Essential hypertension Status: Chronic
[2021-12-18] MEDS ORDERED: DRUG FILTER EXTENSION SET ONE (23:16)
[2021-12-19] MEDS: SNACK - Diabetic Appropriate PO SCH ×2 (00:50→20:34)
[2021-12-19] MEDS: NovoLIN R (or HumuLIN R) SUBCUT PRN ×5 (01:27→20:33)
[2021-12-19] MEDS: FORTAZ or TAZICEF VIAL INJ 1 G in NS 100 ML IV 100 ML IV SCH ×3 (05:23→21:32)
[2021-12-19 05:28] LABS: BASOPHILS # (AUTO) 0.1 X10^3/uL (0.0-0.1); BASOPHILS % (AUTO) 0.9 % (0.2-1.0); EOSINOPHILS # (AUTO) 0.4 x10^3/uL (0.0-0.2); EOSINOPHILS % (AUTO) 4.9 % (0.9-2.9); HEMATOCRIT 38.2 % (36.0-47.0); HEMOGLOBIN 12.7 g/dL (12.0-16.0); LYMPHOCYTES # (AUTO) 1.5 X10^3/uL (1.3-2.9); LYMPHOCYTES % (AUTO) 17.6 % (21.0-51.0); MEAN CORPUSCULAR HEMOGLOBIN 26.7 pg (27.0-34.0); MEAN CORPUSCULAR HGB CONC 33.3 g/dL (33.0-35.0); MEAN CORPUSCULAR VOLUME 80.2 fL (80.0-100.0); MEAN PLATELET VOLUME 9.9 fL (7.4-11.0); MONOCYTES # (AUTO) 0.9 x10^3/uL (0.3-0.8); MONOCYTES % (AUTO) 10.1 % (0.0-13.0); NEUTROPHILS # (AUTO) 5.8 x10^3/uL (2.2-4.8); NEUTROPHILS % (AUTO) 66.5 % (42.0-75.0); RED BLOOD COUNT 4.76 X10^6/uL (3.5-5.4); WHITE BLOOD COUNT 8.7 X10^3/uL (3.6-10.0)
[2021-12-19 05:34] LABS: PREALBUMIN 21.2 mg/dL (18-35.7)
[2021-12-19 05:45] LABS: ALANINE AMINOTRANSFERASE 20 Units/L (12-78); ALBUMIN 3.1 g/dL (3.4-5.0); ALKALINE PHOSPHATASE 73 Units/L (46-116); ASPARTATE AMINO TRANSFERASE 15 Units/L (15-37); BLOOD UREA NITROGEN 17 mg/dL (7-18); CALCIUM 9.2 mg/dL (8.5-10.1); CARBON DIOXIDE 25.2 mmol/L (21-32); CHLORIDE 95 mmol/L (98-107); COR CA(FOR HYPOALB) 9.9 mg/dL (8.5-10.1); COR NA(FOR HYPERGLY) 143 mmol/L (136-145); SODIUM 133 mmol/L (136-145); eGFR NON BLACK RACES > 60 (>60)
[2021-12-19 05:55] LABS: PLATELET MORPHOLOGY COMMENT NORMAL (NORMAL)
[2021-12-19 05:56] LABS: ANISOCYTOSIS 1+; HYPOCHROMASIA SLIGHT; ROULEAUX PRESENT; TOXIC GRANULATION PRESENT
[2021-12-19] MEDS: K-RIDER 10 MEQ/NS 100 ML 10 MEQ/100 ML BAG IV PRN ×2 (06:37→07:48)
[2021-12-19] MEDS ORDERED: VANCOMYCIN IV *PREMIX 1 G/200 ML BAG 1 G/200 ML PIGGYBACK IV NR (08:00)
[2021-12-19] MEDS: DUONEB 0.5 MG/3 MG (3 mL) NEB SCH ×2 (08:22→21:00)
[2021-12-19] MEDS: PULMICORT NEB TX 0.5 MG NEB SCH ×2 (08:22→21:00)
[2021-12-19] MEDS: [UNRECOGNIZED DRUG - REMARK] IV SCH ×10 (08:42→20:31)
[2021-12-19] MEDS: ALBUMIN HUMAN 25%- 100 ML 100 ML IV SCH (08:43)
[2021-12-19] MEDS: LASIX IVP SCH ×2 (08:44→16:05)
[2021-12-19] MEDS: LOVENOX INJ 40 MG SYR SC SCH (08:44)
[2021-12-19] MEDS: NS 1,000 ML IV 1,000 ML IV SCH (08:44)
[2021-12-19] MEDS: ASTELIN NASAL SPRAY ENOSTRIL SCH ×2 (08:44→20:36)
--- NOTE | 2021-12-19 11:05 | PCM.PROG ---
Progress Note - Progress Note for Day of Date of Exam: 12/19/21 - Subjective Subjective: WAS ADMITTED FOR TREATMENT OF SEPSIS, UTI, LEFT SPHENOID SINUSISTIS, FACIAL CELLULITIS, DEHYDRATION, AND AMS. TODAY, SHE IS ALERT, LYING IN BED ON MORNING ROUNDS. SHE IS MORE RESPONSIVE THAN SHE WAS YESTERDAY. SPEECH THERAPY EVALUATED HER YESTERDAY AND RECOMMENDED THAT SHE BE ON A PUREED DIET. STAFF REPORTS THAT SHE TOLERATED SEVERAL BITES OF BREAKFAST WELL. ON EXAMINATION, ERYTHEMA AND EDEMA TO LEFT SIDE OF FACE HAVE RESOLVED. HEART IS REGULAR IN RATE AND RHYTHM. BILATERAL LUNGS ARE NOTED WITH DIMINISHED LUNG SOUNDS THROUGHOUT. ABDOMEN IS OBESE, SOFT, AND NON-TENDER WITH NORMAL BOWEL SOUNDS NOTED IN ALL QUADRANTS. COFFEY CATHETER IS NOTED TO BEDSIDE DRAINAGE. TRACE LOWER EXTREMITY EDEMA NOTED. HER VITALS THIS MORNING ARE: 98.3-93-20-98%-134/62. SHE IS CURRENTLY UTILIZING OXYGEN VIA NASAL CANNULA AT 2 LPM. LABS WERE OBTAINED. WBC 8.7, HGB 12.7, HCT 38.2, SODIUM 133, POTASSIUM 2.9, BUN 17, CREATININE 0.90, GLUCOSE 528, CALCIUM 9.2, MAGNESIUM 1.6, AST 15, ALT 20, ALK PHOS 73, TOTAL PROTEIN 7.0, ALBUMIN 3.1. URINE CULTURE IS POSITIVE FOR GROWTH OF E.COLI. BLOOD CULTURES ARE POSITIVE FOR GROWTH OF ENTEROCOCCUS FAECALIS. A CHEST XRAY IS OBTAINED AND REVEALED: Heart is probably normal in size. There is mild elevation of the right hemidiaphragm, unchanged. Port catheter terminates in the region of the distal SVC. No pneumothorax, focal infiltrate, or pleural effusion is seen. SHE IS CURRENTLY RECEIVING: NORMAL SALINE AT KVO, TPN, ALBUMIN 25% IV DAILY, DUONEBS BID, PULMICORT NEBS BID, FORTAZ 1G IV TID, LOVENOX 40MG SC DAILY, OTBS ACHS, HUMULIN R SLIDING SCALE, LASIX 20MG IV BID, AND THE POTASSIUM AND MAGNESIUM PROTOCOLS. WE WILL CONTINUE WITH CURRENT PLAN OF CARE TODAY. WE WILL REVIEW HER HOME MEDICATIONS AND RESUME APPROPRIATE. WE WILL ADD ADDITIONAL INSULIN TO HER TPN. OTHERWISE, WE PLAN TO FOLLOW-UP WITH AM LABS AND CONTINUE TO MONITOR. TIME SPENT ON CLINICAL ASSESSMENT, REVIWING LABS AND IMAGING, DECISION MAKING, AND DOCUMENTATION GREATER THAN 45 MINUTES. - Past Medical Family Social History Past Med/Fam/Surg Hx: No changes since H&P Allergies: Allergies bacitracin [From Neosporin ([id number])] Allergy (Unknown, Verified 05/11/21 08:55) clopidogrel [From Plavix] Allergy (Unknown, Verified 05/11/21 08:55) gabapentin [From Neurontin] Allergy (Unknown, Verified 05/11/21 08:55) hydrochlorothiazide [From Hyzaar] Allergy (Unknown, Verified 05/11/21 08:55) latex Allergy (Unknown, Verified 05/11/21 08:55) losartan [From Hyzaar] Allergy (Unknown, Verified 05/11/21 08:55) neomycin [From Neosporin ([id number])] Allergy (Unknown, Verified 05/11/21 08:55) polymyxin B [From Neosporin ([id number])] Allergy (Unknown, Verified 05/11/21 08:55) propoxyphene [From Darvon] Allergy (Unknown, Verified 05/11/21 08:55) rosuvastatin [From Crestor] Allergy (Unknown, Verified 05/11/21 08:55) sulfamethoxazole [From Bactrim] Allergy (Unknown, Verified 05/11/21 08:55) trimethoprim [From Bactrim] Allergy (Unknown, Verified 05/11/21 08:55) No Dye Allergy (Uncoded 05/26/20 14:08) - Review of Systems ROS: No change since H&P - Vital Signs and I&O's Vital Signs: Temperature 98.3 F Pulse Rate 92 Respiratory Rate 17 Blood Pressure [RIGHT WRIST] 111/51 Blood Pressure [Right Arm] 153/66 Blood Pressure [Left Calf] 161/70 Blood Pressure [Right Calf] 123/58 Blood Pressure [Left Arm] 126/60 Blood Pressure 161/72 O2 Sat by Pulse Oximetry 98 Intake and Output: Intake & Output 12/16/21 12/17/21 12/18/21 12/19/21 11:59 11:59 11:59 11:59 Intake Total 2336 / 2336 2735 / 2735 2280 / 2280 2317 / 2317 Output Total 2350 / 2350 2620 / 2620 2500 / 2500 2700 / 2700 Balance -14 / -14 115 / 115 -220 / -220 -383 / -383 - Physical Exam Oriented: Person Eyes: Normal Ear: Normal Nose: Normal Throat: Normal Respiratory: Generalized, Diminished Cardiovascular: Normal : Normal Auscultation: Bowel Sounds: Normal Palpation: Normal Tenderness: Normal Skin: Normal Musculoskeletal: Normal Psychiatric: Normal Mood Description: Calm Affect: Normal Speech Pattern: Delayed - Laboratory and Diagnostics Result Diagrams: 12/19/21 05:08 12/19/21 09:03 Labs: 12/16/21 17:22 Blood Blood Culture - Preliminary 12/16/21 17:12 Blood Blood Culture - Preliminary 12/11/21 13:37 Blood Blood Culture - Final Enterococcus Faecalis 12/11/21 13:28 Blood Blood Culture - Final Enterococcus Faecalis 12/11/21 13:40 Urine,Catheterized Urine Culture - Final Escherichia Coli Laboratory WBC 8.7 X10^3/uL (3.6-10.0) 12/19/21 05:08 RBC 4.76 X10^6/uL (3.5-5.4) 12/19/21 05:08 Hgb 12.7 g/dL (12.0-16.0) 12/19/21 05:08 Hct 38.2 % (36.0-47.0) 12/19/21 05:08 MCV 80.2 fL (80.0-100.0) 12/19/21 05:08 MCH 26.7 pg (27.0-34.0) L 12/19/21 05:08 MCHC 33.3 g/dL (33.0-35.0) 12/19/21 05:08 RDW 21.0 % (11.6-16.5) H 12/19/21 05:08 Plt Count 213 X10^3/uL (150.0-450.0) 12/19/21 05:08 Plt Count Comment Adequate (ADEQUATE) 12/19/21 05:08 MPV 9.9 fL (7.4-11.0) 12/19/21 05:08 Neut % (Auto) 66.5 % (42.0-75.0) 12/19/21 05:08 Lymph % (Auto) 17.6 % (21.0-51.0) L 12/19/21 05:08 [place] % (Auto) 10.1 % (0.0-13.0) 12/19/21 05:08 Eos % (Auto) 4.9 % (0.9-2.9) H 12/19/21 05:08 Baso % (Auto) 0.9 % (0.2-1.0) 12/19/21 05:08 Neut # (Auto) 5.8 x10^3/uL (2.2-4.8) H 12/19/21 05:08 Lymph # (Auto) 1.5 X10^3/uL (1.3-2.9) 12/19/21 05:08 [place] # (Auto) 0.9 x10^3/uL (0.3-0.8) H 12/19/21 05:08 Eos # (Auto) 0.4 x10^3/uL (0.0-0.2) H 12/19/21 05:08 Baso # (Auto) 0.1 X10^3/uL (0.0-0.1) 12/19/21 05:08 Absolute Nucleated RBC 0.1 /100WBC 12/19/21 05:08 Total Counted 100 12/18/21 04:40 Neutrophils % (Manual) 73 % (39-76) 12/18/21 04:40 Band Neutrophils % 3 % (0-10) 12/18/21 04:40 Lymphocytes % (Manual) 13 % (13-43) 12/18/21 04:40 Monocytes % (Manual) 5 % (4-9) 12/18/21 04:40 Eosinophils % (Manual) 6 % (0-6) 12/18/21 04:40 Toxic Granulation Present 12/19/21 05:08 Plt Morphology Comment Normal (NORMAL) 12/19/21 05:08 RBC Morphology Abnormal (NORMAL) A 12/19/21 05:08 Hypochromasia Slight A 12/19/21 05:08 Anisocytosis 1+ A 12/19/21 05:08 Microcytosis Slight A 12/18/21 04:40 Target Cells Present 12/17/21 04:40 Rouleaux Present 12/19/21 05:08 PT 18.8 SECONDS (11.8-14.3) 12/12/21 01:00 INR Target Range - 12/12/21 01:00 INR 1.64 (0.8-1.3) H 12/12/21 01:00 APTT 38.6 SECONDS (22.9-36.5) H 12/12/21 01:00 PTT Comment - 12/12/21 01:00 Sample Site Rrad 12/11/21 12:22 ABG pH 7.420 (7.35-7.45) 12/11/21 12:22 ABG pCO2 43.0 mmHg (35.0-45.0) 12/11/21 12:22 ABG pO2 82.0 mmHg (80.0-100.0) 12/11/21 12:22 ABG HCO3 27.9 mmol/L (22-26) H 12/11/21 12:22 ABG O2 Saturation 96.0 % (90-100) 12/11/21 12:22 ABG Base Excess 3.0 mmol/L (-2.0-2.0) H 12/11/21 12:22 Candelario Test Pos 12/11/21 12:22 A-a Gradient 64.0 mmHg 12/11/21 12:22 FiO2 28.0 12/11/21 12:22 Blood Gas Comments Chun well ms 12/11/21 12:22 Sodium 133 mmol/L (136-145) L 12/19/21 05:08 Corrected Sodium 143 mmol/L (136-145) 12/19/21 05:08 Potassium 2.9 mmol/L (3.5-5.1) L* 12/19/21 05:08 Chloride 95 mmol/L (98-107) L 12/19/21 05:08 Carbon Dioxide 25.2 mmol/L (21-32) 12/19/21 05:08 BUN 17 mg/dL (7-18) 12/19/21 05:08 Creatinine 0.90 mg/dL (0.55-1.02) 12/19/21 05:08 Est GFR (MDRD) Af Amer > 60 (>60) 12/19/21 05:08 Est GFR (MDRD) Non-Af > 60 (>60) 12/19/21 05:08 Glucose 574 mg/dL (65-99) H* 12/19/21 09:03 POC Glucose (mg/dL) 546 mg/dL (65-99) H* 12/19/21 08:54 Lactic Acid 0.8 mmol/L (0.4-2.0) 12/13/21 05:35 Calcium 9.2 mg/dL (8.5-10.1) 12/19/21 05:08 Corrected Calcium 9.9 mg/dL (8.5-10.1) 12/19/21 05:08 Phosphorus 2.1 mg/dL (2.6-4.7) L 12/18/21 04:40 Magnesium 1.6 mg/dL (1.7-2.9) L 12/19/21 05:08 Total Bilirubin 0.30 mg/dL (0.2-1.0) 12/19/21 05:08 AST 15 Units/L (15-37) 12/19/21 05:08 ALT 20 Units/L (12-78) 12/19/21 05:08 Alkaline Phosphatase 73 Units/L (46-116) 12/19/21 05:08 Ammonia < 10 umol/L (11-32) L 12/11/21 13:37 Creatine Kinase 52 Units/L (26-192) 12/12/21 01:00 Troponin I High Sens 14.5 ng/L (4.0-60.0) 12/12/21 01:00 B-Natriuretic Peptide 69.8 pg/mL (0-79) 12/11/21 13:37 Total Protein 7.0 g/dL (6.4-8.2) 12/19/21 05:08 Albumin 3.1 g/dL (3.4-5.0) L 12/19/21 05:08 Globulin 3.9 g/dL (2.5-4.5) 12/19/21 05:08 Albumin/Globulin Ratio 0.8 Ratio (1.1-2.1) L 12/19/21 05:08 Prealbumin 21.2 mg/dL (18-35.7) 12/19/21 05:08 Triglycerides 253 mg/dL (0-150) H 12/18/21 04:40 Specimen Type Catherized urine 12/11/21 13:40 Urine Color Yellow (YELLOW) 12/11/21 13:40 Urine Appearance Cloudy (CLEAR) 12/11/21 13:40 Urine pH 5.0 (5.0 - 8.0) 12/11/21 13:40 Ur Specific [place] 1.025 (1.000-1.030) 12/11/21 13:40 Urine Protein 2+ (NEGATIVE) 12/11/21 13:40 Urine Glucose (UA) Negative (NEGATIVE) 12/11/21 13:40 Urine Ketones Negative (NEGATIVE) 12/11/21 13:40 Urine Blood 3+ (NEGATIVE) 12/11/21 13:40 Urine Nitrite Negative (NEGATIVE) 12/11/21 13:40 Urine Bilirubin Negative (NEGATIVE) 12/11/21 13:40 Urine Urobilinogen Normal (NORMAL) 12/11/21 13:40 Ur Leukocyte Esterase 3+ (NEGATIVE) 12/11/21 13:40 Urine RBC Tntc /HPF (0-3) A 12/11/21 13:40 Urine WBC Tntc /HPF (0-5) A 12/11/21 13:40 Ur Squamous Epith Cells Negative /HPF (NEGATIVE) 12/11/21 13:40 Ur Renal Epithelial Cell Rare /HPF (NEGATIVE) 12/11/21 13:40 Amorphous Sediment Trace /HPF (NEGATIVE) 12/11/21 13:40 Urine Bacteria 3+ /HPF (NEGATIVE) 12/11/21 13:40 Ur Culture Indicated? Yes/culture set up 12/11/21 13:40 Vancomycin Trough 30.9 ug/mL (15-20) H* 12/17/21 08:37 Random Vancomycin 13.8 ug/mL 12/19/21 05:08 Urine Opiates Screen Negative (NEG=<300) 12/11/21 13:40 Urine Methadone Screen Negative (NEG=<300) 12/11/21 13:40 Ur Barbiturates Screen Negative (NEG=<200) 12/11/21 13:40 Ur Phencyclidine Scrn Negative (NEG=<25) 12/11/21 13:40 Ur Amphetamines Screen Negative (NEG=<1000) 12/11/21 13:40 U Benzodiazepines Scrn Negative (NEG=<200) 12/11/21 13:40 Urine Cocaine Screen Negative (NEG=<300) 12/11/21 13:40 U Marijuana (THC) Screen Negative (NEG=<50) 12/11/21 13:40 Acetone, Semi-Quant Negative (NEGATIVE) 12/11/21 13:37 SARS-CoV-2 (PCR) Negative (NEGATIVE) 12/11/21 13:40 Influenza Type A (PCR) Negative (NEGATIVE) 12/11/21 13:40 Influenza Type B (PCR) Negative (NEGATIVE) 12/11/21 13:40 RSV (PCR) Negative (NEGATIVE) 12/11/21 13:40 - Plan (1) Sepsis Status: Acute Qualifiers: Sepsis type: sepsis due to unspecified organism Sepsis acute organ dysfunction status: unspecified Qualified Code(s): A41.9 - Sepsis, unspecified organism Plan: NORMAL SALINE AT KVO, TPN, ALBUMIN 25% IV DAILY, DUONEBS BID, PULMICORT NEBS BID, FORTAZ 1G IV TID, LOVENOX 40MG SC DAILY, OTBS ACHS, HUMULIN R SLIDING SCALE, LASIX 20MG IV BID, AND THE POTASSIUM AND MAGNESIUM PROTOCOLS. (2) Acute sinusitis Status: Acute Qualifiers: Sinusitis location: sphenoidal Recurrence: not specified as recurrent Qualified Code(s): J01.30 - Acute sphenoidal sinusitis, unspecified (3) UTI (urinary tract infection) Status: Acute Qualifiers: Urinary tract infection type: acute cystitis Hematuria presence: with hematuria Qualified Code(s): N30.01 - Acute cystitis with hematuria (4) Dehydration Status: Acute (5) Altered mental status Status: Acute Qualifiers: Altered mental status type: transient alteration of awareness (6) Renal failure Status: Chronic Qualifiers: Renal failure chronicity: acute on chronic Acute renal failure type: unspecified Chronic kidney disease stage: unspecified stage Qualified Code(s): N17.9 - Acute kidney failure, unspecified; N18.9 - Chronic kidney disease, unspecified (7) Facial cellulitis Status: Resolved (8) COPD (chronic obstructive pulmonary disease) with acute bronchitis Status: Chronic (9) Diabetes mellitus, type 2 Status: Chronic Qualifiers: Diabetes mellitus senior care insulin use: with senior care use Diabetes mellitus complication status: with kidney complications Diabetes mellitus complication detail: with chronic kidney disease Chronic kidney disease stage: unspecified stage Qualified Code(s): E11.22 - Type 2 diabetes mellitus with diabetic chronic kidney disease; 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
[2021-12-19] MEDS ORDERED: NS 100 ML IV 100 ML ONE (12:10)
[2021-12-19] MEDS ORDERED: PERCOCET TAB 5/325 MG PO PRN (14:32)
[2021-12-19] MEDS: MAGNESIUM SULFATE 1 GRAM/100 mL PREMIX 1 G/100 ML BAG IV PRN ×2 (15:03→17:24)
[2021-12-19] MEDS: CYMBALTA PO SCH (15:55)
[2021-12-19] MEDS: SINEMET (PLAIN) 25/100 MG PO SCH ×2 (15:56→21:33)
[2021-12-19] MEDS: JANUVIA PO SCH (15:56)
[2021-12-19] MEDS: LOPRESSOR TAB 25 MG PO SCH ×2 (15:56→20:34)
[2021-12-19] MEDS: SINGULAIR TAB 10 MG PO SCH (15:57)
[2021-12-19] MEDS: SYNTHROID 88 mcg TAB PO SCH (15:57)
[2021-12-19] MEDS: MORPHINE SULFATE INJ 2 MG INJ IVP PRN (15:57)
[2021-12-19] MEDS: XARELTO PO SCH (15:57)
[2021-12-19] MEDS: BENADRYL CAP 50 MG PO PRN (17:30)
[2021-12-19] MEDS ORDERED: SNACK - Diabetic Appropriate PO SCH (20:00)
[2021-12-19] MEDS: K-DUR TAB 20 MEQ PO SCH (20:36)
[2021-12-19] MEDS: PLETAL PO SCH (20:36)
[2021-12-19] MEDS ORDERED: ZOCOR TAB 20 MG PO SCH (21:00)
[2021-12-19] MEDS ORDERED: ARTIFICIAL TEARS DROPS OP SCH (21:00)
[2021-12-20] MEDS: NovoLIN R (or HumuLIN R) SUBCUT PRN ×3 (01:02→11:07)
[2021-12-20] MEDS: FORTAZ or TAZICEF VIAL INJ 1 G in NS 100 ML IV 100 ML IV SCH (05:40)
[2021-12-20] MEDS: SINEMET (PLAIN) 25/100 MG PO SCH (05:41)
[2021-12-20 05:45] LABS: ALANINE AMINOTRANSFERASE 8 Units/L (12-78); ALBUMIN 3.1 g/dL (3.4-5.0); ALKALINE PHOSPHATASE 65 Units/L (46-116); ASPARTATE AMINO TRANSFERASE 12 Units/L (15-37); BLOOD UREA NITROGEN 22 mg/dL (7-18); CALCIUM 9.3 mg/dL (8.5-10.1); CARBON DIOXIDE 22.4 mmol/L (21-32); CHLORIDE 96 mmol/L (98-107); COR NA(FOR HYPERGLY) 141 mmol/L (136-145); CREATININE 0.99 mg/dL (0.55-1.02); SODIUM 132 mmol/L (136-145); TOTAL PROTEIN 6.7 g/dL (6.4-8.2); eGFR NON BLACK RACES 59 (>60)
[2021-12-20] MEDS: K-RIDER 10 MEQ/NS 100 ML 10 MEQ/100 ML BAG IV PRN ×2 (06:04→10:35)
[2021-12-20] MEDS ORDERED: [UNRECOGNIZED DRUG - REMARK] IV SCH ×5 (08:00)
[2021-12-20] MEDS: PULMICORT NEB TX 0.5 MG NEB SCH (08:10)
[2021-12-20] MEDS: DUONEB 0.5 MG/3 MG (3 mL) NEB SCH (08:10)
[2021-12-20] MEDS: LOPRESSOR TAB 25 MG PO SCH (09:11)
[2021-12-20] MEDS: SINGULAIR TAB 10 MG PO SCH (09:11)
[2021-12-20] MEDS: JANUVIA PO SCH (09:12)
[2021-12-20] MEDS: CYMBALTA PO SCH (09:12)
[2021-12-20] MEDS: SYNTHROID 88 mcg TAB PO SCH (09:13)
[2021-12-20] MEDS: PLETAL PO SCH (09:13)
[2021-12-20] MEDS: ALBUMIN HUMAN 25%- 100 ML 100 ML IV SCH (09:14)
[2021-12-20] MEDS: ASTELIN NASAL SPRAY ENOSTRIL SCH (09:18)
[2021-12-20] MEDS: LOVENOX INJ 40 MG SYR SC SCH (09:18)
[2021-12-20] MEDS: XARELTO PO SCH (09:19)
[2021-12-20] MEDS: K-DUR TAB 20 MEQ PO SCH (09:20)
[2021-12-20] MEDS: LASIX IVP SCH (10:07)
[2021-12-20] MEDS: BENADRYL CAP 50 MG PO PRN (10:28)
[2021-12-20] MEDS: NS 1,000 ML IV 1,000 ML IV SCH (11:42)
[2021-12-20] MEDS: MORPHINE SULFATE INJ 2 MG INJ IVP PRN (12:10)
[2021-12-20 14:01] VITALS: BP 162/72
== END 2021-12-20 13:50 | DRG 872 ==
LOC: ER 11:59 → ICU 14:45
PROVIDERS: ADMIT Internal Medicine; ATTEND Internal Medicine
DX: R94.31 Abnormal electrocardiogram [ECG] [EKG]; Z20.822 Contact with and (suspected) exposure to COVID-19; N30.01 Acute cystitis with hematuria; R13.11 Dysphagia, oral phase; J44.0 Chronic obstructive pulmonary disease with (acute) lower respiratory infection; L03.211 Cellulitis of face; Z79.4 Long term (current) use of insulin; E11.65 Type 2 diabetes mellitus with hyperglycemia; B96.29 Other Escherichia coli [E. coli] as the cause of diseases classified elsewhere; E86.0 Dehydration; E11.22 Type 2 diabetes mellitus with diabetic chronic kidney disease; J20.8 Acute bronchitis due to other specified organisms; J01.30 Acute sphenoidal sinusitis, unspecified; I12.9 Hypertensive chronic kidney disease with stage 1 through stage 4 chronic kidney disease, or unspecified chronic kidney disease; R53.1 Weakness; N17.8 Other acute kidney failure; A41.81 Sepsis due to Enterococcus; R26.89 Other abnormalities of gait and mobility; N18.9 Chronic kidney disease, unspecified; R41.82 Altered mental status, unspecified